=== PATIENT | female | born 1980 | race African-American/Black ===

== ENCOUNTER 2020-11-23 20:13 | Emergency (ER) | payer OTHER, MEDICAID, SELFPAY ==
--- NOTE | ~2020-11-23 | CT_ITS ---
EXAMINATION: CT ABDOMEN AND PELVIS WITH CONTRAST CLINICAL INFORMATION: Flank pain COMPARISON: None TECHNIQUE: Multidetector volumetric images were obtained from the superior aspect of the liver through the pubic symphysis following administration 85 mL of Omnipaque 350 intravenous contrast. Sagittal and coronal reformatted images were obtained on the technologist's workstation. Oral contrast: No This CT examination was performed using dose optimization techniques as appropriate, variously including the following: *Automated exposure control *Adjustment of mA and/or kV according to patient size (this includes techniques or standardized protocols for targeted exams where dose is matched to indication/reason for exam; i.e. extremities or head) *Use of iterative reconstruction technique DLP: 743 mGy-cm FINDINGS: LUNG BASES: The visualized lung bases are unremarkable. LIVER, GALLBLADDER, AND BILIARY TREE: The liver is normal in size, shape, and attenuation. No focal hepatic lesion or biliary ductal dilatation is present. The gallbladder is unremarkable with no evidence of radiopaque gallstones, gallbladder wall thickening, or obvious pericholecystic inflammatory changes. PANCREAS: Unremarkable. SPLEEN: Unremarkable. ADRENAL GLANDS: Unremarkable. KIDNEYS AND URETERS: There is suggestion of a subtle striated nephrographic appearance of the right kidney. No hydronephrosis, hydroureter, or obstructing calculi seen. No perinephric stranding. BLADDER: Unremarkable. GASTROINTESTINAL TRACT: Small hiatal hernia is noted. The small and large bowel are unremarkable. The appendix is unremarkable. No free fluid or free air is seen. ABDOMINAL WALL: No significant hernia is appreciated. LYMPH NODES: Normal. VASCULAR: Unremarkable. PELVIC VISCERA: IUD is present in the uterus. Prominent appearance of the bilateral ovaries, also noted on prior pelvic ultrasound 05/10/2019; per review of prior notes, patient reports history of polycystic ovarian syndrome. OSSEOUS STRUCTURES: There is degenerative disc disease at L5-S1. CT/CT abdomen pelvis w con IMPRESSION: Suggestion of subtle started nephrographic appearance of the right kidney; correlation with urinalysis is recommended to assess for pyelonephritis. No hydronephrosis or obstructing calculus.
[2020-11-23 20:19] VITALS: BP 141/90; PULSE 108; RESP 18; TEMP 37.1; O2SAT 97; BMI 36.6
--- NOTE | 2020-11-23 22:06 | ED_ITS ---
HPI - General Adult General Chief complaint: General Medical Stated complaint: Flank pain Time Seen by Provider: 11/23/20 22:02 Source: patient Mode of arrival: ambulatory History of Present Illness HPI narrative: This is a 40-year-old female with history of hypertension, diabetes, asthma presents with onset lower back discomfort that started this morning and thus she states that it is worse with deep inspiration without associated fevers, chills, nausea, vomiting, diarrhea, urinary pain/burning/frequency and states that the pain has now progressed to wrapping around into the anterior abdomen. She denies any traumatic injury to her back and states that although she does have back problems this does not feel like before and states that she now is experiencing discomfort when she exhales as well but denies any change in pain character when having a bowel movement this morning. Related Data Previous Rx's Medication Instructions Recorded cyclobenzaprine 10 mg PO BEDTIME PRN #3 tab 11/24/20 ketorolac 10 mg PO Q6H PRN 5 Days #20 tab 11/24/20 Allergies Allergy/AdvReac Type Severity Reaction Status Date / Time lisinopril [LISINOPRIL] Allergy Severe SHORTNESS Unverified 05/29/20 19:37 OF BREATH Review of Systems Review of Systems: Pertinent positives and negatives as stated in HPI 10 point review of systems is otherwise negative. PMFSH Past Medical History Source: nursing notes reviewed Medical History Asthma Diabetes High cholesterol Hypertension Mood disorder Social History Social History Alcohol intake: current Alcohol intake frequency: a few times a week Smoking Status: Never smoker Use of substances other than those prescribed or required for medical reasons: No Advance Directives: No Advance Directives Information Provided: No Physical Exam Vital Signs: Vital Signs: Last Vital Signs Temp 98.7 F 11/23/20 22:31 Pulse 101 H 11/23/20 22:31 Resp 18 11/23/20 22:31 BP 132/80 11/23/20 22:31 Pulse Ox 97 11/23/20 22:31 Body Mass Index 36.6 VITAL SIGNS: Reviewed. GENERAL: Well developed, well nourished, in no acute distress. HEAD: Normocephalic/atraumatic OROPHARYNX: no oral lesions noted, posterior pharynx clear NECK: Supple, no adenopathy LUNGS: Normal breath sounds. No adventitious sounds or accessory muscle use. SpO2<97> CARDIOVASCULAR: Regular rate and rhythm without noted murmurs ABDOMEN: Obese, Soft, tenderness across mid to left upper quadrant abdomen without rebound, non-distended with bowel sounds, no CVA tenderness BACK: No midline vertebral tenderness, but paraspinal tenderness on palpation SKIN: Inspection of the skin reveals no rashes, straight leg test negative NEUROLOGIC: Alert and oriented x 4. Course Course Course Narrative: This is a 40-year-old female with history and clinical presentation acute on chronic back pain, UTI, renal colic, pyelonephritis, diverticulitis, pancreatitis. Review of all investigations negative for acute findings other than noted hematuria that on CT scan does not appear to correlate with hydronephrosis nor evidence of a stone. On re-evaluation patient has had minimal improvement in her symptoms, and CT read as evaluation for possible pyelonephritis however patient has had no associated symptoms and history as well as labs are inconsistent with a pyelonephritis diagnosis. All results and findings were discussed with the patient at bedside and she was strongly encouraged to follow- up with her primary care provider in the morning for further evaluation. Will empirically address as acute on chronic back pain with muscle spasm. Medical Decision Making Lab Data Result diagrams: 11/23/20 22:43 11/23/20 22:43 Labs: Lab Results 11/23/20 11/23/20 11/23/20 Range/Units 22:43 22:43 22:43 WBC 8.7 (4.8-10.8) X10*3/uL RBC 4.24 (4.20-5.50) X10*6/uL Hgb 11.3 L (12.0-16.0) g/dl Hct 35.7 L (37-47) % MCV 84.2 (80-98) fL MCH 26.7 L (27.0-33.0) pg MCHC 31.7 (31.0-35.0) g/dl RDW 14.5 (11.0-16.0) % Plt Count 282 (160-400) X10*3/uL MPV 10.0 (9.4-12.3) fL Immature Gran % (Auto) 0.2 (0.0-0.4) % Neut % (Auto) 59.6 (45-73) % Lymph % (Auto) 27.1 (20-40) % [place] % (Auto) 10.8 (2-11) % Eos % (Auto) 2.1 (0-4) % Baso % (Auto) 0.2 (0-2) % Lymph # (Auto) 2.4 (1.2-4.9) X10*3/uL [place] # (Auto) 0.9 (0.1-1.2) X10*3/uL Eos # (Auto) 0.2 (0.0-0.4) X10*3/uL Baso # (Auto) 0.0 (0.0-0.2) X10*3/uL Abs Immat Gran (auto) 0.02 (0.00-0.03) X10*3/uL Absolute Neuts (auto) 5.2 (2.0-8.3) X10*3/uL Absolute Nucleated RBC 0.000 (0.0-0.012) X10*3/uL Nucleated RBC % (auto) 0.0 (0.0-0.2) /100WBC Sodium 137 (135-145) mmol/L Potassium 3.6 (3.3-5.1) mmol/L Chloride 97 (96-108) mmol/L Carbon Dioxide 30 H (22-29) mmol/L Anion Gap 14 (12-20) BUN 16 (9-16) mg/dL Creatinine 1.16 (0.5-1.4) mg/dL Estim Creat Clear Calc 68.2 Estimated GFR 52 Random Glucose 266 H (60-115) mg/dL Calcium 8.8 (8.4-10.2) mg/dL Total Bilirubin 0.5 (0.0-1.0) mg/dL AST 28 (5-31) U/L ALT 29 (0-31) U/L Alkaline Phosphatase 137 H (39-117) U/L Total Protein 7.2 (6.5-8.0) g/dL Albumin 3.8 (3.5-5.0) g/dL Urine Color YELLOW Urine Appearance CLEAR Urine pH 6.0 (5.0-8.0) Ur Specific [place] 1.020 (1.005-1.025) Urine Protein NEG (NEG-TRACE) MG/DL Urine Glucose (UA) 250 H (NEG) MG/DL Urine Ketones NEG (NEG) MG/DL Urine Blood 3+ H (NEG) Urine Nitrite NEG (NEG) Ur Leukocyte Esterase NEG (NEG) Urine RBC 5-9 H (0) /HPF Urine WBC 0 (0-4) /HPF Ur Squamous Epith Cells TRACE /LPF Urine Bacteria NONE /LPF Urine Test (NEGATIVE) 11/23/20 Range/Units 22:43 WBC (4.8-10.8) X10*3/uL RBC (4.20-5.50) X10*6/uL Hgb (12.0-16.0) g/dl Hct (37-47) % MCV (80-98) fL MCH (27.0-33.0) pg MCHC (31.0-35.0) g/dl RDW (11.0-16.0) % Plt Count (160-400) X10*3/uL MPV (9.4-12.3) fL Immature Gran % (Auto) (0.0-0.4) % Neut % (Auto) (45-73) % Lymph % (Auto) (20-40) % [place] % (Auto) (2-11) % Eos % (Auto) (0-4) % Baso % (Auto) (0-2) % Lymph # (Auto) (1.2-4.9) X10*3/uL [place] # (Auto) (0.1-1.2) X10*3/uL Eos # (Auto) (0.0-0.4) X10*3/uL Baso # (Auto) (0.0-0.2) X10*3/uL Abs Immat Gran (auto) (0.00-0.03) X10*3/uL Absolute Neuts (auto) (2.0-8.3) X10*3/uL Absolute Nucleated RBC (0.0-0.012) X10*3/uL Nucleated RBC % (auto) (0.0-0.2) /100WBC Sodium (135-145) mmol/L Potassium (3.3-5.1) mmol/L Chloride (96-108) mmol/L Carbon Dioxide (22-29) mmol/L Anion Gap (12-20) BUN (9-16) mg/dL Creatinine (0.5-1.4) mg/dL Estim Creat Clear Calc Estimated GFR Random Glucose (60-115) mg/dL Calcium (8.4-10.2) mg/dL Total Bilirubin (0.0-1.0) mg/dL AST (5-31) U/L ALT (0-31) U/L Alkaline Phosphatase (39-117) U/L Total Protein (6.5-8.0) g/dL Albumin (3.5-5.0) g/dL Urine Color Urine Appearance Urine pH (5.0-8.0) Ur Specific [place] (1.005-1.025) Urine Protein (NEG-TRACE) MG/DL Urine Glucose (UA) (NEG) MG/DL Urine Ketones (NEG) MG/DL Urine Blood (NEG) Urine Nitrite (NEG) Ur Leukocyte Esterase (NEG) Urine RBC (0) /HPF Urine WBC (0-4) /HPF Ur Squamous Epith Cells /LPF Urine Bacteria /LPF Urine Test NEGATIVE (NEGATIVE) Discharge Plan Discharge Clinical Impression: Back pain Qualifiers: Back pain location: low back pain Chronicity: acute Back pain laterality: bilateral Sciatica presence: without sciatica Qualified Code(s): M54.5 - Low back pain Patient Disposition: Home, Self-Care Instructions: Back Pain (ED), Lower Back Exercises (ED), Muscle Spasm (ED) Additional Instructions: 1. Tylenol 1000 mg, orally, every 6 hours as needed for pain control. Do not exceed 4000 mg within 24 hours. 2. Lidocaine patch, these are available in her B [facility] is/[facility] and should be apply to area of maximal tenderness as directed on the outside packaging. 3. Please follow-up with your primary care provider by calling the office 1st thing in the morning. Do not hesitate to return emergency room for any acute worsening of your symptoms. Prescriptions: New ketorolac 10 mg tablet 10 mg PO Q6H PRN (Reason: pain) 5 Days Qty: 20 RF: 0 cyclobenzaprine 10 mg tablet 10 mg PO BEDTIME PRN (Reason: muscle spasm) Qty: 3 RF: 0 Referrals: Alona Hamilton MD [Primary Care Provider] - 2 days (Re-evaluation after presentation for lower back pain and negative workup other than findings of hematuria and unusual right kidney nephrogram.)
[2020-11-23 22:31] VITALS: BP 132/80; PULSE 101; RESP 18; TEMP 37.1; O2SAT 97
[2020-11-23 22:57] LABS: MANUAL DIFF FLAG NO
[2020-11-23 23:01] LABS: Basophils Percent Auto 0.2 % (0-2); Eosinophils Absolute Auto 0.2 X10*3/uL (0.0-0.4); Eosinophils Percent Auto 2.1 % (0-4); Hematocrit 35.7 % (37-47); Hemoglobin 11.3 g/dl (12.0-16.0); Imm Gran Abs Auto 0.02 X10*3/uL (0.00-0.03); Imm Gran Pct Auto 0.2 % (0.0-0.4); Lymphocytes Absolute Auto 2.4 X10*3/uL (1.2-4.9); Lymphocytes Percent Auto 27.1 % (20-40); Mean Corpuscular HGB Conc 31.7 g/dl (31.0-35.0); Mean Corpuscular Hemoglobin 26.7 pg (27.0-33.0); Mean Corpuscular Volume 84.2 fL (80-98); Monocytes Absolute Auto 0.9 X10*3/uL (0.1-1.2); Monocytes Percent Auto 10.8 % (2-11); Neutrophils Absolute Auto 5.2 X10*3/uL (2.0-8.3); Neutrophils Percent Auto 59.6 % (45-73); Platelet Count 282 X10*3/uL (160-400); Red Blood Count 4.24 X10*6/uL (4.20-5.50); Red Cell Distribution Width 14.5 % (11.0-16.0); White Blood Count 8.7 X10*3/uL (4.8-10.8)
[2020-11-23 23:03] LABS: Glucose Urine UA 250 MG/DL (NEG); Leukocyte Esterase Urine NEG (NEG); Nitrite Urine NEG (NEG); Urine Blood 3+ (NEG); Urine Ketones NEG (NEG); Urine Protein NEG (NEG-TRACE)
[2020-11-23 23:05] LABS: Color Urine YELLOW
[2020-11-23] MEDS: Ketorolac Tromethamine 15 MG/ML VIAL IVPUSH (23:05)
[2020-11-23] MEDS: Lidocaine 4 % Patch ADH..PATCH 1 PATCH TRANSDERMA (23:05)
[2020-11-23 23:06] LABS: Appearance Urine CLEAR; UPreg QC Valid YES; Urine Pregnancy NEGATIVE (NEGATIVE)
[2020-11-23] MEDS: Acetaminophen 325 MG TABLET 975 MG PO (23:06)
[2020-11-23 23:12] LABS: Squamous Epithelial Cell Urine TRACE /LPF; WBC Urine 0 /HPF (0-4)
[2020-11-23 23:29] LABS: Alanine Aminotransferase 29 U/L (0-31); Albumin Level 3.8 g/dL (3.5-5.0); Alkaline Phosphatase 137 U/L (39-117); Anion Gap 14 (12-20); Aspartate Amino Transferase 28 U/L (5-31); Bilirubin Total 0.5 mg/dL (0.0-1.0); Blood Urea Nitrogen 16 mg/dL (9-16); Calcium 8.8 mg/dL (8.4-10.2); Carbon Dioxide 30 mmol/L (22-29); Chloride 97 mmol/L (96-108); Creatinine Clr Calc Pharmacy 68.2; Estimated Glomerular Filt Rate 52; Glucose Random 266 mg/dL (60-115); Potassium 3.6 mmol/L (3.3-5.1); Sodium 137 mmol/L (135-145); Total Protein 7.2 g/dL (6.5-8.0)
[2020-11-24] MEDS: 0.9 % Sodium Chloride 1,000 ML 999 ML IV (00:15)
== END 2020-11-24 02:06 | disposition home or self-care (01) ==
PROVIDERS: Emergency Provider Student in an Organized Health Care Education/Training Program; PCP Family Medicine
DX: M54.5 Low back pain (principal); M62.830 Muscle spasm of back; I10 Essential (primary) hypertension; E11.9 Type 2 diabetes mellitus without complications; J45.909 Unspecified asthma, uncomplicated
CPT/HCPCS: 36415; 74177; 80053; 81001; 81003; 81025; 85025; 96361; 96374; 99284; J1885; Q9967

== ENCOUNTER 2021-06-10 15:35 | Outpatient (REF) | payer OTHER, MEDICAID, SELFPAY ==
--- NOTE | ~2021-06-10 | MM_ITS ---
EXAMINATION: MM SCREENING DIGITAL BREAST TOMOSYNTHESIS, BILATERAL CLINICAL INFORMATION: Screening. Asymptomatic. The lifetime risk of breast cancer based on the Tyrer-Cuzick Model is 19.7%. COMPARISON: Mammography: 05/03/2019 (baseline) TECHNIQUE: Digital breast tomosynthesis is performed in both the craniocaudal and mediolateral oblique views along with computer-aided detection (CAD). Synthesized 2D images are generated from the tomosynthesis. FINDINGS: There are scattered areas of fibroglandular density (ACR BI-RADS breast composition Category b). There are no significant masses, abnormal calcifications, or other abnormalities. The axilla and skin contours are unremarkable. No significant changes from baseline exam. MM/MM tomosynthesis screening BI IMPRESSION: No mammographic evidence of malignancy. ASSESSMENT: BI-RADS 1: Negative RECOMMENDATION: Routine annual mammography screening. This patient's information was entered into a reminder system with a target due date for their next mammogram.
== END 2021-06-10 15:36 | disposition home or self-care (01) ==
LOC: HO.MAMMO 15:35
PROVIDERS: Visit Provider Family Medicine
DX: Z12.31 Encounter for screening mammogram for malignant neoplasm of breast (principal)
CPT/HCPCS: 77063; 77067

== ENCOUNTER 2021-12-01 14:50 | Outpatient (REF) | payer OTHER, SELFPAY ==
--- NOTE | ~2021-12-01 | XR_ITS ---
EXAMINATION: RIGHT SHOULDER AND CERVICAL SPINE CLINICAL INFORMATION: Cervical pain and right shoulder pain. COMPARISON: None TECHNIQUE: 6 views cervical spine 4 views right shoulder FINDINGS: CERVICAL SPINE: There is mild straightening of cervical lordosis. The vertebral heights and alignment is normal. The disc heights are normal. There is minimal ventral spondylosis C5-C6 disc level. The neural foramina are widely patent on oblique views. No visible acute fracture, dislocation or subluxation seen. RIGHT SHOULDER: There is mild loss of glenohumeral joint and AC joint space with lateral right acetabular and greater tuberosity enthesophyte spur. No visible acute fracture, dislocation or lytic process seen. XR/XR shoulder RT min 2V IMPRESSION: Mild degenerative changes right lateral joint with enthesophytes along the lateral acromion and greater tuberosity. Mild straightening of cervical lordosis with minimal ventral spondylosis C5-C6 disc level.
--- NOTE | ~2021-12-01 | XR_ITS ---
EXAMINATION: RIGHT SHOULDER AND CERVICAL SPINE CLINICAL INFORMATION: Cervical pain and right shoulder pain. COMPARISON: None TECHNIQUE: 6 views cervical spine 4 views right shoulder FINDINGS: CERVICAL SPINE: There is mild straightening of cervical lordosis. The vertebral heights and alignment is normal. The disc heights are normal. There is minimal ventral spondylosis C5-C6 disc level. The neural foramina are widely patent on oblique views. No visible acute fracture, dislocation or subluxation seen. RIGHT SHOULDER: There is mild loss of glenohumeral joint and AC joint space with lateral right acetabular and greater tuberosity enthesophyte spur. No visible acute fracture, dislocation or lytic process seen. XR/XR cervical spine 4V IMPRESSION: Mild degenerative changes right lateral joint with enthesophytes along the lateral acromion and greater tuberosity. Mild straightening of cervical lordosis with minimal ventral spondylosis C5-C6 disc level.
[2021-12-01 15:43] LABS: Hematocrit 38.5 % (37.0-47.0); Hemoglobin 12.2 g/dl (12.0-16.0); Mean Corpuscular HGB Conc 31.7 g/dl (31.0-35.0); Mean Corpuscular Hemoglobin 27.9 pg (27.0-33.0); Mean Corpuscular Volume 87.9 fL (80.0-98.0); Mean Platelet Volume 10.2 fL (9.4-12.3); Platelet Count 305 X10*3/uL (160-400); Red Blood Count 4.38 X10*6/uL (4.20-5.50); Red Cell Distribution Width 12.6 % (11.0-16.0)
[2021-12-01 16:03] LABS: Estimated Average Glucose 200 mg/dL; Hemoglobin A1c % 8.6 %
[2021-12-01 16:13] LABS: Alanine Aminotransferase 15 U/L (0-31); Albumin Level 4.3 g/dL (3.5-5.0); Alkaline Phosphatase 102 U/L (39-117); Anion Gap 15 (12-20); Aspartate Amino Transferase 14 U/L (5-31); Bilirubin Total 0.5 mg/dL (0.0-1.0); Blood Urea Nitrogen 12 mg/dL (9-16); Calcium 9.7 mg/dL (8.4-10.2); Carbon Dioxide 30 mmol/L (22-29); Chloride 99 mmol/L (96-108); Cholesterol 139 mg/dL; Estimated Glomerular Filt Rate > 60; Glucose Random 94 mg/dL (60-115); HDL Cholesterol 40 mg/dL; LDL Cholesterol Calculated 82 mg/dl; Potassium 3.7 mmol/L (3.3-5.1); Rheumatoid Factor < 15.0 IU/mL (<15.0); Sodium 140 mmol/L (135-145); Total Protein 7.7 g/dL (6.5-8.0); Triglycerides 88 mg/dL
[2021-12-01 16:21] LABS: Creatinine Urine 176.38 mg/dL; Microalbum/Creatinine Ratio Ur 83.3 ug/mg cr
[2021-12-01 16:22] LABS: Erythrocyte Sedimentation Rate 49 MM/HR (0-20)
[2021-12-01 16:33] LABS: TSH reflex Free T4 1.01 uIU/mL (0.32-4.0)
[2021-12-02 07:46] LABS: HIV AB/AG Nonreactive (Nonreactive); HIV Num 1 0.06 S/CO (0.00-0.99)
[2021-12-02 08:17] LABS: ~HepC Num1 0.15 S/CO (0.00-0.79); ~Hepatitis C Antibody Nonreactive (Nonreactive)
[2021-12-03 14:16] LABS: Vitamin D 25-OH Total 22.8 ng/mL (>30)
[2021-12-03 15:30] LABS: Anti Nuclear Antibody Screen NEGATIVE (NEGATIVE)
== END 2021-12-01 14:51 | disposition home or self-care (01) ==
LOC: HO.LAB 14:50
PROVIDERS: PCP Family Medicine; Visit Provider Family Medicine
DX: M25.511 Pain in right shoulder (principal); M54.2 Cervicalgia; M54.50 Low back pain, unspecified; E11.65 Type 2 diabetes mellitus with hyperglycemia; I10 Essential (primary) hypertension; Z11.3 Encounter for screening for infections with a predominantly sexual mode of transmission
CPT/HCPCS: 36415; 72050; 73030; 80053; 80061; 82043; 82306; 83036; 84443; 85027; 85652; 86038; 86039; 86431; 86803; 87389

== ENCOUNTER 2021-12-08 15:00 | Outpatient (RCR) | payer OTHER, SELFPAY | END 2022-04-08 16:35 | disposition home or self-care (01) | LOC: HO.PTCHIC 15:00 | PROVIDERS: PCP Family Medicine; Visit Provider Family Medicine | DX: M25.511 Pain in right shoulder (principal) | CPT/HCPCS: 97014; 97110; 97140; 97161 ==

== ENCOUNTER 2022-09-16 13:46 | Outpatient (REF) | payer OTHER, SELFPAY ==
--- NOTE | ~2022-09-16 | XR_ITS ---
EXAMINATION: XR CHEST CLINICAL INFORMATION: Persistent cough COMPARISON: Chest x-ray on 12/17/2019 TECHNIQUE: 2 views of the chest were obtained. FINDINGS: No significant abnormality is noted involving the heart, lungs, mediastinum, bony thorax or soft tissues. XR/XR chest 2V IMPRESSION: Unremarkable examination.
== END 2022-09-16 13:47 | disposition home or self-care (01) ==
LOC: HO.XRAY 13:46
PROVIDERS: PCP Family Medicine; Visit Provider Family Medicine
DX: U07.1 COVID-19 (principal); J45.21 Mild intermittent asthma with (acute) exacerbation
CPT/HCPCS: 71046

== ENCOUNTER 2022-12-10 16:58 | Outpatient (REF) | payer OTHER, SELFPAY ==
--- NOTE | ~2022-12-10 | XR_ITS ---
EXAMINATION: XR ELBOW, RIGHT CLINICAL INFORMATION: Atraumatic right elbow pain. COMPARISON: None available. TECHNIQUE: AP, lateral, and oblique views of the right elbow. FINDINGS: There is no evidence of acute fracture or dislocation of the right elbow. No right elbow effusion is noted. No significant soft tissue swelling is seen. No definite evidence of calcific epicondylitis noted. Joint spaces maintained. XR/XR elbow RT min 3V IMPRESSION: No significant right elbow abnormality identified.
== END 2022-12-10 16:59 | disposition home or self-care (01) ==
LOC: HO.XRAY 16:58
PROVIDERS: PCP Family Medicine; Visit Provider Emergency Medicine
DX: M25.521 Pain in right elbow (principal)
CPT/HCPCS: 73080

== ENCOUNTER 2023-01-03 14:46 | Inpatient (IN) | payer SELFPAY ==
--- NOTE | ~2023-01-03 | US_ITS ---
EXAMINATION: US VENOUS ULTRASOUND WITH DOPPLER LOWER EXTREMITY, BILATERAL CLINICAL INFORMATION: Bilateral lower extremity pain. COMPARISON: None available. TECHNIQUE: Ultrasound of the deep veins is performed from the hip to the calf with compression sonography and color and pulse Doppler assessment. Spectral analysis with color-flow imaging is performed. FINDINGS: RIGHT: There is normal venous compression and respiratory variation and augmented flow. The visualized common femoral vein, superficial femoral vein, profunda femoral vein, popliteal vein, and the trifurcation region shows no evidence of deep venous thrombosis. There is no significant popliteal fossa cyst. LEFT: There is normal venous compression and respiratory variation and augmented flow. The visualized common femoral vein, superficial femoral vein, profunda femoral vein, popliteal vein, and the trifurcation region shows no evidence of deep venous thrombosis. There is no significant popliteal fossa cyst. If the patient's symptoms persist, followup ultrasound in 5 days 7 days might be of value to exclude proximal propagation from a non-visualized calf vein. US/US venous duplex LE BI IMPRESSION: No DVT demonstrated in the bilateral lower extremities.
[2023-01-03 15:36] VITALS: BP 172/110; PULSE 118; RESP 20; TEMP 36.6; O2SAT 98; BMI 35.1
--- NOTE | 2023-01-03 15:37 | ED.PSYCH ---
HPI - Psych General Stated Complaint: crisis si Time Seen by Provider: 01/03/23 15:37 Source: patient Mode of arrival: ambulatory Limitations: no limitations History of Present Illness HPI Narrative: 42 yo female with history of DM, HTN, asthma who presents to the ER for evaluation of suicidal ideation. complaint: suicidal ideation and feels depressed Related Data Previous Rx's Medication Instructions Recorded cyclobenzaprine 10 mg tablet 10 mg PO BEDTIME PRN muscle spasm 11/24/20 #3 tabs ketorolac 10 mg tablet 10 mg PO Q6H PRN pain 5 days #20 11/24/20 tabs Allergies Allergy/AdvReac Type Severity Reaction Status Date / Time lisinopril [LISINOPRIL] Allergy Severe SHORTNESS Unverified 05/29/20 19:37 OF BREATH PMFSH Past Medical History Medical History Asthma Diabetes High cholesterol Hypertension Mood disorder Social History Social History Alcohol intake: current Alcohol intake frequency: a few times a week Discharge Plan Discharge Prescriptions: No Action ketorolac 10 mg tablet 10 mg PO Q6H PRN (Reason: pain) 5 Days Qty: 20 0RF Rx Instructions: Patient received IV Toradol in the emergency room. cyclobenzaprine 10 mg tablet 10 mg PO BEDTIME PRN (Reason: muscle spasm) Qty: 3 0RF
--- NOTE | 2023-01-03 15:49 | ECG_ITS ---
Test Reason : CHEST PAIN Blood Pressure : / mmHG Vent. Rate : 110 BPM Atrial Rate : 110 BPM P-R Int : 168 ms QRS Dur : 068 ms QT Int : 344 ms P-R-T Axes : 044 -26 038 degrees QTc Int : 465 ms Sinus tachycardia Otherwise normal ECG When compared with ECG of 28-OCT-2018 01:25, No significant changes seen Referred By: Yun Livingston Electronically Signed By:Winston Roberts
[2023-01-03 16:01] LABS: MANUAL DIFF FLAG NO
[2023-01-03 16:06] LABS: Basophils Percent Auto 0.5 % (0-2); Eosinophils Absolute Auto 0.1 X10*3/uL (0.0-0.4); Eosinophils Percent Auto 1.7 % (0-4); Hematocrit 40.1 % (37.0-47.0); Hemoglobin 13.2 g/dl (12.0-16.0); Imm Gran Abs Auto 0.01 X10*3/uL (0.00-0.03); Imm Gran Pct Auto 0.2 % (0.0-0.4); Lymphocytes Absolute Auto 2.8 X10*3/uL (1.2-4.9); Lymphocytes Percent Auto 46.9 % (20-40); Mean Corpuscular HGB Conc 32.9 g/dl (31.0-35.0); Mean Corpuscular Hemoglobin 28.6 pg (27.0-33.0); Mean Platelet Volume 10.2 fL (9.4-12.3); Monocytes Absolute Auto 0.5 X10*3/uL (0.1-1.2); Monocytes Percent Auto 7.6 % (2-11); Neutrophils Absolute Auto 2.6 x10*3/uL (2.0-8.3); Neutrophils Percent Auto 43.1 % (45-73); Platelet Count 323 X10*3/uL (160-400); Red Blood Count 4.61 X10*6/uL (4.20-5.50); Red Cell Distribution Width 12.8 % (11.0-16.0)
--- NOTE | 2023-01-03 16:19 | ED_ITS ---
HPI - Psych General Chief Complaint: Psychiatric Symptoms <HOLLEY Bonilla - Last Filed: 01/03/23 20:48> Stated Complaint: crisis si <HOLLEY Bonilla - Last Filed: 01/03/23 20:48> Time Seen by Provider: 01/03/23 15:37 <HOLLEY Bonilla - Last Filed: 01/03/23 20:48> Source: patient <HOLLEY Bonilla - Last Filed: 01/03/23 20:48> Mode of arrival: ambulatory <HOLLEY Bonilla Last Filed: 01/03/23 20:48> Limitations: no limitations <HOLLEY Bonilla Last Filed: 01/03/23 20:48> History of Present Illness HPI Narrative: 42 year old F with PMH of asthma, HTN, hyperlipidemia, mood disorder and type 2 diabetes presents to the ED with anxiety and suicidal ideation for a few days, worsening due to increasing life stressors. Denies visual, auditory and auditory hallucinations. Denies any drug, alcohol or tobacco use. Patient does report suicidal ideation without a particular plan, however, denies homicidal ideation. Patient does additionally endorse generalized tremor with panic attacks and palpitations when she becomes anxious. Denies any other medical complaints at this time. <HOLLEY Bonilla Last Filed: 01/03/23 20:48> Related Data Home Medications: Home Medications Medication Instructions Recorded Confirmed amlodipine 10 mg tablet 10 mg PO DAILY 01/03/23 01/03/23 escitalopram oxalate 20 mg tablet 20 mg PO DAILY 01/03/23 01/03/23 hydrochlorothiazide 25 mg tablet 25 mg PO DAILY 01/03/23 01/03/23 lamotrigine 150 mg tablet 150 mg PO BID 01/03/23 01/03/23 metformin 500 mg tablet 1,000 mg PO BID 01/03/23 01/03/23 omeprazole 20 mg capsule,delayed 20 mg PO DAILY 01/03/23 01/03/23 release quetiapine 100 mg tablet 100 mg PO BEDTIME 01/03/23 01/03/23 rosuvastatin 20 mg tablet 20 mg PO BEDTIME 01/03/23 01/03/23 valsartan 160 mg tablet 160 mg PO DAILY 01/03/23 01/03/23 <HOLLEY Bonilla - Last Filed: 01/03/23 20:48> Allergies/Adverse Reactions: Allergies Allergy/AdvReac Type Severity Reaction Status Date / Time lisinopril [LISINOPRIL] Allergy Severe SHORTNESS Unverified 05/29/20 19:37 OF BREATH <HOLLEY Bonilla - Last Filed: 01/03/23 20:48> Review of Systems Review of Systems: Constitutional : No Fever, No Chills ENT/Mouth : No Ear Pain, No Nasal Congestion, No sore throat Eyes: No Eye Pain, No Swelling, No Redness Cardiovascular : No Chest Pain, No SOB Respiratory : No Cough, No Sputum, No Dyspnea Gastrointestinal : No Nausea, No Vomiting, No Diarrhea, No Hematochezia, No Melena Genitourinary : No Dysuria, No Urinary Frequency, No Hematuria Musculoskeletal : No Myalgias Skin : No Skin Lesions, No rash Neuro : No Weakness, No Numbness, No Paresthesias, No Dizziness, No Headache Psych : positive Anxiety, positive Depression, positive SI, no HI All other systems reviewed and are negative <HOLLEY Bonilla - Last Filed: 01/03/23 20:48> Yes all other systems are reviewed and are negative <HOLLEY Bonilla Last Filed: 01/03/23 20:48> [facility] Past Medical History Attestation statement: The following information was validated with the patient. <HOLLEY Bonilla - Last Filed: 01/03/23 20:48> Source: old records reviewed and nursing notes reviewed <HOLLEY Bonilla - Last Filed: 01/03/23 20:48> Medical History: Medical History Asthma Diabetes High cholesterol Hypertension Mood disorder <HOLLEY Bonilla Last Filed: 01/03/23 20:48> Social History Social History: Social History Alcohol intake: current Alcohol intake frequency: a few times a week Advance Directives: No Advance Directives Information Provided: No Healthcare Proxy: No Guardian: No <HOLLEY Bonilla - Last Filed: 01/03/23 20:48> Physical Exam Vital Signs: Vital Signs: Last Vital Signs Temp 98.3 F 01/04/23 06:33 Pulse 98 01/04/23 06:33 Resp 18 01/04/23 06:33 BP 150/94 H 01/04/23 06:33 Pulse Ox 98 01/04/23 06:33 O2 Del Method Room Air 01/04/23 06:33 BMI result Body Mass Index 35.1 Hypertension and tachycardia, likely secondary to anxiety <HOLLEY Bonilla - Last Filed: 01/03/23 20:48> Vital Signs: Last Vital Signs Temp 98.3 F 01/04/23 06:33 Pulse 98 01/04/23 06:33 Resp 18 01/04/23 06:33 BP 150/94 H 01/04/23 06:33 Pulse Ox 98 01/04/23 06:33 O2 Del Method Room Air 01/04/23 06:33 BMI result Body Mass Index 35.1 <Deepali Rubio MD - Last Filed: 01/04/23 07:13> Appearance: Alert.? Oriented X3.? No acute distress.? Head: Normocephalic, atraumatic, no step-offs or deformities CVS: Rapid regular rhythm, rate around 110, likely sinus tachycardia Pulses normal.? Respiratory: No respiratory distress.? Breath sounds normal.? Abdomen: Soft and nontender.? Skin: Skin warm and dry.? Normal skin color.? Normal skin turgor.? Extremities: No lower extremity edema.? No calf ttp. 5/5 strength to bilateral upper and lower extremities Neuro: Oriented X 3.? No motor deficit.? No sensory deficit. CN 2-12 intact <HOLLEY Bonilla - Last Filed: 01/03/23 20:48> Course Reevaluation(s) Reevaluation #1: CBC within normal limits. Chemistry with no acute findings requiring inte rvention. Troponin pending, EKG nonischemic unlikely ACS. Ethanol negative. COVID negative. Urine toxicology and UA pending. This time patient to be placed into observation to allow more time to be evaluated by the behavioral health team. At time observation was started patient common cooperative no acute distress will continue to monitor. <HOLLEY Bonilla - Last Filed: 01/03/23 20:48> Time: 16:56 <HOLLEY Bonilla - Last Filed: 01/03/23 20:48> Reevaluation #2: Patient's blood pressure improved <HOLLEY Bonilla - Last Filed: 01/03/23 20:48> Reevaluation #3: Continue physician observation, is a patient who presents with complaints of suicidal ideation, she has been evaluated by the care team and is currently Section 12 inpatient bed search, no acute events overnight, no meds to sign off on this morning. <Deepali Rubio MD - Last Filed: 01/04/23 07:13> Time: 07:07 <Deepali Rubio MD - Last Filed: 01/04/23 07:13> Medications Administered Generic Name Dose Route Start Last Admin Trade Name Freq PRN Reason Stop Dose Admin Atorvastatin Calcium 80 mg 01/03/23 21:00 01/03/23 21:04 Atorvastatin Calcium 80 Mg Tablet PO 80 mg BEDTIME JIM Administration Lamotrigine 150 mg 01/03/23 21:00 01/03/23 21:04 Lamotrigine 25 Mg Tablet PO 150 mg BID JIM Administration Metformin HCl 1,000 mg 01/03/23 21:00 01/03/23 21:04 Metformin Hcl 1,000 Mg Tablet PO 1,000 mg BID JIM Administration Quetiapine Fumarate 100 mg 01/03/23 21:00 01/03/23 21:04 Quetiapine Fumarate 100 Mg Tablet PO 100 mg BEDTIME JIM Administration Discontinued Medications Generic Name Dose Route Start Last Admin Trade Name Freq PRN Reason Stop Dose Admin Amlodipine Besylate 10 mg 01/03/23 18:58 01/03/23 19:22 Amlodipine Besylate 10 Mg Tablet PO 01/03/23 18:59 10 mg ONCE ONE Administration Protocol Diphenhydramine HCl 50 mg 01/03/23 16:18 01/03/23 16:35 Diphenhydramine Hcl 25 Mg Capsule PO 01/03/23 16:19 50 mg ONCE ONE Administration Lorazepam 2 mg 01/03/23 16:18 01/03/23 16:35 Lorazepam 1 Mg Tablet PO 01/03/23 16:19 2 mg ONCE ONE Administration <HOLLEY Bonilla - Last Filed: 01/03/23 20:48> Medications Administered Generic Name Dose Route Start Last Admin Trade Name Freq PRN Reason Stop Dose Admin Atorvastatin Calcium 80 mg 01/03/23 21:00 01/03/23 21:04 Atorvastatin Calcium 80 Mg Tablet PO 80 mg BEDTIME JIM Administration Lamotrigine 150 mg 01/03/23 21:00 01/03/23 21:04 Lamotrigine 25 Mg Tablet PO 150 mg BID JIM Administration Metformin HCl 1,000 mg 01/03/23 21:00 01/03/23 21:04 Metformin Hcl 1,000 Mg Tablet PO 1,000 mg BID JIM Administration Quetiapine Fumarate 100 mg 01/03/23 21:00 01/03/23 21:04 Quetiapine Fumarate 100 Mg Tablet PO 100 mg BEDTIME JIM Administration Discontinued Medications Generic Name Dose Route Start Last Admin Trade Name Freq PRN Reason Stop Dose Admin Amlodipine Besylate 10 mg 01/03/23 18:58 01/03/23 19:22 Amlodipine Besylate 10 Mg Tablet PO 01/03/23 18:59 10 mg ONCE ONE Administration Protocol Diphenhydramine HCl 50 mg 01/03/23 16:18 01/03/23 16:35 Diphenhydramine Hcl 25 Mg Capsule PO 01/03/23 16:19 50 mg ONCE ONE Administration Lorazepam 2 mg 01/03/23 16:18 01/03/23 16:35 Lorazepam 1 Mg Tablet PO 01/03/23 16:19 2 mg ONCE ONE Administration <Deepali Rubio MD - Last Filed: 01/04/23 07:13> Medical Decision Making Medical Decision Making [facility] Narrative: 1620 42 year old F presents with anxiety, panic and suicidal ideation without plan. Also reporting intermittent tremors and tachycardia with panic attacks. PE- w/ rapid regular rhythm likle sinus tach Tachycardia and hypertension likely secondary to acute panic/anxiety attack. No chest pain or shortness of breath unlikely that this is PE/ACS. Will obtain EKG to rule out dysrhythmia however. This is most likely acute panic/anxiety versus mood disorder versus depression and anxiety. Unlikely schizophrenia or bipolar disorder. Plan medical clearance evaluation by behavioral health team <HOLLEY Bonilla - Last Filed: 01/03/23 20:48> Differential Diagnosis Differential Diagnoses: The differential diagnosis associated with the presentation includes <HOLLEY Bonilla - Last Filed: 01/03/23 20:48> Tachycardia and hypertension likely secondary to acute panic/anxiety attack. No chest pain or shortness of breath unlikely that this is PE/ACS. Will obtain EKG to rule out dysrhythmia however. This is most likely acute panic/anxiety versus mood disorder versus depression and anxiety. Unlikely schizophrenia or bipolar disorder. <HOLLEY Bonilla - Last Filed: 01/03/23 20:48> Admission/Observation Consideration of admission/observation: Escalation of care including admission/observation considered <HOLLEY Bonilla - Last Filed: 01/03/23 20:48> bijalley <HOLLEY Bonilla - Last Filed: 01/03/23 20:48> Consult Healthcare Provider Management of the patient was discussed with: Behavioral Health Provider <HOLLEY Bonilla - Last Filed: 01/03/23 20:48> Lab Data MDM Lab Attestation statement: I reviewed the patient's lab results. <HOLLEY Bonilla - Last Filed: 01/03/23 20:48> Result Diagrams: 01/03/23 15:54 01/03/23 15:54 <HOLLEY Bonilla - Last Filed: 01/03/23 20:48> Labs: Lab Results 01/03/23 01/03/23 01/03/23 Range/Units 15:54 15:54 15:54 WBC 6.0 (4.8-10.8) X10*3/uL RBC 4.61 (4.20-5.50) X10*6/uL Hgb 13.2 (12.0-16.0) g/dl Hct 40.1 (37.0-47.0) % MCV 87.0 (80.0-98.0) fL MCH 28.6 (27.0-33.0) pg MCHC 32.9 (31.0-35.0) g/dl RDW 12.8 (11.0-16.0) % Plt Count 323 (160-400) X10*3/uL MPV 10.2 (9.4-12.3) fL Immature Gran % (Auto) 0.2 (0.0-0.4) % Neut % (Auto) 43.1 L (45-73) % Lymph % (Auto) 46.9 H (20-40) % [place] % (Auto) 7.6 (2-11) % Eos % (Auto) 1.7 (0-4) % Baso % (Auto) 0.5 (0-2) % Lymph # (Auto) 2.8 (1.2-4.9) X10*3/uL [place] # (Auto) 0.5 (0.1-1.2) X10*3/uL Eos # (Auto) 0.1 (0.0-0.4) X10*3/uL Baso # (Auto) 0.0 (0.0-0.2) X10*3/uL Abs Immat Gran (auto) 0.01 (0.00-0.03) X10*3/uL Absolute Neuts (auto) 2.6 (2.0-8.3) x10*3/uL Absolute Nucleated RBC 0.000 (0.0-0.012) X10*3/uL Nucleated RBC % (auto) 0.0 (0.0-0.2) /100WBC Sodium 142 (135-145) mmol/L Potassium 3.5 (3.3-5.1) mmol/L Chloride 106 (96-108) mmol/L Carbon Dioxide 27 (22-29) mmol/L Anion Gap 13 (12-20) BUN 14 (9-16) mg/dL Creatinine 1.05 (0.5-1.4) mg/dL Estim Creat Clear Calc 72.2 Estimated GFR 58 Random Glucose 178 H (60-115) mg/dL Calcium 8.9 D (8.4-10.2) mg/dL Magnesium 1.8 (1.6-2.6) mg/dL Total Bilirubin 0.9 (0.0-1.0) mg/dL Direct Bilirubin 0.2 (0.0-0.5) mg/dL AST 31 (5-31) U/L ALT 35 H (0-31) U/L Alkaline Phosphatase 98 (39-117) U/L Troponin I High Sens (<3.5-17.0) ng/L Total Protein 7.0 (6.5-8.0) g/dL Albumin 3.9 (3.5-5.0) g/dL Urine Color Urine Appearance Urine pH (5.0-9.0) Ur Specific [place] (1.005-1.025) Urine Protein (Neg-Trace) mg/dL Urine Glucose (UA) (Negative) mg/dL Urine Ketones (Negative) mg/dL Urine Blood (Negative) Urine Nitrite (Negative) Ur Leukocyte Esterase (Negative) Urine RBC (0-2) /HPF Urine WBC (0-5) /HPF Ur Squamous Epith Cells (0-2) /HPF Urine Bacteria (None Seen) Hyaline Casts (0-2) /LPF Salicylates < 5.0 L (15-30) mg/dL Urine Opiates Screen (Not Detect) Urine Fentanyl Screen (Not Detect) Acetaminophen < 17 (<30) mcg/mL Ur Barbiturates Screen (Not Detect) Ur Phencyclidine Scrn (Not Detect) Ur Amphetamines Screen (Not Detect) U Benzodiazepines Scrn (Not Detect) Urine Cocaine Screen (Not Detect) U Marijuana (THC) Screen (Not Detect) Ethyl Alcohol < 10 mg/dL COVID-19 (ALLAN) Negative (Negative) COVID-19 Clin Com See Note 01/03/23 01/03/23 01/03/23 Range/Units 16:49 19:38 19:38 WBC (4.8-10.8) X10*3/uL RBC (4.20-5.50) X10*6/uL Hgb (12.0-16.0) g/dl Hct (37.0-47.0) % MCV (80.0-98.0) fL MCH (27.0-33.0) pg MCHC (31.0-35.0) g/dl RDW (11.0-16.0) % Plt Count (160-400) X10*3/uL MPV (9.4-12.3) fL Immature Gran % (Auto) (0.0-0.4) % Neut % (Auto) (45-73) % Lymph % (Auto) (20-40) % [place] % (Auto) (2-11) % Eos % (Auto) (0-4) % Baso % (Auto) (0-2) % Lymph # (Auto) (1.2-4.9) X10*3/uL [place] # (Auto) (0.1-1.2) X10*3/uL Eos # (Auto) (0.0-0.4) X10*3/uL Baso # (Auto) (0.0-0.2) X10*3/uL Abs Immat Gran (auto) (0.00-0.03) X10*3/uL Absolute Neuts (auto) (2.0-8.3) x10*3/uL Absolute Nucleated RBC (0.0-0.012) X10*3/uL Nucleated RBC % (auto) (0.0-0.2) /100WBC Sodium (135-145) mmol/L Potassium (3.3-5.1) mmol/L Chloride (96-108) mmol/L Carbon Dioxide (22-29) mmol/L Anion Gap (12-20) BUN (9-16) mg/dL Creatinine (0.5-1.4) mg/dL Estim Creat Clear Calc Estimated GFR Random Glucose (60-115) mg/dL Calcium (8.4-10.2) mg/dL Magnesium (1.6-2.6) mg/dL Total Bilirubin (0.0-1.0) mg/dL Direct Bilirubin (0.0-0.5) mg/dL AST (5-31) U/L ALT (0-31) U/L Alkaline Phosphatase (39-117) U/L Troponin I High Sens < 2.7 (<3.5-17.0) ng/L Total Protein (6.5-8.0) g/dL Albumin (3.5-5.0) g/dL Urine Color Dark Yellow Urine Appearance Clear Urine pH 6.0 (5.0-9.0) Ur Specific [place] >= 1.030 H (1.005-1.025) Urine Protein 100 (2+) H (Neg-Trace) mg/dL Urine Glucose (UA) 250 H (Negative) mg/dL Urine Ketones Trace (Negative) mg/dL Urine Blood Large (3+) H (Negative) Urine Nitrite Negative (Negative) Ur Leukocyte Esterase Negative (Negative) Urine RBC 11-20 H (0-2) /HPF Urine WBC 0-5 (0-5) /HPF Ur Squamous Epith Cells 6-10 (0-2) /HPF Urine Bacteria Trace (None Seen) Hyaline Casts 3-5 (0-2) /LPF Salicylates (15-30) mg/dL Urine Opiates Screen Not Detected (Not Detect) Urine Fentanyl Screen Not Detected (Not Detect) Acetaminophen (<30) mcg/mL Ur Barbiturates Screen Not Detected (Not Detect) Ur Phencyclidine Scrn Not Detected (Not Detect) Ur Amphetamines Screen Not Detected (Not Detect) U Benzodiazepines Scrn Not Detected (Not Detect) Urine Cocaine Screen Not Detected (Not Detect) U Marijuana (THC) Screen POSITIVE H (Not Detect) Ethyl Alcohol mg/dL COVID-19 (ALLAN) (Negative) COVID-19 Clin Com <HOLLEY Bonilla - Last Filed: 01/03/23 20:48> Lab Results 01/03/23 01/03/23 01/03/23 Range/Units 15:54 15:54 15:54 WBC 6.0 (4.8-10.8) X10*3/uL RBC 4.61 (4.20-5.50) X10*6/uL Hgb 13.2 (12.0-16.0) g/dl Hct 40.1 (37.0-47.0) % MCV 87.0 (80.0-98.0) fL MCH 28.6 (27.0-33.0) pg MCHC 32.9 (31.0-35.0) g/dl RDW 12.8 (11.0-16.0) % Plt Count 323 (160-400) X10*3/uL MPV 10.2 (9.4-12.3) fL Immature Gran % (Auto) 0.2 (0.0-0.4) % Neut % (Auto) 43.1 L (45-73) % Lymph % (Auto) 46.9 H (20-40) % [place] % (Auto) 7.6 (2-11) % Eos % (Auto) 1.7 (0-4) % Baso % (Auto) 0.5 (0-2) % Lymph # (Auto) 2.8 (1.2-4.9) X10*3/uL [place] # (Auto) 0.5 (0.1-1.2) X10*3/uL Eos # (Auto) 0.1 (0.0-0.4) X10*3/uL Baso # (Auto) 0.0 (0.0-0.2) X10*3/uL Abs Immat Gran (auto) 0.01 (0.00-0.03) X10*3/uL Absolute Neuts (auto) 2.6 (2.0-8.3) x10*3/uL Absolute Nucleated RBC 0.000 (0.0-0.012) X10*3/uL Nucleated RBC % (auto) 0.0 (0.0-0.2) /100WBC Sodium 142 (135-145) mmol/L Potassium 3.5 (3.3-5.1) mmol/L Chloride 106 (96-108) mmol/L Carbon Dioxide 27 (22-29) mmol/L Anion Gap 13 (12-20) BUN 14 (9-16) mg/dL Creatinine 1.05 (0.5-1.4) mg/dL Estim Creat Clear Calc 72.2 Estimated GFR 58 Random Glucose 178 H (60-115) mg/dL Calcium 8.9 D (8.4-10.2) mg/dL Magnesium 1.8 (1.6-2.6) mg/dL Total Bilirubin 0.9 (0.0-1.0) mg/dL Direct Bilirubin 0.2 (0.0-0.5) mg/dL AST 31 (5-31) U/L ALT 35 H (0-31) U/L Alkaline Phosphatase 98 (39-117) U/L Troponin I High Sens (<3.5-17.0) ng/L Total Protein 7.0 (6.5-8.0) g/dL Albumin 3.9 (3.5-5.0) g/dL Urine Color Urine Appearance Urine pH (5.0-9.0) Ur Specific [place] (1.005-1.025) Urine Protein (Neg-Trace) mg/dL Urine Glucose (UA) (Negative) mg/dL Urine Ketones (Negative) mg/dL Urine Blood (Negative) Urine Nitrite (Negative) Ur Leukocyte Esterase (Negative) Urine RBC (0-2) /HPF Urine WBC (0-5) /HPF Ur Squamous Epith Cells (0-2) /HPF Urine Bacteria (None Seen) Hyaline Casts (0-2) /LPF Salicylates < 5.0 L (15-30) mg/dL Urine Opiates Screen (Not Detect) Urine Fentanyl Screen (Not Detect) Acetaminophen < 17 (<30) mcg/mL Ur Barbiturates Screen (Not Detect) Ur Phencyclidine Scrn (Not Detect) Ur Amphetamines Screen (Not Detect) U Benzodiazepines Scrn (Not Detect) Urine Cocaine Screen (Not Detect) U Marijuana (THC) Screen (Not Detect) Ethyl Alcohol < 10 mg/dL COVID-19 (ALLAN) Negative (Negative) COVID-19 Clin Com See Note 01/03/23 01/03/23 01/03/23 Range/Units 16:49 19:38 19:38 WBC (4.8-10.8) X10*3/uL RBC (4.20-5.50) X10*6/uL Hgb (12.0-16.0) g/dl Hct (37.0-47.0) % MCV (80.0-98.0) fL MCH (27.0-33.0) pg MCHC (31.0-35.0) g/dl RDW (11.0-16.0) % Plt Count (160-400) X10*3/uL MPV (9.4-12.3) fL Immature Gran % (Auto) (0.0-0.4) % Neut % (Auto) (45-73) % Lymph % (Auto) (20-40) % [place] % (Auto) (2-11) % Eos % (Auto) (0-4) % Baso % (Auto) (0-2) % Lymph # (Auto) (1.2-4.9) X10*3/uL [place] # (Auto) (0.1-1.2) X10*3/uL Eos # (Auto) (0.0-0.4) X10*3/uL Baso # (Auto) (0.0-0.2) X10*3/uL Abs Immat Gran (auto) (0.00-0.03) X10*3/uL Absolute Neuts (auto) (2.0-8.3) x10*3/uL Absolute Nucleated RBC (0.0-0.012) X10*3/uL Nucleated RBC % (auto) (0.0-0.2) /100WBC Sodium (135-145) mmol/L Potassium (3.3-5.1) mmol/L Chloride (96-108) mmol/L Carbon Dioxide (22-29) mmol/L Anion Gap (12-20) BUN (9-16) mg/dL Creatinine (0.5-1.4) mg/dL Estim Creat Clear Calc Estimated GFR Random Glucose (60-115) mg/dL Calcium (8.4-10.2) mg/dL Magnesium (1.6-2.6) mg/dL Total Bilirubin (0.0-1.0) mg/dL Direct Bilirubin (0.0-0.5) mg/dL AST (5-31) U/L ALT (0-31) U/L Alkaline Phosphatase (39-117) U/L Troponin I High Sens < 2.7 (<3.5-17.0) ng/L Total Protein (6.5-8.0) g/dL Albumin (3.5-5.0) g/dL Urine Color Dark Yellow Urine Appearance Clear Urine pH 6.0 (5.0-9.0) Ur Specific [place] >= 1.030 H (1.005-1.025) Urine Protein 100 (2+) H (Neg-Trace) mg/dL Urine Glucose (UA) 250 H (Negative) mg/dL Urine Ketones Trace (Negative) mg/dL Urine Blood Large (3+) H (Negative) Urine Nitrite Negative (Negative) Ur Leukocyte Esterase Negative (Negative) Urine RBC 11-20 H (0-2) /HPF Urine WBC 0-5 (0-5) /HPF Ur Squamous Epith Cells 6-10 (0-2) /HPF Urine Bacteria Trace (None Seen) Hyaline Casts 3-5 (0-2) /LPF Salicylates (15-30) mg/dL Urine Opiates Screen Not Detected (Not Detect) Urine Fentanyl Screen Not Detected (Not Detect) Acetaminophen (<30) mcg/mL Ur Barbiturates Screen Not Detected (Not Detect) Ur Phencyclidine Scrn Not Detected (Not Detect) Ur Amphetamines Screen Not Detected (Not Detect) U Benzodiazepines Scrn Not Detected (Not Detect) Urine Cocaine Screen Not Detected (Not Detect) U Marijuana (THC) Screen POSITIVE H (Not Detect) Ethyl Alcohol mg/dL COVID-19 (ALLAN) (Negative) COVID-19 Clin Com <Deepali Rubio MD - Last Filed: 01/04/23 07:13> Independent Interpretation I performed an independent interpretation of an: EKG (Ventricular rate of 110, LA normal, QRS normal, QT/QTC normal. EKG with sinus tachycardia with fusion complexes no ST elevations or inversions concerning for ischemia) <HOLLEY Bonilla - Last Filed: 01/03/23 20:48> Radiology Impression Discussion of test interpretation with radiology: I have reviewed the radiologist's reading. <HOLLEY Bonilla - Last Filed: 01/03/23 20:48> External Record Review External record reviewed: Inpatient record, Office record, Outpatient record, Prior outpatient labs, Prior outpatient radiology, Primary care record and Outside ED record <HOLLEY Bonilla - Last Filed: 01/03/23 20:48> Core Measures AMI core measures followed: Yes <HOLLEY Bonilla - Last Filed: 01/03/23 20:48> Measure exclusions: not indicated <OHLLEY Bonilla - Last Filed: 01/03/23 20:48> Critical Care Time Critical Care Time Critical Care Time: No <HOLLEY Bonilla - Last Filed: 01/03/23 20:48> Discharge Plan Discharge Clinical Impression: Depression, Acute anxiety, Suicidal ideation <HOLLEY Bonilla - Last Filed: 01/03/23 20:48> Patient Disposition: Still a Patient <HOLLEY Bonilla - Last Filed: 01/03/23 20:48> Prescriptions: No Action lamotrigine 150 mg tablet 150 mg PO BID metformin 500 mg tablet 1,000 mg PO BID quetiapine 100 mg tablet 100 mg PO BEDTIME amlodipine 10 mg tablet 10 mg PO DAILY omeprazole 20 mg capsule,delayed release(DR/EC) 20 mg PO DAILY hydrochlorothiazide 25 mg tablet 25 mg PO DAILY valsartan 160 mg tablet 160 mg PO DAILY escitalopram oxalate 20 mg tablet 20 mg PO DAILY rosuvastatin 20 mg tablet 20 mg PO BEDTIME <HOLLEY Bonilla - Last Filed: 01/03/23 20:48> Interventions: [place]-Suicide Risk Severity Scale Last Done: 01/04/23 06:11 <HOLLEY Bonilla - Last Filed: 01/03/23 20:48>
[2023-01-03 16:23] LABS: COVID-19 Test Negative (Negative); IDNOW Serial# 08D9AD1C
[2023-01-03 16:26] LABS: Alanine Aminotransferase 35 U/L (0-31); Albumin Level 3.9 g/dL (3.5-5.0); Alkaline Phosphatase 98 U/L (39-117); Anion Gap 13 (12-20); Aspartate Amino Transferase 31 U/L (5-31); Bilirubin Direct 0.2 mg/dL (0.0-0.5); Bilirubin Total 0.9 mg/dL (0.0-1.0); Blood Urea Nitrogen 14 mg/dL (9-16); Calcium 8.9 mg/dL (8.4-10.2); Carbon Dioxide 27 mmol/L (22-29); Chloride 106 mmol/L (96-108); Creatinine Clr Calc Pharmacy 72.2; Estimated Glomerular Filt Rate 58; Ethanol < 10 mg/dL; Glucose Random 178 mg/dL (60-115); Magnesium 1.8 mg/dL (1.6-2.6); Potassium 3.5 mmol/L (3.3-5.1); Sodium 142 mmol/L (135-145)
[2023-01-03] MEDS: LORazepam 1 MG TABLET 2 MG PO (16:35)
[2023-01-03] MEDS: diphenhydrAMINE HCL 25 MG CAPSULE 50 MG PO (16:35)
[2023-01-03 17:19] LABS: Troponin-I High Sensitivity < 2.7 ng/L (<3.5-17.0)
[2023-01-03 17:41] VITALS: RESP 16
[2023-01-03 17:41] LABS: Acetaminophen LAB < 17 mcg/mL (<30); Salicylate < 5.0 mg/dL (15-30)
[2023-01-03 18:20] VITALS: BP 158/107; PULSE 92; O2SAT 99
[2023-01-03] MEDS: amLODIPine Besylate 10 MG TABLET PO (19:22)
[2023-01-03 19:49] LABS: Appearance Urine Clear; Color Urine Dark Yellow; Glucose Urine UA 250 mg/dL (Negative); Leukocyte Esterase Urine Negative (Negative); Nitrite Urine Negative (Negative); Specific Gravity - Urine >= 1.030 (1.005-1.025); UMIC TRIGGER UACC YES; Urine Blood Large (3+) (Negative); Urine Ketones Trace mg/dL (Negative); Urine Protein 100 (2+) mg/dL (Neg-Trace)
[2023-01-03 19:54] LABS: Bacteria Urine Trace (None Seen); WBC Urine 0-5 /HPF (0-5)
[2023-01-03 20:01] LABS: Amphetamine Screen Urine Not Detected (Not Detect); Barbiturates, Urine Not Detected (Not Detect); Benzodiazepines Screen Urine Not Detected (Not Detect); Cannabinoid Screen Urine POSITIVE (Not Detect); Cocaine Screen Urine Not Detected (Not Detect); Fentanyl, urine Not Detected (Not Detect); Opiate Screen Urine Not Detected (Not Detect); Phencyclidine Screen Urine Not Detected (Not Detect)
[2023-01-03 20:27] VITALS: BP 156/95; PULSE 99; RESP 17; TEMP 36.3; O2SAT 98
[2023-01-03] MEDS: Atorvastatin Calcium 80 MG TABLET PO (21:04)
[2023-01-03] MEDS: metFORMIN HCl 1,000 MG TABLET 1000 MG PO (21:04)
[2023-01-03] MEDS: lamoTRIgine 25 MG TABLET 150 MG PO (21:04)
[2023-01-03] MEDS: QUEtiapine Fumarate 100 MG TABLET PO (21:04)
--- NOTE | 2023-01-03 23:21 | PC.NURSE ---
Patient slept through the night, no distress observed/reported, engaged well care team, disposition is section 12 inpatient bed search, medication compliant, VSS, behavior non concerning, will continue to monitor.
[2023-01-04 06:33] VITALS: BP 150/94; PULSE 98; RESP 18; TEMP 36.8; O2SAT 98
--- NOTE | 2023-01-04 07:02 | PC.NURSE ---
patient appears to remain asleep at present respirations are even and unlabored patient appears in no distress
[2023-01-04 09:03] VITALS: BP 128/86; PULSE 64; RESP 18; TEMP 36.6; O2SAT 98
[2023-01-04] MEDS: Omeprazole 20 MG CAPSULE.DR PO (09:30)
[2023-01-04] MEDS: amLODIPine Besylate 10 MG TABLET PO (09:30)
[2023-01-04] MEDS: Valsartan 160 MG TABLET PO (09:30)
[2023-01-04] MEDS: lamoTRIgine 25 MG TABLET 150 MG PO ×2 (09:30→20:22)
[2023-01-04] MEDS: metFORMIN HCl 1,000 MG TABLET 1000 MG PO ×2 (09:30→20:22)
[2023-01-04] MEDS: hydroCHLOROthiazide 25 MG TABLET PO (09:30)
[2023-01-04] MEDS: Escitalopram Oxalate 20 MG TABLET PO (09:30)
--- NOTE | 2023-01-04 09:54 | PC.NURSE ---
upon entering room to medicate client client expressed displeasure that accucheck wasnt done. t/w expressed i had no knoiwledge client was on insulin and it probably wasnt ordered. i asked what medicines client was on and client mentions insulin not in our formulary. client seemed surprised at this and t/w stated clients insulin may need to be brought in.
[2023-01-04 09:57] LABS: Glucose, Whole Blood 195 mg/dL (60-115)
[2023-01-04] MEDS: hydrOXYzine HCL 25 MG TABLET PO (17:52)
[2023-01-04 18:03] VITALS: BP 182/108; PULSE 124; RESP 18; TEMP 36.6; O2SAT 99
[2023-01-04 18:53] VITALS: BP 145/95; PULSE 123; TEMP 36.6
[2023-01-04] MEDS: LORazepam 1 MG TABLET 2 MG PO (19:21)
--- NOTE | 2023-01-04 19:27 | PC.ADMIT ---
Pt is a 42 year old female presenting with SI with no plans but has means. Pt is COVID neg. UTOX positive for marijuana. Pt has a hx of asthma, diabetes, high cholesterol and hypertension. Pt experiencing increased anxiety before going to work; sweats, fast heart rate and vomiting that has been getting worse every day. Pt has previous Suicide attempts, most recently was one month ago pt gave herself 10X the amount of insulin she should have been taking. Pt is tearful during admission assessment, but calm, shaky due to anxiety being 10/10, depression rated as a 8/10. Pt states she is looking for a med prescriber for her psych meds because her current therapist only refills her medication for the dose her previous doctor had prescribed, they don't adjust the dosages. 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 Pt has a good support system; mother and fiance. Pt reports not having much of an appetite and not eating enough. Pt reports feeling safe on the unit. Pt denies SI/HI/AH/VH at this time. Doctor notified on admission, orders are placed. Follow treatment plan and monitor for safety.
[2023-01-04] MEDS: QUEtiapine Fumarate 100 MG TABLET PO (20:22)
[2023-01-04] MEDS: traZODone HCL 50 MG TABLET PO (20:22)
[2023-01-04] MEDS: Atorvastatin Calcium 80 MG TABLET PO (20:22)
[2023-01-05 06:00] VITALS: BP 136/85; PULSE 109; RESP 18
[2023-01-05] MEDS: Valsartan 160 MG TABLET PO (08:08)
[2023-01-05] MEDS: metFORMIN HCl 1,000 MG TABLET 1000 MG PO ×2 (08:08→20:03)
[2023-01-05] MEDS: Omeprazole 20 MG CAPSULE.DR PO (08:08)
[2023-01-05] MEDS: Escitalopram Oxalate 20 MG TABLET PO (08:08)
[2023-01-05] MEDS: hydroCHLOROthiazide 25 MG TABLET PO (08:08)
[2023-01-05] MEDS: lamoTRIgine 25 MG TABLET 150 MG PO ×2 (08:08→20:03)
[2023-01-05] MEDS: amLODIPine Besylate 10 MG TABLET PO (08:09)
[2023-01-05 09:13] LABS: Cholesterol 156 mg/dL; HDL Cholesterol 37 mg/dL; LDL Cholesterol Calculated 99 mg/dl; Triglycerides 102 mg/dL
[2023-01-05 09:18] LABS: Estimated Average Glucose 269 mg/dL
[2023-01-05 09:42] LABS: Folate 15.4 ng/mL (> or = 4.0); Free T4 (Free Thyroxine) 1.02 ng/dL (0.71-1.85); Thyroid Stimulating Hormone 1.07 uIU/mL (0.32-4.0); Vitamin B12 1970 pg/mL (200-900)
[2023-01-05] MEDS: hydrOXYzine HCL 25 MG TABLET PO (13:42)
--- NOTE | 2023-01-05 15:56 | HO.PSYADMNOT ---
HPI Date of Service: 01/05/23 Chief Complaint: SI/Depression Sources of Information: patient interviewed, chart reviewed and crisis/core team assessment reviewed Additional Sources of Information: Per Pt Request 1. [employer] with [facility] request [phone]. They will fax [facility] paperwork. 2. [facility] [place]. Spoke with pt's [place], Dr. Vazquez who will contact her professors, will have her absent for finals next week and will send incomplete forms for pt to fill out if needed. [phone]. HPI Subjective Notes: Ferraro Warning and Conditional Voluntary Healthcare Proxy: No Guardianship: No Medical Problems Affecting Mental Status: No Narrative: 42 yo female, reports extreme anxiety and SI due to overwhelming psychosocial stressors which are all occurring simultaneously Identifies needing to move her home by 02/10/23 as a major stress. Apartment is listed in ex-partner's name. Both decided to separate, the foster child they were caring for was placed in another home under DCF, however, pt is still allowed contact but does not see her which is a loss. 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 Reports they have no savings. 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 She is completing the last two weeks of semester and is overwhelmed by the work that needs to be done. She has a presentation of lesson plan due 01/05 and needs more time to prepare. Identifies work as a major stress. Describes having a new [employer] teaching job, no guidance or support from administration, and feels they point the finger when something goes wrong. She has a student with severe behavioral issues and feels scapegoated by his family who have now hired an advocate for him. Pt feeling threatened by this student and has had to involve her union. Also some of the students who speak Kyrgyz have made complaints about her methods of teaching which she has not had an opportunity to address. As a result, she reports feeling overwhelmed, and that life is just not worth living like this,it is easier to . Reports since return from December vacation, twitching, shaking, vomiting, chest pain, increase in heart rate prior to going to work and feeling sx of panic. Reports right arm/leg dull numbing pain along with right elbow. Past Psychiatric History: IP: [facility], [place] ~1992- polypharm OD OP: [facility] Hagan-psychotherapy PCP does medications Trials: Wellbutrin-worked for many years SA: Several suicide attempts by history PHP/IOP: 2019 [facility]. Medical Evaluation Reviewed: Yes [facility] Medical History Asthma Diabetes High cholesterol Hypertension Mood disorder Narrative: Reports right leg, arm dull pain along with right elbow Migraine history in childhood. Social History: Born in [place], [place]. Raised by mom and maternal relatives, all living on the same [address]. Reports a non traumatic upbringing Six half sibs (father's side)- Most are in [place]. 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 Substance History: THC vaping for anxiety mgt Alcohol on occasion Trauma History: Denies Diagnostics Vital Signs (24Hr): Vital Signs - 24 hr 01/04/23 18:03 01/04/23 18:53 01/05/23 06:00 Temperature 97.9 F 98 F Pulse Rate 124 H 123 H 109 H Respiratory Rate 18 18 Blood Pressure 182/108 H 145/95 H 136/85 Pulse Oximetry 99 Oxygen Delivery Method Room Air BMI result Body Mass Index 35.1 Labs 01/03/23 15:54 01/03/23 15:54 Labs: Laboratory Results - last 48 hr 01/03/23 01/03/23 01/03/23 15:54 15:54 15:54 WBC 6.0 RBC 4.61 Hgb 13.2 Hct 40.1 MCV 87.0 MCH 28.6 MCHC 32.9 RDW 12.8 Plt Count 323 MPV 10.2 Immature Gran % (Auto) 0.2 Neut % (Auto) 43.1 L Lymph % (Auto) 46.9 H Roane % (Auto) 7.6 Eos % (Auto) 1.7 Baso % (Auto) 0.5 Lymph # (Auto) 2.8 Roane # (Auto) 0.5 Eos # (Auto) 0.1 Baso # (Auto) 0.0 Abs Immat Gran (auto) 0.01 Absolute Neuts (auto) 2.6 Absolute Nucleated RBC 0.000 Nucleated RBC % (auto) 0.0 Sodium 142 Potassium 3.5 Chloride 106 Carbon Dioxide 27 Anion Gap 13 BUN 14 Creatinine 1.05 Estim Creat Clear Calc 72.2 Estimated GFR 58 POC Glucose Random Glucose 178 H Estimat Average Glucose Hemoglobin A1c % Calcium 8.9 D Magnesium 1.8 Total Bilirubin 0.9 Direct Bilirubin 0.2 AST 31 ALT 35 H Alkaline Phosphatase 98 Troponin I High Sens Total Protein 7.0 Albumin 3.9 Triglycerides Cholesterol LDL Cholesterol, Calc HDL Cholesterol Vitamin B12 Folate TSH Free T4 Urine Color Urine Appearance Urine pH Ur Specific [place] Urine Protein Urine Glucose (UA) Urine Ketones Urine Blood Urine Nitrite Ur Leukocyte Esterase Urine RBC Urine WBC Ur Squamous Epith Cells Urine Bacteria Hyaline Casts Salicylates < 5.0 L Urine Opiates Screen Urine Fentanyl Screen Acetaminophen < 17 Ur Barbiturates Screen Ur Phencyclidine Scrn Ur Amphetamines Screen U Benzodiazepines Scrn Urine Cocaine Screen U Marijuana (THC) Screen Ethyl Alcohol < 10 COVID-19 (ALLAN) Negative COVID-19 Clin Com See Note 01/03/23 01/03/23 01/03/23 16:49 19:38 19:38 WBC RBC Hgb Hct MCV MCH MCHC RDW Plt Count MPV Immature Gran % (Auto) Neut % (Auto) Lymph % (Auto) Roane % (Auto) Eos % (Auto) Baso % (Auto) Lymph # (Auto) Roane # (Auto) Eos # (Auto) Baso # (Auto) Abs Immat Gran (auto) Absolute Neuts (auto) Absolute Nucleated RBC Nucleated RBC % (auto) Sodium Potassium Chloride Carbon Dioxide Anion Gap BUN Creatinine Estim Creat Clear Calc Estimated GFR POC Glucose Random Glucose Estimat Average Glucose Hemoglobin A1c % Calcium Magnesium Total Bilirubin Direct Bilirubin AST ALT Alkaline Phosphatase Troponin I High Sens < 2.7 Total Protein Albumin Triglycerides Cholesterol LDL Cholesterol, Calc HDL Cholesterol Vitamin B12 Folate TSH Free T4 Urine Color Dark Yellow Urine Appearance Clear Urine pH 6.0 Ur Specific [place] >= 1.030 H Urine Protein 100 (2+) H Urine Glucose (UA) 250 H Urine Ketones Trace Urine Blood Large (3+) H Urine Nitrite Negative Ur Leukocyte Esterase Negative Urine RBC 11-20 H Urine WBC 0-5 Ur Squamous Epith Cells 6-10 Urine Bacteria Trace Hyaline Casts 3-5 Salicylates Urine Opiates Screen Not Detected Urine Fentanyl Screen Not Detected Acetaminophen Ur Barbiturates Screen Not Detected Ur Phencyclidine Scrn Not Detected Ur Amphetamines Screen Not Detected U Benzodiazepines Scrn Not Detected Urine Cocaine Screen Not Detected U Marijuana (THC) Screen POSITIVE H Ethyl Alcohol COVID-19 (ALLAN) COVID-19 [employer] Com 01/04/23 01/05/23 01/05/23 09:51 08:15 08:15 WBC RBC Hgb Hct MCV MCH MCHC RDW Plt Count MPV Immature Gran % (Auto) Neut % (Auto) Lymph % (Auto) Roane % (Auto) Eos % (Auto) Baso % (Auto) Lymph # (Auto) Roane # (Auto) Eos # (Auto) Baso # (Auto) Abs Immat Gran (auto) Absolute Neuts (auto) Absolute Nucleated RBC Nucleated RBC % (auto) Sodium Potassium Chloride Carbon Dioxide Anion Gap BUN Creatinine Estim Creat Clear Calc Estimated GFR POC Glucose 195 H Random Glucose Estimat Average Glucose 269 Hemoglobin A1c % 11.0 Calcium Magnesium Total Bilirubin Direct Bilirubin AST ALT Alkaline Phosphatase Troponin I High Sens Total Protein Albumin Triglycerides 102 Cholesterol 156 LDL Cholesterol, Calc 99 HDL Cholesterol 37 Vitamin B12 1970 H Folate 15.4 TSH 1.07 Free T4 1.02 Urine Color Urine Appearance Urine pH Ur Specific [place] Urine Protein Urine Glucose (UA) Urine Ketones Urine Blood Urine Nitrite Ur Leukocyte Esterase Urine RBC Urine WBC Ur Squamous Epith Cells Urine Bacteria Hyaline Casts Salicylates Urine Opiates Screen Urine Fentanyl Screen Acetaminophen Ur Barbiturates Screen Ur Phencyclidine Scrn Ur Amphetamines Screen U Benzodiazepines Scrn Urine Cocaine Screen U Marijuana (THC) Screen Ethyl Alcohol COVID-19 (ALLAN) COVID-19 Clin Com Meds/Allergies Meds Home Medications Medication Instructions Recorded Confirmed Type amlodipine 10 mg tablet 10 mg PO DAILY 01/03/23 01/03/23 History escitalopram oxalate 20 mg tablet 20 mg PO DAILY 01/03/23 01/03/23 History hydrochlorothiazide 25 mg tablet 25 mg PO DAILY 01/03/23 01/03/23 History lamotrigine 150 mg tablet 150 mg PO BID 01/03/23 01/03/23 History metformin 500 mg tablet 1,000 mg PO BID 01/03/23 01/03/23 History omeprazole 20 mg capsule,delayed 20 mg PO DAILY 01/03/23 01/03/23 History release quetiapine 100 mg tablet 100 mg PO BEDTIME 01/03/23 01/03/23 History rosuvastatin 20 mg tablet 20 mg PO BEDTIME 01/03/23 01/03/23 History valsartan 160 mg tablet 160 mg PO DAILY 01/03/23 01/03/23 History Allergies Allergies Allergy/AdvReac Type Severity Reaction Status Date / Time lisinopril [LISINOPRIL] Allergy Severe SHORTNESS Unverified 05/29/20 19:37 OF BREATH Mental Status Exam Mental Status Exam Patient Appearance: Appropriate Patient Orientation: Person, Place, Time and Situation Level of Consciousness: Alert Patient Behavior: Appropriate, Talkative, Cooperative and Good Eye Contact Mood Description: Depressed, Labile and Angry Affect Description: Labile Patient Cognition Impaired: No Ability to Follow Directions: Good Speech Pattern: Spontaneous Speech Memory Description: Intact Hallucinations: None Delusions: Not Present Perceptual Disturbances: Depersonalization and Derealization Thought Process: Rumination Thought Content: positive for Circumstantial, positive for Perseveration and positive for Suicidal Ideation Depressive Symptoms: Thoughts of /Suicide Judgement: Fair Assessment & Plan Assessment & Plan (1) Depression: Status: Acute Code(s): F32.A - Depression, unspecified (2) Acute anxiety: Status: Acute Code(s): F41.9 - Anxiety disorder, unspecified (3) Suicidal ideation: Status: Acute Code(s): R45.851 - Suicidal ideations Plan 42 yo female with a history of mood disorder sx since ~2003 with symptom increase with simultaneous stressors of work, needing to move, 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 Plan: Collateral contact, stressor work and intervention. Continue current regime and assess Contact with employer and tooth inspector today to begin to assist pt in addressing sx which pt reports has offered some relief. Patient educated on: medication risk/benefits and therapeutic strategies Informed Consent: understands Reason for continued inpatient stay Substantial Risk for: harm to self, inability to function and rapid decompensation Statement Statement: I have reviewed the history and physical and performed a pertinent examination on my patient. No changes have occurred unless specified. If the History and Physical was not performed prior to admission, the Hospitalist's service will be consulted for completing the admission physical. Time Spent With Patient Time: Total time managing care of this patient today ____ minutes.
[2023-01-05 17:59] VITALS: BP 136/96; PULSE 113; RESP 16; TEMP 36.3; O2SAT 99
[2023-01-05 18:16] LABS: Glucose, Whole Blood 189 mg/dL (60-115)
[2023-01-05] MEDS: QUEtiapine Fumarate 100 MG TABLET PO (20:03)
[2023-01-05] MEDS: Atorvastatin Calcium 80 MG TABLET PO (20:03)
[2023-01-05 20:17] LABS: Glucose, Whole Blood 231 mg/dL (60-115)
[2023-01-05] MEDS: Insulin Lispro 100 UNIT/ML 3 ML VIAL SUBCUT (20:20)
[2023-01-06 08:53] LABS: Glucose, Whole Blood 207 mg/dL (60-115)
[2023-01-06] MEDS: lamoTRIgine 25 MG TABLET 150 MG PO ×2 (09:47→21:00)
[2023-01-06] MEDS: metFORMIN HCl 1,000 MG TABLET 1000 MG PO ×2 (09:48→21:00)
[2023-01-06] MEDS: hydroCHLOROthiazide 25 MG TABLET PO (09:48)
[2023-01-06] MEDS: Escitalopram Oxalate 20 MG TABLET PO (09:48)
[2023-01-06] MEDS: amLODIPine Besylate 10 MG TABLET PO (09:48)
[2023-01-06] MEDS: Omeprazole 20 MG CAPSULE.DR PO (09:48)
[2023-01-06 09:52] VITALS: BP 130/89; PULSE 129; RESP 18; TEMP 36; O2SAT 97
[2023-01-06] MEDS: Valsartan 160 MG TABLET PO (10:01)
[2023-01-06] MEDS: Insulin Lispro 100 UNIT/ML 3 ML VIAL SUBCUT ×3 (10:02→20:59)
[2023-01-06] MEDS: hydrOXYzine HCL 25 MG TABLET PO (11:26)
[2023-01-06 12:25] LABS: Glucose, Whole Blood 225 mg/dL (60-115)
[2023-01-06 16:00] LABS: Glucose, Whole Blood 159 mg/dL (60-115)
[2023-01-06 18:00] VITALS: BP 148/89; PULSE 85; RESP 16; TEMP 36.4; O2SAT 96
--- NOTE | 2023-01-06 18:02 | HO.PSYCHPN ---
Subjective Subjective Date of Service: 01/06/23 Reason For Visit: SI/Depression Subjective Notes: Conditional Voluntary Healthcare Proxy: No Guardianship: No Medical Problems Affecting Mental Status: No Interim History: Continues to feel overwhelmed with SI. Depression 8/Anxiety 10. FMLA paperwork completed and submitted. Pt planning to do PHP upon discharge. Med review. Klonopin 0.5 mg bid re-started (takes at home) and Propranolol trial 5 mg bid initiated for anxiety mgt (hx HTN). Pt discussed work stress today. Several issues of concern- pt reports she is timed by employer when using the restroom. Discussed not understanding why she is treated this way-she hypothesizes, being female, openly thayer, black-expressing much shame and anxiety and describes her perception of how this has effected her mental health and well being. Medication Compliance: Yes Side effects from medications: No Attending Groups: Yes Review of Systems Acute medical concerns: No Medical Review of Systems: unchanged Mental Status Exam Mental Status Exam Patient Appearance: Appropriate Patient Orientation: Person, Place, Time and Situation Level of Consciousness: Alert Patient Behavior: Appropriate, Talkative, Cooperative and Good Eye Contact Mood Description: Depressed, Labile and Angry Affect Description: Labile Patient Cognition Impaired: No Ability to Follow Directions: Good Speech Pattern: Spontaneous Speech Memory Description: Intact Hallucinations: None Delusions: Not Present Perceptual Disturbances: Depersonalization and Derealization Thought Process: Rumination Thought Content: positive for Circumstantial, positive for Perseveration and positive for Suicidal Ideation Depressive Symptoms: Thoughts of /Suicide Judgement: Fair Diagnostics Vital Signs (24Hr): Vital Signs - 24 hr 01/06/23 09:52 Temperature 96.8 F Pulse Rate 129 H Respiratory Rate 18 Blood Pressure 130/89 Pulse Oximetry 97 Oxygen Delivery Method Room Air BMI result Body Mass Index 35.1 Labs 01/03/23 15:54 01/03/23 15:54 Labs: Laboratory Results - last 48 hr 01/05/23 01/05/23 01/05/23 08:15 08:15 18:08 POC Glucose 189 H Estimat Average Glucose 269 Hemoglobin A1c % 11.0 Triglycerides 102 Cholesterol 156 LDL Cholesterol, Calc 99 HDL Cholesterol 37 Vitamin B12 1970 H Folate 15.4 TSH 1.07 Free T4 1.02 01/05/23 01/06/23 01/06/23 20:11 08:43 12:20 POC Glucose 231 H 207 H 225 H Estimat Average Glucose Hemoglobin A1c % Triglycerides Cholesterol LDL Cholesterol, Calc HDL Cholesterol Vitamin B12 Folate TSH Free T4 01/06/23 15:55 POC Glucose 159 H Estimat Average Glucose Hemoglobin A1c % Triglycerides Cholesterol LDL Cholesterol, Calc HDL Cholesterol Vitamin B12 Folate TSH Free T4 Medications Medications Current Medications Acetaminophen (Acetaminophen 325 Mg Tablet) 650 mg PO Q6H PRN PRN Reason: Headache/Pain Mild Scale (1-3) Al Hydroxide/Mg Hydroxide (Magnesium Hydrox/Alum Hydrox 30 Ml Oral.Susp) 30 ml PO Q6H PRN PRN Reason: Heartburn/Nausea Amlodipine Besylate (Amlodipine Besylate 10 Mg Tablet) 10 mg PO DAILY [facility]; Protocol Last Admin: 01/06/23 09:48 Dose: 10 mg Atorvastatin Calcium (Atorvastatin Calcium 80 Mg Tablet) 80 mg PO BEDTIME [facility] Last Admin: 01/05/23 20:03 Dose: 80 mg Clonazepam (Clonazepam 0.5 Mg Tablet) 0.5 mg PO BID PRN PRN Reason: anxiety Escitalopram Oxalate (Escitalopram Oxalate 20 Mg Tablet) 20 mg PO DAILY [facility] Last Admin: 01/06/23 09:48 Dose: 20 mg Hydrochlorothiazide (Hydrochlorothiazide 25 Mg Tablet) 25 mg PO DAILY [facility]; Protocol Last Admin: 01/06/23 09:48 Dose: 25 mg Hydroxyzine HCl (Hydroxyzine Hcl 25 Mg Tablet) 25 mg PO Q6H PRN PRN Reason: Anxiety Last Admin: 01/06/23 11:26 Dose: 25 mg Insulin Human Lispro (Insulin Lispro 100 Unit/Ml 3 Ml Vial) 0 unit SUBCUT QIDACHS [facility]; Protocol Last Admin: 01/06/23 12:44 Dose: 4 unit Lamotrigine (Lamotrigine 25 Mg Tablet) 150 mg PO BID [facility] Last Admin: 01/06/23 09:47 Dose: 150 mg Magnesium Hydroxide (Milk Of Magnesia 30 Ml Oral.Susp) 30 ml PO DAILY PRN PRN Reason: Constipation Metformin HCl (Metformin Hcl 1,000 Mg Tablet) 1,000 mg PO BID [facility] Last Admin: 01/06/23 09:48 Dose: 1,000 mg Omeprazole (Omeprazole 20 Mg Capsule.Dr) 20 mg PO DAILY [facility] Last Admin: 01/06/23 09:48 Dose: 20 mg Propranolol HCl (Propranolol Hcl 10 Mg Tablet) 5 mg PO BID [facility]; Protocol Quetiapine Fumarate (Quetiapine Fumarate 100 Mg Tablet) 100 mg PO 1999 [facility] Trazodone HCl (Trazodone Hcl 50 Mg Tablet) 50 mg PO BEDTIME MRX1 PRN PRN Reason: Insomnia Last Admin: 01/04/23 20:22 Dose: 50 mg Valsartan (Valsartan 160 Mg Tablet) 160 mg PO DAILY [facility]; Protocol Last Admin: 01/06/23 10:01 Dose: 160 mg Allergies Allergies Allergy/AdvReac Type Severity Reaction Status Date / Time lisinopril [LISINOPRIL] Allergy Severe SHORTNESS Unverified 05/29/20 19:37 OF BREATH Assessment & Plan Assessment & Plan (1) Depression: Status: Acute Code(s): F32.A - Depression, unspecified (2) Acute anxiety: Status: Acute Code(s): F41.9 - Anxiety disorder, unspecified (3) Suicidal ideation: Status: Acute Code(s): R45.851 - Suicidal ideations Plan 42 yo female with a history of mood disorder sx since ~2003 with symptom increase with simultaneous stressors of work, needing to move, 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 Plan: Collateral contact, stressor work and intervention. Continue current regime and assess Contact with employer and photograph enlarger today to begin to assist pt in addressing sx which pt reports has offered some relief. 01/06/23- Propranolol 5 mg bid Re-start Klonopin 0.5 mg bid-pt takes at home Patient educated on: medication risk/benefits Informed Consent: understands Reason for continued inpatient stay Substantial Risk for: harm to self and rapid decompensation Time Spent With Patient Time: Total time managing care of this patient today ____ minutes.
[2023-01-06] MEDS: Atorvastatin Calcium 80 MG TABLET PO (21:00)
[2023-01-06] MEDS: Propranolol HCL 10 MG TABLET 5 MG PO (21:00)
[2023-01-06] MEDS: QUEtiapine Fumarate 100 MG TABLET PO (21:00)
[2023-01-06 21:48] LABS: Glucose, Whole Blood 298 mg/dL (60-115)
[2023-01-07 08:51] LABS: Glucose, Whole Blood 223 mg/dL (60-115)
[2023-01-07 09:05] VITALS: BP 133/85; PULSE 108; RESP 14; TEMP 37.3; O2SAT 99
[2023-01-07] MEDS: hydroCHLOROthiazide 25 MG TABLET PO (09:05)
[2023-01-07] MEDS: Valsartan 160 MG TABLET PO (09:05)
[2023-01-07] MEDS: Omeprazole 20 MG CAPSULE.DR PO (09:05)
[2023-01-07] MEDS: lamoTRIgine 25 MG TABLET 150 MG PO ×2 (09:05→20:16)
[2023-01-07] MEDS: Propranolol HCL 10 MG TABLET 5 MG PO ×2 (09:05→20:16)
[2023-01-07] MEDS: metFORMIN HCl 1,000 MG TABLET 1000 MG PO ×2 (09:05→20:16)
[2023-01-07] MEDS: amLODIPine Besylate 10 MG TABLET PO (09:05)
[2023-01-07] MEDS: Insulin Lispro 100 UNIT/ML 3 ML VIAL SUBCUT ×2 (09:06→21:08)
[2023-01-07] MEDS: clonazePAM 0.5 MG TABLET PO ×2 (09:14→21:08)
[2023-01-07] MEDS: Escitalopram Oxalate 20 MG TABLET PO (09:20)
[2023-01-07 12:36] LABS: Glucose, Whole Blood 194 mg/dL (60-115)
--- NOTE | 2023-01-07 15:14 | HO.PSYCHPN ---
Subjective Subjective Date of Service: 01/07/23 Reason For Visit: SI/Depression Subjective Notes: Conditional Voluntary Healthcare Proxy: No Guardianship: No Medical Problems Affecting Mental Status: No Interim History: Today, pt is integrating into the milieu, attending groups, participating. Reports sleep is improving with some daytime sedation. Trial of propranolol continues Medication Compliance: Yes Side effects from medications: No Attending Groups: Yes Review of Systems Acute medical concerns: No Medical Review of Systems: unchanged Mental Status Exam Mental Status Exam Patient Appearance: Appropriate Patient Orientation: Person, Place, Time and Situation Level of Consciousness: Alert Patient Behavior: Appropriate, Talkative, Cooperative and Good Eye Contact Mood Description: Depressed and Labile Affect Description: Labile Patient Cognition Impaired: No Ability to Follow Directions: Good Speech Pattern: Spontaneous Speech Memory Description: Intact Hallucinations: None Delusions: Not Present Perceptual Disturbances: Depersonalization and Derealization Thought Process: Rumination Thought Content: positive for Circumstantial, positive for Perseveration and positive for Suicidal Ideation Depressive Symptoms: Thoughts of /Suicide Judgement: Fair Diagnostics Vital Signs (24Hr): Vital Signs - 24 hr 01/06/23 18:00 01/07/23 09:05 Temperature 97.6 F 99.2 F Pulse Rate 85 108 H Respiratory Rate 16 14 Blood Pressure 148/89 H 133/85 Pulse Oximetry 96 99 Oxygen Delivery Method Room Air Room Air BMI result Body Mass Index 35.1 Labs 01/03/23 15:54 01/03/23 15:54 Labs: Laboratory Results - last 48 hr 01/05/23 01/05/23 01/06/23 18:08 20:11 08:43 POC Glucose 189 H 231 H 207 H 01/06/23 01/06/23 01/06/23 12:20 15:55 20:48 POC Glucose 225 H 159 H 298 H 01/07/23 01/07/23 08:46 12:32 POC Glucose 223 H 194 H Imaging Radiology Impressions: ITS Impressions Venous Duplex 01/06/23 20:32 IMPRESSION: No DVT demonstrated in the bilateral lower extremities. Medications Medications Current Medications Acetaminophen (Acetaminophen 325 Mg Tablet) 650 mg PO Q6H PRN PRN Reason: Headache/Pain Mild Scale (1-3) Al Hydroxide/Mg Hydroxide (Magnesium Hydrox/Alum Hydrox 30 Ml Oral.Susp) 30 ml PO Q6H PRN PRN Reason: Heartburn/Nausea Amlodipine Besylate (Amlodipine Besylate 10 Mg Tablet) 10 mg PO DAILY [facility]; Protocol Last Admin: 01/07/23 09:05 Dose: 10 mg Atorvastatin Calcium (Atorvastatin Calcium 80 Mg Tablet) 80 mg PO BEDTIME [facility] Last Admin: 01/06/23 21:00 Dose: 80 mg Clonazepam (Clonazepam 0.5 Mg Tablet) 0.5 mg PO BID PRN PRN Reason: anxiety Last Admin: 01/07/23 09:14 Dose: 0.5 mg Escitalopram Oxalate (Escitalopram Oxalate 20 Mg Tablet) 20 mg PO DAILY [facility] Last Admin: 01/07/23 09:20 Dose: 20 mg Hydrochlorothiazide (Hydrochlorothiazide 25 Mg Tablet) 25 mg PO DAILY [facility]; Protocol Last Admin: 01/07/23 09:05 Dose: 25 mg Hydroxyzine HCl (Hydroxyzine Hcl 25 Mg Tablet) 25 mg PO Q6H PRN PRN Reason: Anxiety Last Admin: 01/06/23 11:26 Dose: 25 mg Insulin Human Lispro (Insulin Lispro 100 Unit/Ml 3 Ml Vial) 0 unit SUBCUT QIDACHS [facility]; Protocol Last Admin: 01/07/23 12:42 Dose: Not Given Lamotrigine (Lamotrigine 25 Mg Tablet) 150 mg PO BID [facility] Last Admin: 01/07/23 09:05 Dose: 150 mg Magnesium Hydroxide (Milk Of Magnesia 30 Ml Oral.Susp) 30 ml PO DAILY PRN PRN Reason: Constipation Metformin HCl (Metformin Hcl 1,000 Mg Tablet) 1,000 mg PO BID [facility] Last Admin: 01/07/23 09:05 Dose: 1,000 mg Omeprazole (Omeprazole 20 Mg Capsule.Dr) 20 mg PO DAILY [facility] Last Admin: 01/07/23 09:05 Dose: 20 mg Propranolol HCl (Propranolol Hcl 10 Mg Tablet) 5 mg PO BID [facility]; Protocol Last Admin: 01/07/23 09:05 Dose: 5 mg Quetiapine Fumarate (Quetiapine Fumarate 100 Mg Tablet) 100 mg PO 1999 [facility] Last Admin: 01/06/23 21:00 Dose: 100 mg Trazodone HCl (Trazodone Hcl 50 Mg Tablet) 50 mg PO BEDTIME MRX1 PRN PRN Reason: Insomnia Last Admin: 01/04/23 20:22 Dose: 50 mg Valsartan (Valsartan 160 Mg Tablet) 160 mg PO DAILY [facility]; Protocol Last Admin: 01/07/23 09:05 Dose: 160 mg Allergies Allergies Allergy/AdvReac Type Severity Reaction Status Date / Time lisinopril [LISINOPRIL] Allergy Severe SHORTNESS Unverified 05/29/20 19:37 OF BREATH Assessment & Plan Assessment & Plan (1) Depression: Status: Acute Code(s): F32.A - Depression, unspecified (2) Acute anxiety: Status: Acute Code(s): F41.9 - Anxiety disorder, unspecified (3) Suicidal ideation: Status: Acute Code(s): R45.851 - Suicidal ideations Plan 42 yo female with a history of mood disorder sx since ~2003 with symptom increase with simultaneous stressors of work, needing to move, 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 Plan: Collateral contact, stressor work and intervention. Continue current regime and assess Contact with employer and senior graduate advisor today to begin to assist pt in addressing sx which pt reports has offered some relief. 01/06/23- Propranolol 5 mg bid Re-start Klonopin 0.5 mg bid-pt takes at home 01/07/23 Continue current regime and plan Informed Consent: understands Reason for continued inpatient stay Substantial Risk for: harm to self and rapid decompensation Time Spent With Patient Time: Total time managing care of this patient today ____ minutes.
[2023-01-07 16:40] LABS: Glucose, Whole Blood 213 mg/dL (60-115)
[2023-01-07] MEDS: QUEtiapine Fumarate 100 MG TABLET PO (20:16)
[2023-01-07] MEDS: Atorvastatin Calcium 80 MG TABLET PO (20:16)
[2023-01-07 22:01] LABS: Glucose, Whole Blood 220 mg/dL (60-115)
[2023-01-08 07:54] LABS: Glucose, Whole Blood 236 mg/dL (60-115)
[2023-01-08] MEDS: Insulin Lispro 100 UNIT/ML 3 ML VIAL SUBCUT ×3 (08:14→17:30)
[2023-01-08] MEDS: Propranolol HCL 10 MG TABLET 5 MG PO ×2 (08:16→20:17)
[2023-01-08] MEDS: Valsartan 160 MG TABLET PO (08:17)
[2023-01-08] MEDS: amLODIPine Besylate 10 MG TABLET PO (08:17)
[2023-01-08] MEDS: hydroCHLOROthiazide 25 MG TABLET PO (08:18)
[2023-01-08] MEDS: Omeprazole 20 MG CAPSULE.DR PO (08:18)
[2023-01-08] MEDS: Escitalopram Oxalate 20 MG TABLET PO (08:18)
[2023-01-08] MEDS: lamoTRIgine 25 MG TABLET 150 MG PO ×2 (08:19→20:17)
[2023-01-08] MEDS: metFORMIN HCl 1,000 MG TABLET 1000 MG PO ×2 (08:19→20:17)
[2023-01-08] MEDS: clonazePAM 0.5 MG TABLET PO ×2 (08:33→20:23)
[2023-01-08 08:53] VITALS: BP 141/94; PULSE 110; RESP 18; TEMP 36.2; O2SAT 97
[2023-01-08 12:13] LABS: Glucose, Whole Blood 255 mg/dL (60-115)
[2023-01-08 16:34] LABS: Glucose, Whole Blood 264 mg/dL (60-115)
[2023-01-08 19:53] VITALS: BP 142/93; PULSE 115; TEMP 36.6; O2SAT 98
[2023-01-08 20:18] LABS: Glucose, Whole Blood 215 mg/dL (60-115)
[2023-01-08] MEDS: QUEtiapine Fumarate 100 MG TABLET PO (20:18)
[2023-01-08] MEDS: Atorvastatin Calcium 80 MG TABLET PO (20:18)
[2023-01-08] MEDS: hydrOXYzine HCL 25 MG TABLET PO (21:05)
--- NOTE | 2023-01-08 21:30 | HO.PSYCHPN ---
Subjective Subjective Date of Service: 01/08/23 Reason For Visit: SI/Depression Interim History: Patient seen and discussed. Reports she is feeling improved compared to start of hospitalization. Says the medication has helped with her anxiety as well as being away from the environment that was causing me all the stress. Says SI not completely gone but not as bad.. they are never completely gone. Integrating into the milieu, attending groups, participating. Reports sleep is improving. Review of Systems Review of Systems Constitutional : No Fever, No Chills ENT/Mouth : No Ear Pain, No Nasal Congestion, No sore throat Eyes: No Eye Pain, No Swelling, No Redness Cardiovascular : No Chest Pain, No SOB Respiratory : No Cough, No Sputum, No Dyspnea Gastrointestinal : No Nausea, No Vomiting, No Diarrhea, No Hematochezia, No Melena Genitourinary : No Dysuria, No Urinary Frequency, No Hematuria Musculoskeletal : No Myalgias Skin : No Skin Lesions, No rash Neuro : No Weakness, No Numbness, No Paresthesias, No Dizziness, No Headache Psych : positive Anxiety, positive Depression, positive SI, no HI All other systems reviewed and are negative Yes all other systems are reviewed and are negative Constitutional: Reports difficulty sleeping, Reports fatigue, Reports malaise and Reports poor appetite Eyes: Reports no additional eye complaints Reports system reviewed and no additional complaints, except as documented Cardiovascular: Reports chest pain, Reports claudication and Reports radiating jaw, neck or arm pain Respiratory: Reports no additional respiratory complaints Gastrointestinal: Reports no additional gastrointestinal complaints Musculoskeletal: Reports no additional musculoskeletal complaints Skin/Breast: Reports system reviewed and no additional complaints, except as docu Reports system reviewed and no additional complaints, except as documented and Reports behavioral changes Psychiatric: Reports abnormal sleep pattern, Reports anxiety, Reports behavioral changes, Reports change in appetite, Reports depression, Reports difficulty concentrating, Reports hopelessness, Reports irritability, Reports anhedonia, Reports mood swings, Reports panic attacks and Reports suicidal ideation Endocrine: Reports fatigue Hematologic/Lymphatic: Reports no additional hematologic/lymphatic complaints Allergic/Immunologic: Reports no additional allergic/immunologic complaints Mental Status Exam Mental Status Exam Patient Appearance: Appropriate Patient Orientation: Person, Place, Time and Situation Level of Consciousness: Alert Patient Behavior: Appropriate, Talkative, Cooperative and Good Eye Contact Mood Description: Depressed and Labile Affect Description: Labile Patient Cognition Impaired: No Ability to Follow Directions: Good Speech Pattern: Spontaneous Speech Memory Description: Intact Diagnostics Vital Signs (24Hr): Vital Signs - 24 hr 01/08/23 08:53 01/08/23 19:53 Temperature 97.2 F 97.9 F Pulse Rate 110 H 115 H Respiratory Rate 18 Blood Pressure 141/94 H 142/93 H Pulse Oximetry 97 98 Oxygen Delivery Method Room Air Room Air BMI result Body Mass Index 35.1 Labs 01/03/23 15:54 01/03/23 15:54 Labs: Laboratory Results - last 48 hr 01/06/23 01/07/23 01/07/23 20:48 08:46 12:32 POC Glucose 298 H 223 H 194 H 01/07/23 01/07/23 01/08/23 16:36 20:12 07:50 POC Glucose 213 H 220 H 236 H 01/08/23 01/08/23 01/08/23 12:10 16:30 20:13 POC Glucose 255 H 264 H 215 H Imaging Radiology Impressions: ITS Impressions Venous Duplex 01/06/23 20:32 IMPRESSION: No DVT demonstrated in the bilateral lower extremities. Medications Medications Current Medications Acetaminophen (Acetaminophen 325 Mg Tablet) 650 mg PO Q6H PRN PRN Reason: Headache/Pain Mild Scale (1-3) Al Hydroxide/Mg Hydroxide (Magnesium Hydrox/Alum Hydrox 30 Ml Oral.Susp) 30 ml PO Q6H PRN PRN Reason: Heartburn/Nausea Amlodipine Besylate (Amlodipine Besylate 10 Mg Tablet) 10 mg PO DAILY [facility]; Protocol Last Admin: 01/08/23 08:17 Dose: 10 mg Atorvastatin Calcium (Atorvastatin Calcium 80 Mg Tablet) 80 mg PO BEDTIME [facility] Last Admin: 01/08/23 20:18 Dose: 80 mg Clonazepam (Clonazepam 0.5 Mg Tablet) 0.5 mg PO BID PRN PRN Reason: anxiety Last Admin: 01/08/23 20:23 Dose: 0.5 mg Escitalopram Oxalate (Escitalopram Oxalate 20 Mg Tablet) 20 mg PO DAILY [facility] Last Admin: 01/08/23 08:18 Dose: 20 mg Hydrochlorothiazide (Hydrochlorothiazide 25 Mg Tablet) 25 mg PO DAILY [facility]; Protocol Last Admin: 01/08/23 08:18 Dose: 25 mg Hydroxyzine HCl (Hydroxyzine Hcl 25 Mg Tablet) 25 mg PO Q6H PRN PRN Reason: Anxiety Last Admin: 01/08/23 21:05 Dose: 25 mg Insulin Human Lispro (Insulin Lispro 100 Unit/Ml 3 Ml Vial) 0 unit SUBCUT QIDACHS [facility]; Protocol Last Admin: 01/08/23 20:26 Dose: Not Given Lamotrigine (Lamotrigine 25 Mg Tablet) 150 mg PO BID [facility] Last Admin: 01/08/23 20:17 Dose: 150 mg Magnesium Hydroxide (Milk Of Magnesia 30 Ml Oral.Susp) 30 ml PO DAILY PRN PRN Reason: Constipation Metformin HCl (Metformin Hcl 1,000 Mg Tablet) 1,000 mg PO BID [facility] Last Admin: 01/08/23 20:17 Dose: 1,000 mg Omeprazole (Omeprazole 20 Mg Capsule.Dr) 20 mg PO DAILY [facility] Last Admin: 01/08/23 08:18 Dose: 20 mg Propranolol HCl (Propranolol Hcl 10 Mg Tablet) 5 mg PO BID [facility]; Protocol Last Admin: 01/08/23 20:17 Dose: 5 mg Quetiapine Fumarate (Quetiapine Fumarate 100 Mg Tablet) 100 mg PO 1999 [facility] Last Admin: 01/08/23 20:18 Dose: 100 mg Trazodone HCl (Trazodone Hcl 50 Mg Tablet) 50 mg PO BEDTIME MRX1 PRN PRN Reason: Insomnia Last Admin: 01/04/23 20:22 Dose: 50 mg Valsartan (Valsartan 160 Mg Tablet) 160 mg PO DAILY [facility]; Protocol Last Admin: 01/08/23 08:17 Dose: 160 mg Allergies Allergies Allergy/AdvReac Type Severity Reaction Status Date / Time lisinopril [LISINOPRIL] Allergy Severe SHORTNESS Unverified 05/29/20 19:37 OF BREATH Assessment & Plan Assessment & Plan (1) Depression: Status: Acute Code(s): F32.A - Depression, unspecified (2) Acute anxiety: Status: Acute Code(s): F41.9 - Anxiety disorder, unspecified (3) Suicidal ideation: Status: Acute Code(s): R45.851 - Suicidal ideations Plan 42 yo female with a history of mood disorder sx since ~2003 with symptom increase with simultaneous stressors of work, needing to move, 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 Plan: Collateral contact, stressor work and intervention. 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 01/06/23- Propranolol 5 mg bid Re-start Klonopin 0.5 mg bid-pt takes at home 01/07/23 Continue current regime and plan 01/08: Continue tx plan. Reason for continued inpatient stay Substantial Risk for: harm to self and rapid decompensation Time Spent With Patient Time: Total time managing care of this patient today ____ minutes.
[2023-01-09] MEDS: traZODone HCL 50 MG TABLET PO (00:54)
[2023-01-09 07:59] LABS: Glucose, Whole Blood 267 mg/dL (60-115)
[2023-01-09 08:08] VITALS: BP 135/73; PULSE 104; RESP 18; TEMP 36.2; O2SAT 96
[2023-01-09] MEDS: lamoTRIgine 25 MG TABLET 150 MG PO ×2 (08:47→20:02)
[2023-01-09] MEDS: clonazePAM 0.5 MG TABLET PO ×2 (08:48→20:04)
[2023-01-09] MEDS: Propranolol HCL 10 MG TABLET 5 MG PO ×2 (08:48→20:02)
[2023-01-09] MEDS: hydroCHLOROthiazide 25 MG TABLET PO (08:49)
[2023-01-09] MEDS: amLODIPine Besylate 10 MG TABLET PO (08:50)
[2023-01-09] MEDS: Escitalopram Oxalate 20 MG TABLET PO (08:50)
[2023-01-09] MEDS: Omeprazole 20 MG CAPSULE.DR PO (08:50)
[2023-01-09] MEDS: metFORMIN HCl 1,000 MG TABLET 1000 MG PO ×2 (08:50→20:04)
[2023-01-09] MEDS: Valsartan 160 MG TABLET PO (08:50)
[2023-01-09] MEDS: Insulin Lispro 100 UNIT/ML 3 ML VIAL SUBCUT ×3 (08:51→17:49)
--- NOTE | 2023-01-09 09:24 | P.PNPSI_ITS ---
Subjective Subjective Date of Service: 01/09/23 Reason For Visit: SI/Depression Interim History: Patient seen and discussed. Reports she is feeling improved compared to start of hospitalization.Was sad because her uncle passed. Otherwise reports she is doing well. Denies SI today. Integrating into the milieu, attending groups, participating. Reports sleep is good. Review of Systems Review of Systems Constitutional : No Fever, No Chills ENT/Mouth : No Ear Pain, No Nasal Congestion, No sore throat Eyes: No Eye Pain, No Swelling, No Redness Cardiovascular : No Chest Pain, No SOB Respiratory : No Cough, No Sputum, No Dyspnea Gastrointestinal : No Nausea, No Vomiting, No Diarrhea, No Hematochezia, No Melena Genitourinary : No Dysuria, No Urinary Frequency, No Hematuria Musculoskeletal : No Myalgias Skin : No Skin Lesions, No rash Neuro : No Weakness, No Numbness, No Paresthesias, No Dizziness, No Headache Psych : positive Anxiety, positive Depression, positive SI, no HI All other systems reviewed and are negative Yes all other systems are reviewed and are negative Constitutional: Reports difficulty sleeping, Reports fatigue, Reports malaise and Reports poor appetite Eyes: Reports no additional eye complaints Reports system reviewed and no additional complaints, except as documented Cardiovascular: Reports chest pain, Reports claudication and Reports radiating jaw, neck or arm pain Respiratory: Reports no additional respiratory complaints Gastrointestinal: Reports no additional gastrointestinal complaints Musculoskeletal: Reports no additional musculoskeletal complaints Skin/Breast: Reports system reviewed and no additional complaints, except as docu Reports system reviewed and no additional complaints, except as documented and Reports behavioral changes Psychiatric: Reports abnormal sleep pattern, Reports anxiety, Reports behavioral changes, Reports change in appetite, Reports depression, Reports difficulty concentrating, Reports hopelessness, Reports irritability, Reports anhedonia, Reports mood swings, Reports panic attacks and Reports suicidal ideation Endocrine: Reports fatigue Hematologic/Lymphatic: Reports no additional hematologic/lymphatic complaints Allergic/Immunologic: Reports no additional allergic/immunologic complaints Mental Status Exam Mental Status Exam Patient Appearance: Appropriate Patient Orientation: Person, Place, Time and Situation Level of Consciousness: Alert Patient Behavior: Appropriate, Talkative, Cooperative and Good Eye Contact Mood Description: Depressed and Labile Affect Description: Labile Patient Cognition Impaired: No Ability to Follow Directions: Good Speech Pattern: Spontaneous Speech Memory Description: Intact Diagnostics Vital Signs (24Hr): Vital Signs - 24 hr 01/08/23 19:53 01/09/23 08:08 Temperature 97.9 F 97.2 F Pulse Rate 115 H 104 H Respiratory Rate 18 Blood Pressure 142/93 H 135/73 Pulse Oximetry 98 96 Oxygen Delivery Method Room Air Room Air BMI result Body Mass Index 35.1 Labs 01/03/23 15:54 01/03/23 15:54 Labs: Laboratory Results - last 48 hr 01/07/23 01/07/23 01/07/23 12:32 16:36 20:12 POC Glucose 194 H 213 H 220 H 01/08/23 01/08/23 01/08/23 07:50 12:10 16:30 POC Glucose 236 H 255 H 264 H 01/08/23 01/09/23 20:13 07:53 POC Glucose 215 H 267 H Imaging Radiology Impressions: ITS Impressions Venous Duplex 01/06/23 20:32 IMPRESSION: No DVT demonstrated in the bilateral lower extremities. Medications Medications Current Medications Acetaminophen (Acetaminophen 325 Mg Tablet) 650 mg PO Q6H PRN PRN Reason: Headache/Pain Mild Scale (1-3) Al Hydroxide/Mg Hydroxide (Magnesium Hydrox/Alum Hydrox 30 Ml Oral.Susp) 30 ml PO Q6H PRN PRN Reason: Heartburn/Nausea Amlodipine Besylate (Amlodipine Besylate 10 Mg Tablet) 10 mg PO DAILY [facility]; Protocol Last Admin: 01/09/23 08:50 Dose: 10 mg Atorvastatin Calcium (Atorvastatin Calcium 80 Mg Tablet) 80 mg PO BEDTIME [facility] Last Admin: 01/08/23 20:18 Dose: 80 mg Clonazepam (Clonazepam 0.5 Mg Tablet) 0.5 mg PO BID PRN PRN Reason: anxiety Last Admin: 01/09/23 08:48 Dose: 0.5 mg Escitalopram Oxalate (Escitalopram Oxalate 20 Mg Tablet) 20 mg PO DAILY [facility] Last Admin: 01/09/23 08:50 Dose: 20 mg Hydrochlorothiazide (Hydrochlorothiazide 25 Mg Tablet) 25 mg PO DAILY [facility]; Protocol Last Admin: 01/09/23 08:49 Dose: 25 mg Hydroxyzine HCl (Hydroxyzine Hcl 25 Mg Tablet) 25 mg PO Q6H PRN PRN Reason: Anxiety Last Admin: 01/08/23 21:05 Dose: 25 mg Insulin Human Lispro (Insulin Lispro 100 Unit/Ml 3 Ml Vial) 0 unit SUBCUT QIDACHS [facility]; Protocol Last Admin: 01/09/23 08:51 Dose: 6 unit Lamotrigine (Lamotrigine 25 Mg Tablet) 150 mg PO BID [facility] Last Admin: 01/09/23 08:47 Dose: 150 mg Magnesium Hydroxide (Milk Of Magnesia 30 Ml Oral.Susp) 30 ml PO DAILY PRN PRN Reason: Constipation Metformin HCl (Metformin Hcl 1,000 Mg Tablet) 1,000 mg PO BID [facility] Last Admin: 01/09/23 08:50 Dose: 1,000 mg Omeprazole (Omeprazole 20 Mg Capsule.Dr) 20 mg PO DAILY [facility] Last Admin: 01/09/23 08:50 Dose: 20 mg Propranolol HCl (Propranolol Hcl 10 Mg Tablet) 5 mg PO BID [facility]; Protocol Last Admin: 01/09/23 08:48 Dose: 5 mg Quetiapine Fumarate (Quetiapine Fumarate 100 Mg Tablet) 100 mg PO 2000 [facility] Last Admin: 01/08/23 20:18 Dose: 100 mg Trazodone HCl (Trazodone Hcl 50 Mg Tablet) 50 mg PO BEDTIME MRX1 PRN PRN Reason: Insomnia Last Admin: 01/09/23 00:54 Dose: 50 mg Valsartan (Valsartan 160 Mg Tablet) 160 mg PO DAILY [facility]; Protocol Last Admin: 01/09/23 08:50 Dose: 160 mg Allergies Allergies Allergy/AdvReac Type Severity Reaction Status Date / Time lisinopril [LISINOPRIL] Allergy Severe SHORTNESS Unverified 05/29/20 19:37 OF BREATH Assessment & Plan Assessment & Plan (1) Depression: Status: Acute Code(s): F32.A - Depression, unspecified (2) Acute anxiety: Status: Acute Code(s): F41.9 - Anxiety disorder, unspecified (3) Suicidal ideation: Status: Acute Code(s): R45.851 - Suicidal ideations Plan 42 yo female with a history of mood disorder sx since ~2003 with symptom increase with simultaneous stressors of work, needing to move, 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 Plan: Collateral contact, stressor work and intervention. 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 01/06/23- Propranolol 5 mg bid Re-start Klonopin 0.5 mg bid-pt takes at home 01/07/23 Continue current regime and plan 01/08: Continue tx plan. 01/09: Continue tx plan. Reason for continued inpatient stay Substantial Risk for: harm to self and rapid decompensation Time Spent With Patient Time: Total time managing care of this patient today ____ minutes.
[2023-01-09 12:46] LABS: Glucose, Whole Blood 215 mg/dL (60-115)
[2023-01-09 16:43] LABS: Glucose, Whole Blood 258 mg/dL (60-115)
[2023-01-09 19:59] LABS: Glucose, Whole Blood 190 mg/dL (60-115)
[2023-01-09 20:01] VITALS: BP 123/72; PULSE 101; TEMP 36.6; O2SAT 95
[2023-01-09] MEDS: Atorvastatin Calcium 80 MG TABLET PO (20:04)
[2023-01-09] MEDS: QUEtiapine Fumarate 100 MG TABLET PO (20:04)
[2023-01-10 08:18] LABS: Glucose, Whole Blood 263 mg/dL (60-115)
[2023-01-10 08:30] VITALS: BP 144/97; PULSE 104; RESP 14; TEMP 36.6; O2SAT 99
[2023-01-10] MEDS: Omeprazole 20 MG CAPSULE.DR PO (08:40)
[2023-01-10] MEDS: lamoTRIgine 25 MG TABLET 150 MG PO ×2 (08:40→19:22)
[2023-01-10] MEDS: Escitalopram Oxalate 20 MG TABLET PO (08:41)
[2023-01-10] MEDS: amLODIPine Besylate 10 MG TABLET PO (08:41)
[2023-01-10] MEDS: metFORMIN HCl 1,000 MG TABLET 1000 MG PO ×2 (08:41→19:22)
[2023-01-10] MEDS: Propranolol HCL 10 MG TABLET 5 MG PO ×2 (08:41→19:22)
[2023-01-10] MEDS: Valsartan 160 MG TABLET PO (08:41)
[2023-01-10] MEDS: hydroCHLOROthiazide 25 MG TABLET PO (08:41)
[2023-01-10] MEDS: Insulin Lispro 100 UNIT/ML 3 ML VIAL SUBCUT ×3 (08:42→17:30)
[2023-01-10 10:05] LABS: Creatinine Clr Calc Pharmacy 68.3; Estimated Glomerular Filt Rate 54
[2023-01-10 12:31] LABS: Glucose, Whole Blood 242 mg/dL (60-115)
[2023-01-10] MEDS: Magnesium Hydrox/Alum Hydrox 30 ML ORAL.SUSP PO (12:49)
--- NOTE | 2023-01-10 17:04 | HO.PSYCHPN ---
Subjective Subjective Date of Service: 01/10/23 Reason For Visit: SI/Depression Subjective Notes: Conditional Voluntary Healthcare Proxy: No Guardianship: No Medical Problems Affecting Mental Status: No Interim History: Pt reports the sudden passing of her uncle, age 56, in [place] over the weekend of cardiac failure. She reports this to be a shock to the family as he was in reasonable health. Reviewed progress thus far. Pt is participating in the milieu, tolerating med changes, and finding them of use. She discussed discharge, would like to go home, begin packing as she has 30 days to move, then attend PHP possibly to begin next week. Ovi bruce has been in contact-emails shared with pt about taking incompletes or rescheduling due dates for assignments for her courses. Denies SI and reports overall feeling some improvement. Medication Compliance: Yes Side effects from medications: No Attending Groups: Yes Review of Systems Acute medical concerns: No Medical Review of Systems: unchanged Mental Status Exam Mental Status Exam Patient Appearance: Appropriate Patient Orientation: Person, Place, Time and Situation Level of Consciousness: Alert Patient Behavior: Appropriate, Talkative, Cooperative and Good Eye Contact Mood Description: Depressed and Sad Affect Description: Flat Patient Cognition Impaired: No Ability to Follow Directions: Good Speech Pattern: Spontaneous Speech Memory Description: Intact Hallucinations: None Delusions: Not Present Thought Process: Rumination Thought Content: positive for Perseveration and positive for Suicidal Ideation (denies) Depressive Symptoms: Increased Anxiety Judgement: Good Diagnostics Vital Signs (24Hr): Vital Signs - 24 hr 01/09/23 20:01 01/10/23 08:30 Temperature 97.9 F 97.8 F Pulse Rate 101 H 104 H Respiratory Rate 14 Blood Pressure 123/72 144/97 H Pulse Oximetry 95 99 Oxygen Delivery Method Room Air Room Air BMI result Body Mass Index 35.1 Labs 01/03/23 15:54 01/10/23 08:17 Labs: Laboratory Results - last 48 hr 01/08/23 01/09/23 01/09/23 20:13 07:53 12:43 Creatinine Estim Creat Clear Calc Estimated GFR POC Glucose 215 H 267 H 215 H 01/09/23 01/09/23 01/10/23 16:38 19:56 08:10 Creatinine Estim Creat Clear Calc Estimated GFR POC Glucose 258 H 190 H 263 H 01/10/23 01/10/23 08:17 12:23 Creatinine 1.11 Estim Creat Clear Calc 68.3 Estimated GFR 54 POC Glucose 242 H Imaging Radiology Impressions: ITS Impressions Venous Duplex 01/06/23 20:32 IMPRESSION: No DVT demonstrated in the bilateral lower extremities. Medications Medications Current Medications Acetaminophen (Acetaminophen 325 Mg Tablet) 650 mg PO Q6H PRN PRN Reason: Headache/Pain Mild Scale (1-3) Al Hydroxide/Mg Hydroxide (Magnesium Hydrox/Alum Hydrox 30 Ml Oral.Susp) 30 ml PO Q6H PRN PRN Reason: Heartburn/Nausea Last Admin: 01/10/23 12:49 Dose: 30 ml Amlodipine Besylate (Amlodipine Besylate 10 Mg Tablet) 10 mg PO DAILY [facility]; Protocol Last Admin: 01/10/23 08:41 Dose: 10 mg Atorvastatin Calcium (Atorvastatin Calcium 80 Mg Tablet) 80 mg PO BEDTIME [facility] Last Admin: 01/09/23 20:04 Dose: 80 mg Clonazepam (Clonazepam 0.5 Mg Tablet) 0.5 mg PO BID PRN PRN Reason: anxiety Last Admin: 01/09/23 20:04 Dose: 0.5 mg Escitalopram Oxalate (Escitalopram Oxalate 20 Mg Tablet) 20 mg PO DAILY [facility] Last Admin: 01/10/23 08:41 Dose: 20 mg Hydrochlorothiazide (Hydrochlorothiazide 25 Mg Tablet) 25 mg PO DAILY [facility]; Protocol Last Admin: 01/10/23 08:41 Dose: 25 mg Hydroxyzine HCl (Hydroxyzine Hcl 25 Mg Tablet) 25 mg PO Q6H PRN PRN Reason: Anxiety Last Admin: 01/08/23 21:05 Dose: 25 mg Insulin Human Lispro (Insulin Lispro 100 Unit/Ml 3 Ml Vial) 0 unit SUBCUT QIDACHS [facility]; Protocol Last Admin: 01/10/23 12:45 Dose: 6 unit Lamotrigine (Lamotrigine 25 Mg Tablet) 150 mg PO BID [facility] Last Admin: 01/10/23 08:40 Dose: 150 mg Magnesium Hydroxide (Milk Of Magnesia 30 Ml Oral.Susp) 30 ml PO DAILY PRN PRN Reason: Constipation Metformin HCl (Metformin Hcl 1,000 Mg Tablet) 1,000 mg PO BID [facility] Last Admin: 01/10/23 08:41 Dose: 1,000 mg Omeprazole (Omeprazole 20 Mg Capsule.Dr) 20 mg PO DAILY [facility] Last Admin: 01/10/23 08:40 Dose: 20 mg Propranolol HCl (Propranolol Hcl 10 Mg Tablet) 5 mg PO BID [facility]; Protocol Last Admin: 01/10/23 08:41 Dose: 5 mg Quetiapine Fumarate (Quetiapine Fumarate 100 Mg Tablet) 100 mg PO 1999 [facility] Last Admin: 01/09/23 20:04 Dose: 100 mg Trazodone HCl (Trazodone Hcl 100 Mg Tablet) 100 mg PO BEDTIME PRN PRN Reason: insomnia Valsartan (Valsartan 160 Mg Tablet) 160 mg PO DAILY [facility]; Protocol Last Admin: 01/10/23 08:41 Dose: 160 mg Allergies Allergies Allergy/AdvReac Type Severity Reaction Status Date / Time lisinopril [LISINOPRIL] Allergy Severe SHORTNESS Unverified 05/29/20 19:37 OF BREATH Assessment & Plan Assessment & Plan (1) Depression: Status: Acute Code(s): F32.A - Depression, unspecified (2) Acute anxiety: Status: Acute Code(s): F41.9 - Anxiety disorder, unspecified (3) Suicidal ideation: Status: Acute Code(s): R45.851 - Suicidal ideations Plan 42 yo female with a history of mood disorder sx since ~2003 with symptom increase with simultaneous stressors of work, needing to move, 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 Plan: Collateral contact, stressor work and intervention. Continue current regime and assess Contact with employer and greenhouse technician today to begin to assist pt in addressing sx which pt reports has offered some relief. 01/06/23- Propranolol 5 mg bid Re-start Klonopin 0.5 mg bid-pt takes at home 01/07/23 Continue current regime and plan 01/08: Continue tx plan. 01/09: Continue tx plan. 01/10/23: Discharge planning-01/[address] [facility] Patient educated on: medication risk/benefits and therapeutic strategies Informed Consent: understands Reason for continued inpatient stay Substantial Risk for: rapid decompensation Time Spent With Patient Time: Total time managing care of this patient today ____ minutes.
[2023-01-10 17:38] LABS: Glucose, Whole Blood 290 mg/dL (60-115)
[2023-01-10] MEDS: clonazePAM 0.5 MG TABLET PO (17:55)
[2023-01-10 18:00] VITALS: BP 148/79; PULSE 110; RESP 16; O2SAT 97
[2023-01-10] MEDS: hydrOXYzine HCL 25 MG TABLET PO (19:22)
[2023-01-10] MEDS: traZODone HCL 100 MG TABLET PO (19:22)
[2023-01-10] MEDS: Atorvastatin Calcium 80 MG TABLET PO (19:22)
[2023-01-10] MEDS: QUEtiapine Fumarate 100 MG TABLET PO (19:22)
[2023-01-11 06:00] VITALS: BP 122/70; PULSE 93; RESP 16
[2023-01-11 08:05] LABS: Glucose, Whole Blood 327 mg/dL (60-115)
[2023-01-11] MEDS: Propranolol HCL 10 MG TABLET 5 MG PO ×2 (08:35→20:29)
[2023-01-11] MEDS: Insulin Lispro 100 UNIT/ML 3 ML VIAL SUBCUT ×3 (08:35→17:38)
[2023-01-11] MEDS: Omeprazole 20 MG CAPSULE.DR PO (08:36)
[2023-01-11] MEDS: amLODIPine Besylate 10 MG TABLET PO (08:36)
[2023-01-11] MEDS: Escitalopram Oxalate 20 MG TABLET PO (08:36)
[2023-01-11] MEDS: Valsartan 160 MG TABLET PO (08:36)
[2023-01-11] MEDS: hydroCHLOROthiazide 25 MG TABLET PO (08:36)
[2023-01-11] MEDS: lamoTRIgine 25 MG TABLET 150 MG PO ×2 (08:36→20:24)
[2023-01-11] MEDS: metFORMIN HCl 1,000 MG TABLET 1000 MG PO ×2 (08:36→20:28)
[2023-01-11 12:25] LABS: Glucose, Whole Blood 331 mg/dL (60-115)
[2023-01-11] MEDS: clonazePAM 0.5 MG TABLET PO ×2 (14:31→20:40)
--- NOTE | 2023-01-11 16:35 | HO.PSYCHPN ---
Subjective Subjective Date of Service: 01/11/23 Reason For Visit: SI/Depression Subjective Notes: Conditional Voluntary Healthcare Proxy: No Guardianship: No Medical Problems Affecting Mental Status: No Interim History: Planning discharge tomorrow. Reports that she and her partner have decided to end their relationship. Describes partner as having low self-esteem. Describes an incident yesterday where pt learned from her mom that ex-partner has their daughter back. Pt was unaware as ex had not contacted her. Current partner accused pt of infidelity and told her she was done with pt. Pt reports sadness over this loss, however, believes that this consistent pattern in their relationship places her in a situation that is not workable. Pt asked partner to care for herself and get treatment for current issues and low self esteem. Denies SI plan or intent. Looking toward her treatment goals and beginning PHP. Medication Compliance: Yes Side effects from medications: No Attending Groups: Yes Review of Systems Acute medical concerns: No Medical Review of Systems: unchanged Mental Status Exam Mental Status Exam Patient Appearance: Appropriate Patient Orientation: Person, Place, Time and Situation Level of Consciousness: Alert Patient Behavior: Appropriate, Talkative, Cooperative and Good Eye Contact Mood Description: Depressed and Sad Affect Description: Flat Patient Cognition Impaired: No Ability to Follow Directions: Good Speech Pattern: Spontaneous Speech Memory Description: Intact Hallucinations: None Delusions: Not Present Thought Process: Rumination Thought Content: positive for Perseveration and positive for Suicidal Ideation (denies) Depressive Symptoms: Increased Anxiety Judgement: Good Diagnostics Vital Signs (24Hr): Vital Signs - 24 hr 01/10/23 18:00 01/11/23 06:00 Pulse Rate 110 H 93 Respiratory Rate 16 16 Blood Pressure 148/79 H 122/70 Pulse Oximetry 97 Oxygen Delivery Method Room Air BMI result Body Mass Index 35.1 Labs 01/03/23 15:54 01/10/23 08:17 Labs: Laboratory Results - last 48 hr 01/09/23 01/09/23 01/10/23 16:38 19:56 08:10 Creatinine Estim Creat Clear Calc Estimated GFR POC Glucose 258 H 190 H 263 H 01/10/23 01/10/23 01/10/23 08:17 12:23 17:35 Creatinine 1.11 Estim Creat Clear Calc 68.3 Estimated GFR 54 POC Glucose 242 H 290 H 01/11/23 01/11/23 08:01 12:22 Creatinine Estim Creat Clear Calc Estimated GFR POC Glucose 327 H 331 H Imaging Radiology Impressions: ITS Impressions Venous Duplex 01/06/23 20:32 IMPRESSION: No DVT demonstrated in the bilateral lower extremities. Medications Medications Current Medications Acetaminophen (Acetaminophen 325 Mg Tablet) 650 mg PO Q6H PRN PRN Reason: Headache/Pain Mild Scale (1-3) Al Hydroxide/Mg Hydroxide (Magnesium Hydrox/Alum Hydrox 30 Ml Oral.Susp) 30 ml PO Q6H PRN PRN Reason: Heartburn/Nausea Last Admin: 01/10/23 12:49 Dose: 30 ml Amlodipine Besylate (Amlodipine Besylate 10 Mg Tablet) 10 mg PO DAILY [facility]; Protocol Last Admin: 01/11/23 08:36 Dose: 10 mg Atorvastatin Calcium (Atorvastatin Calcium 80 Mg Tablet) 80 mg PO BEDTIME [facility] Last Admin: 01/10/23 19:22 Dose: 80 mg Clonazepam (Clonazepam 0.5 Mg Tablet) 0.5 mg PO BID PRN PRN Reason: anxiety Last Admin: 01/11/23 14:31 Dose: 0.5 mg Escitalopram Oxalate (Escitalopram Oxalate 20 Mg Tablet) 20 mg PO DAILY [facility] Last Admin: 01/11/23 08:36 Dose: 20 mg Hydrochlorothiazide (Hydrochlorothiazide 25 Mg Tablet) 25 mg PO DAILY [facility]; Protocol Last Admin: 01/11/23 08:36 Dose: 25 mg Hydroxyzine HCl (Hydroxyzine Hcl 25 Mg Tablet) 25 mg PO Q6H PRN PRN Reason: Anxiety Last Admin: 01/10/23 19:22 Dose: 25 mg Insulin Human Lispro (Insulin Lispro 100 Unit/Ml 3 Ml Vial) 0 unit SUBCUT QIDACHS [facility]; Protocol Last Admin: 01/11/23 12:25 Dose: 8 unit Lamotrigine (Lamotrigine 25 Mg Tablet) 150 mg PO BID [facility] Last Admin: 01/11/23 08:36 Dose: 150 mg Magnesium Hydroxide (Milk Of Magnesia 30 Ml Oral.Susp) 30 ml PO DAILY PRN PRN Reason: Constipation Metformin HCl (Metformin Hcl 1,000 Mg Tablet) 1,000 mg PO BID [facility] Last Admin: 01/11/23 08:36 Dose: 1,000 mg Omeprazole (Omeprazole 20 Mg Capsule.Dr) 20 mg PO DAILY [facility] Last Admin: 01/11/23 08:36 Dose: 20 mg Propranolol HCl (Propranolol Hcl 10 Mg Tablet) 5 mg PO BID [facility]; Protocol Last Admin: 01/11/23 08:35 Dose: 5 mg Quetiapine Fumarate (Quetiapine Fumarate 100 Mg Tablet) 100 mg PO 1999 [facility] Last Admin: 01/10/23 19:22 Dose: 100 mg Trazodone HCl (Trazodone Hcl 100 Mg Tablet) 100 mg PO BEDTIME PRN PRN Reason: insomnia Last Admin: 01/10/23 19:22 Dose: 100 mg Valsartan (Valsartan 160 Mg Tablet) 160 mg PO DAILY [facility]; Protocol Last Admin: 01/11/23 08:36 Dose: 160 mg Allergies Allergies Allergy/AdvReac Type Severity Reaction Status Date / Time lisinopril [LISINOPRIL] Allergy Severe SHORTNESS Verified 01/10/23 18:39 OF BREATH Assessment & Plan Assessment & Plan (1) Depression: Status: Acute Code(s): F32.A - Depression, unspecified (2) Acute anxiety: Status: Acute Code(s): F41.9 - Anxiety disorder, unspecified (3) Suicidal ideation: Status: Acute Code(s): R45.851 - Suicidal ideations Plan 42 yo female with a history of mood disorder sx since ~2003 with symptom increase with simultaneous stressors of work, needing to move, 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 Plan: Collateral contact, stressor work and intervention. Continue current regime and assess Contact with employer and campus dean today to begin to assist pt in addressing sx which pt reports has offered some relief. 01/06/23- Propranolol 5 mg bid Re-start Klonopin 0.5 mg bid-pt takes at home 01/07/23 Continue current regime and plan 01/08: Continue tx plan. 01/09: Continue tx plan. 01/10/23: Discharge planning-01/12 Transition to [facility] 01/11/23: Continue current regime and plan. Patient educated on: medication risk/benefits, therapeutic strategies and other Informed Consent: understands Reason for continued inpatient stay Substantial Risk for: rapid decompensation Time Spent With Patient Time: Total time managing care of this patient today ____ minutes.
[2023-01-11 16:56] LABS: Glucose, Whole Blood 183 mg/dL (60-115)
[2023-01-11 17:12] VITALS: BP 146/92; PULSE 102; TEMP 35.7; O2SAT 97
--- NOTE | 2023-01-11 20:20 | PC.NURSE ---
pt refused 2100 POC
[2023-01-11 20:22] VITALS: BP 126/82; PULSE 102
[2023-01-11] MEDS: Atorvastatin Calcium 80 MG TABLET PO (20:27)
[2023-01-11] MEDS: hydrOXYzine HCL 25 MG TABLET PO (20:29)
[2023-01-11] MEDS: QUEtiapine Fumarate 100 MG TABLET PO (20:29)
[2023-01-11] MEDS: traZODone HCL 100 MG TABLET PO (20:39)
[2023-01-12 08:15] VITALS: BP 121/79; PULSE 100; RESP 18; TEMP 36.7; O2SAT 98
[2023-01-12] MEDS: hydroCHLOROthiazide 25 MG TABLET PO (08:15)
[2023-01-12] MEDS: Propranolol HCL 10 MG TABLET 5 MG PO (08:15)
[2023-01-12] MEDS: Valsartan 160 MG TABLET PO (08:15)
[2023-01-12] MEDS: metFORMIN HCl 1,000 MG TABLET 1000 MG PO (08:15)
[2023-01-12] MEDS: lamoTRIgine 25 MG TABLET 150 MG PO (08:16)
[2023-01-12] MEDS: Escitalopram Oxalate 20 MG TABLET PO (08:16)
[2023-01-12] MEDS: amLODIPine Besylate 10 MG TABLET PO (08:16)
[2023-01-12] MEDS: Omeprazole 20 MG CAPSULE.DR PO (08:16)
--- NOTE | 2023-01-12 15:30 | PM.PSYDC ---
DS: Providers Provider Date of Service: 01/12/23 Date of admission: 01/04/23 17:27 Date of discharge: 01/12/23 Primary care physician: Alona Hamilton MD Admitting clinician: Louann Gustafson Attending physician on admission: Petros Campos Attending physician on discharge: Petros Campos Discharging clinician: Louann Gustafson DS: Diagnosis Discharge Diagnosis (1) Depression: Status: Acute (2) Acute anxiety: Status: Acute (3) Suicidal ideation: Status: Resolved DS: Medications Discharge Medications Home Medications: Home Medications Medication Instructions Recorded Confirmed amlodipine 10 mg tablet 10 mg PO DAILY 01/03/23 01/03/23 hydrochlorothiazide 25 mg tablet 25 mg PO DAILY 01/03/23 01/03/23 metformin 500 mg tablet 1,000 mg PO BID 01/03/23 01/03/23 omeprazole 20 mg capsule,delayed 20 mg PO DAILY 01/03/23 01/03/23 release rosuvastatin 20 mg tablet 20 mg PO BEDTIME 01/03/23 01/03/23 valsartan 160 mg tablet 160 mg PO DAILY 01/03/23 01/03/23 insulin glargine U-300 conc 300 68 unit subcut DAILY 01/06/23 unit/mL (3 mL) subcutaneous pen (Toujeo Max U-300 SoloStar) Previous Rx's Medication Instructions Recorded clonazepam 0.5 mg tablet 0.5 mg PO BID PRN anxiety #30 tabs 01/11/23 escitalopram oxalate 20 mg tablet 20 mg PO DAILY #30 tabs 01/11/23 lamotrigine 150 mg tablet 150 mg PO BID #60 tabs 01/11/23 propranolol 10 mg tablet 5 mg PO BID #60 tabs 01/11/23 quetiapine 100 mg tablet 100 mg PO BEDTIME #30 tabs 01/11/23 Mental Status Exam Mental Status Exam Patient Appearance: Appropriate Patient Orientation: Person, Place, Time and Situation Level of Consciousness: Alert Patient Behavior: Appropriate, Talkative, Cooperative and Good Eye Contact Mood Description: Depressed and Sad Affect Description: Flat Patient Cognition Impaired: No Ability to Follow Directions: Good Speech Pattern: Spontaneous Speech Memory Description: Intact Hallucinations: None Delusions: Not Present Thought Process: Rumination Thought Content: positive for Perseveration and positive for Suicidal Ideation (denies) Depressive Symptoms: Increased Anxiety Judgement: Good Data Data Completed and Pending Completed studies during hospitalization [Text1]: 01/05/23 01/05/23 01/06/23 18:08 20:11 08:43 Creatinine Estim Creat Clear Calc Estimated GFR POC Glucose 189 H 231 H 207 H 01/06/23 01/06/23 01/06/23 12:20 15:55 20:48 Creatinine Estim Creat Clear Calc Estimated GFR POC Glucose 225 H 159 H 298 H 01/07/23 01/07/23 01/07/23 08:46 12:32 16:36 Creatinine Estim Creat Clear Calc Estimated GFR POC Glucose 223 H 194 H 213 H 01/07/23 01/08/23 01/08/23 20:12 07:50 12:10 Creatinine Estim Creat Clear Calc Estimated GFR POC Glucose 220 H 236 H 255 H 01/08/23 01/08/23 01/09/23 16:30 20:13 07:53 Creatinine Estim Creat Clear Calc Estimated GFR POC Glucose 264 H 215 H 267 H 01/09/23 01/09/23 01/09/23 12:43 16:38 19:56 Creatinine Estim Creat Clear Calc Estimated GFR POC Glucose 215 H 258 H 190 H 01/10/23 01/10/23 01/10/23 08:10 08:17 12:23 Creatinine 1.11 Estim Creat Clear Calc 68.3 Estimated GFR 54 POC Glucose 263 H 242 H 01/10/23 01/11/23 01/11/23 17:35 08:01 12:22 Creatinine Estim Creat Clear Calc Estimated GFR POC Glucose 290 H 327 H 331 H 01/11/23 16:48 Creatinine Estim Creat Clear Calc Estimated GFR POC Glucose 183 H Imaging Diagnostic Imaging Impressions Venous Duplex 01/06/23 20:32 IMPRESSION: No DVT demonstrated in the bilateral lower extremities. DS: Summary Hospital Course Hospital Course: Admission to adult psychiatry for exacerbation of PTSD, Depression, Anxiety in the context of personal, family, and work stressors. Medication regime was maintained as it had been effective by history. Pt worked in the milieu on grief/loss issues-former partner who has custody of their foster child that was regained during admission, issues with new partner, eviction from her apartment, conflicts in her work environment due to her race and identity. These stressors precipitated SI. Milieu interventions were useful in stabilizing symptoms and resolving suicidality. Treatment planning to continue group therapy in partial hospital program and continue out patient plan of care were established and Chasidy was transitioned to partial hospital program upon her discharge. Time spent discussing smoking cessation with patient: more than 10 minutes Status at Discharge Functional status at discharge: independent ambulation Overall status at discharge: patient is progressing back to baseline Time Spent with Patient Time attestation: Total time managing care of this patient today ____ minutes. Time spent: Greater than 30 minutes Discharge Plan Discharge Anticipated Discharge Date/Time: 01/12/23 12:27 Patient Disposition: Home, Self-Care Discharge Diagnosis: PTSD Recurrent Major Depression Referrals: [facility] Therapy [Other] - 01/14/23 10:45 am (In office) [facility] Medication Management [Other] - 02/08/23 2:30 pm (Telehealth with Deepali Cardenas) [facility] [place] Partial Hospitalization Program Intake [Other] - 01/27/23 11:00 am (This is in-person. Park in parking lot C and follow signs for [facility] - it is along the walkway between the [facility] and the [facility], in the [facility]. ) Alona Hamilton MD [Primary Care Provider] - (MD office will call you to schedule.) Discharge Medications: Continued metformin 500 mg tablet 1,000 mg PO BID amlodipine 10 mg tablet 10 mg PO DAILY omeprazole 20 mg capsule,delayed release(DR/EC) 20 mg PO DAILY hydrochlorothiazide 25 mg tablet 25 mg PO DAILY valsartan 160 mg tablet 160 mg PO DAILY rosuvastatin 20 mg tablet 20 mg PO BEDTIME Toujeo Max U-300 SoloStar 300 unit/mL (3 mL) insulin pen 68 unit subcut DAILY lamotrigine 150 mg tablet 150 mg PO BID Qty: 60 0RF quetiapine 100 mg tablet 100 mg PO BEDTIME Qty: 30 0RF escitalopram oxalate 20 mg tablet 20 mg PO DAILY Qty: 30 0RF No Action metoprolol succinate 50 mg tablet extended release 24 hr 50 mg PO QAM insulin lispro [Humalog KwikPen Insulin] 100 unit/mL insulin pen 10 unit subcut TID Trulicity 0.75 mg/0.5 mL pen injector 0.75 mg subcut QWEEK clonazepam 0.5 mg tablet 0.5 mg PO TID Qty: 42 0RF quetiapine 25 mg tablet 25 mg PO DAILY PRN (Reason: anxiety) Qty: 14 0RF Discharge Orders: Discharge Order (Routine); Ordered 01/12/23 Ordered By: Louann Gustafson Diet: Diabetic diet Activity on Discharge: As tolerated Stand Alone Forms: Patient Portal Discharge page, Community Support Care Plan Goals: Mood and Behavioral Stabilization Health Concerns: Mood and Behavioral Stabilization Plan of Treatment: Attend follow up provider appointments Take medications as directed Assessment: Pt interviewed prior to discharge and found to be fully oriented and without SI/HI. Pt has insight and demonstrates good judgment in terms of wanting to pursue treatment. Pt is not in imminent risk of harm to self or others and has a safety plan that includes presenting to the closest ER or calling 911 if feeling unsafe. Pt has been observed closely by nursing and unit staff throughout admission. Pt has not engaged in any behaviors that suggest dangerousness to self or others and has demonstrated appropriate behaviors and impulse control. Discharge Date/Time: 01/12/23 10:06
== END 2023-01-12 10:06 | disposition home or self-care (01) | DRG 751 ==
LOC: HO.ED 20:49 → HO.PM5 01-04 17:38
PROVIDERS: Physician Assistant; Admitting Provider Psychiatry & Neurology Psychiatry; Emergency Provider Student in an Organized Health Care Education/Training Program; PCP Family Medicine; Visit Provider Clinical Nurse Specialist Psychiatric/Mental Health, Adult
DX: F33.9 Major depressive disorder, recurrent, unspecified (principal); R45.851 Suicidal ideations; E11.9 Type 2 diabetes mellitus without complications; F41.9 Anxiety disorder, unspecified; E78.00 Pure hypercholesterolemia, unspecified; J45.909 Unspecified asthma, uncomplicated; Z20.822 Contact with and (suspected) exposure to COVID-19; Z88.8 Allergy status to other drugs, medicaments and biological substances; Z79.4 Long term (current) use of insulin; Z79.84 Long term (current) use of oral hypoglycemic drugs; Z79.899 Other long term (current) drug therapy
CPT/HCPCS: 36415; 80048; 80061; 80076; 80143; 80179; 80307; 81001; 82077; 82565; 82607; 82746; 82947; 83036; 83735; 84439; 84443; 84484; 85025; 87635; 93005; 93970; 99285; S9485

== ENCOUNTER 2023-02-21 08:45 | Outpatient (RCR) | payer SELFPAY ==
[2023-01-28 11:30] VITALS: BP 148/86; PULSE 80; TEMP 36.2
[2023-01-28 11:33] VITALS: BMI 35.7
--- NOTE | 2023-01-28 12:18 | PC.ADMIT ---
Patient is a 43 year old female who was referred to [facility] by [facility] inpatient behavioral health unit where patient was admitted d/t increased depression with passive SI, increased anxiety with panic attacks in relation to increased stresses at work, college classes, and finding a new place to live. Patient talking a CLARE of absence from work to work on her mental health. Patient is alert and oriented x4. Calm and cooperative. Presented with depressed mood and anxious affect. Denied SI or thoughts to harm herself. Patient given a copy of her safety plan and I reviewed the plan with her. Medications reconciled with patient and discharge paperwork from . Patient reports she did not take her insulin this morning as she forgot to take it out of the refrigerator. Stated she will take it when she gets home. She also stated she did not take Seroquel last night as she feels it makes her drowsy in the morning. She stated she was told by her doctor to take it earlier so she would't be drowsy in the morning. Patient also stated she did not get a prescription for Propranolol. I called the pharmacy and they stated she is on Metoprolol which was filled. Notifying Edu Norman APRN for janettificaton. [ End ]
--- NOTE | 2023-01-28 14:36 | PC.NURSE ---
Patient reportedly told Nevin yesterday that she would have to leave early today.
--- NOTE | 2023-01-28 14:51 | PC.NURSE ---
Spoke to Edu Norman APRN who stated to d/c Propranolol as patient is on Metoprolol according to the pharmacy. Pharmacy stated they did not fill the Propranolol as a result.
--- NOTE | 2023-01-31 12:39 | HO.PS.ADMBH ---
[facility] Date of Service: 01/31/23 Chief Complaint: MDD Sources of Information: patient interviewed, chart reviewed and crisis/core team assessment reviewed HPI Medical Problems Affecting Mental Status: No Narrative: Chart reviewed prior to meeting with patient. Please refer to clinician's integrated assessment, an inpatient notes for further information. Patient is a 43-year-old female, referred to [facility] as a step-down from inpatient level of care in this hospital. She had been hospitalized January 05 through 01/12/2023 due to increased symptoms of depression, anxiety, panic attacks, with SI. She reports that prior to being admitted she had been experiencing increased work stressors, as well as her graduate school program. She also is looking for an apartment, as she has been asked to move out of her living arrangements. She reports that due to these multiple stressors, she had become overwhelmed. She currently is on leave from work and school, which she reports is actually adding to her financial stressors. Her fiance is currently working as an RN, which she states is helpful, but that she needs to be able to return to work soon. She is engaged with outpatient providers. She has had recent medication changes while inpatient. Past Psychiatric History: IP: [facility], 01/2023. [facility], [place] ~1992- polypharm OD OP: [facility] Emerita Hagan-psychotherapy, and Dr. Deepali Cardenas Trials: Wellbutrin-worked for many years SA: Several suicide attempts by history PHP/IOP: 2019 [facility]. Medical Evaluation Reviewed: Yes [facility] Medical History Asthma Diabetes High cholesterol Hypertension Mood disorder Family History: Mother: Depression Cousin: Depression Paternal aunt: Intellectual disability. Social History: Born in [place], [place]. Raised by mom and maternal relatives, all living on the same [address]. Reports a non traumatic upbringing Six half sibs (father's side)- Most are in [place]. 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 Substance History: Cannabis, vaping daily, amount and THC concentration varies. Trauma History: Denies Diagnostics Vital Signs (24Hr): BMI result Body Mass Index 35.7 Meds/Allergies Meds Home Medications Medication Instructions Recorded Confirmed Type amlodipine 10 mg tablet 10 mg PO DAILY 01/03/23 01/28/23 History hydrochlorothiazide 25 mg tablet 25 mg PO DAILY 01/03/23 01/28/23 History metformin 500 mg tablet 1,000 mg PO BID 01/03/23 01/28/23 History omeprazole 20 mg capsule,delayed 20 mg PO DAILY 01/03/23 01/28/23 History release rosuvastatin 20 mg tablet 20 mg PO BEDTIME 01/03/23 01/28/23 History valsartan 160 mg tablet 160 mg PO DAILY 01/03/23 01/28/23 History insulin glargine U-300 conc 300 68 unit subcut DAILY 01/06/23 History unit/mL (3 mL) subcutaneous pen (Toujeo Max U-300 SoloStar) metoprolol succinate 50 mg 50 mg PO QAM 01/28/23 01/28/23 History tablet,extended release 24 hr Allergies Allergies Allergy/AdvReac Type Severity Reaction Status Date / Time lisinopril [LISINOPRIL] Allergy Severe SHORTNESS Verified 01/10/23 18:39 OF BREATH Mental Status Exam Mental Status Exam Narrative: Well-developed, overweight female, in NAD. Ambulation and gait normal. Posture normal. No perceptual disturbances. Denies SI/HI/AVH today. Has had passive SI intermittent. Appropriately groomed and dressed for weather/occasion. Appears stated age. No tics or tremors, no abnormal movements. Patient Appearance: Appropriate Patient Orientation: Person, Place, Time and Situation Level of Consciousness: Appropriate Patient Behavior: Appropriate, Cooperative and Good Eye Contact Mood Description: Depressed (Reports improved since inpatient, however still present.) and Anxious Affect Description: Depressed and Anxious Patient Cognition Impaired: No Ability to Follow Directions: Excellent Speech Pattern: Clear Memory Description: Intact Hallucinations: None Delusions: Not Present Thought Process: Intact Thought Content: positive for Intact Depressive Symptoms: Increased Anxiety, Sleeping More Than Usual, Loss of Int. in Activity, Hopelessness, Increased Fatigue, Thoughts of /Suicide (Intermittent passive, no intent or plan), Low Self Esteem and Loss of Energy Judgement: Fair Assessment & Plan Assessment & Plan (1) Depression: Status: Acute Code(s): F32.A - Depression, unspecified Assessment and Plan: Patient is a 43-year-old female, referred to [facility] after discharge from inpatient level of care at [facility]. Hospitalized for depression, anxiety, increased SI, panic attacks. Reports since hospitalization her depression has improved, although is still present. Denies SI at this time, but does acknowledge she had hospitalization 19 years ago after a suicide attempt. She reports that she feels safe at this time. She feels currently her concern is ongoing anxiety. Has multiple stressors including career, graduate school, financial, looking for a new apartment. We reviewed her current cannabis use. She is unaware currently of water THC concentration is. Discussed levels of THC, amount, consistently using during day, how this can also affect anxiety. She stated that she understood, it would be more mindful of her cannabis use. We reviewed her current medications. She does have Klonopin ordered b.i.d. p.r.n.. She states she has only been taking the 1 dose at night. Discussed utilizing the daytime dose 1st, while participating in this program, before considering adding a new medication. She was in agreement with this plan. (2) Generalized anxiety disorder: Status: Acute Code(s): F41.1 - Generalized anxiety disorder Plan 1. Continue with current [facility] plan of care. 2. Continue with current medication regimen as prescribed by outpatient provider. 3. Follow-up as per protocol. Patient educated on: diagnosis, medication risk/benefits, substance abuse and therapeutic strategies Informed Consent: understands Reason for continued partial hosp. stay Substantial Risk for: harm to self, inability to function and rapid decompensation Certification I certify that partial hospital treatment is medically necessary due to the symptoms and problems resulting from the patient's mental illness and the failure to treat the patient at the partial hospital level of care would likely result in the patient requiring inpatient psychiatric care which could not be prevented at a less intensive level of care. Time Spent With Patient Time: Total time managing care of this patient today __60__ minutes.
--- NOTE | 2023-02-03 15:14 | HO.PHP ---
The clients case was reviewed and opened in treatment team
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
--- NOTE | 2023-02-10 10:46 | HO.PHPPROGNO ---
Subjective Subjective Date of Service: 02/10/23 Reason For Visit: MDD Interim History: Increased anxiety, depression Lost job, tearful, upset. Asking for additional medications regarding anxiety. Continues with passive SI, increased, states ?the thoughts are getting louder ?. Reports that she is safe at this time. Medication Compliance: Yes Side effects from medications: No Attending Groups: Yes Review of Systems Acute medical concerns: No Medical Review of Systems: unchanged Review of Systems Review of Systems Yes all other systems are reviewed and are negative Constitutional: Reports no additional constitutional complaints Mental Status Exam Mental Status Exam Narrative: NAD Patient Appearance: Appropriate Patient Orientation: Person, Place, Time and Situation Level of Consciousness: Appropriate Patient Behavior: Appropriate, Cooperative and Good Eye Contact Mood Description: Depressed and Anxious (Increased) Affect Description: Depressed and Anxious (tearful) Patient Cognition Impaired: No Ability to Follow Directions: Excellent Speech Pattern: Clear Memory Description: Intact Hallucinations: None Delusions: Not Present Thought Process: Intact Thought Content: positive for Intact and positive for Suicidal Ideation (passive, no intent/plan, but states the thoughts are getting louder ) Depressive Symptoms: Increased Anxiety, Loss of Int. in Activity, Increased Fatigue, Thoughts of /Suicide (Increased passive, no intent or plan) and Loss of Energy Judgement: Fair Diagnostics Vital Signs (24Hr): BMI result Body Mass Index 35.7 Assessment & Plan Assessment & Plan (1) Acute anxiety: Status: Acute Code(s): F41.9 - Anxiety disorder, unspecified Assessment and Plan: Patient presents as extremely anxious, depressed this morning. Was told yesterday that she was terminated from employment due to multiple absences. Tearful, reports increased anxiety, depression, continues with passive SI, states that it is more intense today, although she feels safe. She spoke with her outpatient psychiatrist yesterday, psychiatrist told her they will not order meds while she is in this program. She is requesting increase in anxiety meds. Discussed adding 3rd dose of Klonopin 0.5 mg, as well as adding a p.r.n. quetiapine 25 mg once daily. She was in agreement with this. Discussed risks, benefits. (2) Depression: Status: Acute Code(s): F32.A - Depression, unspecified (3) Generalized anxiety disorder: Status: Acute Code(s): F41.1 - Generalized anxiety disorder Plan 1. Continue with current [facility] plan of care. 2. Increase clonazepam to 0.5 mg t.i.d. p.r.n. for anxiety. Patient instructed to take the morning and p.m. dose daily, an utilize the mid day dose as needed for anxiety. Instructed to try the Seroquel 1st, and if ineffective to utilize the Klonopin. 3. Quetiapine 25 mg daily p.r.n. for anxiety symptoms. 4. Follow-up as per protocol. Patient educated on: diagnosis, medication risk/benefits and therapeutic strategies Reason for contiued partial hosp. stay Substantial Risk for: harm to self, inability to function and rapid decompensation Certification I certify that partial hospital treatment is medically necessary due to the symptoms and problems resulting from the patient's mental illness and the failure to treat the patient at the partial hospital level of care would likely result in the patient requiring inpatient psychiatric care which could not be prevented at a less intensive level of care. Total time managing care of this patient today __25__ minutes. Discharge Plan Discharge Attending provider: Bernabe Rodgers Medications: New clonazepam 0.5 mg tablet 0.5 mg PO TID Qty: 42 0RF quetiapine 25 mg tablet 25 mg PO DAILY PRN (Reason: anxiety) Qty: 14 0RF Discontinued clonazepam 0.5 mg Tablet 0.5 mg PO BID PRN (Reason: anxiety) Qty: 30 1RF No Action metformin 500 mg tablet 1,000 mg PO BID amlodipine 10 mg tablet 10 mg PO DAILY omeprazole 20 mg capsule,delayed release(DR/EC) 20 mg PO DAILY hydrochlorothiazide 25 mg tablet 25 mg PO DAILY valsartan 160 mg tablet 160 mg PO DAILY rosuvastatin 20 mg tablet 20 mg PO BEDTIME Toujeo Max U-300 SoloStar 300 unit/mL (3 mL) insulin pen 68 unit subcut DAILY lamotrigine 150 mg tablet 150 mg PO BID Qty: 60 0RF quetiapine 100 mg tablet 100 mg PO BEDTIME Qty: 30 0RF escitalopram oxalate 20 mg tablet 20 mg PO DAILY Qty: 30 0RF metoprolol succinate 50 mg tablet extended release 24 hr 50 mg PO QAM insulin lispro [Humalog KwikPen Insulin] 100 unit/mL insulin pen 10 unit subcut TID Trulicity 0.75 mg/0.5 mL pen injector 0.75 mg subcut QWEEK
--- NOTE | 2023-02-10 16:01 | HO.PHP ---
Chasidy met with PHP staff due to becoming emotional during the second group. Chasidy had mentioned on Tuesday, she had found out she had lost her job. Chasidy was feeling overwhelmed with financial responsibilities now that she is unemployed. Chasidy also expressed that she found out she is failing two of her classes and won't be able to continue on working towards her degree due to her past employer paying for 80%. Chasidy disclosed her fiances cancer may be back as well. PHP staff empathized with her, in which Chasidy noted that is what everyone is saying is it sounds tough. PHP staff informed Chasidy that she is unable to provide her with an answer but can help create a plan to support her or explore resources. Chasiyd struggled to develop a plan. Chasidy had mentioned that her fiance encouraged her not to worry about the finances and she will work overtime. Chasidy voiced that she is having a challenging time with this due to her wifes health and noted that she was always the back bone. Chasidy disclosed that she needs to get fast money and has ways of doing so but it could end her up in care home. Chasidy did not further express how she could get this money. PHP staff encouraged Chasidy to steer away from that thought and focus on what her goal is and dream job. PHP staff stated she won't be able to acheive her goals if she follows through with the negative plan. Chasidy was receptive. PHP staff encouraged her to look on indeed. Chasidy was receptive. Chasidy talked about how yesterday she had slept all day and only woke up to take her night medication and then went back to sleep. Chasidy recognized this is not a healthy coping skill because she is unable to get done what she would like. PHP staff was receptive. PHP staff assessed for SI, plan and intent. Chasidy had disclosed that the SI is loud and she has no plan and intent at this time. PHP staff was receptive and encouraged her to reach out if she would like any resources around coping skills, finances, etc. Chasidy was receptive and was able to return to group.
--- NOTE | 2023-02-11 09:29 | HO.PHP ---
I left a message for Chasidy to call re inquire about absence.
--- NOTE | 2023-02-11 13:17 | HO.PHP ---
I spoke with the clients therapist , Emerita Carr DAVID, to discuss clients progress and discharge date of 02/18
--- NOTE | 2023-02-15 12:24 | HO.PHPPROGNO ---
Subjective Subjective Date of Service: 02/15/23 Reason For Visit: MDD Medical Problems Affecting Mental Status: No Interim History: ?I am here ?. Continues with some anxiety, depression. No SI, feels safe. Increased Klonopin helpful somewhat with anxiety. Has not taken the p.r.n. quetiapine. Medication Compliance: Yes Side effects from medications: No Attending Groups: Yes Review of Systems Acute medical concerns: No Medical Review of Systems: unchanged Review of Systems Review of Systems Yes all other systems are reviewed and are negative Constitutional: Reports no additional constitutional complaints Mental Status Exam Mental Status Exam Narrative: NAD Patient Appearance: Appropriate Patient Orientation: Person, Place, Time and Situation Level of Consciousness: Appropriate Patient Behavior: Appropriate, Cooperative and Good Eye Contact Mood Description: Depressed and Anxious Affect Description: Depressed (improving) and Anxious (slightly improved) Patient Cognition Impaired: No Ability to Follow Directions: Excellent Speech Pattern: Clear Memory Description: Intact Hallucinations: None Delusions: Not Present Thought Process: Intact Thought Content: positive for Intact Depressive Symptoms: Loss of Int. in Activity, Increased Fatigue and Loss of Energy Judgement: Fair Diagnostics Vital Signs (24Hr): BMI result Body Mass Index 35.7 Assessment & Plan Assessment & Plan (1) Generalized anxiety disorder: Status: Acute Code(s): F41.1 - Generalized anxiety disorder Assessment and Plan: Continues with anxious, depressed mood an affect, although beginning to improve. In process of packing up and moving, this is causing increased stress. Participating in groups, finding program helpful. Has been utilizing the increased clonazepam with good effect. Has not used p.r.n. quetiapine, understands that she has it if needed. No SI, no safety concerns. Satisfied with current medication regimen. (2) Depression: Status: Acute Code(s): F32.A - Depression, unspecified Plan 1. Continue with current [facility] plan of care. 2. Continue with current medication regimen. 3. Follow-up as per protocol. Patient educated on: diagnosis, medication risk/benefits and therapeutic strategies Informed Consent: understands Reason for contiued partial hosp. stay Substantial Risk for: harm to self, inability to function and rapid decompensation Certification I certify that partial hospital treatment is medically necessary due to the symptoms and problems resulting from the patient's mental illness and the failure to treat the patient at the partial hospital level of care would likely result in the patient requiring inpatient psychiatric care which could not be prevented at a less intensive level of care. Total time managing care of this patient today __20__ minutes. Discharge Plan Discharge Attending provider: Bernabe Rodgers Medications: New clonazepam 0.5 mg tablet 0.5 mg PO TID Qty: 42 0RF quetiapine 25 mg tablet 25 mg PO DAILY PRN (Reason: anxiety) Qty: 14 0RF Discontinued clonazepam 0.5 mg Tablet 0.5 mg PO BID PRN (Reason: anxiety) Qty: 30 1RF No Action metformin 500 mg tablet 1,000 mg PO BID amlodipine 10 mg tablet 10 mg PO DAILY omeprazole 20 mg capsule,delayed release(DR/EC) 20 mg PO DAILY hydrochlorothiazide 25 mg tablet 25 mg PO DAILY valsartan 160 mg tablet 160 mg PO DAILY rosuvastatin 20 mg tablet 20 mg PO BEDTIME Toujeo Max U-300 SoloStar 300 unit/mL (3 mL) insulin pen 68 unit subcut DAILY lamotrigine 150 mg tablet 150 mg PO BID Qty: 60 0RF quetiapine 100 mg tablet 100 mg PO BEDTIME Qty: 30 0RF escitalopram oxalate 20 mg tablet 20 mg PO DAILY Qty: 30 0RF metoprolol succinate 50 mg tablet extended release 24 hr 50 mg PO QAM insulin lispro [Humalog KwikPen Insulin] 100 unit/mL insulin pen 10 unit subcut TID Trulicity 0.75 mg/0.5 mL pen injector 0.75 mg subcut QWEEK
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
--- NOTE | 2023-02-21 14:59 | HO.PHP ---
During the first group the client appeared and reported feeling very depressed and overwhelmed. She stated that she was experiencing suicidal ideation . When asked if she had a plan she stated many and with intermittent intent. I met with her individually and she again stated the same. I asked her is she would call crisis if needed and she stated no. We discussed her multiple stressors including having difficulty motivating herself to pack, financial stressors and serve level of conflict and stress in her relationship. She does not have any support in this area except her mother who is elderly and in ill health. I then asked Sophie Reis RN to join us to help assess and make a plan. Chasidy could not contract for safety and continued to present as severely depressed and overwhelmed. She agreed to be assessed by crisis . Cleo Torres NP signed a section 12 and Karolina Lee [facility] walked her to the ED.
== END 2023-02-21 23:59 | disposition home or self-care (01) ==
LOC: HO.PHPA 08:45
PROVIDERS: Visit Provider Psychiatry & Neurology Psychiatry
DX: F32.A Depression, unspecified (principal); F41.1 Generalized anxiety disorder; Z79.899 Other long term (current) drug therapy
CPT/HCPCS: 90791; 90853

== ENCOUNTER 2023-02-21 14:40 | Inpatient (IN) | payer OTHER, MEDICAID, SELFPAY ==
--- NOTE | 2023-02-21 14:45 | ED_ITS ---
HPI - Psych General Chief Complaint: Psychiatric Symptoms Stated Complaint: Crisis/Sec 12 Time Seen by Provider: 02/21/23 15:10 Source: patient Mode of arrival: EMS Limitations: no limitations History of Present Illness HPI Narrative: It comes to emergency room via ambulance on a Section 12 from partial hospitalization program. Patient states that it was a rough weekend, did not mention any specifics, states that she has been considering suicide. Nurse practitioner saw her at the partial hospitalization program, patient said that she is not sure if she will be safe tonight, patient was started on a Section 12 and sent to the ED. patient has no other complaints. Related Data Home Medications Medication Instructions Recorded Confirmed amlodipine 10 mg tablet 10 mg PO DAILY 01/03/23 02/21/23 hydrochlorothiazide 25 mg tablet 25 mg PO DAILY 01/03/23 02/21/23 metformin 500 mg tablet 1,000 mg PO BID 01/03/23 02/21/23 omeprazole 20 mg capsule,delayed 20 mg PO DAILY@0601/03/23 02/21/23 release rosuvastatin 20 mg tablet 20 mg PO DAILY 01/03/23 02/21/23 valsartan 160 mg tablet 160 mg PO DAILY 01/03/23 02/21/23 insulin glargine U-300 conc 300 68 unit subcut DAILY 01/06/23 02/21/23 unit/mL (3 mL) subcutaneous pen (Toujeo Max U-300 SoloStar) metoprolol succinate 50 mg 50 mg PO DAILY 01/28/23 02/21/23 tablet,extended release 24 hr dulaglutide 0.75 mg/0.5 mL 0.75 mg subcut FR@89902/03/23 02/21/23 subcutaneous pen injector (Trulicity) insulin lispro 100 unit/mL 15 unit subcut TIDAC 02/03/23 02/21/23 subcutaneous pen (Humalog KwikPen (U-100) Insulin) cetirizine 10 mg tablet 10 mg PO DAILY 02/21/23 02/21/23 clonazepam 0.5 mg tablet 0.5 mg PO BID anxiety 02/21/23 02/21/23 clonazepam 0.5 mg tablet 0.5 mg PO DAILY@1200 PRN Anxiety 02/21/23 02/21/23 ferrous sulfate 325 mg (65 mg 325 mg PO MOWEFR@0900 02/21/23 02/21/23 iron) tablet (FeroSul) lamotrigine 150 mg tablet 300 mg PO DAILY 02/21/23 02/21/23 Previous Rx's Medication Instructions Recorded escitalopram oxalate 20 mg tablet 20 mg PO DAILY #30 tabs 01/11/23 quetiapine 100 mg tablet 100 mg PO BEDTIME #30 tabs 01/11/23 quetiapine 25 mg tablet 25 mg PO DAILY PRN anxiety #14 tabs 02/10/23 Allergies Allergy/AdvReac Type Severity Reaction Status Date / Time lisinopril [LISINOPRIL] Allergy Severe SHORTNESS Verified 02/21/23 17:37 OF BREATH Review of Systems Review of Systems: Constitutional : No Weight loss, No Fever, No Chills, No Night Sweats, No Fatigue, No Malaise ENT/Mouth : No Hearing loss, No Ear Pain, No Nasal Congestion, No Sinus Pain, No Hoarseness, No sore throat, No Rhinorrhea, No Swallowing Difficulty Eyes: No Eye Pain, No Swelling, No Redness, No Foreign Body, No Discharge, No Vision Changes Cardiovascular : No Chest Pain, No SOB, No Dyspnea on Exertion, No Orthopnea, No Edema, No Palpitations Respiratory : No Cough, No Sputum, No Wheezing, No Smoke Exposure, No Dyspnea Gastrointestinal : No Nausea, No Vomiting, No Diarrhea, No Constipation, No abdominal Pain, No Hematochezia, No Melena Genitourinary : no irregular bleeding, No Dysuria, No Urinary Frequency, No Hematuria, No Urinary Incontinence, No Urgency, No Flank Pain, No Urinary Flow Changes, No Hesitancy Musculoskeletal : No joint pain, No Myalgias, No Joint Swelling Skin : No Skin Lesions, No rash Neuro : No Weakness, No Numbness, No Paresthesias, No Loss of Consciousness, No Dizziness, No Headache Psych : Bring of anxiety, depression, suicidal ideation, no homicidal ideation Heme/Lymph: No Bruising, No Bleeding,No Lymphadenopathy Endocrine : No Polyuria, No Polydipsia, No Temperature Intolerance PMFSH Past Medical History Medical History Asthma Diabetes High cholesterol Hypertension Mood disorder Social History Social History Household Members: Significant Other Household Members Other:: stalin Garcia Housing: Apartment Alcohol intake: current Alcohol intake frequency: a few times a week Patient Tobacco Use Status: Never used Tobacco e-Cigarette/Vaping Use: Never Used Substance Use Type: Marijuana Advance Directives: No Advance Directives Information Provided: No service: No Sexual orientation: Lesbian/Hernandez/Homosexual Physical Exam Vital Signs: Vital Signs: Last Vital Signs Temp 97.8 F 02/22/23 06:11 Pulse 88 02/22/23 06:11 Resp 18 02/22/23 06:11 BP 141/95 H 02/22/23 06:11 Pulse Ox 97 02/22/23 06:11 O2 Del Method Room Air 02/22/23 06:11 BMI result Body Mass Index 35.1 Const: Other: Appearance: Alert. Oriented X3. No acute distress. Eyes: Pupils equal, round and reactive to light. ENT: Pharynx normal. Neck: Normal inspection. Neck supple. No lymph nodes noted. No crepitus CVS: Normal heart rate and rhythm. Pulses normal. Normal S1 and S2 Respiratory: No respiratory distress. Breath sounds normal. No Wheezing. No rales Abdomen: Soft and nontender. No rigidity. No distention. Skin: Skin warm and dry. Normal skin color. Normal skin turgor. Extremities: No lower extremity edema. No Lacerations. No Rash Neuro: Oriented X 3. No motor deficit. No sensory deficit. Moving all extremities. No slurred speech. CN 2 through 12 grossly intact Psych: calm, cooperative, normal affect Course Course Course Narrative: RME: 43yo F w/PMHx anxiety, depression presenting to the ED on [id number] from partial for +SI w/ plan x few days. Denies attempt recently. Does report hx misusing insulin in prior self harm attempt. Admits to recent med changes w/her Seroquil and Klonopin. Admits to ETOH use weekly, denies hx withdrawal & THC use Labs, CARE consult ordered Full HPI, ROS and PE to be performed by primary ED provider. -patient is on a Section 12 -physician observation started at 15:20 Reevaluation(s) Reevaluation #1: physician observation: Patient here for suicidal ideation, to be reevaluated this morning, uneventful night. Physician observation continued to see if patient improves or she will need to be admitted. Time: 07:10 Medications Administered Generic Name Dose Route Start Last Admin Trade Name Marylou PRN Reason Stop Dose Admin Clonazepam 0.5 mg 02/21/23 21:00 02/21/23 20:43 Clonazepam 0.5 Mg Tablet PO 0.5 mg BID JIM Administration Metformin HCl 1,000 mg 02/21/23 21:00 02/21/23 20:43 Metformin Hcl 1,000 Mg Tablet PO 1,000 mg BID JIM Administration Omeprazole 20 mg 02/22/23 06:30 02/22/23 06:26 Omeprazole 20 Mg Capsule. PO 20 mg DAILY@629 JIM Administration Quetiapine Fumarate 100 mg 02/21/23 21:00 02/21/23 20:43 Quetiapine Fumarate 100 Mg Tablet PO 100 mg BEDTIME JIM Administration Medical Decision Making Lab Data 02/21/23 15:38 02/21/23 15:38 Labs: Lab Results 02/21/23 02/21/23 02/21/23 Range/Units 15:38 15:38 16:52 WBC 6.4 (4.8-10.8) X10*3/uL RBC 4.59 (4.20-5.50) X10*6/uL Hgb 13.3 (12.0-16.0) g/dl Hct 40.0 (37.0-47.0) % MCV 87.1 (80.0-98.0) fL MCH 29.0 (27.0-33.0) pg MCHC 33.3 (31.0-35.0) g/dl RDW 12.7 (11.0-16.0) % Plt Count 281 (160-400) X10*3/uL MPV 9.9 (9.4-12.3) fL Immature Gran % (Auto) 0.3 (0.0-0.4) % Neut % (Auto) 49.7 (45-73) % Lymph % (Auto) 42.3 H (20-40) % [facility] % (Auto) 6.0 (2-11) % Eos % (Auto) 1.4 (0-4) % Baso % (Auto) 0.3 (0-2) % Lymph # (Auto) 2.7 (1.2-4.9) X10*3/uL [facility] # (Auto) 0.4 (0.1-1.2) X10*3/uL Eos # (Auto) 0.1 (0.0-0.4) X10*3/uL Baso # (Auto) 0.0 (0.0-0.2) X10*3/uL Abs Immat Gran (auto) 0.02 (0.00-0.03) X10*3/uL Absolute Neuts (auto) 3.2 (2.0-8.3) x10*3/uL Absolute Nucleated RBC 0.000 (0.0-0.012) X10*3/uL Nucleated RBC % (auto) 0.0 (0.0-0.2) /100WBC Sodium 137 (135-145) mmol/L Potassium 4.1 (3.3-5.1) mmol/L Chloride 101 (96-108) mmol/L Carbon Dioxide 27 (22-29) mmol/L Anion Gap 13 (12-20) BUN 15 (9-16) mg/dL Creatinine 1.11 (0.5-1.4) mg/dL Estim Creat Clear Calc 67.6 Estimated GFR 54 Random Glucose 315 H (60-115) mg/dL Calcium 8.7 (8.4-10.2) mg/dL Total Bilirubin 0.5 (0.0-1.0) mg/dL AST 27 (5-31) U/L ALT 44 H (0-31) U/L Alkaline Phosphatase 183 H (39-117) U/L Total Protein 7.4 (6.5-8.0) g/dL Albumin 4.1 (3.5-5.0) g/dL Urine Color Urine Appearance Urine pH (5.0-9.0) Ur Specific [place] (1.005-1.025) Urine Protein (Neg-Trace) mg/dL Urine Glucose (UA) (Negative) mg/dL Urine Ketones (Negative) mg/dL Urine Blood (Negative) Urine Nitrite (Negative) Ur Leukocyte Esterase (Negative) Urine RBC (0-2) /HPF Urine WBC (0-5) /HPF Ur Squamous Epith Cells (0-2) /HPF Urine Bacteria (None Seen) Hyaline Casts (0-2) /LPF Urine Test (NEGATIVE) Urine Opiates Screen (Not Detect) Urine Fentanyl Screen (Not Detect) Ur Barbiturates Screen (Not Detect) Ur Phencyclidine Scrn (Not Detect) Ur Amphetamines Screen (Not Detect) U Benzodiazepines Scrn (Not Detect) Urine Cocaine Screen (Not Detect) U Marijuana (THC) Screen (Not Detect) Ethyl Alcohol < 10 mg/dL COVID-19 (ALLAN) Negative (Negative) COVID-19 Clin Com See Note 02/21/23 02/21/23 02/21/23 Range/Units 19:36 19:36 19:36 WBC (4.8-10.8) X10*3/uL RBC (4.20-5.50) X10*6/uL Hgb (12.0-16.0) g/dl Hct (37.0-47.0) % MCV (80.0-98.0) fL MCH (27.0-33.0) pg MCHC (31.0-35.0) g/dl RDW (11.0-16.0) % Plt Count (160-400) X10*3/uL MPV (9.4-12.3) fL Immature Gran % (Auto) (0.0-0.4) % Neut % (Auto) (45-73) % Lymph % (Auto) (20-40) % [facility] % (Auto) (2-11) % Eos % (Auto) (0-4) % Baso % (Auto) (0-2) % Lymph # (Auto) (1.2-4.9) X10*3/uL [facility] # (Auto) (0.1-1.2) X10*3/uL Eos # (Auto) (0.0-0.4) X10*3/uL Baso # (Auto) (0.0-0.2) X10*3/uL Abs Immat Gran (auto) (0.00-0.03) X10*3/uL Absolute Neuts (auto) (2.0-8.3) x10*3/uL Absolute Nucleated RBC (0.0-0.012) X10*3/uL Nucleated RBC % (auto) (0.0-0.2) /100WBC Sodium (135-145) mmol/L Potassium (3.3-5.1) mmol/L Chloride (96-108) mmol/L Carbon Dioxide (22-29) mmol/L Anion Gap (12-20) BUN (9-16) mg/dL Creatinine (0.5-1.4) mg/dL Estim Creat Clear Calc Estimated GFR Random Glucose (60-115) mg/dL Calcium (8.4-10.2) mg/dL Total Bilirubin (0.0-1.0) mg/dL AST (5-31) U/L ALT (0-31) U/L Alkaline Phosphatase (39-117) U/L Total Protein (6.5-8.0) g/dL Albumin (3.5-5.0) g/dL Urine Color Yellow Urine Appearance Clear Urine pH 6.5 (5.0-9.0) Ur Specific [place] 1.025 (1.005-1.025) Urine Protein Negative (Neg-Trace) mg/dL Urine Glucose (UA) >=1000 H (Negative) mg/dL Urine Ketones Negative (Negative) mg/dL Urine Blood Trace H (Negative) Urine Nitrite Negative (Negative) Ur Leukocyte Esterase Negative (Negative) Urine RBC 0-2 (0-2) /HPF Urine WBC 0-5 (0-5) /HPF Ur Squamous Epith Cells 0-2 (0-2) /HPF Urine Bacteria None Seen (None Seen) Hyaline Casts 0-2 (0-2) /LPF Urine Test NEGATIVE (NEGATIVE) Urine Opiates Screen Not Detected (Not Detect) Urine Fentanyl Screen Not Detected (Not Detect) Ur Barbiturates Screen Not Detected (Not Detect) Ur Phencyclidine Scrn Not Detected (Not Detect) Ur Amphetamines Screen Not Detected (Not Detect) U Benzodiazepines Scrn Not Detected (Not Detect) Urine Cocaine Screen Not Detected (Not Detect) U Marijuana (THC) Screen POSITIVE H (Not Detect) Ethyl Alcohol mg/dL COVID-19 (ALLAN) (Negative) COVID-19 Clin Com Discharge Plan Discharge Clinical Impression: Suicidal ideation Patient Disposition: Still a Patient Prescriptions: No Action metformin 500 mg tablet 1,000 mg PO BID amlodipine 10 mg tablet 10 mg PO DAILY omeprazole 20 mg capsule,delayed release(DR/EC) 20 mg PO DAILY@0630 hydrochlorothiazide 25 mg tablet 25 mg PO DAILY valsartan 160 mg tablet 160 mg PO DAILY rosuvastatin 20 mg tablet 20 mg PO DAILY Toujeo Max U-300 SoloStar 300 unit/mL (3 mL) insulin pen 68 unit subcut DAILY quetiapine 100 mg tablet 100 mg PO BEDTIME Qty: 30 0RF escitalopram oxalate 20 mg tablet 20 mg PO DAILY Qty: 30 0RF metoprolol succinate 50 mg tablet extended release 24 hr 50 mg PO DAILY insulin lispro [Humalog KwikPen Insulin] 100 unit/mL insulin pen 15 unit subcut TIDAC Trulicity 0.75 mg/0.5 mL pen injector 0.75 mg subcut FR@0900 quetiapine 25 mg tablet 25 mg PO DAILY PRN (Reason: anxiety) Qty: 14 0RF cetirizine 10 mg Tablet 10 mg PO DAILY ferrous sulfate [FeroSul] 325 mg (65 mg iron) tablet 325 mg PO MOWEFR@0900 clonazepam 0.5 mg tablet 0.5 mg PO DAILY@1200 PRN (Reason: Anxiety) lamotrigine 150 mg tablet 300 mg PO DAILY clonazepam 0.5 mg tablet 0.5 mg PO BID Interventions: Barren-Suicide Risk Severity Scale Last Done: 02/22/23 03:22
[2023-02-21 14:47] VITALS: BP 148/102; PULSE 97; RESP 19; TEMP 36.6; O2SAT 98; BMI 35.1
[2023-02-21 15:41] LABS: MANUAL DIFF FLAG NO
[2023-02-21 15:43] LABS: Basophils Percent Auto 0.3 % (0-2); Eosinophils Absolute Auto 0.1 X10*3/uL (0.0-0.4); Eosinophils Percent Auto 1.4 % (0-4); Hemoglobin 13.3 g/dl (12.0-16.0); Imm Gran Abs Auto 0.02 X10*3/uL (0.00-0.03); Imm Gran Pct Auto 0.3 % (0.0-0.4); Lymphocytes Absolute Auto 2.7 X10*3/uL (1.2-4.9); Lymphocytes Percent Auto 42.3 % (20-40); Mean Corpuscular HGB Conc 33.3 g/dl (31.0-35.0); Mean Corpuscular Volume 87.1 fL (80.0-98.0); Mean Platelet Volume 9.9 fL (9.4-12.3); Monocytes Absolute Auto 0.4 X10*3/uL (0.1-1.2); Neutrophils Absolute Auto 3.2 x10*3/uL (2.0-8.3); Neutrophils Percent Auto 49.7 % (45-73); Platelet Count 281 X10*3/uL (160-400); Red Blood Count 4.59 X10*6/uL (4.20-5.50); Red Cell Distribution Width 12.7 % (11.0-16.0); White Blood Count 6.4 X10*3/uL (4.8-10.8)
[2023-02-21 16:00] LABS: Alanine Aminotransferase 44 U/L (0-31); Albumin Level 4.1 g/dL (3.5-5.0); Alkaline Phosphatase 183 U/L (39-117); Anion Gap 13 (12-20); Aspartate Amino Transferase 27 U/L (5-31); Bilirubin Total 0.5 mg/dL (0.0-1.0); Blood Urea Nitrogen 15 mg/dL (9-16); Calcium 8.7 mg/dL (8.4-10.2); Carbon Dioxide 27 mmol/L (22-29); Chloride 101 mmol/L (96-108); Creatinine Clr Calc Pharmacy 67.6; Estimated Glomerular Filt Rate 54; Ethanol < 10 mg/dL; Glucose Random 315 mg/dL (60-115); Potassium 4.1 mmol/L (3.3-5.1); Sodium 137 mmol/L (135-145); Total Protein 7.4 g/dL (6.5-8.0)
[2023-02-21 17:45] LABS: COVID-19 Test Negative (Negative); IDNOW Serial# 08D9AD1C
[2023-02-21 19:45] LABS: Appearance Urine Clear; Color Urine Yellow; Glucose Urine UA >=1000 mg/dL (Negative); Leukocyte Esterase Urine Negative (Negative); Nitrite Urine Negative (Negative); PH 6.5 (5.0-9.0); Specific Gravity - Urine 1.025 (1.005-1.025); UMIC TRIGGER UA YES; Urine Blood Trace (Negative); Urine Ketones Negative (Negative); Urine Protein Negative (Neg-Trace)
[2023-02-21 19:46] LABS: UPreg QC Valid YES; Urine Pregnancy NEGATIVE (NEGATIVE)
[2023-02-21 19:47] LABS: Bacteria Urine None Seen (None Seen); Hyaline Casts Urine 0-2 /LPF (0-2); RBC Urine 0-2 /HPF (0-2); Squamous Epithelial Cell Urine 0-2 /HPF (0-2); WBC Urine 0-5 /HPF (0-5)
--- NOTE | 2023-02-21 19:47 | PHA.MEDREC ---
Pharmacy Consult ? Medication Reconciliation Pharmacy has completed the medication reconciliation.
[2023-02-21 19:59] LABS: Amphetamine Screen Urine Not Detected (Not Detect); Barbiturates, Urine Not Detected (Not Detect); Benzodiazepines Screen Urine Not Detected (Not Detect); Cannabinoid Screen Urine POSITIVE (Not Detect); Cocaine Screen Urine Not Detected (Not Detect); Fentanyl, urine Not Detected (Not Detect); Opiate Screen Urine Not Detected (Not Detect); Phencyclidine Screen Urine Not Detected (Not Detect)
[2023-02-21 20:40] VITALS: BP 144/90; PULSE 96; RESP 18; TEMP 36.6; O2SAT 97
[2023-02-21] MEDS: metFORMIN HCl 1,000 MG TABLET 1000 MG PO (20:43)
[2023-02-21] MEDS: clonazePAM 0.5 MG TABLET PO (20:43)
[2023-02-21] MEDS: QUEtiapine Fumarate 100 MG TABLET PO (20:43)
--- NOTE | 2023-02-22 05:42 | MHC.EDTECH ---
t/w attempted to obtain POC at 2030 where pt stated that she did not want a finger stick and refused. Efe Espinoza MHT attempted to obtain POC at 0540 where pt stated again she did not want her finger pricked. RN MADE AWARE.
--- NOTE | 2023-02-22 05:52 | PC.NURSE ---
Patient slept through the night, no distress observed/reported, behavior non concerning, care consult ordered/pending evaluation, med rec completed/approved/Medication compliant. Patient is diabetic random blood sugar was 315 @ 1538, patient refused POC @ 2030 and 0545 and told us either to have her BS checked through CGM process or through blood draws, provider notified/okayed to have checked BS through CGM in the morning, VSS, labs completed/resulted, will continue to monitor.
[2023-02-22 06:11] VITALS: BP 141/95; PULSE 88; RESP 18; TEMP 36.6; O2SAT 97
[2023-02-22] MEDS: Omeprazole 20 MG CAPSULE.DR PO (06:26)
--- NOTE | 2023-02-22 07:40 | PC.NURSE ---
report taken from lauren correa pt here for si ideation r/t increased stressors already in partial hospitalization program. pt has been in behavioral control throughout visit per previous shift rn. sleeping at this time rr even/unlabored. pt has implantable glucometer device linked to personal phone, will only allow glucose checks through those means, provider aware and agreeable. wctm for dc needs.
[2023-02-22 08:54] VITALS: BP 136/85; PULSE 82; RESP 16; TEMP 36.4; O2SAT 97
[2023-02-22] MEDS: Loratadine 10 MG TABLET PO (09:05)
[2023-02-22] MEDS: Metoprolol Succinate ER 50 MG TAB.ER.24H PO (09:05)
[2023-02-22] MEDS: Escitalopram Oxalate 20 MG TABLET PO (09:05)
[2023-02-22] MEDS: Insulin Glargine,Hum.rec.anlog 100 UNIT/ML 10 ML VIAL 54 UNIT SUBCUT (09:05)
[2023-02-22] MEDS: clonazePAM 0.5 MG TABLET PO ×2 (09:05→20:23)
[2023-02-22] MEDS: metFORMIN HCl 1,000 MG TABLET 1000 MG PO ×2 (09:05→20:22)
[2023-02-22] MEDS: lamoTRIgine 100 MG TABLET 300 MG PO (09:05)
[2023-02-22] MEDS: hydroCHLOROthiazide 25 MG TABLET PO (09:06)
[2023-02-22] MEDS: amLODIPine Besylate 10 MG TABLET PO (09:06)
[2023-02-22] MEDS: Atorvastatin Calcium 80 MG TABLET PO (09:06)
--- NOTE | 2023-02-22 15:57 | PC.NURSE ---
report given to krish correa on m5, sts anticipated pickup time at 1800.
[2023-02-22 16:53] VITALS: BP 140/87; PULSE 97; RESP 16; TEMP 36.3; O2SAT 97; BMI 34.9
--- NOTE | 2023-02-22 18:31 | PC.ADMIT ---
Pt is a 43 year old -Prydeinig admitted on CV for increased depression and SI/ multiple plans, intent and being unable to contract for safety. Pt is known to this unit from prior visits. Pt is alert and oriented X4, VSS, Covid negative and tox screen positive for THC. Pt appears stated age, mood is bright, Speech is regular with normal rate, rhythm and klaudia. Pt reports multiple recent life stresses including, loosing her job and breaking up with her fiancee. Pt denies HI/AH/VH at this time. However, she endorses SI with no plan or intent. Pt states that she is here to get help to bring her anxiety under control. Pt denies smoking cigarette, endorses smoking marijuana daily. She reports drinking occasionally at least twice a week. Pt has medical history including asthma, diabetes and HTN. Pt is calm and cooperative, able to maker needs known. She has an implant blood glucose monitoring device in her arms. Pt would like to use her personal blood glucose monitoring instead of the hospital one. Admission orders obtained from Dr. Prince.
--- NOTE | 2023-02-22 19:26 | PC.NURSE ---
Pt refused to do her night time POC. Pt states she would like to use her implantable blood glucose device instead. director call Provider Dr. Campos notified.
[2023-02-22] MEDS: Insulin Lispro 100 UNIT/ML 3 ML VIAL 15 UNIT SUBCUT (20:22)
[2023-02-22] MEDS: QUEtiapine Fumarate 100 MG TABLET PO (20:23)
[2023-02-23] MEDS: Omeprazole 20 MG CAPSULE.DR PO (06:20)
[2023-02-23 08:50] VITALS: BP 146/91; PULSE 92; RESP 16; TEMP 36.2; O2SAT 97
[2023-02-23] MEDS: clonazePAM 0.5 MG TABLET PO ×3 (08:56→20:33)
[2023-02-23] MEDS: Ferrous Sulfate 324 MG TABLET.DR PO (08:56)
[2023-02-23] MEDS: Metoprolol Succinate ER 50 MG TAB.ER.24H PO (08:57)
[2023-02-23] MEDS: amLODIPine Besylate 10 MG TABLET PO (08:57)
[2023-02-23] MEDS: Escitalopram Oxalate 20 MG TABLET PO (08:57)
[2023-02-23] MEDS: metFORMIN HCl 1,000 MG TABLET 1000 MG PO ×2 (08:57→20:32)
[2023-02-23] MEDS: lamoTRIgine 100 MG TABLET 300 MG PO (08:57)
[2023-02-23] MEDS: hydroCHLOROthiazide 25 MG TABLET PO (08:57)
[2023-02-23] MEDS: Valsartan 160 MG TABLET PO (08:57)
[2023-02-23] MEDS: Atorvastatin Calcium 80 MG TABLET PO (08:57)
[2023-02-23] MEDS: Loratadine 10 MG TABLET PO (08:57)
[2023-02-23] MEDS: Insulin Glargine,Hum.rec.anlog 100 UNIT/ML 10 ML VIAL 54 UNIT SUBCUT (09:27)
[2023-02-23 09:28] LABS: Estimated Average Glucose 237 mg/dL; Hemoglobin A1c % 9.9 %
[2023-02-23 10:21] LABS: Alanine Aminotransferase 27 U/L (0-31); Albumin Level 3.7 g/dL (3.5-5.0); Alkaline Phosphatase 97 U/L (39-117); Anion Gap 11 (12-20); Aspartate Amino Transferase 17 U/L (5-31); Bilirubin Total 0.6 mg/dL (0.0-1.0); Blood Urea Nitrogen 15 mg/dL (9-16); Calcium 9.3 mg/dL (8.4-10.2); Carbon Dioxide 32 mmol/L (22-29); Chloride 100 mmol/L (96-108); Cholesterol 126 mg/dL; Creatinine Clr Calc Pharmacy 83.1; Estimated Glomerular Filt Rate > 60; Glucose Fasting 84 mg/dL (60-99); HDL Cholesterol 38 mg/dL; LDL Cholesterol Calculated 70 mg/dl; Sodium 140 mmol/L (135-145); Triglycerides 91 mg/dL
--- NOTE | 2023-02-23 12:14 | ECG_ITS ---
Test Reason : med clearance Blood Pressure : / mmHG Vent. Rate : 100 BPM Atrial Rate : 100 BPM P-R Int : 184 ms QRS Dur : 082 ms QT Int : 364 ms P-R-T Axes : 047 008 036 degrees QTc Int : 469 ms Normal sinus rhythm Normal ECG When compared with ECG of 22-FEB-2023 10:58, No significant change was found Referred By: Luiza Reis Electronically Signed By:WALDEMAR GIBSON MD
--- NOTE | 2023-02-23 14:55 | P.HPPS_ITS ---
HPI Date of Service: 02/23/23 Chief Complaint: Suicidal Sources of Information: patient interviewed, chart reviewed and crisis/core team assessment reviewed HPI Subjective Notes: Ferraro Warning and Conditional Voluntary Healthcare Proxy: No Guardianship: No Medical Problems Affecting Mental Status: No Narrative: 43 yo female, history of depression, anxiety, PTSD, presents upon referral from [facility] program for SI with active plan to cut herself and/or overdose. Pt known from a previous admission to [facility] with transition to [facility] after discharge. Met with pt who reports she ended her relationship on 02/12/23 after an argument. Pt left the home, was gone for 6 hours, returned home, drove her mother home and slept in the car in the garage. She spent the remainder of the weekend alone, felt overwhelmed, and decided she needed to go to her permanent home ([facility]). She experienced flashes of cutting herself, overtaking medications and talked with PHP team and could not contract for her safety. Pt also reports losing her jobs. She cannot continue with her education as one of her jobs was the primary payor for her education. She has not checked into disability or scholarship services. She reports her previous partner has been in contact and has a job lead for her with [employer] which she is interested in. She reports the move she was to make by 02/10/23 has not occurred yet, however, she has found an apartment and is working on gathering her belongings, currently without motivation, energy or drive to complete any of these tasks. Past Psychiatric History: IP: [facility], 01/2023. [facility], [place] ~1992- polypharm OD OP: [facility] Emerita Hagan-psychotherapy, and Dr. Deepali Cardenas Trials: Wellbutrin-worked for many years SA: Several suicide attempts by history PHP/IOP: 2019 [facility]. 2022 [facility] Medical Evaluation Reviewed: Yes [facility] Medical History Asthma Diabetes High cholesterol Hypertension Mood disorder Family History: Mother: Depression Cousin: Depression Paternal aunt: Intellectual disability. Social History: Born in [place], [place]. Raised by mom and maternal relatives, all living on the same [address]. Reports a non traumatic upbringing Six half sibs (father's side)- Most are in [place]. 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 Recently lost both of these jobs. Denies legal issues. Recent ending of a relationship. Substance History: Cannabis Trauma History: Denies Diagnostics Vital Signs (24Hr): Vital Signs - 24 hr 02/22/23 16:53 02/23/23 08:50 Temperature 97.3 F 97.2 F Pulse Rate 97 92 Respiratory Rate 16 16 Blood Pressure 140/87 H 146/91 H Pulse Oximetry 97 97 Oxygen Delivery Method Room Air Room Air BMI result Body Mass Index 34.9 Labs 02/21/23 15:38 02/23/23 08:37 Labs: Laboratory Results - last 48 hr 02/21/23 02/21/23 02/21/23 15:38 15:38 16:52 WBC 6.4 RBC 4.59 Hgb 13.3 Hct 40.0 MCV 87.1 MCH 29.0 MCHC 33.3 RDW 12.7 Plt Count 281 MPV 9.9 Immature Gran % (Auto) 0.3 Neut % (Auto) 49.7 Lymph % (Auto) 42.3 H [place] % (Auto) 6.0 Eos % (Auto) 1.4 Baso % (Auto) 0.3 Lymph # (Auto) 2.7 [place] # (Auto) 0.4 Eos # (Auto) 0.1 Baso # (Auto) 0.0 Abs Immat Gran (auto) 0.02 Absolute Neuts (auto) 3.2 Absolute Nucleated RBC 0.000 Nucleated RBC % (auto) 0.0 Sodium 137 Potassium 4.1 Chloride 101 Carbon Dioxide 27 Anion Gap 13 BUN 15 Creatinine 1.11 Estim Creat Clear Calc 67.6 Estimated GFR 54 Random Glucose 315 H Fasting Glucose Estimat Average Glucose Hemoglobin A1c % Calcium 8.7 Total Bilirubin 0.5 AST 27 ALT 44 H Alkaline Phosphatase 183 H Total Protein 7.4 Albumin 4.1 Triglycerides Cholesterol LDL Cholesterol, Calc HDL Cholesterol Urine Color Urine Appearance Urine pH Ur Specific [place] Urine Protein Urine Glucose (UA) Urine Ketones Urine Blood Urine Nitrite Ur Leukocyte Esterase Urine RBC Urine WBC Ur Squamous Epith Cells Urine Bacteria Hyaline Casts Urine Test Urine Opiates Screen Urine Fentanyl Screen Ur Barbiturates Screen Ur Phencyclidine Scrn Ur Amphetamines Screen U Benzodiazepines Scrn Urine Cocaine Screen U Marijuana (THC) Screen Ethyl Alcohol < 10 COVID-19 (ALLAN) Negative COVID-19 Clin Com See Note 02/21/23 02/21/23 02/21/23 19:36 19:36 19:36 WBC RBC Hgb Hct MCV MCH MCHC RDW Plt Count MPV Immature Gran % (Auto) Neut % (Auto) Lymph % (Auto) [place] % (Auto) Eos % (Auto) Baso % (Auto) Lymph # (Auto) [place] # (Auto) Eos # (Auto) Baso # (Auto) Abs Immat Gran (auto) Absolute Neuts (auto) Absolute Nucleated RBC Nucleated RBC % (auto) Sodium Potassium Chloride Carbon Dioxide Anion Gap BUN Creatinine Estim Creat Clear Calc Estimated GFR Random Glucose Fasting Glucose Estimat Average Glucose Hemoglobin A1c % Calcium Total Bilirubin AST ALT Alkaline Phosphatase Total Protein Albumin Triglycerides Cholesterol LDL Cholesterol, Calc HDL Cholesterol Urine Color Yellow Urine Appearance Clear Urine pH 6.5 Ur Specific [place] 1.025 Urine Protein Negative Urine Glucose (UA) >=1000 H Urine Ketones Negative Urine Blood Trace H Urine Nitrite Negative Ur Leukocyte Esterase Negative Urine RBC 0-2 Urine WBC 0-5 Ur Squamous Epith Cells 0-2 Urine Bacteria None Seen Hyaline Casts 0-2 Urine Test NEGATIVE Urine Opiates Screen Not Detected Urine Fentanyl Screen Not Detected Ur Barbiturates Screen Not Detected Ur Phencyclidine Scrn Not Detected Ur Amphetamines Screen Not Detected U Benzodiazepines Scrn Not Detected Urine Cocaine Screen Not Detected U Marijuana (THC) Screen POSITIVE H Ethyl Alcohol COVID-19 (ALLAN) COVID-19 Clin Com 02/23/23 02/23/23 08:37 08:37 WBC RBC Hgb Hct MCV MCH MCHC RDW Plt Count MPV Immature Gran % (Auto) Neut % (Auto) Lymph % (Auto) [place] % (Auto) Eos % (Auto) Baso % (Auto) Lymph # (Auto) [place] # (Auto) Eos # (Auto) Baso # (Auto) Abs Immat Gran (auto) Absolute Neuts (auto) Absolute Nucleated RBC Nucleated RBC % (auto) Sodium 140 Potassium 3.0 L D Chloride 100 Carbon Dioxide 32 H Anion Gap 11 L BUN 15 Creatinine 0.90 Estim Creat Clear Calc 83.1 Estimated GFR > 60 Random Glucose Fasting Glucose 84 Estimat Average Glucose 237 Hemoglobin A1c % 9.9 Calcium 9.3 D Total Bilirubin 0.6 AST 17 ALT 27 Alkaline Phosphatase 97 Total Protein 7.0 Albumin 3.7 Triglycerides 91 Cholesterol 126 LDL Cholesterol, Calc 70 HDL Cholesterol 38 Urine Color Urine Appearance Urine pH Ur Specific [place] Urine Protein Urine Glucose (UA) Urine Ketones Urine Blood Urine Nitrite Ur Leukocyte Esterase Urine RBC Urine WBC Ur Squamous Epith Cells Urine Bacteria Hyaline Casts Urine Test Urine Opiates Screen Urine Fentanyl Screen Ur Barbiturates Screen Ur Phencyclidine Scrn Ur Amphetamines Screen U Benzodiazepines Scrn Urine Cocaine Screen U Marijuana (THC) Screen Ethyl Alcohol COVID-19 (ALLAN) COVID-19 Clin Com Meds/Allergies Meds Home Medications Medication Instructions Recorded Confirmed Type amlodipine 10 mg tablet 10 mg PO DAILY 01/03/23 02/21/23 History hydrochlorothiazide 25 mg tablet 25 mg PO DAILY 01/03/23 02/21/23 History metformin 500 mg tablet 1,000 mg PO BID 01/03/23 02/21/23 History omeprazole 20 mg capsule,delayed 20 mg PO DAILY@0630 01/03/23 02/21/23 History release rosuvastatin 20 mg tablet 20 mg PO DAILY 01/03/23 02/21/23 History valsartan 160 mg tablet 160 mg PO DAILY 01/03/23 02/21/23 History insulin glargine U-300 conc 300 68 unit subcut DAILY 01/06/23 02/21/23 History unit/mL (3 mL) subcutaneous pen (Toujeo Max U-300 SoloStar) metoprolol succinate 50 mg 50 mg PO DAILY 01/28/23 02/21/23 History tablet,extended release 24 hr dulaglutide 0.75 mg/0.5 mL 0.75 mg subcut FR@0900 02/03/23 02/21/23 History subcutaneous pen injector (Trulicity) insulin lispro 100 unit/mL 15 unit subcut TIDAC 02/03/23 02/21/23 History subcutaneous pen (Humalog KwikPen (U-100) Insulin) cetirizine 10 mg tablet 10 mg PO DAILY 02/21/23 02/21/23 History clonazepam 0.5 mg tablet 0.5 mg PO BID anxiety 02/21/23 02/21/23 History clonazepam 0.5 mg tablet 0.5 mg PO DAILY@1200 PRN Anxiety 02/21/23 02/21/23 History ferrous sulfate 325 mg (65 mg 325 mg PO MOWEFR@0900 02/21/23 02/21/23 History iron) tablet (FeroSul) lamotrigine 150 mg tablet 300 mg PO DAILY 02/21/23 02/21/23 History Allergies Allergies Allergy/AdvReac Type Severity Reaction Status Date / Time lisinopril [LISINOPRIL] Allergy Severe SHORTNESS Verified 02/21/23 17:37 OF BREATH Mental Status Exam Mental Status Exam Patient Appearance: Appropriate Patient Orientation: Person, Place, Time and Situation Level of Consciousness: Alert Patient Behavior: Talkative, Cooperative, Anxious, Distractible and Good Eye Contact Mood Description: Depressed and Anxious Affect Description: Flat Patient Cognition Impaired: No Ability to Follow Directions: Good Speech Pattern: Spontaneous Speech Memory Description: Intact Hallucinations: None Delusions: Not Present Perceptual Disturbances: Depersonalization and Derealization Thought Process: Rumination Thought Content: positive for Circumstantial and positive for Suicidal Ideation Depressive Symptoms: Increased Anxiety, Difficulty Sleeping, Changes in Appetite, Hopelessness, Isolating-Friends/Family, Unhappiness, Thoughts of [place] th/Suicide and Low Self Esteem Judgement: Fair Assessment & Plan Assessment & Plan (1) Depression: Status: Acute Code(s): F32.A - Depression, unspecified (2) Generalized anxiety disorder: Status: Acute Code(s): F41.1 - Generalized anxiety disorder (3) Suicidal ideation: Status: Acute Code(s): R45.851 - Suicidal ideations Plan 43 yo female, admission from [facility] for depression, anxiety, SI in context of loss of two jobs, relationship, attempting to relocate to a new apartment. Feeling an increase in depressive sx, SI with plans to overdose or use a knife to cut herself. Plan: Reviewed med regime with [facility] Pharm[facility] and changes made. Full group milieu Family meeting with mother Continue to review medications for changes Repeat BMP 02/24. Patient educated on: therapeutic strategies Informed Consent: understands Reason for continued inpatient stay Substantial Risk for: harm to self, inability to function and rapid decom pensation Statement Statement: I have reviewed the history and physical and performed a pertinent examination on my patient. No changes have occurred unless specified. If the History and Physical was not performed prior to admission, the Hospitalist's service will be consulted for completing the admission physical. Time Spent With Patient Time: Total time managing care of this patient today ____ minutes.
[2023-02-23] MEDS: QUEtiapine Fumarate 25 MG TABLET PO (16:14)
[2023-02-23 20:30] VITALS: BP 140/87; PULSE 98; TEMP 36.4; O2SAT 95
[2023-02-23] MEDS: QUEtiapine Fumarate 100 MG TABLET PO (20:31)
[2023-02-23] MEDS: Propranolol HCL 10 MG TABLET 5 MG PO (20:32)
--- NOTE | 2023-02-23 23:15 | PC.NURSE ---
Patient refused POC at 1630 and HS. She said her monitor sends information to her doctor and that's all she cares about.
[2023-02-24 06:00] VITALS: BP 126/86; PULSE 96; RESP 16; TEMP 36.1; O2SAT 97
[2023-02-24] MEDS: Omeprazole 20 MG CAPSULE.DR PO (06:01)
[2023-02-24 07:00] VITALS: BMI 35.0
[2023-02-24] MEDS: Valsartan 160 MG TABLET PO (08:59)
[2023-02-24] MEDS: Atorvastatin Calcium 80 MG TABLET PO (08:59)
[2023-02-24] MEDS: clonazePAM 0.5 MG TABLET PO ×3 (08:59→21:10)
[2023-02-24] MEDS: amLODIPine Besylate 10 MG TABLET PO (08:59)
[2023-02-24] MEDS: Metoprolol Succinate ER 50 MG TAB.ER.24H PO (08:59)
[2023-02-24] MEDS: hydroCHLOROthiazide 25 MG TABLET PO (08:59)
[2023-02-24] MEDS: lamoTRIgine 100 MG TABLET 300 MG PO (08:59)
[2023-02-24] MEDS: Loratadine 10 MG TABLET PO (09:00)
[2023-02-24] MEDS: Escitalopram Oxalate 20 MG TABLET PO (09:00)
[2023-02-24] MEDS: Insulin Glargine,Hum.rec.anlog 100 UNIT/ML 10 ML VIAL 54 UNIT SUBCUT (09:00)
[2023-02-24 09:24] LABS: Anion Gap 15 (12-20); Blood Urea Nitrogen 15 mg/dL (9-16); Calcium 9.3 mg/dL (8.4-10.2); Carbon Dioxide 29 mmol/L (22-29); Chloride 99 mmol/L (96-108); Creatinine Clr Calc Pharmacy 75.6; Estimated Glomerular Filt Rate > 60; Glucose Random 82 mg/dL (60-115); Potassium 3.2 mmol/L (3.3-5.1); Sodium 140 mmol/L (135-145)
[2023-02-24 09:24] LABS: Glucose, Whole Blood 131 mg/dL (60-115)
[2023-02-24 12:28] LABS: Glucose, Whole Blood 167 mg/dL (60-115)
[2023-02-24 12:29] VITALS: BP 160/100; PULSE 90; RESP 16
[2023-02-24] MEDS: metFORMIN HCl 1,000 MG TABLET 1000 MG PO ×2 (13:23→21:10)
[2023-02-24] MEDS: Potassium Chloride ER 10 MEQ TABLET.ER PO (13:23)
[2023-02-24] MEDS: QUEtiapine Fumarate 25 MG TABLET PO (14:20)
--- NOTE | 2023-02-24 16:59 | P.PNPSI_ITS ---
Subjective Subjective Date of Service: 02/24/23 Reason For Visit: Suicidal Subjective Notes: Conditional Voluntary Healthcare Proxy: No Guardianship: No Medical Problems Affecting Mental Status: No Interim History: Review of hypokalemia with pt (02/21 4.1; 02/23 3.0; 02/24 3.2). Pt willing to ac cept one dose of 10 meq with re-eval 02/28. No experienced sx of hypokalemia currently. Discussed return to school, [facility] and moving forward. Pt appears to be starting to have forward thought process, however, remains feeling stuck with several psychosocial stressors. Medication Compliance: Yes Side effects from medications: No Attending Groups: No (discussed returning to milieu groups) Review of Systems Acute medical concerns: No Medical Review of Systems: unchanged Mental Status Exam Mental Status Exam Patient Appearance: Appropriate Patient Orientation: Person, Place, Time and Situation Level of Consciousness: Alert Patient Behavior: Talkative, Cooperative, Anxious, Distractible and Good Eye Contact Mood Description: Depressed and Anxious Affect Description: Flat Patient Cognition Impaired: No Ability to Follow Directions: Good Speech Pattern: Spontaneous Speech Memory Description: Intact Hallucinations: None Delusions: Not Present Perceptual Disturbances: Depersonalization and Derealization Thought Process: Rumination Thought Content: positive for Circumstantial and positive for Suicidal Ideation Depressive Symptoms: Increased Anxiety, Difficulty Sleeping, Changes in Appetite, Hopelessness, Isolating-Friends/Family, Unhappiness, Thoughts of /Suicide and Low Self Esteem Judgement: Fair Diagnostics Vital Signs (24Hr): Vital Signs - 24 hr 02/23/23 20:30 02/24/23 06:00 Temperature 97.5 F 96.9 F Pulse Rate 98 96 Respiratory Rate 16 Blood Pressure 140/87 H 126/86 Pulse Oximetry 95 97 Oxygen Delivery Method Room Air Room Air BMI result Body Mass Index 35.0 Labs 02/21/23 15:38 02/24/23 08:38 Labs: Laboratory Results - last 48 hr 02/23/23 02/23/23 02/24/23 08:37 08:37 08:38 Sodium 140 140 Potassium 3.0 L D 3.2 L Chloride 100 99 Carbon Dioxide 32 H 29 Anion Gap 11 L 15 BUN 15 15 Creatinine 0.90 0.99 Estim Creat Clear Calc 83.1 75.6 Estimated GFR > 60 > 60 POC Glucose Random Glucose 82 Fasting Glucose 84 Estimat Average Glucose 237 Hemoglobin A1c % 9.9 Calcium 9.3 D 9.3 Total Bilirubin 0.6 AST 17 ALT 27 Alkaline Phosphatase 97 Total Protein 7.0 Albumin 3.7 Triglycerides 91 Cholesterol 126 LDL Cholesterol, Calc 70 HDL Cholesterol 38 02/24/23 02/24/23 09:18 12:22 Sodium Potassium Chloride Carbon Dioxide Anion Gap BUN Creatinine Estim Creat Clear Calc Estimated GFR POC Glucose 131 H 167 H Random Glucose Fasting Glucose Estimat Average Glucose Hemoglobin A1c % Calcium Total Bilirubin AST ALT Alkaline Phosphatase Total Protein Albumin Triglycerides Cholesterol LDL Cholesterol, Calc HDL Cholesterol Medications Medications Current Medications Acetaminophen (Acetaminophen 325 Mg Tablet) 650 mg PO Q6H PRN PRN Reason: Headache/Pain Mild Scale (1-3) Al Hydroxide/Mg Hydroxide (Magnesium Hydrox/Alum Hydrox 30 Ml Oral.Susp) 30 ml PO Q6H PRN PRN Reason: Heartburn/Nausea Amlodipine Besylate (Amlodipine Besylate 10 Mg Tablet) 10 mg PO DAILY [facility]; Protocol Last Admin: 02/24/23 08:59 Dose: 10 mg Ascorbic Acid (Ascorbic Acid 250 Mg Tablet) 250 mg PO MoWeFr@0900 [facility] Atorvastatin Calcium (Atorvastatin Calcium 80 Mg Tablet) 80 mg PO DAILY [facility] Last Admin: 02/24/23 08:59 Dose: 80 mg Clonazepam (Clonazepam 0.5 Mg Tablet) 0.5 mg PO TID [facility] Last Admin: 02/24/23 14:20 Dose: 0.5 mg Escitalopram Oxalate (Escitalopram Oxalate 20 Mg Tablet) 20 mg PO DAILY [facility] Last Admin: 02/24/23 09:00 Dose: 20 mg Ferrous Sulfate (Ferrous Sulfate 324 Mg Tablet.) 324 mg PO MOWEFR@0900 [facility] Last Admin: 02/23/23 08:56 Dose: 324 mg Hydrochlorothiazide (Hydrochlorothiazide 25 Mg Tablet) 25 mg PO DAILY [facility]; P rotocol Last Admin: 02/24/23 08:59 Dose: 25 mg Hydroxyzine HCl (Hydroxyzine Hcl 25 Mg Tablet) 25 mg PO Q6H PRN PRN Reason: Anxiety Insulin Glargine (Insulin Glargine,Hum.Rec.Anlog 100 Unit/Ml 10 Ml Vial) 54 unit SUBCUT DAILY [facility] Last Admin: 02/24/23 09:00 Dose: 54 unit Insulin Human Lispro (Insulin Lispro 100 Unit/Ml 3 Ml Vial) 10 unit SUBCUT TIDAC [facility] Last Admin: 02/24/23 13:30 Dose: Not Given Lamotrigine (Lamotrigine 100 Mg Tablet) 300 mg PO DAILY [facility] Last Admin: 02/24/23 08:59 Dose: 300 mg Lidocaine (Lidocaine 4 % Patch Adh..Patch) 1 patch TRANSDERMA DAILY [facility]; Protocol Last Admin: 02/24/23 09:01 Dose: Not Given Loratadine (Loratadine 10 Mg Tablet) 10 mg PO DAILY [facility] Last Admin: 02/24/23 09:00 Dose: 10 mg Magnesium Hydroxide (Milk Of Magnesia 30 Ml Oral.Susp) 30 ml PO DAILY PRN PRN Reason: Constipation Metformin HCl (Metformin Hcl 1,000 Mg Tablet) 1,000 mg PO BID@1200,2000 [facility] Last Admin: 02/24/23 13:23 Dose: 1,000 mg Metoprolol Succinate (Metoprolol Succinate Er 50 Mg Tab.Er.24h) 50 mg PO DAILY [facility]; Protocol Last Admin: 02/24/23 08:59 Dose: 50 mg Nicotine Polacrilex (Nicotine Polacrilex 2 Mg Gum) 4 mg BUCCAL Q2H PRN PRN Reason: Nicotine Cravings Non-Formulary Medication (Dulaglutide [Trulicity]) 0.75 mg SUBCUT FR@0900 [facility] Non-Formulary Medication (Mometasone Furoate) 50 mcg INHALE DAILY [facility] Olanzapine (Olanzapine 5 Mg Tablet) 5 mg PO TID PRN PRN Reason: agitation Omeprazole (Omeprazole 20 Mg Capsule.Dr) 20 mg PO DAILY@0630 [facility] Last Admin: 02/24/23 06:01 Dose: 20 mg Quetiapine Fumarate (Quetiapine Fumarate 25 Mg Tablet) 25 mg PO DAILY PRN PRN Reason: anxiety Last Admin: 02/24/23 14:20 Dose: 25 mg Quetiapine Fumarate (Quetiapine Fumarate 100 Mg Tablet) 100 mg PO BEDTIME [facility] Last Admin: 02/23/23 20:31 Dose: 100 mg Trazodone HCl (Trazodone Hcl 50 Mg Tablet) 50 mg PO BEDTIME MRX1 PRN PRN Reason: Insomnia Valsartan (Valsartan 160 Mg Tablet) 160 mg PO DAILY [facility]; Protocol Last Admin: 02/24/23 08:59 Dose: 160 mg Allergies Allergies Allergy/AdvReac Type Severity Reaction Status Date / Time lisinopril [LISINOPRIL] Allergy Severe SHORTNESS Verified 02/21/23 17:37 OF BREATH Assessment & Plan Assessment & Plan (1) Depression: Status: Acute Code(s): F32.A - Depression, unspecified (2) Generalized anxiety disorder: Status: Acute Code(s): F41.1 - Generalized anxiety disorder (3) Suicidal ideation: Status: Acute Code(s): R45.851 - Suicidal ideations Plan 43 yo female, admission from [facility] for depression, anxiety, SI in context of loss of two jobs, relationship, attempting to relocate to a new apartment. Feeling an increase in depressive sx, SI with plans to overdose or use a knife to cut herself. Plan: Reviewed med regime with [facility] Pharmacy and changes made. Full group milieu Family meeting with mother Continue to review medications for changes Repeat BMP 02/24. 02/24/23 Continue current regime Potassium 10 meq x 1 dose with repeat labs on 02/28. Pt in agreement. Patient educated on: medication risk/benefits and medical condition Informed Consent: understands and further education needed Reason for continued inpatient stay Substantial Risk for: harm to self and rapid decompensation Time Spent With Patient Time: Total time managing care of this patient today ____ minutes.
[2023-02-24 18:00] VITALS: BP 132/86; PULSE 97; RESP 16; TEMP 36.1; O2SAT 97
[2023-02-24] MEDS: QUEtiapine Fumarate 100 MG TABLET PO (21:10)
[2023-02-25 08:55] VITALS: BP 143/91; PULSE 95; RESP 16; TEMP 36.2
[2023-02-25] MEDS: lamoTRIgine 100 MG TABLET 300 MG PO (08:58)
[2023-02-25] MEDS: Omeprazole 20 MG CAPSULE.DR PO (08:59)
[2023-02-25] MEDS: Loratadine 10 MG TABLET PO (08:59)
[2023-02-25] MEDS: Valsartan 160 MG TABLET PO (08:59)
[2023-02-25] MEDS: hydroCHLOROthiazide 25 MG TABLET PO (08:59)
[2023-02-25] MEDS: clonazePAM 0.5 MG TABLET PO ×3 (08:59→20:29)
[2023-02-25] MEDS: Metoprolol Succinate ER 50 MG TAB.ER.24H PO (08:59)
[2023-02-25] MEDS: amLODIPine Besylate 10 MG TABLET PO (08:59)
[2023-02-25] MEDS: Escitalopram Oxalate 20 MG TABLET PO (08:59)
[2023-02-25] MEDS: Ferrous Sulfate 324 MG TABLET.DR PO (08:59)
[2023-02-25] MEDS: Atorvastatin Calcium 80 MG TABLET PO (08:59)
[2023-02-25] MEDS: Insulin Glargine,Hum.rec.anlog 100 UNIT/ML 10 ML VIAL 54 UNIT SUBCUT (09:02)
[2023-02-25] MEDS: Ascorbic Acid 250 MG TABLET PO (09:18)
[2023-02-25 09:29] LABS: Glucose, Whole Blood 156 mg/dL (60-115)
[2023-02-25 11:51] LABS: Glucose, Whole Blood 95 mg/dL (60-115)
--- NOTE | 2023-02-25 11:54 | PC.NURSE ---
Blood sugar 95 at 1130, insulin held per nursing judgment.
[2023-02-25] MEDS: metFORMIN HCl 1,000 MG TABLET 1000 MG PO ×2 (12:07→20:29)
--- NOTE | 2023-02-25 16:22 | PM.PSYCN ---
History of Present Illness Chief Complaint: Suicidal HPI Past Psychiatric History: IP: [facility], 01/2023. [facility], [place] ~1993- polypharm OD OP: [facility] Emerita Hagan-psychotherapy, and Dr. Deepali Cardenas Trials: Wellbutrin-worked for many years SA: Several suicide attempts by history PHP/IOP: 2019 [facility]. 2022 [facility] Medical History Asthma Diabetes High cholesterol Hypertension Mood disorder Family History: Mother: Depression Cousin: Depression Paternal aunt: Intellectual disability. Social History: Born in [place], [place]. Raised by mom and maternal relatives, all living on the same [address]. Reports a non traumatic upbringing Six half sibs (father's side)- Most are in [place]. 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 Recently lost both of these jobs. Denies legal issues. Recent ending of a relationship. Trauma History: Denies Diagnostics Vital Signs (24Hr): Vital Signs - 24 hr 02/24/23 18:00 02/25/23 08:55 Temperature 96.9 F 97.1 F Pulse Rate 97 95 Respiratory Rate 16 16 Blood Pressure 132/86 143/91 H Pulse Oximetry 97 Oxygen Delivery Method Room Air BMI result Body Mass Index 35.0 Labs 02/21/23 15:38 02/24/23 08:38 Labs: Laboratory Results - last 48 hr 02/24/23 02/24/23 02/24/23 08:38 09:18 12:22 Sodium 140 Potassium 3.2 L Chloride 99 Carbon Dioxide 29 Anion Gap 15 BUN 15 Creatinine 0.99 Estim Creat Clear Calc 75.6 Estimated GFR > 60 POC Glucose 131 H 167 H Random Glucose 82 Calcium 9.3 02/25/23 02/25/23 08:57 11:47 Sodium Potassium Chloride Carbon Dioxide Anion Gap BUN Creatinine Estim Creat Clear Calc Estimated GFR POC Glucose 156 H 95 Random Glucose Calcium Medications Medications Current Medications Acetaminophen (Acetaminophen 325 Mg Tablet) 650 mg PO Q6H PRN PRN Reason: Headache/Pain Mild Scale (1-3) Al Hydroxide/Mg Hydroxide (Magnesium Hydrox/Alum Hydrox 30 Ml Oral.Susp) 30 ml PO Q6H PRN PRN Reason: Heartburn/Nausea Amlodipine Besylate (Amlodipine Besylate 10 Mg Tablet) 10 mg PO DAILY [facility]; Protocol Last Admin: 02/25/23 08:59 Dose: 10 mg Ascorbic Acid (Ascorbic Acid 250 Mg Tablet) 250 mg PO MoWeFr@0900 [facility] Last Admin: 02/25/23 09:18 Dose: 250 mg Atorvastatin Calcium (Atorvastatin Calcium 80 Mg Tablet) 80 mg PO DAILY [facility] Last Admin: 02/25/23 08:59 Dose: 80 mg Clonazepam (Clonazepam 0.5 Mg Tablet) 0.5 mg PO BID [facility] Clonazepam (Clonazepam 0.5 Mg Tablet) 0.5 mg PO DAILY PRN PRN Reason: Anxiety Last Admin: 02/25/23 14:50 Dose: 0.5 mg Escitalopram Oxalate (Escitalopram Oxalate 20 Mg Tablet) 20 mg PO DAILY [facility] Last Admin: 02/25/23 08:59 Dose: 20 mg Ferrous Sulfate (Ferrous Sulfate 324 Mg Tablet.Dr) 324 mg PO MOWEFR@0900 [facility] Last Admin: 02/25/23 08:59 Dose: 324 mg Hydrochlorothiazide (Hydrochlorothiazide 25 Mg Tablet) 25 mg PO DAILY [facility]; Protocol Last Admin: 02/25/23 08:59 Dose: 25 mg Hydroxyzine HCl (Hydroxyzine Hcl 25 Mg Tablet) 25 mg PO Q6H PRN PRN Reason: Anxiety Insulin Glargine (Insulin Glargine,Hum.Rec.Anlog 100 Unit/Ml 10 Ml Vial) 54 unit SUBCUT DAILY [facility] Last Admin: 02/25/23 09:02 Dose: 54 unit Insulin Human Lispro (Insulin Lispro 100 Unit/Ml 3 Ml Vial) 10 unit SUBCUT TIDAC [facility] Last Admin: 02/25/23 16:01 Dose: Not Given Lamotrigine (Lamotrigine 100 Mg Tablet) 300 mg PO DAILY [facility] Last Admin: 02/25/23 08:58 Dose: 300 mg Lidocaine (Lidocaine 4 % Patch Adh..Patch) 1 patch TRANSDERMA DAILY [facility]; Protocol Last Admin: 02/25/23 10:19 Dose: Not Given Loratadine (Loratadine 10 Mg Tablet) 10 mg PO DAILY [facility] Last Admin: 02/25/23 08:59 Dose: 10 mg Magnesium Hydroxide (Milk Of Magnesia 30 Ml Oral.Susp) 30 ml PO DAILY PRN PRN Reason: Constipation Metformin HCl (Metformin Hcl 1,000 Mg Tablet) 1,000 mg PO BID@1200,2000 [facility] Last Admin: 02/25/23 12:07 Dose: 1,000 mg Metoprolol Succinate (Metoprolol Succinate Er 50 Mg Tab.Er.24h) 50 mg PO DAILY [facility]; Protocol Last Admin: 02/25/23 08:59 Dose: 50 mg Nicotine Polacrilex (Nicotine Polacrilex 2 Mg Gum) 4 mg BUCCAL Q2H PRN PRN Reason: Nicotine Cravings Non-Formulary Medication (Dulaglutide [Trulicity]) 0.75 mg SUBCUT FR@0900 [facility] Non-Formulary Medication (Mometasone Furoate) 50 mcg INHALE DAILY [facility] Olanzapine (Olanzapine 5 Mg Tablet) 5 mg PO TID PRN PRN Reason: agitation Olanzapine (Olanzapine 5 Mg Tablet) 5 mg PO BEDTIME [facility] Omeprazole (Omeprazole 20 Mg Capsule.Dr) 20 mg PO DAILY@0630 [facility] Last Admin: 02/25/23 08:59 Dose: 20 mg Quetiapine Fumarate (Quetiapine Fumarate 25 Mg Tablet) 25 mg PO DAILY PRN PRN Reason: anxiety Last Admin: 02/24/23 14:20 Dose: 25 mg Quetiapine Fumarate (Quetiapine Fumarate 100 Mg Tablet) 100 mg PO BEDTIME [facility] Last Admin: 02/24/23 21:10 Dose: 100 mg Trazodone HCl (Trazodone Hcl 50 Mg Tablet) 50 mg PO BEDTIME MRX1 PRN PRN Reason: Insomnia Valsartan (Valsartan 160 Mg Tablet) 160 mg PO DAILY [facility]; Protocol Last Admin: 02/25/23 08:59 Dose: 160 mg Allergies Allergies Allergy/AdvReac Type Severity Reaction Status Date / Time lisinopril [LISINOPRIL] Allergy Severe SHORTNESS Verified 02/21/23 17:37 OF BREATH Assessment & Plan Total time managing care of this patient today ____ minutes.
--- NOTE | 2023-02-25 17:53 | P.PNPSI_ITS ---
Subjective Subjective Date of Service: 02/25/23 Reason For Visit: Suicidal Subjective Notes: Conditional Voluntary Healthcare Proxy: No Guardianship: No Medical Problems Affecting Mental Status: No Interim History: Med review. Discussed augment of Lexapro. Will trial Olanzapine. Hx of Latuda without efficacy. Discussed Vraylar. Will maintain Seroquel at this time to assess Olanzapine efficacy. Family meeting with mother 02/28/23 11am. Pt spoke with mother today via phone during our meeting. Medication Compliance: Yes Side effects from medications: No Attending Groups: No Review of Systems Acute medical concerns: No Medical Review of Systems: unchanged Mental Status Exam Mental Status Exam Patient Appearance: Appropriate Patient Orientation: Person, Place, Time and Situation Level of Consciousness: Alert Patient Behavior: Talkative, Cooperative, Anxious, Distractible and Good Eye Contact Mood Description: Depressed and Anxious Affect Description: Flat Patient Cognition Impaired: No Ability to Follow Directions: Good Speech Pattern: Spontaneous Speech Memory Description: Intact Hallucinations: None Delusions: Not Present Perceptual Disturbances: Depersonalization and Derealization Thought Process: Rumination Thought Content: positive for Circumstantial and positive for Suicidal Ideation Depressive Symptoms: Increased Anxiety, Difficulty Sleeping, Changes in Appetite, Hopelessness, Isolating-Friends/Family, Unhappiness, Thoughts of /Suicide and Low Self Esteem Judgement: Fair Diagnostics Vital Signs (24Hr): Vital Signs - 24 hr 02/24/23 18:00 02/25/23 08:55 Temperature 96.9 F 97.1 F Pulse Rate 97 95 Respiratory Rate 16 16 Blood Pressure 132/86 143/91 H Pulse Oximetry 97 Oxygen Delivery Method Room Air BMI result Body Mass Index 35.0 Labs 02/21/23 15:38 02/24/23 08:38 Labs: Laboratory Results - last 48 hr 02/24/23 02/24/23 02/24/23 08:38 09:18 12:22 Sodium 140 Potassium 3.2 L Chloride 99 Carbon Dioxide 29 Anion Gap 15 BUN 15 Creatinine 0.99 Estim Creat Clear Calc 75.6 Estimated GFR > 60 POC Glucose 131 H 167 H Random Glucose 82 Calcium 9.3 02/25/23 02/25/23 08:57 11:47 Sodium Potassium Chloride Carbon Dioxide Anion Gap BUN Creatinine Estim Creat Clear Calc Estimated GFR POC Glucose 156 H 95 Random Glucose Calcium Medications Medications Current Medications Acetaminophen (Acetaminophen 325 Mg Tablet) 650 mg PO Q6H PRN PRN Reason: Headache/Pain Mild Scale (1-3) Al Hydroxide/Mg Hydroxide (Magnesium Hydrox/Alum Hydrox 30 Ml Oral.Susp) 30 ml PO Q6H PRN PRN Reason: Heartburn/Nausea Amlodipine Besylate (Amlodipine Besylate 10 Mg Tablet) 10 mg PO DAILY [facility]; Protocol Last Admin: 02/25/23 08:59 Dose: 10 mg Ascorbic Acid (Ascorbic Acid 250 Mg Tablet) 250 mg PO MoWeFr@0900 [facility] Last Admin: 02/25/23 09:18 Dose: 250 mg Atorvastatin Calcium (Atorvastatin Calcium 80 Mg Tablet) 80 mg PO DAILY [facility] Last Admin: 02/25/23 08:59 Dose: 80 mg Clonazepam (Clonazepam 0.5 Mg Tablet) 0.5 mg PO BID [facility] Clonazepam (Clonazepam 0.5 Mg Tablet) 0.5 mg PO DAILY PRN PRN Reason: Anxiety Last Admin: 02/25/23 14:50 Dose: 0.5 mg Escitalopram Oxalate (Escitalopram Oxalate 20 Mg Tablet) 20 mg PO DAILY [facility] Last Admin: 02/25/23 08:59 Dose: 20 mg Ferrous Sulfate (Ferrous Sulfate 324 Mg Tablet.Dr) 324 mg PO MOWEFR@0900 [facility] Last Admin: 02/25/23 08:59 Dose: 324 mg Hydrochlorothiazide (Hydrochlorothiazide 25 Mg Tablet) 25 mg PO DAILY [facility]; Protocol Last Admin: 02/25/23 08:59 Dose: 25 mg Hydroxyzine HCl (Hydroxyzine Hcl 25 Mg Tablet) 25 mg PO Q6H PRN PRN Reason: Anxiety Insulin Glargine (Insulin Glargine,Hum.Rec.Anlog 100 Unit/Ml 10 Ml Vial) 54 unit SUBCUT DAILY [facility] Last Admin: 02/25/23 09:02 Dose: 54 unit Insulin Human Lispro (Insulin Lispro 100 Unit/Ml 3 Ml Vial) 10 unit SUBCUT TIDAC [facility] Last Admin: 02/25/23 16:01 Dose: Not Given Lamotrigine (Lamotrigine 100 Mg Tablet) 300 mg PO DAILY [facility] Last Admin: 02/25/23 08:58 Dose: 300 mg Lidocaine (Lidocaine 4 % Patch Adh..Patch) 1 patch TRANSDERMA DAILY [facility]; Protocol Last Admin: 02/25/23 10:19 Dose: Not Given Loratadine (Loratadine 10 Mg Tablet) 10 mg PO DAILY [facility] Last Admin: 02/25/23 08:59 Dose: 10 mg Magnesium Hydroxide (Milk Of Magnesia 30 Ml Oral.Susp) 30 ml PO DAILY PRN PRN Reason: Constipation Metformin HCl (Metformin Hcl 1,000 Mg Tablet) 1,000 mg PO BID@1200,2000 [facility] Last Admin: 02/25/23 12:07 Dose: 1,000 mg Metoprolol Succinate (Metoprolol Succinate Er 50 Mg Tab.Er.24h) 50 mg PO DAILY [facility]; Protocol Last Admin: 02/25/23 08:59 Dose: 50 mg Nicotine Polacrilex (Nicotine Polacrilex 2 Mg Gum) 4 mg BUCCAL Q2H PRN PRN Reason: Nicotine Cravings Non-Formulary Medication (Dulaglutide [Trulicity]) 0.75 mg SUBCUT FR@0900 [facility] Non-Formulary Medication (Mometasone Furoate) 50 mcg INHALE DAILY [facility] Olanzapine (Olanzapine 5 Mg Tablet) 5 mg PO TID PRN PRN Reason: agitation Olanzapine (Olanzapine 5 Mg Tablet) 5 mg PO BEDTIME [facility] Omeprazole (Omeprazole 20 Mg Capsule.Dr) 20 mg PO DAILY@0630 [facility] Last Admin: 02/25/23 08:59 Dose: 20 mg Quetiapine Fumarate (Quetiapine Fumarate 25 Mg Tablet) 25 mg PO DAILY PRN PRN Reason: anxiety Last Admin: 02/24/23 14:20 Dose: 25 mg Quetiapine Fumarate (Quetiapine Fumarate 100 Mg Tablet) 100 mg PO BEDTIME [facility] Last Admin: 02/24/23 21:10 Dose: 100 mg Trazodone HCl (Trazodone Hcl 50 Mg Tablet) 50 mg PO BEDTIME MRX1 PRN PRN Reason: Insomnia Valsartan (Valsartan 160 Mg Tablet) 160 mg PO DAILY [facility]; Protocol Last Admin: 02/25/23 08:59 Dose: 160 mg Allergies Allergies Allergy/AdvReac Type Severity Reaction Status Date / Time lisinopril [LISINOPRIL] Allergy Severe SHORTNESS Verified 02/21/23 17:37 OF BREATH Assessment & Plan Assessment & Plan (1) Depression: Status: Acute Code(s): F32.A - Depression, unspecified (2) Generalized anxiety disorder: Status: Acute Code(s): F41.1 - Generalized anxiety disorder (3) Suicidal ideation: Status: Acute Code(s): R45.852 - Suicidal ideations Plan 43 yo female, admission from [facility] for depression, anxiety, SI in context of loss of two jobs, relationship, attempting to relocate to a new apartment. Feeling an increase in depressive sx, SI with plans to overdose or use a knife to cut herself. Plan: Reviewed med regime with [facility] Pharmacy and changes made. Full group milieu Family meeting with mother Continue to review medications for changes Repeat BMP 02/24. 02/24/23 Continue current regime Potassium 10 meq x 1 dose with repeat labs on 02/28. Pt in agreement. 02/25/23 Olanzapine 5 mg HS BMP 02/28 Patient educated on: medication risk/benefits Informed Consent: understands Reason for continued inpatient stay Substantial Risk for: harm to self, inability to function and rapid decompensation Time Spent With Patient Time: Total time managing care of this patient today ____ minutes.
[2023-02-25 18:00] VITALS: BP 128/68; PULSE 78; RESP 16; TEMP 36.1; O2SAT 98
[2023-02-25] MEDS: OLANZapine 5 MG TABLET PO (20:29)
[2023-02-25] MEDS: QUEtiapine Fumarate 100 MG TABLET PO (20:29)
[2023-02-26] MEDS: Omeprazole 20 MG CAPSULE.DR PO (06:35)
[2023-02-26 08:27] LABS: Glucose, Whole Blood 139 mg/dL (60-115)
[2023-02-26 08:35] VITALS: BP 136/92; PULSE 89; RESP 16; TEMP 36.1; O2SAT 97
[2023-02-26] MEDS: Loratadine 10 MG TABLET PO (08:35)
[2023-02-26] MEDS: hydroCHLOROthiazide 25 MG TABLET PO (08:35)
[2023-02-26] MEDS: Valsartan 160 MG TABLET PO (08:35)
[2023-02-26] MEDS: clonazePAM 0.5 MG TABLET PO ×2 (08:35→20:09)
[2023-02-26] MEDS: amLODIPine Besylate 10 MG TABLET PO (08:36)
[2023-02-26] MEDS: Insulin Glargine,Hum.rec.anlog 100 UNIT/ML 10 ML VIAL 54 UNIT SUBCUT (08:36)
[2023-02-26] MEDS: Atorvastatin Calcium 80 MG TABLET PO (08:36)
[2023-02-26] MEDS: Metoprolol Succinate ER 50 MG TAB.ER.24H PO (08:36)
[2023-02-26] MEDS: Escitalopram Oxalate 20 MG TABLET PO (08:36)
[2023-02-26] MEDS: lamoTRIgine 100 MG TABLET 300 MG PO (08:36)
--- NOTE | 2023-02-26 09:45 | HO.PSYCHPN ---
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 There is no evidence of perceptual disturbance. Patients insight and judgment impaired Diagnostics Vital Signs (24Hr): Vital Signs - 24 hr 02/25/23 18:00 02/26/23 08:35 Temperature 96.9 F 96.9 F Pulse Rate 78 89 Respiratory Rate 16 16 Blood Pressure 128/68 136/92 H Pulse Oximetry 98 97 Oxygen Delivery Method Room Air Room Air BMI result Body Mass Index 35.0 Labs 02/21/23 15:38 02/24/23 08:38 Labs: Laboratory Results - last 48 hr 02/24/23 02/25/23 02/25/23 12:22 08:57 11:47 POC Glucose 167 H 156 H 95 02/26/23 08:21 POC Glucose 139 H Medications Medications Current Medications Acetaminophen (Acetaminophen 325 Mg Tablet) 650 mg PO Q6H PRN PRN Reason: Headache/Pain Mild Scale (1-3) Al Hydroxide/Mg Hydroxide (Magnesium Hydrox/Alum Hydrox 30 Ml Oral.Susp) 30 ml PO Q6H PRN PRN Reason: Heartburn/Nausea Amlodipine Besylate (Amlodipine Besylate 10 Mg Tablet) 10 mg PO DAILY [facility]; Protocol Last Admin: 02/26/23 08:36 Dose: 10 mg Ascorbic Acid (Ascorbic Acid 250 Mg Tablet) 250 mg PO MoWeFr@0900 [facility] Last Admin: 02/25/23 09:18 Dose: 250 mg Atorvastatin Calcium (Atorvastatin Calcium 80 Mg Tablet) 80 mg PO DAILY [facility] Last Admin: 02/26/23 08:36 Dose: 80 mg Clonazepam (Clonazepam 0.5 Mg Tablet) 0.5 mg PO BID [facility] Last Admin: 02/26/23 08:35 Dose: 0.5 mg Clonazepam (Clonazepam 0.5 Mg Tablet) 0.5 mg PO DAILY PRN PRN Reason: Anxiety Last Admin: 02/25/23 14:50 Dose: 0.5 mg Escitalopram Oxalate (Escitalopram Oxalate 20 Mg Tablet) 20 mg PO DAILY [facility] Last Admin: 02/26/23 08:36 Dose: 20 mg Ferrous Sulfate (Ferrous Sulfate 324 Mg Tablet.Dr) 324 mg PO MOWEFR@0900 [facility] Last Admin: 02/25/23 08:59 Dose: 324 mg Hydrochlorothiazide (Hydrochlorothiazide 25 Mg Tablet) 25 mg PO DAILY [facility]; Protocol Last Admin: 02/26/23 08:35 Dose: 25 mg Hydroxyzine HCl (Hydroxyzine Hcl 25 Mg Tablet) 25 mg PO Q6H PRN PRN Reason: Anxiety Insulin Glargine (Insulin Glargine,Hum.Rec.Anlog 100 Unit/Ml 10 Ml Vial) 54 unit SUBCUT DAILY [facility] Last Admin: 02/26/23 08:36 Dose: 54 unit Insulin Human Lispro (Insulin Lispro 100 Unit/Ml 3 Ml Vial) 10 unit SUBCUT TIDAC [facility] Last Admin: 02/26/23 08:24 Dose: Not Given Lamotrigine (Lamotrigine 100 Mg Tablet) 300 mg PO DAILY [facility] Last Admin: 02/26/23 08:36 Dose: 300 mg Lidocaine (Lidocaine 4 % Patch Adh..Patch) 1 patch TRANSDERMA DAILY [facility]; Protocol Last Admin: 02/26/23 08:42 Dose: Not Given Loratadine (Loratadine 10 Mg Tablet) 10 mg PO DAILY [facility] Last Admin: 02/26/23 08:35 Dose: 10 mg Magnesium Hydroxide (Milk Of Magnesia 30 Ml Oral.Susp) 30 ml PO DAILY PRN PRN Reason: Constipation Metformin HCl (Metformin Hcl 1,000 Mg Tablet) 1,000 mg PO BID@1200,2000 [facility] Last Admin: 02/25/23 20:29 Dose: 1,000 mg Metoprolol Succinate (Metoprolol Succinate Er 50 Mg Tab.Er.24h) 50 mg PO DAILY [facility]; Protocol Last Admin: 02/26/23 08:36 Dose: 50 mg Nicotine Polacrilex (Nicotine Polacrilex 2 Mg Gum) 4 mg BUCCAL Q2H PRN PRN Reason: Nicotine Cravings Non-Formulary Medication (Dulaglutide [Trulicity]) 0.75 mg SUBCUT FR@0900 [facility] Non-Formulary Medication (Mometasone Furoate) 50 mcg INHALE DAILY [facility] Olanzapine (Olanzapine 5 Mg Tablet) 5 mg PO TID PRN PRN Reason: agitation Olanzapine (Olanzapine 5 Mg Tablet) 5 mg PO BEDTIME [facility] Last Admin: 02/25/23 20:29 Dose: 5 mg Omeprazole (Omeprazole 20 Mg Capsule.Dr) 20 mg PO DAILY@0630 [facility] Last Admin: 02/26/23 06:35 Dose: 20 mg Quetiapine Fumarate (Quetiapine Fumarate 25 Mg Tablet) 25 mg PO DAILY PRN PRN Reason: anxiety Last Admin: 02/24/23 14:20 Dose: 25 mg Quetiapine Fumarate (Quetiapine Fumarate 100 Mg Tablet) 100 mg PO BEDTIME [facility] Last Admin: 02/25/23 20:29 Dose: 100 mg Trazodone HCl (Trazodone Hcl 50 Mg Tablet) 50 mg PO BEDTIME MRX1 PRN PRN Reason: Insomnia Valsartan (Valsartan 160 Mg Tablet) 160 mg PO DAILY [facility]; Protocol Last Admin: 02/26/23 08:35 Dose: 160 mg Allergies Allergies Allergy/AdvReac Type Severity Reaction Status Date / Time lisinopril [LISINOPRIL] Allergy Severe SHORTNESS Verified 02/21/23 17:37 OF BREATH Assessment & Plan Assessment & Plan (1) Depression: Status: Acute Code(s): F32.A - Depression, unspecified (2) Generalized anxiety disorder: Status: Acute Code(s): F41.1 - Generalized anxiety disorder (3) Suicidal ideation: Status: Acute Code(s): R45.851 - Suicidal ideations Plan 43 yo female, admission from [facility] for depression, anxiety, SI in context of loss of two jobs, relationship, attempting to relocate to a new apartment. Feeling an increase in depressive sx, SI with plans to overdose or use a knife to cut herself. Plan: Reviewed med regime with [facility] Pharmacy and changes made. Full group milieu Family meeting with mother Continue to review medications for changes Repeat BMP 02/24. 02/24/23 Continue current regime Potassium 10 meq x 1 dose with repeat labs on 02/28. Pt in agreement. 02/25/23 Olanzapine 5 mg HS BMP 02/28 02/26 continue tx plan Reason for continued inpatient stay Substantial Risk for: med/psych decompensation Time Spent With Patient Time: Total time managing care of this patient today ____ minutes.
[2023-02-26] MEDS: metFORMIN HCl 1,000 MG TABLET 1000 MG PO ×2 (12:25→20:09)
[2023-02-26 17:11] VITALS: BP 132/80; PULSE 96; TEMP 36.4; O2SAT 96
[2023-02-26] MEDS: QUEtiapine Fumarate 100 MG TABLET PO (20:09)
[2023-02-26] MEDS: OLANZapine 5 MG TABLET PO (20:09)
[2023-02-26] MEDS: traZODone HCL 50 MG TABLET PO (20:11)
[2023-02-27] MEDS: Omeprazole 20 MG CAPSULE.DR PO (06:09)
[2023-02-27] MEDS: Insulin Glargine,Hum.rec.anlog 100 UNIT/ML 10 ML VIAL 54 UNIT SUBCUT (08:48)
[2023-02-27] MEDS: Escitalopram Oxalate 20 MG TABLET PO (08:49)
[2023-02-27] MEDS: lamoTRIgine 100 MG TABLET 300 MG PO (08:49)
[2023-02-27] MEDS: Metoprolol Succinate ER 50 MG TAB.ER.24H PO (08:49)
[2023-02-27] MEDS: amLODIPine Besylate 10 MG TABLET PO (08:49)
[2023-02-27] MEDS: Valsartan 160 MG TABLET PO (08:49)
[2023-02-27] MEDS: clonazePAM 0.5 MG TABLET PO ×3 (08:49→20:32)
[2023-02-27] MEDS: Loratadine 10 MG TABLET PO (08:49)
[2023-02-27] MEDS: Atorvastatin Calcium 80 MG TABLET PO (08:49)
[2023-02-27] MEDS: hydroCHLOROthiazide 25 MG TABLET PO (08:50)
[2023-02-27 09:25] VITALS: BP 126/76; PULSE 89; RESP 18; TEMP 36.6; O2SAT 95
--- NOTE | 2023-02-27 12:05 | P.PNPSI_ITS ---
Subjective Subjective Date of Service: 02/27/23 Reason For Visit: Suicidal Interim History: Met with patient; discussed with team Patient reports that she is feeling better. When she came in her depression was a 10/10; now it is a 4/10. She can tell because she is more social in the [facility] and SI is significantly reduced, heading back to a chronic whispers she can typically ignore. Patient also says she has been getting out of bed for the past 2 days in going to groups which she sees as improvement. Feels that medication adjustments are helping Mental Status Exam Mental Status Exam Narrative: Pt is alert and oriented; behavior is cooperative, calm, friendly; patient is not in distress; dressed in casual attire with unkempt hair but adequate hygiene; mood is described as little better and affect congruent; eye contact appropriate; Speech is normal rate, volume and prosody and not pressured; no psychomotor agitation/retardation present; thought process is organized and goal directed; Thought content is on tx; otherwise pertinent to relevant topics and without any delusional content, paranoid ideations or grandiosity; intermittent SI which is passive and chronic/no HI. There is no evidence of perceptual disturbance. Patients insight and judgment impaired but much improved and headed towards baseline Diagnostics Vital Signs (24Hr): Vital Signs - 24 hr 02/26/23 17:11 02/27/23 09:25 Temperature 97.6 F 97.8 F Pulse Rate 96 89 Respiratory Rate 18 Blood Pressure 132/80 126/76 Pulse Oximetry 96 95 Oxygen Delivery Method Room Air Room Air BMI result Body Mass Index 35.0 Labs 02/21/23 15:38 02/24/23 08:38 Labs: Laboratory Results - last 48 hr 02/26/23 08:21 POC Glucose 139 H Medications Medications Current Medications Acetaminophen (Acetaminophen 325 Mg Tablet) 650 mg PO Q6H PRN PRN Reason: Headache/Pain Mild Scale (1-3) Al Hydroxide/Mg Hydroxide (Magnesium Hydrox/Alum Hydrox 30 Ml Oral.Susp) 30 ml PO Q6H PRN PRN Reason: Heartburn/Nausea Amlodipine Besylate (Amlodipine Besylate 10 Mg Tablet) 10 mg PO DAILY [facility]; Protocol Last Admin: 02/27/23 08:49 Dose: 10 mg Ascorbic Acid (Ascorbic Acid 250 Mg Tablet) 250 mg PO MoWeFr@0900 [facility] Last Admin: 02/25/23 09:18 Dose: 250 mg Atorvastatin Calcium (Atorvastatin Calcium 80 Mg Tablet) 80 mg PO DAILY [facility] Last Admin: 02/27/23 08:49 Dose: 80 mg Clonazepam (Clonazepam 0.5 Mg Tablet) 0.5 mg PO BID [facility] Last Admin: 02/27/23 08:49 Dose: 0.5 mg Clonazepam (Clonazepam 0.5 Mg Tablet) 0.5 mg PO DAILY PRN PRN Reason: Anxiety Last Admin: 02/25/23 14:50 Dose: 0.5 mg Escitalopram Oxalate (Escitalopram Oxalate 20 Mg Tablet) 20 mg PO DAILY [facility] Last Admin: 02/27/23 08:49 Dose: 20 mg Ferrous Sulfate (Ferrous Sulfate 324 Mg Tablet.Dr) 324 mg PO MOWEFR@0900 [facility] Last Admin: 02/25/23 08:59 Dose: 324 mg Hydrochlorothiazide (Hydrochlorothiazide 25 Mg Tablet) 25 mg PO DAILY [facility]; Protocol Last Admin: 02/27/23 08:50 Dose: 25 mg Hydroxyzine HCl (Hydroxyzine Hcl 25 Mg Tablet) 25 mg PO Q6H PRN PRN Reason: Anxiety Insulin Glargine (Insulin Glargine,Hum.Rec.Anlog 100 Unit/Ml 10 Ml Vial) 54 unit SUBCUT DAILY [facility] Last Admin: 02/27/23 08:48 Dose: 54 unit Insulin Human Lispro (Insulin Lispro 100 Unit/Ml 3 Ml Vial) 10 unit SUBCUT TIDAC PRN PRN Reason: give for BS 300+ Lamotrigine (Lamotrigine 100 Mg Tablet) 300 mg PO DAILY [facility] Last Admin: 02/27/23 08:49 Dose: 300 mg Lidocaine (Lidocaine 4 % Patch Adh..Patch) 1 patch TRANSDERMA DAILY [facility]; Protocol Last Admin: 02/27/23 08:51 Dose: Not Given Loratadine (Loratadine 10 Mg Tablet) 10 mg PO DAILY [facility] Last Admin: 02/27/23 08:49 Dose: 10 mg Magnesium Hydroxide (Milk Of Magnesia 30 Ml Oral.Susp) 30 ml PO DAILY PRN PRN Reason: Constipation Metformin HCl (Metformin Hcl 1,000 Mg Tablet) 1,000 mg PO BID@1200,2000 [facility] Last Admin: 02/26/23 20:09 Dose: 1,000 mg Metoprolol Succinate (Metoprolol Succinate Er 50 Mg Tab.Er.24h) 50 mg PO DAILY [facility]; Protocol Last Admin: 02/27/23 08:49 Dose: 50 mg Nicotine Polacrilex (Nicotine Polacrilex 2 Mg Gum) 4 mg BUCCAL Q2H PRN PRN Reason: Nicotine Cravings Non-Formulary Medication (Dulaglutide [Trulicity]) 0.75 mg SUBCUT FR@0900 [facility] Olanzapine (Olanzapine 5 Mg Tablet) 5 mg PO TID PRN PRN Reason: agitation Olanzapine (Olanzapine 5 Mg Tablet) 5 mg PO BEDTIME [facility] Last Admin: 02/26/23 20:09 Dose: 5 mg Omeprazole (Omeprazole 20 Mg Capsule.Dr) 20 mg PO DAILY@0630 [facility] Last Admin: 02/27/23 06:09 Dose: 20 mg Quetiapine Fumarate (Quetiapine Fumarate 25 Mg Tablet) 25 mg PO DAILY PRN PRN Reason: anxiety Last Admin: 02/24/23 14:20 Dose: 25 mg Quetiapine Fumarate (Quetiapine Fumarate 100 Mg Tablet) 100 mg PO BEDTIME [facility] Last Admin: 02/26/23 20:09 Dose: 100 mg Trazodone HCl (Trazodone Hcl 50 Mg Tablet) 50 mg PO BEDTIME MRX1 PRN PRN Reason: Insomnia Last Admin: 02/26/23 20:11 Dose: 50 mg Valsartan (Valsartan 160 Mg Tablet) 160 mg PO DAILY [facility]; Protocol Last Admin: 02/27/23 08:49 Dose: 160 mg Allergies Allergies Allergy/AdvReac Type Severity Reaction Status Date / Time lisinopril [LISINOPRIL] Allergy Severe SHORTNESS Verified 02/21/23 17:37 OF BREATH Assessment & Plan Assessment & Plan (1) Depression: Status: Acute Code(s): F32.A - Depression, unspecified (2) Generalized anxiety disorder: Status: Acute Code(s): F41.1 - Generalized anxiety disorder (3) Suicidal ideation: Status: Acute Code(s): R45.851 - Suicidal ideations Plan 43 yo female, admission from [facility] for depression, anxiety, SI in context of loss of two jobs, relationship, attempting to relocate to a new apartment. Feeling an increase in depressive sx, SI with plans to overdose or use a knife to cut h erself. Plan: Reviewed med regime with [facility] and changes made. Full group milieu Family meeting with mother Continue to review medications for changes Repeat [facility] 02/24. 02/24/23 Continue current regime Potassium 10 meq x 1 dose with repeat labs on 02/28. Pt in agreement. 02/25/23 Olanzapine 5 mg HS BMP 02/28 02/26 continue tx plan 02/27 continue current treatment plan. Patient feeling better, depression abating and SI significantly reduced, getting back to its regular low level Patient educated on: diagnosis and medication risk/benefits Informed Consent: understands Reason for continued inpatient stay Substantial Risk for: rapid decompensation and med/psych decompensation Time Spent With Patient Time: Total time managing care of this patient today ____ minutes.
[2023-02-27] MEDS: metFORMIN HCl 1,000 MG TABLET 1000 MG PO ×2 (13:04→20:32)
[2023-02-27 18:52] VITALS: PULSE 101; RESP 20; TEMP 36.7; O2SAT 97
[2023-02-27] MEDS: QUEtiapine Fumarate 25 MG TABLET PO (18:55)
[2023-02-27] MEDS: OLANZapine 5 MG TABLET PO (20:32)
[2023-02-27] MEDS: QUEtiapine Fumarate 100 MG TABLET PO (20:32)
[2023-02-28] MEDS: Omeprazole 20 MG CAPSULE.DR PO (06:01)
[2023-02-28 09:48] LABS: Anion Gap 14 (12-20); Blood Urea Nitrogen 20 mg/dL (9-16); Calcium 9.2 mg/dL (8.4-10.2); Carbon Dioxide 30 mmol/L (22-29); Chloride 100 mmol/L (96-108); Estimated Glomerular Filt Rate 58; Glucose Random 135 mg/dL (60-115); Sodium 141 mmol/L (135-145)
[2023-02-28 09:52] VITALS: BP 132/79; PULSE 86; RESP 16; TEMP 36.6; O2SAT 96
[2023-02-28] MEDS: Escitalopram Oxalate 20 MG TABLET PO (10:05)
[2023-02-28] MEDS: Metoprolol Succinate ER 50 MG TAB.ER.24H PO (10:05)
[2023-02-28] MEDS: lamoTRIgine 100 MG TABLET 300 MG PO (10:05)
[2023-02-28] MEDS: Ferrous Sulfate 324 MG TABLET.DR PO (10:05)
[2023-02-28] MEDS: clonazePAM 0.5 MG TABLET PO ×3 (10:06→20:36)
[2023-02-28] MEDS: Loratadine 10 MG TABLET PO (10:06)
[2023-02-28] MEDS: Valsartan 160 MG TABLET PO (10:06)
[2023-02-28] MEDS: Ascorbic Acid 250 MG TABLET PO (10:06)
[2023-02-28] MEDS: amLODIPine Besylate 10 MG TABLET PO (10:06)
[2023-02-28] MEDS: Atorvastatin Calcium 80 MG TABLET PO (10:06)
[2023-02-28] MEDS: hydroCHLOROthiazide 25 MG TABLET PO (10:06)
[2023-02-28] MEDS: metFORMIN HCl 1,000 MG TABLET 1000 MG PO ×2 (11:55→20:36)
[2023-02-28] MEDS: Insulin Glargine,Hum.rec.anlog 100 UNIT/ML 10 ML VIAL 54 UNIT SUBCUT (11:56)
--- NOTE | 2023-02-28 16:05 | HO.PSYCHPN ---
Subjective Subjective Date of Service: 02/28/23 Reason For Visit: Suicidal Subjective Notes: Conditional Voluntary Healthcare Proxy: No Guardianship: No Medical Problems Affecting Mental Status: No Interim History: Family meeting with pt, mother, Mónica SAAB. Pt shared with mother that she and partner have ended their relationship and will live as room-mates. Mother encouraged pt to look forward, leave the past, focus on the future. She acknowledged how difficult change is for pt. Both discussed pt's deadline to move is 03/07. Pt has a history of difficulty with moves as when she was a child, the family needed to move and her belongings were disposed of in error during the move. Pt/mother reviewed stressors and the multiple levels of change currently going on for pt in terms of work, school, housing, personal life. Discussed relationship issues/conflicts/problems which led to recent break up. Pt discussed needing an extension for a class she needs to completed by the first week in March. She will call the [employer] to discuss and be in contact with financial aide office to discuss tuition payments moving forward. Mother is a strong support and positive stable influence for pt during this time. Medication Compliance: Yes Side effects from medications: No Attending Groups: Intermittent Review of Systems Acute medical concerns: No Medical Review of Systems: unchanged Mental Status Exam Mental Status Exam Patient Appearance: Appropriate Patient Orientation: Person, Place, Time and Situation Level of Consciousness: Alert Patient Behavior: Talkative and Good Eye Contact Mood Description: Depressed Affect Description: Flat Patient Cognition Impaired: No Ability to Follow Directions: Good Speech Pattern: Spontaneous Speech Memory Description: Intact Hallucinations: None Delusions: Not Present Perceptual Disturbances: Depersonalization and Derealization Thought Process: Rumination Thought Content: positive for Perseveration Depressive Symptoms: Increased Anxiety, Diff. Making Decisions, Sleeping More Than Usual, Hopelessness, Unhappiness, Increased Fatigue, Thoughts of /Suicide, Low Self Esteem and Difficulty Concentrating Judgement: Good Diagnostics Vital Signs (24Hr): Vital Signs - 24 hr 02/27/23 18:52 02/28/23 09:52 Temperature 98.0 F 97.8 F Pulse Rate 101 H 86 Respiratory Rate 20 16 Blood Pressure 132/79 Pulse Oximetry 97 96 Oxygen Delivery Method Room Air Room Air BMI result Body Mass Index 35.0 Labs 02/21/23 15:38 02/28/23 08:49 Labs: Laboratory Results - last 48 hr 02/28/23 08:49 Sodium 141 Potassium 3.0 L Chloride 100 Carbon Dioxide 30 H Anion Gap 14 BUN 20 H Creatinine 1.04 Estim Creat Clear Calc 72.0 Estimated GFR 58 Random Glucose 135 H Calcium 9.2 Medications Medications Current Medications Acetaminophen (Acetaminophen 325 Mg Tablet) 650 mg PO Q6H PRN PRN Reason: Headache/Pain Mild Scale (1-3) Al Hydroxide/Mg Hydroxide (Magnesium Hydrox/Alum Hydrox 30 Ml Oral.Susp) 30 ml PO Q6H PRN PRN Reason: Heartburn/Nausea Amlodipine Besylate (Amlodipine Besylate 10 Mg Tablet) 10 mg PO DAILY [facility]; Protocol Last Admin: 02/28/23 10:06 Dose: 10 mg Ascorbic Acid (Ascorbic Acid 250 Mg Tablet) 250 mg PO MoWeFr@0900 [facility] Last Admin: 02/28/23 10:06 Dose: 250 mg Atorvastatin Calcium (Atorvastatin Calcium 80 Mg Tablet) 80 mg PO DAILY [facility] Last Admin: 02/28/23 10:06 Dose: 80 mg Clonazepam (Clonazepam 0.5 Mg Tablet) 0.5 mg PO BID [facility] Last Admin: 02/28/23 10:06 Dose: 0.5 mg Clonazepam (Clonazepam 0.5 Mg Tablet) 0.5 mg PO DAILY PRN PRN Reason: Anxiety Last Admin: 02/28/23 12:19 Dose: 0.5 mg Escitalopram Oxalate (Escitalopram Oxalate 20 Mg Tablet) 20 mg PO DAILY [facility] Last Admin: 02/28/23 10:05 Dose: 20 mg Ferrous Sulfate (Ferrous Sulfate 324 Mg Tablet.) 324 mg PO MOWEFR@0900 [facility] Last Admin: 02/28/23 10:05 Dose: 324 mg Hydrochlorothiazide (Hydrochlorothiazide 25 Mg Tablet) 25 mg PO DAILY [facility]; Protocol Last Admin: 02/28/23 10:06 Dose: 25 mg Hydroxyzine HCl (Hydroxyzine Hcl 25 Mg Tablet) 25 mg PO Q6H PRN PRN Reason: Anxiety Insulin Glargine (Insulin Glargine,Hum.Rec.Anlog 100 Unit/Ml 10 Ml Vial) 54 unit SUBCUT DAILY [facility] Last Admin: 02/28/23 11:56 Dose: 54 unit Insulin Human Lispro (Insulin Lispro 100 Unit/Ml 3 Ml Vial) 10 unit SUBCUT TIDAC PRN PRN Reason: give for BS 300+ Lamotrigine (Lamotrigine 100 Mg Tablet) 300 mg PO DAILY [facility] Last Admin: 02/28/23 10:05 Dose: 300 mg Lidocaine (Lidocaine 4 % Patch Adh..Patch) 1 patch TRANSDERMA DAILY [facility]; Protocol Last Admin: 02/28/23 10:06 Dose: Not Given Loratadine (Loratadine 10 Mg Tablet) 10 mg PO DAILY [facility] Last Admin: 02/28/23 10:06 Dose: 10 mg Magnesium Hydroxide (Milk Of Magnesia 30 Ml Oral.Susp) 30 ml PO DAILY PRN PRN Reason: Constipation Metformin HCl (Metformin Hcl 1,000 Mg Tablet) 1,000 mg PO BID@1200,2000 [facility] Last Admin: 02/28/23 11:55 Dose: 1,000 mg Metoprolol Succinate (Metoprolol Succinate Er 50 Mg Tab.Er.24h) 50 mg PO DAILY [facility]; Protocol Last Admin: 02/28/23 10:05 Dose: 50 mg Nicotine Polacrilex (Nicotine Polacrilex 2 Mg Gum) 4 mg BUCCAL Q2H PRN PRN Reason: Nicotine Cravings Non-Formulary Medication (Dulaglutide [Trulicity]) 0.75 mg SUBCUT FR@0900 [facility] Olanzapine (Olanzapine 5 Mg Tablet) 5 mg PO TID PRN PRN Reason: agitation Olanzapine (Olanzapine 5 Mg Tablet) 5 mg PO BEDTIME [facility] Last Admin: 02/27/23 20:32 Dose: 5 mg Omeprazole (Omeprazole 20 Mg Capsule.Dr) 20 mg PO DAILY@0630 [facility] Last Admin: 02/28/23 06:01 Dose: 20 mg Quetiapine Fumarate (Quetiapine Fumarate 25 Mg Tablet) 25 mg PO DAILY PRN PRN Reason: anxiety Last Admin: 02/27/23 18:55 Dose: 25 mg Quetiapine Fumarate (Quetiapine Fumarate 100 Mg Tablet) 100 mg PO BEDTIME [facility] Last Admin: 02/27/23 20:32 Dose: 100 mg Trazodone HCl (Trazodone Hcl 50 Mg Tablet) 50 mg PO BEDTIME MRX1 PRN PRN Reason: Insomnia Last Admin: 02/26/23 20:11 Dose: 50 mg Valsartan (Valsartan 160 Mg Tablet) 160 mg PO DAILY [facility]; Protocol Last Admin: 02/28/23 10:06 Dose: 160 mg Allergies Allergies Allergy/AdvReac Type Severity Reaction Status Date / Time lisinopril [LISINOPRIL] Allergy Severe SHORTNESS Verified 02/21/23 17:37 OF BREATH Assessment & Plan Assessment & Plan (1) Depression: Status: Acute Code(s): F32.A - Depression, unspecified (2) Generalized anxiety disorder: Status: Acute Code(s): F41.1 - Generalized anxiety disorder (3) Suicidal ideation: Status: Acute Code(s): R45.851 - Suicidal ideations Plan 43 yo female, admission from [facility] for depression, anxiety, SI in context of loss of two jobs, relationship, attempting to relocate to a new apartment. Feeling an increase in depressive sx, SI with plans to overdose or use a knife to cut herself. Plan: Reviewed med regime with [facility] and changes made. Full group milieu Family meeting with mother Continue to review medications for changes Repeat BMP 02/24. 02/24/23 Continue current regime Potassium 10 meq x 1 dose with repeat labs on 02/28. Pt in agreement. 02/25/23 Olanzapine 5 mg HS BMP 02/28 02/26 continue tx plan 02/27 continue current treatment plan. Patient feeling better, depression abating and SI significantly reduced, getting back to its regular low level 02/28/23- Continue current regime and plan. Pt beginning to engage in activities to return to her life. Tolerating Olanzapine and finding it useful. Continue current dosing. Patient educated on: medication risk/benefits and therapeutic strategies Guardian/Caregiver educated on: therapeutic strategies Informed Consent: understands Reason for continued inpatient stay Substantial Risk for: harm to self, inability to function and rapid decompensation Time Spent With Patient Time: Total time managing care of this patient today ____ minutes.
[2023-02-28 20:35] VITALS: BP 143/92; PULSE 90; TEMP 36.6; O2SAT 96
[2023-02-28] MEDS: traZODone HCL 50 MG TABLET PO (20:36)
[2023-02-28] MEDS: QUEtiapine Fumarate 100 MG TABLET PO (20:36)
[2023-02-28] MEDS: OLANZapine 5 MG TABLET PO (20:36)
[2023-03-01] MEDS: Omeprazole 20 MG CAPSULE.DR PO (05:38)
--- NOTE | 2023-03-01 09:14 | P.PNPSI_ITS ---
Subjective Subjective Date of Service: 03/01/23 Reason For Visit: Suicidal Subjective Notes: Conditional Voluntary Healthcare Proxy: No Guardianship: No Medical Problems Affecting Mental Status: No Interim History: Pt reports ongoing improvement. Finding Olanzapine helpful. Will increase to 7.5 mg HS today. Hospitalist consult much appreciated. Pt to have KCl 40 meq with BMP with repeat BMP 03/02 to assess for ongoing replacement. Discussed discharge. Pt needs to complete her move on 03/07. Discussed discharge for 03/03 which she agrees with. She is interested in a return to [facility] upon discharge. Believes the reason for her feeling improved is due to increased connection with her family during her admission. Asks for time with her phone to make contact with her [employer] to begin discussion of financial aide application process. Discussion of the multiple levels of change she is currently experiencing and the stress this can cause with resulting effects. Medication Compliance: Yes Side effects from medications: No Attending Groups: Intermittent Review of Systems Acute medical concerns: No Medical Review of Systems: unchanged Mental Status Exam Mental Status Exam Patient Appearance: Appropriate Patient Orientation: Person, Place, Time and Situation Level of Consciousness: Alert Patient Behavior: Talkative and Good Eye Contact Mood Description: Calm Affect Description: Calm Patient Cognition Impaired: No Ability to Follow Directions: Good Speech Pattern: Spontaneous Speech Memory Description: Intact Hallucinations: None Delusions: Not Present Perceptual Disturbances: Depersonalization and Derealization Thought Process: Intact Thought Content: positive for Intact Depressive Symptoms: Increased Anxiety, Diff. Making Decisions, Sleeping More Than Usual, Thoughts of /Suicide (denies) and Low Self Esteem Judgement: Good Diagnostics Vital Signs (24Hr): Vital Signs - 24 hr 02/28/23 09:52 02/28/23 20:35 Temperature 97.8 F 97.8 F Pulse Rate 86 90 Respiratory Rate 16 Blood Pressure 132/79 143/92 H Pulse Oximetry 96 96 Oxygen Delivery Method Room Air Room Air BMI result Body Mass Index 35.0 Labs 02/21/23 15:38 02/28/23 08:49 Labs: Laboratory Results - last 48 hr 02/28/23 08:49 Sodium 141 Potassium 3.0 L Chloride 100 Carbon Dioxide 30 H Anion Gap 14 BUN 20 H Creatinine 1.04 Estim Creat Clear Calc 72.0 Estimated GFR 58 Random Glucose 135 H Calcium 9.2 Medications Medications Current Medications Acetaminophen (Acetaminophen 325 Mg Tablet) 650 mg PO Q6H PRN PRN Reason: Headache/Pain Mild Scale (1-3) Al Hydroxide/Mg Hydroxide (Magnesium Hydrox/Alum Hydrox 30 Ml Oral.Susp) 30 ml PO Q6H PRN PRN Reason: Heartburn/Nausea Amlodipine Besylate (Amlodipine Besylate 10 Mg Tablet) 10 mg PO DAILY [facility]; Protocol Last Admin: 02/28/23 10:06 Dose: 10 mg Ascorbic Acid (Ascorbic Acid 250 Mg Tablet) 250 mg PO MoWeFr@0900 [facility] Last Admin: 02/28/23 10:06 Dose: 250 mg Atorvastatin Calcium (Atorvastatin Calcium 80 Mg Tablet) 80 mg PO DAILY [facility] Last Admin: 02/28/23 10:06 Dose: 80 mg Clonazepam (Clonazepam 0.5 Mg Tablet) 0.5 mg PO BID [facility] Last Admin: 02/28/23 20:36 Dose: 0.5 mg Clonazepam (Clonazepam 0.5 Mg Tablet) 0.5 mg PO DAILY PRN PRN Reason: Anxiety Last Admin: 02/28/23 12:19 Dose: 0.5 mg Escitalopram Oxalate (Escitalopram Oxalate 20 Mg Tablet) 20 mg PO DAILY [facility] Last Admin: 02/28/23 10:05 Dose: 20 mg Ferrous Sulfate (Ferrous Sulfate 324 Mg Tablet.Dr) 324 mg PO MOWEFR@0900 [facility] Last Admin: 02/28/23 10:05 Dose: 324 mg Hydrochlorothiazide (Hydrochlorothiazide 25 Mg Tablet) 25 mg PO DAILY [facility]; Protocol Last Admin: 02/28/23 10:06 Dose: 25 mg Hydroxyzine HCl (Hydroxyzine Hcl 25 Mg Tablet) 25 mg PO Q6H PRN PRN Reason: Anxiety Insulin Glargine (Insulin Glargine,Hum.Rec.Anlog 100 Unit/Ml 10 Ml Vial) 54 unit SUBCUT DAILY [facility] Last Admin: 02/28/23 11:56 Dose: 54 unit Insulin Human Lispro (Insulin Lispro 100 Unit/Ml 3 Ml Vial) 10 unit SUBCUT TIDAC PRN PRN Reason: give for BS 300+ Lamotrigine (Lamotrigine 100 Mg Tablet) 300 mg PO DAILY [facility] Last Admin: 02/28/23 10:05 Dose: 300 mg Lidocaine (Lidocaine 4 % Patch Adh..Patch) 1 patch TRANSDERMA DAILY [facility]; Protocol Last Admin: 02/28/23 10:06 Dose: Not Given Loratadine (Loratadine 10 Mg Tablet) 10 mg PO DAILY [facility] Last Admin: 02/28/23 10:06 Dose: 10 mg Magnesium Hydroxide (Milk Of Magnesia 30 Ml Oral.Susp) 30 ml PO DAILY PRN PRN Reason: Constipation Metformin HCl (Metformin Hcl 1,000 Mg Tablet) 1,000 mg PO BID@1200,2000 [facility] Last Admin: 02/28/23 20:36 Dose: 1,000 mg Metoprolol Succinate (Metoprolol Succinate Er 50 Mg Tab.Er.24h) 50 mg PO DAILY [facility]; Protocol Last Admin: 02/28/23 10:05 Dose: 50 mg Nicotine Polacrilex (Nicotine Polacrilex 2 Mg Gum) 4 mg BUCCAL Q2H PRN PRN Reason: Nicotine Cravings Non-Formulary Medication (Dulaglutide [Trulicity]) 0.75 mg SUBCUT FR@0900 [facility] Olanzapine (Olanzapine 5 Mg Tablet) 5 mg PO TID PRN PRN Reason: agitation Olanzapine (Olanzapine 5 Mg Tablet) 5 mg PO BEDTIME [facility] Last Admin: 02/28/23 20:36 Dose: 5 mg Omeprazole (Omeprazole 20 Mg Capsule.Dr) 20 mg PO DAILY@0630 [facility] Last Admin: 03/01/23 05:38 Dose: 20 mg Quetiapine Fumarate (Quetiapine Fumarate 25 Mg Tablet) 25 mg PO DAILY PRN PRN Reason: anxiety Last Admin: 02/27/23 18:55 Dose: 25 mg Quetiapine Fumarate (Quetiapine Fumarate 100 Mg Tablet) 100 mg PO BEDTIME [facility] Last Admin: 02/28/23 20:36 Dose: 100 mg Trazodone HCl (Trazodone Hcl 50 Mg Tablet) 50 mg PO BEDTIME MRX1 PRN PRN Reason: Insomnia Last Admin: 02/28/23 20:36 Dose: 50 mg Valsartan (Valsartan 160 Mg Tablet) 160 mg PO DAILY [facility]; Protocol Last Admin: 02/28/23 10:06 Dose: 160 mg Allergies Allergies Allergy/AdvReac Type Severity Reaction Status Date / Time lisinopril [LISINOPRIL] Allergy Severe SHORTNESS Verified 02/21/23 17:37 OF BREATH Assessment & Plan Assessment & Plan (1) Depression: Status: Acute Code(s): F32.A - Depression, unspecified (2) Generalized anxiety disorder: Status: Acute Code(s): F41.1 - Generalized anxiety disorder (3) Suicidal ideation: Status: Acute Code(s): R45.851 - Suicidal ideations Plan 43 yo female, admission from [facility] for depression, anxiety, SI in context of loss of two jobs, relationship, attempting to relocate to a new apartment. Feeling an increase in depressive sx, SI with plans to overdose or use a knife to cut her self. Plan: Reviewed med regime with [facility] and changes made. Full group milieu Family meeting with mother Continue to review medications for changes Repeat BMP 02/24. 02/24/23 Continue current regime Potassium 10 meq x 1 dose with repeat labs on 02/28. Pt in agreement. 02/25/23 Olanzapine 5 mg HS BMP 02/28 02/26 continue tx plan 02/27 continue current treatment plan. Patient feeling better, depression abating and SI significantly reduced, getting back to its regular low level 02/28/23- Continue current regime and plan. Pt beginning to engage in activities to return to her life. Tolerating Olanzapine and finding it useful. Continue current dosing. 03/01/23: Increase Olanzapine to 7.5 mg HS. Continue to monitor potassium. Patient educated on: medication risk/benefits and therapeutic strategies Informed Consent: understands Reason for continued inpatient stay Substantial Risk for: harm to self and rapid decompensation Time Spent With Patient Time: Total time managing care of this patient today ____ minutes.
[2023-03-01 09:25] VITALS: BP 169/101; PULSE 101; RESP 16; TEMP 36.6; O2SAT 98
[2023-03-01] MEDS: Escitalopram Oxalate 20 MG TABLET PO (09:26)
[2023-03-01] MEDS: clonazePAM 0.5 MG TABLET PO ×2 (09:26→21:12)
[2023-03-01] MEDS: Metoprolol Succinate ER 50 MG TAB.ER.24H PO (09:26)
[2023-03-01] MEDS: Loratadine 10 MG TABLET PO (09:26)
[2023-03-01] MEDS: hydroCHLOROthiazide 25 MG TABLET PO (09:26)
[2023-03-01] MEDS: Valsartan 160 MG TABLET PO (09:26)
[2023-03-01] MEDS: lamoTRIgine 100 MG TABLET 300 MG PO (09:26)
[2023-03-01] MEDS: Atorvastatin Calcium 80 MG TABLET PO (09:26)
[2023-03-01] MEDS: amLODIPine Besylate 10 MG TABLET PO (09:26)
[2023-03-01] MEDS: Insulin Glargine,Hum.rec.anlog 100 UNIT/ML 10 ML VIAL 54 UNIT SUBCUT (09:29)
--- NOTE | 2023-03-01 09:58 | PC.NURSE ---
PT report POC [id number] from ruth edwards held.
[2023-03-01] MEDS: metFORMIN HCl 1,000 MG TABLET 1000 MG PO ×2 (12:24→21:12)
--- NOTE | 2023-03-01 15:19 | PM.EVENT ---
Event Note Date of Service: 03/01/23 Event Note: Mild hypokalemia 2/2 hctz use most likely. Replete with 40meq KCl PO x 1 now and get BMP now. Will repeat BMP am and make recommendations about daily repletion. Continue valsartan, amlodipine, metoprolol as prescribed for management of htn which is controlled overall with several outliers. Time Spent With Patient Time: Total time managing care of this patient today ____ minutes.
[2023-03-01 18:08] LABS: Anion Gap 20 (12-20); Blood Urea Nitrogen 14 mg/dL (9-16); Carbon Dioxide 29 mmol/L (22-29); Chloride 95 mmol/L (96-108); Creatinine Clr Calc Pharmacy 74.9; Estimated Glomerular Filt Rate > 60; Glucose Random 99 mg/dL (60-115); Sodium 141 mmol/L (135-145)
[2023-03-01] MEDS: traZODone HCL 50 MG TABLET PO (21:12)
[2023-03-01] MEDS: QUEtiapine Fumarate 100 MG TABLET PO (21:12)
[2023-03-01] MEDS: OLANZapine 7.5 MG TABLET PO (21:49)
[2023-03-01 21:55] VITALS: BP 105/62; PULSE 70; TEMP 36.2; O2SAT 97
[2023-03-02] MEDS: Omeprazole 20 MG CAPSULE.DR PO (06:16)
[2023-03-02 09:33] LABS: Anion Gap 16 (12-20); Blood Urea Nitrogen 16 mg/dL (9-16); Calcium 9.4 mg/dL (8.4-10.2); Carbon Dioxide 29 mmol/L (22-29); Chloride 99 mmol/L (96-108); Creatinine Clr Calc Pharmacy 75.7; Estimated Glomerular Filt Rate > 60; Glucose Random 146 mg/dL (60-115); Potassium 3.2 mmol/L (3.3-5.1); Sodium 141 mmol/L (135-145)
[2023-03-02] MEDS: Lidocaine 4 % Patch ADH..PATCH 1 PATCH TRANSDERMA (10:00)
[2023-03-02] MEDS: Insulin Glargine,Hum.rec.anlog 100 UNIT/ML 10 ML VIAL 54 UNIT SUBCUT (10:01)
[2023-03-02] MEDS: lamoTRIgine 100 MG TABLET 300 MG PO (10:02)
[2023-03-02] MEDS: Atorvastatin Calcium 80 MG TABLET PO (10:03)
[2023-03-02] MEDS: clonazePAM 0.5 MG TABLET PO ×2 (10:03→19:50)
[2023-03-02] MEDS: amLODIPine Besylate 10 MG TABLET PO (10:03)
[2023-03-02] MEDS: Valsartan 160 MG TABLET PO (10:03)
[2023-03-02] MEDS: hydroCHLOROthiazide 25 MG TABLET PO (10:04)
[2023-03-02] MEDS: Loratadine 10 MG TABLET PO (10:04)
[2023-03-02] MEDS: Escitalopram Oxalate 20 MG TABLET PO (10:04)
[2023-03-02] MEDS: Ascorbic Acid 250 MG TABLET PO (10:04)
[2023-03-02] MEDS: Metoprolol Succinate ER 50 MG TAB.ER.24H PO (10:04)
[2023-03-02] MEDS: Ferrous Sulfate 324 MG TABLET.DR PO (10:04)
[2023-03-02 10:09] VITALS: BP 123/78; PULSE 101; RESP 20; O2SAT 97
--- NOTE | 2023-03-02 10:20 | HO.PSYCHPN ---
Subjective Subjective Date of Service: 03/02/23 Reason For Visit: Suicidal Subjective Notes: Conditional Voluntary Healthcare Proxy: No Guardianship: No Medical Problems Affecting Mental Status: No Interim History: Pt preparing for discharge. She would like to return to partial hospital program. She discussed feeling hopeful as a former partner has contacted her about a job opportunity with which she has significant interest in. 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 She feels prepared to return home as she is in process of a move and continues to plan to have her ex-partner as a room-mate, stating she believes this will be an improved relationship for both of them. She denies SI, HI reports medications are without SE and are helpful. Medication Compliance: Yes Side effects from medications: No Attending Groups: Intermittent Review of Systems Acute medical concerns: No Medical Review of Systems: unchanged Mental Status Exam Mental Status Exam Patient Appearance: Appropriate Patient Orientation: Person, Place, Time and Situation Level of Consciousness: Alert Patient Behavior: Talkative and Good Eye Contact Mood Description: Calm Affect Description: Calm Patient Cognition Impaired: No Ability to Follow Directions: Good Speech Pattern: Spontaneous Speech Memory Description: Intact Hallucinations: None Delusions: Not Present Perceptual Disturbances: Depersonalization and Derealization Thought Process: Intact Thought Content: positive for Intact Depressive Symptoms: Increased Anxiety, Diff. Making Decisions, Sleeping More Than Usual, Thoughts of /Suicide (denies) and Low Self Esteem Judgement: Good Diagnostics Vital Signs (24Hr): Vital Signs - 24 hr 03/01/23 21:55 03/02/23 10:09 Temperature 97.1 F Pulse Rate 70 101 H Respiratory Rate 20 Blood Pressure 105/62 123/78 Pulse Oximetry 97 97 Oxygen Delivery Method Room Air Room Air BMI result Body Mass Index 35.0 Labs 02/21/23 15:38 03/02/23 08:13 Labs: Laboratory Results - last 48 hr 03/01/23 03/02/23 17:09 08:13 Sodium 141 141 Potassium 3.0 L 3.2 L Chloride 95 L 99 Carbon Dioxide 29 29 Anion Gap 20 16 BUN 14 16 Creatinine 1.00 0.99 Estim Creat Clear Calc 74.9 75.7 Estimated GFR > 60 > 60 Random Glucose 99 146 H Calcium 10.0 D 9.4 Medications Medications Current Medications Acetaminophen (Acetaminophen 325 Mg Tablet) 650 mg PO Q6H PRN PRN Reason: Headache/Pain Mild Scale (1-3) Al Hydroxide/Mg Hydroxide (Magnesium Hydrox/Alum Hydrox 30 Ml Oral.Susp) 30 ml PO Q6H PRN PRN Reason: Heartburn/Nausea Amlodipine Besylate (Amlodipine Besylate 10 Mg Tablet) 10 mg PO DAILY [facility]; Protocol Last Admin: 03/02/23 10:03 Dose: 10 mg Ascorbic Acid (Ascorbic Acid 250 Mg Tablet) 250 mg PO MoWeFr@0900 [facility] Last Admin: 03/02/23 10:04 Dose: 250 mg Atorvastatin Calcium (Atorvastatin Calcium 80 Mg Tablet) 80 mg PO DAILY [facility] Last Admin: 03/02/23 10:03 Dose: 80 mg Clonazepam (Clonazepam 0.5 Mg Tablet) 0.5 mg PO BID [facility] Last Admin: 03/02/23 10:03 Dose: 0.5 mg Clonazepam (Clonazepam 0.5 Mg Tablet) 0.5 mg PO DAILY PRN PRN Reason: Anxiety Last Admin: 02/28/23 12:19 Dose: 0.5 mg Escitalopram Oxalate (Escitalopram Oxalate 20 Mg Tablet) 20 mg PO DAILY [facility] Last Admin: 03/02/23 10:04 Dose: 20 mg Ferrous Sulfate (Ferrous Sulfate 324 Mg Tablet.Dr) 324 mg PO MOWEFR@0900 [facility] Last Admin: 03/02/23 10:04 Dose: 324 mg Hydrochlorothiazide (Hydrochlorothiazide 25 Mg Tablet) 25 mg PO DAILY [facility]; Protocol Last Admin: 03/02/23 10:04 Dose: 25 mg Hydroxyzine HCl (Hydroxyzine Hcl 25 Mg Tablet) 25 mg PO Q6H PRN PRN Reason: Anxiety Insulin Glargine (Insulin Glargine,Hum.Rec.Anlog 100 Unit/Ml 10 Ml Vial) 54 unit SUBCUT DAILY [facility] Last Admin: 03/02/23 10:01 Dose: 54 unit Insulin Human Lispro (Insulin Lispro 100 Unit/Ml 3 Ml Vial) 10 unit SUBCUT TIDAC PRN PRN Reason: give for BS 300+ Lamotrigine (Lamotrigine 100 Mg Tablet) 300 mg PO DAILY [facility] Last Admin: 03/02/23 10:02 Dose: 300 mg Lidocaine (Lidocaine 4 % Patch Adh..Patch) 1 patch TRANSDERMA DAILY [facility]; Protocol Last Admin: 03/02/23 10:00 Dose: 1 patch Loratadine (Loratadine 10 Mg Tablet) 10 mg PO DAILY [facility] Last Admin: 03/02/23 10:04 Dose: 10 mg Magnesium Hydroxide (Milk Of Magnesia 30 Ml Oral.Susp) 30 ml PO DAILY PRN PRN Reason: Constipation Metformin HCl (Metformin Hcl 1,000 Mg Tablet) 1,000 mg PO BID@1200,2000 [facility] Last Admin: 03/01/23 21:12 Dose: 1,000 mg Metoprolol Succinate (Metoprolol Succinate Er 50 Mg Tab.Er.24h) 50 mg PO DAILY [facility]; Protocol Last Admin: 03/02/23 10:04 Dose: 50 mg Nicotine Polacrilex (Nicotine Polacrilex 2 Mg Gum) 4 mg BUCCAL Q2H PRN PRN Reason: Nicotine Cravings Non-Formulary Medication (Dulaglutide [Trulicity]) 0.75 mg SUBCUT FR@0900 [facility] Olanzapine (Olanzapine 5 Mg Tablet) 5 mg PO TID PRN PRN Reason: agitation Olanzapine (Olanzapine 7.5 Mg Tablet) 7.5 mg PO BEDTIME [facility] Last Admin: 03/01/23 21:49 Dose: 7.5 mg Omeprazole (Omeprazole 20 Mg Capsule.Dr) 20 mg PO DAILY@0630 [facility] Last Admin: 03/02/23 06:16 Dose: 20 mg Quetiapine Fumarate (Quetiapine Fumarate 25 Mg Tablet) 25 mg PO DAILY PRN PRN Reason: anxiety Last Admin: 02/27/23 18:55 Dose: 25 mg Quetiapine Fumarate (Quetiapine Fumarate 100 Mg Tablet) 100 mg PO BEDTIME [facility] Last Admin: 03/01/23 21:12 Dose: 100 mg Trazodone HCl (Trazodone Hcl 50 Mg Tablet) 50 mg PO BEDTIME MRX1 PRN PRN Reason: Insomnia Last Admin: 03/01/23 21:12 Dose: 50 mg Valsartan (Valsartan 160 Mg Tablet) 160 mg PO DAILY [facility]; Protocol Last Admin: 03/02/23 10:03 Dose: 160 mg Allergies Allergies Allergy/AdvReac Type Severity Reaction Status Date / Time lisinopril [LISINOPRIL] Allergy Severe SHORTNESS Verified 02/21/23 17:37 OF BREATH Assessment & Plan Assessment & Plan (1) Depression: Status: Acute Code(s): F32.A - Depression, unspecified (2) Generalized anxiety disorder: Status: Acute Code(s): F41.1 - Generalized anxiety disorder (3) Suicidal ideation: Status: Resolved Code(s): R45.851 - Suicidal ideations Plan 43 yo female, admission from [facility] for depression, anxiety, SI in context of loss of two jobs, relationship, attempting to relocate to a new apartment. Feeling an increase in depressive sx, SI with plans to overdose or use a knife to cut herself. Plan: Reviewed med regime with [facility] and changes made. Full group milieu Family meeting with mother Continue to review medications for changes Repeat BMP 02/24. 02/24/23 Continue current regime Potassium 10 meq x 1 dose with repeat labs on 02/28. Pt in agreement. 02/25/23 Olanzapine 5 mg HS BMP 02/28 02/26 continue tx plan 02/27 continue current treatment plan. Patient feeling better, depression abating and SI significantly reduced, getting back to its regular low level 02/28/23- Continue current regime and plan. Pt beginning to engage in activities to return to her life. Tolerating Olanzapine and finding it useful. Continue current dosing. 03/01/23: Increase Olanzapine to 7.5 mg HS. Continue to monitor potassium. 03/02/23: Discharge 03/03/23. Patient educated on: medication risk/benefits and medical condition Informed Consent: understands Reason for continued inpatient stay Substantial Risk for: stable for discharge Time Spent With Patient Time: Total time managing care of this patient today ____ minutes.
--- NOTE | 2023-03-02 11:34 | PM.EVENT ---
Documented by User: HOLLEY Calix 03/02/23 11:37 Event Note Date of Service: 03/02/23 Event Note: Pt's potassium increased slightly to 3.2. will give potassium chloride back at 40 mEq daily for now. Will recheck potassium in 3 days and adjust accordingly. Time Spent With Patient Time: Total time managing care of this patient today ____ minutes. Documented by User: Jeramy Deshpande DO 03/02/23 18:07 Event Note Date of Service: 03/02/23
[2023-03-02] MEDS: Potassium Chloride Packet 20 MEQ PACKET 40 MEQ PO (13:57)
[2023-03-02] MEDS: metFORMIN HCl 1,000 MG TABLET 1000 MG PO ×2 (13:57→19:49)
[2023-03-02 18:31] VITALS: BP 130/75; PULSE 94; TEMP 36.3
[2023-03-02 19:15] VITALS: BP 124/80; PULSE 94; TEMP 36.8
[2023-03-02] MEDS: OLANZapine 7.5 MG TABLET PO (19:48)
[2023-03-02] MEDS: QUEtiapine Fumarate 100 MG TABLET PO (19:49)
[2023-03-02] MEDS: traZODone HCL 50 MG TABLET PO (19:51)
[2023-03-03] MEDS: Omeprazole 20 MG CAPSULE.DR PO (06:20)
[2023-03-03 08:00] VITALS: BP 145/89; PULSE 113; RESP 18; TEMP 36.1; O2SAT 96
[2023-03-03] MEDS: Metoprolol Succinate ER 50 MG TAB.ER.24H PO (08:09)
[2023-03-03] MEDS: hydroCHLOROthiazide 25 MG TABLET PO (08:09)
[2023-03-03] MEDS: clonazePAM 0.5 MG TABLET PO (08:10)
[2023-03-03] MEDS: Atorvastatin Calcium 80 MG TABLET PO (08:10)
[2023-03-03] MEDS: Valsartan 160 MG TABLET PO (08:10)
[2023-03-03] MEDS: amLODIPine Besylate 10 MG TABLET PO (08:10)
[2023-03-03] MEDS: lamoTRIgine 100 MG TABLET 300 MG PO (08:10)
[2023-03-03] MEDS: Escitalopram Oxalate 20 MG TABLET PO (08:10)
[2023-03-03] MEDS: Loratadine 10 MG TABLET PO (08:10)
[2023-03-03] MEDS: Insulin Glargine,Hum.rec.anlog 100 UNIT/ML 10 ML VIAL 54 UNIT SUBCUT (08:10)
[2023-03-03] MEDS: Lidocaine 4 % Patch ADH..PATCH 1 PATCH TRANSDERMA (08:43)
--- NOTE | 2023-03-03 12:01 | PM.PSYDC ---
DS: Providers Provider Date of Service: 03/03/23 Date of admission: 02/22/23 16:15 Date of discharge: 03/03/23 Primary care physician: Alona Hamilton MD Admitting clinician: Louann Gustafson Attending physician on admission: Petros Campos Consults: 02/28/23 16:47 Consult to Hospitalist Routine Comment: Consulting Provider: Hospitalist Reason For Exam: hypokalemia-?need to regularly supplement/monitor Attending physician on discharge: Petros Campos Discharging clinician: Louann Gustafson DS: Diagnosis Discharge Diagnosis (1) Depression: Status: Acute (2) Generalized anxiety disorder: Status: Acute (3) Suicidal ideation: Status: Resolved DS: Medications Discharge Medications Home Medications: Home Medications Medication Instructions Recorded Confirmed insulin glargine U-300 conc 300 68 unit subcut DAILY 01/06/23 02/21/23 unit/mL (3 mL) subcutaneous pen (Toujeo Max U-300 SoloStar) dulaglutide 0.75 mg/0.5 mL 0.75 mg subcut FR@0900 02/03/23 02/21/23 subcutaneous pen injector (Trulicity) insulin lispro 100 unit/mL 15 unit subcut TIDAC 02/03/23 02/21/23 subcutaneous pen (Humalog KwikPen (U-100) Insulin) Previous Rx's Medication Instructions Recorded amlodipine 10 mg tablet 10 mg PO DAILY #30 tabs 03/02/23 ascorbic acid (vitamin C) 250 mg 250 mg PO MoWeFr@0900 #30 tabs 03/02/23 tablet cetirizine 10 mg tablet 10 mg PO DAILY #30 tabs 03/02/23 clonazepam 0.5 mg tablet 0.5 mg PO BID anxiety #14 tabs 03/02/23 escitalopram oxalate 20 mg tablet 20 mg PO DAILY #30 tabs 03/02/23 ferrous sulfate 325 mg (65 mg 325 mg PO MOWEFR@0900 #30 tabs 03/02/23 iron) tablet (FeroSul) hydrochlorothiazide 25 mg tablet 25 mg PO DAILY #30 tabs 03/02/23 lamotrigine 150 mg tablet 300 mg PO DAILY #60 tabs 03/02/23 lidocaine 4 % topical patch 1 patch transdermal DAILY #30 ea 03/02/23 (Lidocaine Pain Relief) metformin 500 mg tablet 1,000 mg PO BID #120 tabs 03/02/23 metoprolol succinate 50 mg 50 mg PO DAILY #30 tabs 03/02/23 tablet,extended release 24 hr olanzapine 7.5 mg tablet 7.5 mg PO BEDTIME #30 tabs 03/02/23 omeprazole 20 mg capsule,delayed 20 mg PO DAILY@0630 #30 caps 03/02/23 release potassium chloride 20 mEq oral 40 meq PO DAILY #3 ea 03/02/23 packet quetiapine 100 mg tablet 100 mg PO BEDTIME #30 tabs 03/02/23 quetiapine 25 mg tablet 25 mg PO DAILY PRN anxiety #30 tabs 03/02/23 rosuvastatin 20 mg tablet 20 mg PO DAILY #30 tabs 03/02/23 trazodone 50 mg tablet 50 mg PO BEDTIME MRX1 PRN Insomnia 03/02/23 #60 tabs valsartan 160 mg tablet 160 mg PO DAILY #30 tabs 03/02/23 Mental Status Exam Mental Status Exam Patient Appearance: Appropriate Patient Orientation: Person, Place, Time and Situation Level of Consciousness: Alert Patient Behavior: Talkative and Good Eye Contact Mood Description: Calm Affect Description: Calm Patient Cognition Impaired: No Ability to Follow Directions: Good Speech Pattern: Spontaneous Speech Memory Description: Intact Hallucinations: None Delusions: Not Present Perceptual Disturbances: Depersonalization and Derealization Thought Process: Intact Thought Content: positive for Intact Depressive Symptoms: Increased Anxiety, Diff. Making Decisions, Sleeping More Than Usual, Thoughts of /Suicide (denies) and Low Self Esteem Judgement: Good Data Data Completed and Pending Completed studies during hospitalization [Text1]: 02/24/23 02/25/23 02/25/23 12:22 08:57 11:47 Sodium Potassium Chloride Carbon Dioxide Anion Gap BUN Creatinine Estim Creat Clear Calc Estimated GFR POC Glucose 167 H 156 H 95 Random Glucose Calcium 02/26/23 02/28/23 03/01/23 08:21 08:49 17:09 Sodium 141 141 Potassium 3.0 L 3.0 L Chloride 100 95 L Carbon Dioxide 30 H 29 Anion Gap 14 20 BUN 20 H 14 Creatinine 1.04 1.00 Estim Creat Clear Calc 72.0 74.9 Estimated GFR 58 > 60 POC Glucose 139 H Random Glucose 135 H 99 Calcium 9.2 10.0 D 03/02/23 08:13 Sodium 141 Potassium 3.2 L Chloride 99 Carbon Dioxide 29 Anion Gap 16 BUN 16 Creatinine 0.99 Estim Creat Clear Calc 75.7 Estimated GFR > 60 POC Glucose Random Glucose 146 H Calcium 9.4 DS: Summary Hospital Course Hospital Course: Admission to adult psychiatry to exacerbation of symptoms of PTSD, Depression, Anxiety, SI. Recent discharge on 01/12 to [facility] program where she became suicidal. Issues of grief/loss, break up with a partner, pending eviction, loss of job all contributing to pt reports of feeling overwhelmed and that the combination and timing of these stressors were too much to handle. Medications were reviewed, pt was encouraged to utilize the milieu for recovery and was able to work through the crisis. Pt would like to return to [facility]. Family is helping her to complete the move. She may have a new work opportunity upcoming, and she and former partner have decided to live as room-mates as they have ended their relationship. Time spent discussing smoking cessation with patient: 3 to 10 minutes Status at Discharge Functional status at discharge: independent ambulation Overall status at discharge: patient is progressing back to baseline Time Spent with Patient Time attestation: Total time managing care of this patient today ____ minutes. Time spent: Greater than 30 minutes Discharge Plan Discharge Anticipated Discharge Date/Time: 03/03/23 12:29 Patient Disposition: Home, Self-Care Discharge Diagnosis: Recurrent Major Depression Generalized Anxiety Disorder Referrals: [facility] Intake: Karolina ([facility]) [Other] - 03/17/23 8:00 am (Please attend your intake appointment on 03/17 and expect to begin attending the program Tuesday-Tuesday on 03/18) Therapist: Emerita Madrigal ([facility]) [Other] - 03/10/23 4:00 pm (Appointment is in person at the office ) Convex Grinder Operator: Satya Pelaez ([facility]) [Other] - 03/07/23 12:00 pm (Appointment is in person at the office on [facility]) Psych Prescriber: Kelly Blevins ([facility]) [Other] - 04/04/23 12:00 pm (Telehealth- Kelly will call your phone at the appointment time) Psych Prescriber: Kelly Blevins ([facility]) [Other] - 05/05/23 11:00 am (Telehealth ) Alona Hamilton MD [Primary Care Provider] - 03/16/23 9:00 am (in office) Discharge Medications: New trazodone 50 mg Tablet 50 mg PO BEDTIME MRX1 PRN (Reason: Insomnia) Qty: 60 0RF olanzapine 7.5 mg Tablet 7.5 mg PO BEDTIME Qty: 30 0RF potassium chloride 20 mEq Packet 40 meq PO DAILY Qty: 3 0RF lidocaine [Lidocaine Pain Relief] 4 % Adhesive Patch,Medicated 1 patch transdermal DAILY Qty: 30 0RF Protocol: Apply to: Apply to: affected area ascorbic acid (vitamin C) 250 mg Tablet 250 mg PO MoWeFr@0900 Qty: 30 0RF Continued Toujeo Max U-300 SoloStar 300 unit/mL (3 mL) insulin pen 68 unit subcut DAILY insulin lispro [Humalog KwikPen Insulin] 100 unit/mL insulin pen 15 unit subcut TIDAC Trulicity 0.75 mg/0.5 mL pen injector 0.75 mg subcut FR@0900 quetiapine 25 mg tablet 25 mg PO DAILY PRN (Reason: anxiety) Qty: 30 0RF metformin 500 mg tablet 1,000 mg PO BID Qty: 120 0RF cetirizine 10 mg Tablet 10 mg PO DAILY Qty: 30 0RF metoprolol succinate 50 mg tablet extended release 24 hr 50 mg PO DAILY Qty: 30 0RF quetiapine 100 mg tablet 100 mg PO BEDTIME Qty: 30 0RF amlodipine 10 mg tablet 10 mg PO DAILY Qty: 30 0RF ferrous sulfate [FeroSul] 325 mg (65 mg iron) tablet 325 mg PO MOWEFR@0900 Qty: 30 0RF omeprazole 20 mg capsule,delayed release(DR/EC) 20 mg PO DAILY@0630 Qty: 30 0RF hydrochlorothiazide 25 mg tablet 25 mg PO DAILY Qty: 30 0RF valsartan 160 mg tablet 160 mg PO DAILY Qty: 30 0RF escitalopram oxalate 20 mg tablet 20 mg PO DAILY Qty: 30 0RF rosuvastatin 20 mg tablet 20 mg PO DAILY Qty: 30 0RF Changed lamotrigine 150 mg tablet 300 mg PO DAILY Qty: 60 0RF clonazepam 0.5 mg tablet 0.5 mg PO BID Qty: 14 4RF Discontinued clonazepam 0.5 mg tablet 0.5 mg PO DAILY@1200 PRN (Reason: Anxiety) No Action acetaminophen [Tylenol Extra Strength] 500 mg tablet 500 mg PO Q6H PRN (Reason: fever or pain) Qty: 14 0RF lidocaine [Lidoderm] 5 % adhesive patch,medicated 1 patch topical DAILY MDD remove after 12 hours PRN (Reason: pain) Qty: 30 0RF Rx Instructions: leave on most painful area for up to 12 hrs naproxen 500 mg tablet 500 mg PO BID PRN (Reason: pain) 10 Days Qty: 20 0RF cyclobenzaprine 5 mg tablet 5 mg PO Q8H PRN (Reason: pain (scale score 7-10)) 5 Days Qty: 14 0RF Discharge Orders: Discharge Order (Routine); Ordered 03/02/23 Ordered By: Louann Gustafson Diet: Diabetic diet Activity on Discharge: As tolerated Stand Alone Forms: Patient Portal Discharge page, Community Support Care Plan Goals: Mood and Behavioral Stabilization Health Concerns: Mood and Behavioral Stabilization Plan of Treatment: Attend follow up appointments Take medications as directed Assessment: Pt interviewed prior to discharge and found to be fully oriented and without any SI or HI. Pt has insight and demonstrates good judgment in terms of wanting to pursue treatment. Pt is not in imminent risk of harm to self or others and has a safety plan that includes presenting to the closest ER or calling 911 if feeling unsafe. Pt has been observed closely by nursing and unit staff throughout admission Pt has not engaged in any behaviors that suggest dangerousness to self or others and has demonstrated appropriate behaviors and impulse control. Discharge Date/Time: 03/03/23 11:15
== END 2023-03-03 11:15 | disposition home or self-care (01) | DRG 754 ==
LOC: HO.ED 02-22 11:11 → HO.PM5 02-22 16:24
PROVIDERS: Physician Assistant; Admitting Provider Psychiatry & Neurology Psychiatry; Emergency Provider Emergency Medicine; PCP Family Medicine; Visit Provider Clinical Nurse Specialist Psychiatric/Mental Health, Adult
DX: F32.A Depression, unspecified (principal); R45.851 Suicidal ideations; E78.00 Pure hypercholesterolemia, unspecified; J45.909 Unspecified asthma, uncomplicated; E87.6 Hypokalemia; T50.2X5A Adverse effect of carbonic-anhydrase inhibitors, benzothiadiazides and other diuretics, initial encounter; I10 Essential (primary) hypertension; F41.1 Generalized anxiety disorder; Z20.822 Contact with and (suspected) exposure to COVID-19; Z79.4 Long term (current) use of insulin; Z79.84 Long term (current) use of oral hypoglycemic drugs; Z79.899 Other long term (current) drug therapy
CPT/HCPCS: 36415; 80048; 80053; 80061; 80307; 81001; 81025; 82947; 83036; 85025; 87635; 93005; 99285; S9485

== ENCOUNTER → 2023-02-22 16:15 | Outpatient (BNV) | payer OTHER, SELFPAY | PROVIDERS: Admitting Provider Psychiatry & Neurology Psychiatry; Emergency Provider Emergency Medicine; PCP Family Medicine; Visit Provider Clinical Nurse Specialist Psychiatric/Mental Health, Adult | DX: F33.2 Major depressive disorder, recurrent severe without psychotic features (principal); F41.1 Generalized anxiety disorder; R45.851 Suicidal ideations | CPT/HCPCS: 99231; 99232; 99233 ==

== ENCOUNTER → 2023-03-22 09:45 | Outpatient (BNV) | payer OTHER, SELFPAY | PROVIDERS: Visit Provider Psychiatry & Neurology Psychiatry | DX: F41.1 Generalized anxiety disorder (principal); F33.2 Major depressive disorder, recurrent severe without psychotic features; E11.9 Type 2 diabetes mellitus without complications; Z79.4 Long term (current) use of insulin | CPT/HCPCS: 90837; 99233 ==

== ENCOUNTER 2023-03-25 14:24 | Outpatient (REF) | payer OTHER, SELFPAY ==
[2023-03-25 16:28] LABS: Alanine Aminotransferase 41 U/L (0-31); Albumin Level 3.9 g/dL (3.5-5.0); Alkaline Phosphatase 187 U/L (39-117); Anion Gap 15 (12-20); Aspartate Amino Transferase 27 U/L (5-31); Bilirubin Total 0.4 mg/dL (0.0-1.0); Blood Urea Nitrogen 12 mg/dL (9-16); Calcium 9.2 mg/dL (8.4-10.2); Carbon Dioxide 30 mmol/L (22-29); Chloride 96 mmol/L (96-108); Estimated Glomerular Filt Rate 57; Glucose Random 320 mg/dL (60-115); Potassium 3.7 mmol/L (3.3-5.1); Sodium 137 mmol/L (135-145); Total Protein 7.6 g/dL (6.5-8.0)
[2023-03-25 16:30] LABS: Estimated Average Glucose 243 mg/dL; Hemoglobin A1c % 10.1 %
== END 2023-03-25 14:25 | disposition home or self-care (01) ==
LOC: HO.LAB 14:24
PROVIDERS: Visit Provider Psychiatry & Neurology Psychiatry
DX: E11.9 Type 2 diabetes mellitus without complications (principal)
CPT/HCPCS: 36415; 80053; 83036

== ENCOUNTER → 2023-03-30 10:00 | Outpatient (BNV) | payer OTHER, SELFPAY | PROVIDERS: Visit Provider Psychiatry & Neurology Psychiatry | DX: F33.2 Major depressive disorder, recurrent severe without psychotic features (principal) | CPT/HCPCS: 90832; 99212 ==

== ENCOUNTER 2023-04-06 09:30 | Outpatient (RCR) | payer OTHER, SELFPAY ==
[2023-03-18 10:27] VITALS: BP 142/88; PULSE 100; TEMP 36.6
[2023-03-18 10:37] VITALS: BMI 79.8
--- NOTE | 2023-03-18 11:22 | PC.ADMIT ---
Patient is a 43 year old female who was re-referred back to [facility] after Chasidy was hospitalized for the second time d/t increased depression with SI and reports of multiple plans with intent to kill herself secondary to multiple stressors. Patient was hospitalized at [facility] inpatient behavioral health unit on 01/04-01/12/23 and most recent 02/22-03/03/23. Patient presents with depressed mood and anxious affect. Reports hospitalization was helpful. Reports she finally moved into a new apartment and is feeling some relief as a result however reports continued stress. Regarding SI currently patient stated, Small voice whisper that is always there that never goes away . Stated the voice gets louder when not doing well. Denied plan or intent. Patient is calm, cooperative, and engaging. She is here to process life stresses and how to cope with them in a healthy way. Medications reconciled with patient and patient's discharge paperwork. She reports medications are taken as prescribed with the exception of Seroquel 100 mg at HS as she stated she will not take at HS if she needs to be alert the next morning.
--- NOTE | 2023-03-22 09:51 | HO.PS.ADMBH ---
HPI Date of Service: 03/22/23 Chief Complaint: MDD Sources of Information: patient interviewed and chart reviewed HPI Narrative: Patient is referred to the partial hospital status post 2 recent psychiatric hospitalizations on M 5. Patient does have a history of suicide attempts for. 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 Patient lives with her fiance a Rich nurse she is overwhelmed with financial issues the patient's PHQ 9 is 19 she does continue to endorse thoughts that she would be better off but denies current intent patient has been on Lamictal for many years for mood instability she had felt increasingly under the demands of life financial stress history of worsening anxiety and panic she does feel that Seroquel and olanzapine have been helpful the patient has been on medical leave from work she has been going to the [employer] [facility] [employer] Past Psychiatric History: IP: [facility], 01/2023. [facility], [place] ~1992- polypharm OD OP: [facility] Hagan-psychotherapy, and Dr. Deepali Cardenas Trials: Wellbutrin-worked for many years SA: Several suicide attempts by history PHP/IOP: 2020 [facility]. [facility] Medical History (Updated 03/22/23 @ 22:45 by Petros Campos MD) Asthma Diabetes High cholesterol Hypertension Major depressive disorder, recurrent severe without psychotic features Mood disorder Family History: Mother: Depression Cousin: Depression Paternal aunt: Intellectual disability. Social History: Born in [place], [place]. Raised by mom and maternal relatives, all living on the same [address]. Reports a non traumatic upbringing Six half sibs (father's side)- Most are in [place]. 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 Trauma History: Denies Diagnostics Vital Signs (24Hr): BMI result Body Mass Index 79.8 Meds/Allergies Meds Home Medications Medication Instructions Recorded Confirmed Type insulin glargine U-300 conc 300 68 unit subcut DAILY 01/06/23 03/18/23 History unit/mL (3 mL) subcutaneous pen (Toujeo Max U-300 SoloStar) dulaglutide 0.75 mg/0.5 mL 0.75 mg subcut FR@0900 02/03/23 03/18/23 History subcutaneous pen injector (Trulicity) insulin lispro 100 unit/mL 15 unit subcut TIDAC 02/03/23 03/18/23 History subcutaneous pen (Humalog KwikPen (U-100) Insulin) Allergies Allergies Allergy/AdvReac Type Severity Reaction Status Date / Time lisinopril [LISINOPRIL] Allergy Severe SHORTNESS Verified 02/21/23 17:37 OF BREATH Mental Status Exam Mental Status Exam Patient Appearance: Well Grooomed Patient Orientation: Person, Place, Time and Situation Level of Consciousness: Awake and Appropriate Mood Description: Depressed and Blunted Affect Description: Appropriate and Constricted Patient Cognition Impaired: No Ability to Follow Directions: Good Speech Pattern: Clear Memory Description: Intact Hallucinations: None Delusions: Not Present Thought Process: Intact and Goal Oriented Thought Content: positive for Goal Oriented, positive for Preoccupation, negative for Suicidal Ideation or negative for Homicidal Ideation Depressive Symptoms: Increased Anxiety, Increased Irritability, Hopelessness, Increased Fatigue, Loss of Energy and Difficulty Concentrating Judgement: Good Assessment & Plan Assessment & Plan (1) Generalized anxiety disorder: Status: Acute Code(s): F41.1 - Generalized anxiety disorder (2) Major depressive disorder, recurrent severe without psychotic features: Status: Acute Code(s): F33.2 - Major depressive disorder, recurrent severe without psychotic features (3) Insulin dependent type 2 diabetes mellitus: Status: Acute Code(s): E11.9 - Type 2 diabetes mellitus without complications; 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 stay Substantial Risk for: harm to self and rapid decompensation Certification I certify that partial hospital treatment is medically necessary due to the symptoms and problems resulting from the patient's mental illness and the failure to treat the patient at the partial hospital level of care would likely result in the patient requiring inpatient psychiatric care which could not be prevented at a less intensive level of care. Time Spent With Patient Time: Total time managing care of this patient today _60___ minutes.
--- NOTE | 2023-03-25 08:49 | HO.PHP ---
The clients case was reviewed and opened in treatment team
--- NOTE | 2023-03-29 15:30 | PC.NURSE ---
Reviewed patient's lab results with Dr Campos including CO2 30, Random Glucose 320, ALT 41, Alk Phos 187, Hgb A1C 10.1. Patient is insulin dependent diabetic. Will fax a copy of patient's results to her PCP. No new orders.
--- NOTE | 2023-04-01 09:31 | P.PNPSP_ITS ---
Subjective Subjective Date of Service: 04/01/23 Reason For Visit: MDD Healthcare Proxy: No Guardianship: No Medical Problems Affecting Mental Status: No Interim History: This is a he follow-up visit with Ms. Bashir during her partial hospital engagemen She has been here about a week and states that she is benefitting from the program. She talked about the circumstances and reasons that led to her coming here after her recent hospitalization on M5. Current [place] she is on Lexapro 20 mg daily and Lamictal 300 mg daily. She is followed at [facility]. Laboratory studies of 03/25 were reviewed and are within range except for her hemoglobin A1c which is 10.2 but going in the right direction from 12. She does have outpatient providers. She denies any side effects. No changes were made today the labs were reviewed with her Medication Compliance: Yes Side effects from medications: No Attending Groups: Yes Review of Systems Review of Systems Yes all other systems are reviewed and are negative Mental Status Exam Mental Status Exam Patient Appearance: Well Grooomed Patient Orientation: Person, Place, Time and Situation Level of Consciousness: Awake and Appropriate Mood Description: Depressed and Blunted Affect Description: Appropriate and Constricted Patient Cognition Impaired: No Ability to Follow Directions: Good Speech Pattern: Clear Memory Description: Intact Hallucinations: None Delusions: Not Present Thought Process: Intact and Goal Oriented Thought Content: positive for Goal Oriented, positive for Preoccupation, negative for Suicidal Ideation or negative for Homicidal Ideation Depressive Symptoms: Increased Anxiety, Increased Irritability, Hopelessness, Increased Fatigue, Loss of Energy and Difficulty Concentrating Judgement: Good Diagnostics Vital Signs (24Hr): BMI result Body Mass Index 79.8 Assessment & Plan Assessment & Plan (1) Major depressive disorder, recurrent severe without psychotic features: Status: Acute Code(s): F33.2 - Major depressive disorder, recurrent severe without psychotic features Plan Continue current regimen. Continue partial hospital program Patient educated on: diagnosis and medication risk/benefits Certification I certify that partial hospital treatment is medically necessary due to the symptoms and problems resulting from the patient's mental illness and the failure to treat the patient at the partial hospital level of care would likely result in the patient requiring inpatient psychiatric care which could not be prevented at a less intensive level of care. Total time managing care of this patient today ____ minutes. Discharge Plan Discharge Attending provider: Bernabe Rodgers Medications: No Action Toujeo Max U-300 SoloStar 300 unit/mL (3 mL) insulin pen 68 unit subcut DAILY insulin lispro [Humalog KwikPen Insulin] 100 unit/mL insulin pen 15 unit subcut TIDAC Trulicity 0.75 mg/0.5 mL pen injector 0.75 mg subcut FR@0900 trazodone 50 mg Tablet 50 mg PO BEDTIME MRX1 PRN (Reason: Insomnia) Qty: 60 0RF olanzapine 7.5 mg Tablet 7.5 mg PO BEDTIME Qty: 30 0RF potassium chloride 20 mEq Packet 40 meq PO DAILY Qty: 3 0RF lidocaine [Lidocaine Pain Relief] 4 % Adhesive Patch,Medicated 1 patch transdermal DAILY Qty: 30 0RF Protocol: Apply to: Apply to: affected area ascorbic acid (vitamin C) 250 mg Tablet 250 mg PO MoWeFr@0900 Qty: 30 0RF quetiapine 25 mg tablet 25 mg PO DAILY PRN (Reason: anxiety) Qty: 30 0RF lamotrigine 150 mg tablet 300 mg PO DAILY Qty: 60 0RF metformin 500 mg tablet 1,000 mg PO BID Qty: 120 0RF cetirizine 10 mg Tablet 10 mg PO DAILY Qty: 30 0RF metoprolol succinate 50 mg tablet extended release 24 hr 50 mg PO DAILY Qty: 30 0RF clonazepam 0.5 mg tablet 0.5 mg PO BID Qty: 14 4RF quetiapine 100 mg tablet 100 mg PO BEDTIME Qty: 30 0RF amlodipine 10 mg tablet 10 mg PO DAILY Qty: 30 0RF ferrous sulfate [FeroSul] 325 mg (65 mg iron) tablet 325 mg PO MOWEFR@0900 Qty: 30 0RF omeprazole 20 mg capsule,delayed release(DR/EC) 20 mg PO DAILY@0630 Qty: 30 0RF hydrochlorothiazide 25 mg tablet 25 mg PO DAILY Qty: 30 0RF valsartan 160 mg tablet 160 mg PO DAILY Qty: 30 0RF escitalopram oxalate 20 mg tablet 20 mg PO DAILY Qty: 30 0RF rosuvastatin 20 mg tablet 20 mg PO DAILY Qty: 30 0RF Stand Alone Forms: Patient Portal Discharge page
--- NOTE | 2023-04-05 15:32 | HO.PHP ---
PHP staff explored with Chasidy why she didn't return to [facility]. Chasidy stated she had a telehealth appointment with her med provider. [facility] staff was receptive and encouraged Chasidy to inform staff prior so we are aware where she is. Chasidy was receptive and apologized.
--- NOTE | 2023-04-08 17:31 | PC.NURSE ---
Patient discharged on 04/06/23, discharge routine. Patient states ready for discharge. Discharge plan reviewed with patient, patient states understanding. Patient denies SI with no plan or intent.
--- NOTE | 2023-04-12 08:40 | HO.PHP ---
I message was left with the clients therapist Emerita Madrigal [facility] re clients discharge from the program.
== END 2023-04-06 23:59 | disposition home or self-care (01) ==
LOC: HO.PHPA 09:30
PROVIDERS: Visit Provider Psychiatry & Neurology Psychiatry
DX: F33.2 Major depressive disorder, recurrent severe without psychotic features (principal); F41.1 Generalized anxiety disorder; E11.9 Type 2 diabetes mellitus without complications; Z79.4 Long term (current) use of insulin; Z79.899 Other long term (current) drug therapy
CPT/HCPCS: 90791; 90853

== ENCOUNTER 2023-04-11 09:16 | Emergency (ER) | payer MEDICAID, SELFPAY ==
[2023-04-11 09:17] VITALS: BP 158/108; PULSE 87; RESP 20; TEMP 35.8; O2SAT 98; BMI 36.6
--- NOTE | 2023-04-11 09:31 | ED.GENADULT ---
HPI - General Adult General Chief complaint: General Medical Stated complaint: back pain into r leg Time Seen by Provider: 04/11/23 09:29 Source: patient, RN notes reviewed and old records reviewed Mode of arrival: ambulatory History of Present Illness HPI narrative: 43-year-old female with past medical history anxiety, depression, diabetes, presenting to the ED complaining of right buttock pain radiating down RLE x4 days. Reports intermittent numbness/tingling. Denies recent injury/trauma or fall, weakness, urine incontinence/retention, fever. Denies taking anything for pain Onset (ago): day(s) Related Data Home Medications Medication Instructions Recorded Confirmed insulin glargine U-300 conc 300 68 unit subcut DAILY 01/06/23 03/18/23 unit/mL (3 mL) subcutaneous pen (Toujeo Max U-300 SoloStar) dulaglutide 0.75 mg/0.5 mL 0.75 mg subcut FR@0900 02/03/23 03/18/23 subcutaneous pen injector (Trulicity) insulin lispro 100 unit/mL 15 unit subcut TIDAC 02/03/23 03/18/23 subcutaneous pen (Humalog KwikPen (U-100) Insulin) Previous Rx's Medication Instructions Recorded amlodipine 10 mg tablet 10 mg PO DAILY #30 tabs 03/02/23 ascorbic acid (vitamin C) 250 mg 250 mg PO MoWeFr@0900 #30 tabs 03/02/23 tablet cetirizine 10 mg tablet 10 mg PO DAILY #30 tabs 03/02/23 clonazepam 0.5 mg tablet 0.5 mg PO BID anxiety #14 tabs 03/02/23 escitalopram oxalate 20 mg tablet 20 mg PO DAILY #30 tabs 03/02/23 ferrous sulfate 325 mg (65 mg 325 mg PO MOWEFR@0900 #30 tabs 03/02/23 iron) tablet (FeroSul) hydrochlorothiazide 25 mg tablet 25 mg PO DAILY #30 tabs 03/02/23 lamotrigine 150 mg tablet 300 mg PO DAILY #60 tabs 03/02/23 lidocaine 4 % topical patch 1 patch transdermal DAILY #30 ea 03/02/23 (Lidocaine Pain Relief) metformin 500 mg tablet 1,000 mg PO BID #120 tabs 03/02/23 metoprolol succinate 50 mg 50 mg PO DAILY #30 tabs 03/02/23 tablet,extended release 24 hr olanzapine 7.5 mg tablet 7.5 mg PO BEDTIME #30 tabs 03/02/23 omeprazole 20 mg capsule,delayed 20 mg PO DAILY@0630 #30 caps 03/02/23 release potassium chloride 20 mEq oral 40 meq PO DAILY #3 ea 03/02/23 packet quetiapine 100 mg tablet 100 mg PO BEDTIME #30 tabs 03/02/23 quetiapine 25 mg tablet 25 mg PO DAILY PRN anxiety #30 tabs 03/02/23 rosuvastatin 20 mg tablet 20 mg PO DAILY #30 tabs 03/02/23 trazodone 50 mg tablet 50 mg PO BEDTIME MRX1 PRN Insomnia 03/02/23 #60 tabs valsartan 160 mg tablet 160 mg PO DAILY #30 tabs 03/02/23 acetaminophen 500 mg tablet 500 mg PO Q6H PRN fever or pain 04/11/23 (Tylenol Extra Strength) #14 tabs cyclobenzaprine 5 mg tablet 5 mg PO Q8H PRN pain (scale score 04/11/23 7-10) 5 days #14 tabs lidocaine 5 % topical patch 1 patch topical DAILY PRN pain #30 04/11/23 (Lidoderm) ea naproxen 500 mg tablet 500 mg PO BID PRN pain 10 days #20 04/11/23 tabs Allergies Allergy/AdvReac Type Severity Reaction Status Date / Time lisinopril [LISINOPRIL] Allergy Severe SHORTNESS Verified 02/21/23 17:37 OF BREATH Review of Systems Review of Systems: Constitutional: No Fever, No Chills ENT/Mouth: No Ear Pain, No Nasal Congestion, No sore throat, No Rhinorrhea, No Swallowing Difficulty Cardiovascular: No Chest Pain, No SOB Respiratory: No Cough, No Sputum, No Wheezing Gastrointestinal: No Nausea, No Vomiting, No Abdominal pain Genitourinary: No Dysuria, No Urinary Frequency, No Hematuria, No Urinary Incontinence/retention, No Flank Pain Musculoskeletal:+ joint pain, No Myalgias, No Joint Swelling Skin: No Skin Lesions, No rash Neuro: No Weakness, + Numbness, + Paresthesias Yes all other systems are reviewed and are negative Constitutional: Constitutional: Reports as per [facility] Past Medical History Attestation statement: The following information was validated with the patient. Source: old records reviewed Medical History Asthma Diabetes High cholesterol Hypertension Major depressive disorder, recurrent severe without psychotic features Mood disorder Social History Social History Household Members: Significant Other Household Members Other:: stalin Garcia Housing: House Do you presently have visiting nurse or other home services: No Alcohol intake: current Alcohol intake frequency: a few times a week Patient Tobacco Use Status: Never used Tobacco e-Cigarette/Vaping Use: Never Used Substance Use Type: Marijuana Advance Directives: No Advance Directives Information Provided: No service: No Sexual orientation: Lesbian/Hernandez/Homosexual Physical Exam ED Vital Signs: Vital Signs - 24 hr 04/11/23 09:17 04/11/23 10:26 Temperature 96.4 F L 99.1 F Pulse Rate 87 90 Respiratory Rate 20 20 Blood Pressure 158/108 H 158/98 H Pulse Oximetry 98 97 Oxygen Delivery Method Room Air Room Air BMI result Body Mass Index 36.6 Const General: cooperative, healthy appearing and no acute distress Orientation/consciousness: patient oriented x3 Limitations: no limitations HENMT Head: Yes normal to inspection and Yes atraumatic Ears: hearing grossly normal bilaterally General nose exam: Normal external nose present Face and sinus: Yes normal facial exam Eyes General: appearance normal, both eyes and all related structures EOM: EOMs intact bilaterally Neck Neck: Yes normal visual inspection and Yes no meningeal signs Resp Effort & Inspection: normal respiratory effort and no respiratory distress Cardio Rate: regular rate Heart sounds: S1 normal heart sound present and S2 normal heart sound present Peripheral pulses: Peripheral pulses 2+ throughout GI Inspection: Yes normal to inspection Palpation (GI): Soft to palpation, nontender, no guarding and not rigid General: Yes no CVA tenderness Back/Spine/Pelvis Other: No midline cervical/thoracic/lumbar spinous tenderness/step-off or deformity. + right lower lumbar MSK/buttock tenderness to palpation. No rash/erythema Back: no CVA tenderness Skin Rashes: no rashes Wounds: no wounds Neuro Other: Strength intact throughout. No saddle anesthesia. Sensation intact to light touch. Neurovascular intact distally General: patient oriented x3, gait normal, tone normal, moves all extremities and no meningeal signs Gait exam (Neuro): Normal gait present Motor exam (neuro): 5/5 motor strength present throughout Extrem General: Yes normal to inspection Medications Administered Discontinued Medications Generic Name Dose Route Start Last Admin Trade Name Marylou PRN Reason Stop Dose Admin Cyclobenzaprine HCl 10 mg 04/11/23 09:47 04/11/23 10:03 Cyclobenzaprine Hcl 10 Mg Tablet PO 04/11/23 09:48 10 mg ONCE ONE Administration Ketorolac Tromethamine 30 mg 04/11/23 09:47 04/11/23 10:02 Ketorolac Tromethamine 30 Mg/Ml Vial IM 04/11/23 09:48 30 mg ONCE ONE Administration Lidocaine 1 patch 04/11/23 09:47 04/11/23 10:03 Lidocaine 4 % Patch Adh..Patch TRANSDERMA 04/11/23 09:48 1 patch ONCE ONE Administration Protocol Medical Decision Making Medical Decision Making MDM Narrative: 43-year-old female with past medical history anxiety, depression, diabetes, presenting to the ED complaining of right buttock pain radiating down RLE x4 days. On exam hypertensive likely from pain, NAD, nontoxic appearing, no midline spinous tenderness or red flag symptoms. No saddle anesthesia. Ambulating with steady gait. Concern for sciatica vs herniated disc vs MSK pain/strain and spasming. Low suspicion for cauda equina/cord compression, dissection, renal stone/pyelo or epidural abscess noted plan: Pain control, PCP follow-up Results discussed with patient including worrisome signs and symptoms and strict return precautions, and when to return to the emergency department. They verbalized understanding and feel safe for discharge at this time. Differential Diagnosis Differential Diagnoses: The differential diagnosis associated with the presentation includes As above External Record Review External record reviewed: Inpatient record, Office record, Outpatient record, Prior outpatient labs, Prior outpatient radiology, Primary care record and Outside ED record Tests considered The following testing was considered but not selected: As above Prescription Management I considered prescription management with: Pain Medication Chronic Conditions Patient?s care impacted by: Diabetes Discharge Plan Discharge Clinical Impression: Sciatica Patient Disposition: Home, Self-Care Instructions: Sciatica (ED) Additional Instructions: Your pain is likely musculoskeletal Flexeril is a muscle relaxer, take at night as it makes you drowsy, do not drive, drink alcohol, or operate machinery while taking it Naproxen as an anti-inflammatory / pain medication, take with food Lidoderm patches are numbing patches, apply to painful area In addition take Tylenol at home If symptoms persist or worsen, pain becomes unbearable, you developed urinary retention or incontinence, or weakness return to the ED Prescriptions: New acetaminophen [Tylenol Extra Strength] 500 mg tablet 500 mg PO Q6H PRN (Reason: fever or pain) Qty: 14 0RF lidocaine [Lidoderm] 5 % adhesive patch,medicated 1 patch topical DAILY MDD remove after 12 hours PRN (Reason: pain) Qty: 30 0RF Rx Instructions: leave on most painful area for up to 12 hrs naproxen 500 mg tablet 500 mg PO BID PRN (Reason: pain) 10 Days Qty: 20 0RF cyclobenzaprine 5 mg tablet 5 mg PO Q8H PRN (Reason: pain (scale score 7-10)) 5 Days Qty: 14 0RF No Action Toujeo Max U-300 SoloStar 300 unit/mL (3 mL) insulin pen 68 unit subcut DAILY insulin lispro [Humalog KwikPen Insulin] 100 unit/mL insulin pen 15 unit subcut TIDAC Trulicity 0.75 mg/0.5 mL pen injector 0.75 mg subcut FR@0900 trazodone 50 mg Tablet 50 mg PO BEDTIME MRX1 PRN (Reason: Insomnia) Qty: 60 0RF olanzapine 7.5 mg Tablet 7.5 mg PO BEDTIME Qty: 30 0RF potassium chloride 20 mEq Packet 40 meq PO DAILY Qty: 3 0RF lidocaine [Lidocaine Pain Relief] 4 % Adhesive Patch,Medicated 1 patch transdermal DAILY Qty: 30 0RF Protocol: Apply to: Apply to: affected area ascorbic acid (vitamin C) 250 mg Tablet 250 mg PO MoWeFr@0900 Qty: 30 0RF quetiapine 25 mg tablet 25 mg PO DAILY PRN (Reason: anxiety) Qty: 30 0RF lamotrigine 150 mg tablet 300 mg PO DAILY Qty: 60 0RF metformin 500 mg tablet 1,000 mg PO BID Qty: 120 0RF cetirizine 10 mg Tablet 10 mg PO DAILY Qty: 30 0RF metoprolol succinate 50 mg tablet extended release 24 hr 50 mg PO DAILY Qty: 30 0RF clonazepam 0.5 mg tablet 0.5 mg PO BID Qty: 14 4RF quetiapine 100 mg tablet 100 mg PO BEDTIME Qty: 30 0RF amlodipine 10 mg tablet 10 mg PO DAILY Qty: 30 0RF ferrous sulfate [FeroSul] 325 mg (65 mg iron) tablet 325 mg PO MOWEFR@0900 Qty: 30 0RF omeprazole 20 mg capsule,delayed release(DR/EC) 20 mg PO DAILY@0630 Qty: 30 0RF hydrochlorothiazide 25 mg tablet 25 mg PO DAILY Qty: 30 0RF valsartan 160 mg tablet 160 mg PO DAILY Qty: 30 0RF escitalopram oxalate 20 mg tablet 20 mg PO DAILY Qty: 30 0RF rosuvastatin 20 mg tablet 20 mg PO DAILY Qty: 30 0RF Referrals: Alona Hamilton MD [Primary Care Provider] - 5 days Interventions: ED Discharge Assessment Last Done: 04/11/23 10:28 Discharge Date/Time: 04/11/23 10:39
[2023-04-11] MEDS: Ketorolac Tromethamine 30 MG/ML VIAL IM (10:02)
[2023-04-11] MEDS: Cyclobenzaprine HCl 10 MG TABLET PO (10:03)
[2023-04-11] MEDS: Lidocaine 4 % Patch ADH..PATCH 1 PATCH TRANSDERMA (10:03)
[2023-04-11 10:26] VITALS: BP 158/98; PULSE 90; RESP 20; TEMP 37.3; O2SAT 97
== END 2023-04-11 10:39 | disposition home or self-care (01) ==
PROVIDERS: Emergency Provider Emergency Medicine; PCP Family Medicine
DX: M54.41 Lumbago with sciatica, right side (principal)
CPT/HCPCS: 96372; 99283; 99284; J1885

== ENCOUNTER 2023-07-26 10:12 | Outpatient (AMB) | payer MEDICAID, SELFPAY ==
--- NOTE | 2023-07-26 10:14 | A.OFFVIS_ITS ---
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 Pt reports loud snoring, gasping and witnessed apnea spells. Pt having non refreshing sleep, reports excessive daytime sleepiness, stating that she can sleep 24 hrs a day. She has family hx of sleep apnea, her mother has sleep apnea and uses CPAP. Sleep questionnaire: Have you ever been diagnosed with a sleep disorder? No. Have you ever had a sleep study in the past? No. Have you ever been treated for a sleep disorder? No. Do you take medications for a sleep disorder? olanzapine. Do you snore? Yes. Do you wake up gasping at night? Yes. Do you have episodes of apneas? Yes. If yes, are they witnessed? Yes. Do you have episodes of nocturnal chest pain or dyspnea? Yes. Do you have difficulty initiating sleep? Yes. Do you have difficulty maintaining sleep? No. Do you wake up tired? Yes. Do you have headaches upon awakening? No. Do you wake up with dry mouth or throat? Yes. Do you have GERD? Yes. Do you have nocturia? No. Do you have nocturnal leg cramps? No. Do you have symptoms of restless legs? Yes, but mild. Do you act out your dreams? No. Sleep hygiene questionnaire: What is your usual sleep routine? Usual bedtime is at 3-4 am; Usual wake up time is at 12-1 pm. Do you take naps? Yes, sometimes, 6-7 pm. Is your sleep environment cool, dark, and quiet? Yes. Do you exercise? No. Do you take caffeine or other stimulants? Not now. Do you use electronics in bed? Yes, play with phone. What is your work schedule? N/A. Hypersomnolence questionnaire: Do you have daytime tiredness or fatigue? Yes. Do you easily fall asleep when inactive? No. Have you ever had episodes of sudden weakness? No. Have you ever had episodes of sudden weakness associated with strong emotions? No. PFSH Medical History Major depressive disorder, recurrent severe without psychotic features Mood disorder Asthma High cholesterol Hypertension Diabetes Social History Household Members: Significant Other Household Members Other:: stalin Garcia Housing: House Do you presently have visiting nurse or other home services: No Alcohol intake: current Alcohol intake frequency: a few times a week Patient Tobacco Use Status: Never used Tobacco e-Cigarette/Vaping Use: Never Used Substance Use Type: Marijuana service: No Sexual orientation: Lesbian/Hernandez/Homosexual Review of Systems Const All systems reviewed & are unremarkable except as noted in HPI and below ENT Reports Normal hearing present Neuro Reports Normal hearing present Physical Exam Vital Signs: Last Vital Signs Pulse 87 07/26/23 10:22 BP 138/102 H 07/26/23 10:22 Pulse Ox 95 07/26/23 10:22 Oxygen Delivery Method Room Air 07/26/23 10:22 BMI result Body Mass Index 38.5 Const General: cooperative and tired appearing Nutritional Appearance: obese Orientation/consciousness: patient oriented x3 Neck Neck: Yes full ROM and Yes supple Neuro General: patient oriented x3 and gait normal Cranial nerves: Yes Bilaterally intact EOM present, Yes Normal facial strength present, Yes Midline tongue present, Yes Symmetric palate elevation present, Yes Normal hearing present, Yes Ability to bilaterally rotate head present and Yes Ability to bilaterally elevate shoulders present Cognition (Neuro): normal cognition Gait exam (Neuro): Normal gait present Motor exam (neuro): 5/5 motor strength present throughout, Pronator motor function not present and no tremor noted Psych Appearance: grossly normal Mental Status: mental status grossly normal Speech and movement: Normal speech and movement present Affect: normal affect Attitude: cooperative Assessment & Plan Assessment & Plan (1) Loud snoring: Code(s): R06.83 - Snoring (2) Witnessed episode of apnea: Code(s): R06.81 - Apnea, not elsewhere classified (3) Excessive daytime sleepiness: Code(s): G47.19 - Other hypersomnia (4) Obese: Code(s): E66.9 - Obesity, unspecified Plan Pt is advised to undergo home sleep study to assess for sleep apnea. Will f/u with pt after study to discuss results and appropriate treatment options. Sleep hygiene education provided and wt reduction advised. Pt to call with any worsening concerns or questions. Orders: Orders RT home sleep study 07/26/23 G47.19 - Other hypersomnia, R06.81 - Apnea, not elsewhere classified, R06.83 - Snoring Coding Level of Care Code New Pt Level 3 (67435) Diagnoses Loud snoring R06.83 Witnessed episode of apnea R06.81 Excessive daytime sleepiness G47.19 Obese E66.9
[2023-07-26 10:22] VITALS: BP 138/102; PULSE 87; O2SAT 95; BMI 38.5
== END 2023-07-26 10:44 | disposition home or self-care (01) ==
PROVIDERS: PCP Family Medicine; Visit Provider Nurse Practitioner Family
DX: R06.83 Snoring (principal); R06.81 Apnea, not elsewhere classified; G47.19 Other hypersomnia; E66.9 Obesity, unspecified
CPT/HCPCS: 99203

== ENCOUNTER → 2023-07-26 10:12 | Outpatient (BNVA) | payer MEDICAID, SELFPAY | PROVIDERS: PCP Family Medicine; Visit Provider Nurse Practitioner Family | DX: G47.19 Other hypersomnia (principal); R06.83 Snoring; R06.81 Apnea, not elsewhere classified; E66.9 Obesity, unspecified; Z68.38 Body mass index [BMI] 38.0-38.9, adult | CPT/HCPCS: 99212 ==

== ENCOUNTER 2023-08-25 06:27 | Emergency (ER) | payer MEDICAID, SELFPAY ==
--- NOTE | ~2023-08-25 | XR_ITS ---
EXAMINATION: XR CHEST CLINICAL INFORMATION: Cough. Flulike symptoms. COMPARISON: Chest x-rays of 09/16/2022 and 12/17/2019 TECHNIQUE: Frontal view of the chest was obtained. FINDINGS: Cardiomediastinal silhouette is stable and normal. Stable mild elevation of the right hemidiaphragm. The lungs are adequately expanded. No focal consolidation, changes of congestion, pleural effusions or pneumothorax are seen. Regional skeleton is intact. Visualized upper abdomen is unremarkable. XR/XR chest 1V IMPRESSION: No radiographic evidence of pneumonia. No acute pulmonary process.
[2023-08-25 06:28] VITALS: BP 153/104; PULSE 107; RESP 18; TEMP 36.8; O2SAT 97; BMI 39.0
[2023-08-25 07:22] LABS: Influenza A PCR NEGATIVE (Negative); Influenza B PCR NEGATIVE (Negative); Resp Syncy Virus RNA Qual PCR NEGATIVE (Negative); SARS COV2 PCR INHOUSE NEGATIVE (Negative)
[2023-08-25 07:49] VITALS: BP 145/95; PULSE 99; RESP 20; O2SAT 94
[2023-08-25] MEDS: predniSONE 10 MG TABLET 50 MG PO (08:10)
[2023-08-25] MEDS: Albuterol/Iprat 2.5/0.5MG 3 ML AMPUL.NEB INHALE (08:24)
[2023-08-25 08:25] VITALS: PULSE 104; RESP 19; O2SAT 96
--- NOTE | 2023-08-25 08:30 | ED_ITS ---
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 Related Data Home Medications Medication Instructions Recorded Confirmed insulin glargine U-300 conc 300 68 unit subcut DAILY 01/06/23 03/18/23 unit/mL (3 mL) subcutaneous pen (Toujeo Max U-300 SoloStar) dulaglutide 0.75 mg/0.5 mL 0.75 mg subcut FR@0900 02/03/23 03/18/23 subcutaneous pen injector (Trulicity) insulin lispro 100 unit/mL 15 unit subcut TIDAC 02/03/23 03/18/23 subcutaneous pen (Humalog KwikPen (U-100) Insulin) flash glucose sensor (FreeStyle #1 ea 07/26/23 Marcello 2 Sensor kit) metformin 500 mg tablet 1,000 mg PO BID 07/26/23 Previous Rx's Medication Instructions Recorded amlodipine 10 mg tablet 10 mg PO DAILY #30 tabs 03/02/23 ascorbic acid (vitamin C) 250 mg 250 mg PO MoWeFr@0900 #30 tabs 03/02/23 tablet cetirizine 10 mg tablet 10 mg PO DAILY #30 tabs 03/02/23 clonazepam 0.5 mg tablet 0.5 mg PO BID anxiety #14 tabs 03/02/23 escitalopram oxalate 20 mg tablet 20 mg PO DAILY #30 tabs 03/02/23 ferrous sulfate 325 mg (65 mg 325 mg PO MOWEFR@0900 #30 tabs 03/02/23 iron) tablet (FeroSul) hydrochlorothiazide 25 mg tablet 25 mg PO DAILY #30 tabs 03/02/23 lamotrigine 150 mg tablet 300 mg (2 x 150 mg) PO DAILY #60 03/02/23 tabs metoprolol succinate 50 mg 50 mg PO DAILY #30 tabs 03/02/23 tablet,extended release 24 hr olanzapine 7.5 mg tablet 7.5 mg PO BEDTIME #30 tabs 03/02/23 omeprazole 20 mg capsule,delayed 20 mg PO DAILY@0630 #30 caps 03/02/23 release rosuvastatin 20 mg tablet 20 mg PO DAILY #30 tabs 03/02/23 valsartan 160 mg tablet 160 mg PO DAILY #30 tabs 03/02/23 acetaminophen 500 mg tablet 500 mg PO Q6H PRN fever or pain 04/11/23 (Tylenol Extra Strength) #14 tabs cyclobenzaprine 5 mg tablet 5 mg PO Q8H PRN pain (scale score 04/11/23 7-10) 5 days #14 tabs lidocaine 5 % topical patch 1 patch topical DAILY PRN pain #30 04/11/23 (Lidoderm) ea naproxen 500 mg tablet 500 mg PO BID PRN pain 10 days #20 04/11/23 tabs benzonatate 200 mg capsule 200 mg PO TID PRN cough #10 caps 08/25/23 prednisone 50 mg tablet 50 mg PO DAILY 4 days #4 tabs 08/25/23 Allergies Allergy/AdvReac Type Severity Reaction Status Date / Time lisinopril [LISINOPRIL] Allergy Severe SHORTNESS Verified 08/25/23 06:33 OF BREATH Review of Systems Review of Systems: Pertinent positives and negatives as stated in HPI [facility] Past Medical History Source: nursing notes reviewed Medical History Major depressive disorder, recurrent severe without psychotic features Mood disorder Asthma High cholesterol Hypertension Diabetes Social History Social History Household Members: Significant Other Household Members Other:: stalin Garcia Housing: House Do you presently have visiting nurse or other home services: No Alcohol intake: current Alcohol intake frequency: a few times a week Patient Tobacco Use Status: Never used Tobacco e-Cigarette/Vaping Use: Never Used Substance Use Type: Marijuana Advance Directives: No Advance Directives Information Provided: Yes service: No Sexual orientation: Lesbian/Hernandez/Homosexual Physical Exam Vital Signs: Vital Signs: Last Vital Signs Temp 98.2 F 08/25/23 06:28 Pulse 99 08/25/23 07:49 Resp 20 08/25/23 07:49 BP 145/95 H 08/25/23 07:49 Pulse Ox 94 08/25/23 07:49 O2 Del Method Room Air 08/25/23 07:49 BMI result Body Mass Index 39.0 VITAL SIGNS: Reviewed. GENERAL: Well developed, well nourished, in no acute distress. HEAD: Normocephalic/atraumatic EYES: PERRLA, EOMI EARS: Ext canals without abnormality, TMs non-bulging and non-erythematous NOSE: Nares patent bilateral OROPHARYNX: no oral lesions noted, posterior pharynx clear and non-erythematous without noted tonsillar enlargement/erythema/exudates NECK: Supple, no adenopathy LUNGS: Coarse breath sounds, no tachypnea, trace expiratory wheeze. SpO2<94> CARDIOVASCULAR: Regular rate and rhythm without noted murmurs ABDOMEN: Soft, non-tender, non-distended with bowel sounds. MUSCULOSKELETAL: No tenderness, deformities, or effusions noted on gross inspection. EXTREMITIES: No cyanosis, clubbing or edema. SKIN: Inspection of the skin reveals no rashes NEUROLOGIC: Alert and oriented x 4. Strength and sensation to light touch were grossly intact x 4. Medications Administered Discontinued Medications Generic Name Dose Route Start Last Admin Trade Name Freq PRN Reason Stop Dose Admin Albuterol/Ipratropium 3 ml 08/25/23 08:04 08/25/23 08:24 Albuterol/Iprat 2.5/0.5mg 3 Ml Ampul.Neb INHALE 08/25/23 08:05 3 ml ONCE ONE Administration Prednisone 50 mg 08/25/23 08:04 08/25/23 08:10 Prednisone 10 Mg Tablet PO 08/25/23 08:05 50 mg ONCE ONE Administration Medical Decision Making Medical Decision Making [facility] Narrative: 43-year-old female with history and clinical presentation, DDX: Viral syndrome secondary to COVID/influenza/RSV. Reviewed all investigations and viral testing is negative, however I strongly suspect this is a false negative and given patient's symptoms I suspect either COVID or RSV as etiologies. In addition, I suspect she may be having a mild activation of her airways and will treat with DuoNeb and placed on a short course of steroids. Chest x-ray does not demonstrate infiltrate or venous congestion. Differential Diagnosis Differential Diagnoses: The differential diagnosis associated with the presentation includes Please see the discussion above Admission/Observation Consideration of admission/observation: Escalation of care including admission/observation considered Please see the discussion above Lab Data [facility] Lab Attestation statement: I reviewed the patient's lab results. Please see the discussion above Labs: Lab Results 08/25/23 Range/Units 06:38 Influenza Type A (PCR) NEGATIVE (Negative) Influenza Type B (PCR) NEGATIVE (Negative) RSV RNA Qual (PCR) NEGATIVE (Negative) SARS-CoV-2 RNA (RT-PCR) NEGATIVE (Negative) Radiology Impression Discussion of test interpretation with radiology: I have reviewed the radiologist's reading. Radiologist Impression: Please see the discussion above External Record Review External record reviewed: Outpatient record, Prior outpatient labs and Prior outpatient radiology Chronic Conditions Patient?s care impacted by: Diabetes and Hypertension Discharge Plan Discharge Clinical Impression: Viral syndrome, Asthma Patient Disposition: Home, Self-Care Instructions: Asthma (ED), Viral Syndrome (ED), Nutrition Tips for Relief of Diarrhea (ED) Additional Instructions: 1. Resume all home medications as prescribed. 2. Please complete the short course of steroids as prescribed. 3. Otherwise, you will need to take [id number] Tylenol/ibuprofen for any body [id number] greater than 100.4. 4. I recommend that you retest herself for COVID-19 tomorrow. Return to the ER for any acute worsening of symptoms. Prescriptions: New prednisone 50 mg tablet 50 mg PO DAILY 4 Days Qty: 4 0RF benzonatate 200 mg capsule 200 mg PO TID PRN (Reason: cough) Qty: 10 0RF No Action Toujeo Max U-300 SoloStar 300 unit/mL (3 mL) insulin pen 68 unit subcut DAILY insulin lispro [Humalog KwikPen Insulin] 100 unit/mL insulin pen 15 unit subcut TIDAC Trulicity 0.75 mg/0.5 mL pen injector 0.75 mg subcut FR@0900 acetaminophen [Tylenol Extra Strength] 500 mg tablet 500 mg PO Q6H PRN (Reason: fever or pain) Qty: 14 0RF lidocaine [Lidoderm] 5 % adhesive patch,medicated 1 patch topical DAILY MDD remove after 12 hours PRN (Reason: pain) Qty: 30 0RF Rx Instructions: leave on most painful area for up to 12 hrs naproxen 500 mg tablet 500 mg PO BID PRN (Reason: pain) 10 Days Qty: 20 0RF cyclobenzaprine 5 mg tablet 5 mg PO Q8H PRN (Reason: pain (scale score 7-10)) 5 Days Qty: 14 0RF olanzapine 7.5 mg Tablet 7.5 mg PO BEDTIME Qty: 30 0RF ascorbic acid (vitamin C) 250 mg Tablet 250 mg PO MoWeFr@0900 Qty: 30 0RF lamotrigine 150 mg tablet 300 mg PO DAILY Qty: 60 0RF cetirizine 10 mg Tablet 10 mg PO DAILY Qty: 30 0RF metoprolol succinate 50 mg tablet extended release 24 hr 50 mg PO DAILY Qty: 30 0RF clonazepam 0.5 mg tablet 0.5 mg PO BID Qty: 14 4RF amlodipine 10 mg tablet 10 mg PO DAILY Qty: 30 0RF ferrous sulfate [FeroSul] 325 mg (65 mg iron) tablet 325 mg PO MOWEFR@0900 Qty: 30 0RF omeprazole 20 mg capsule,delayed release(DR/EC) 20 mg PO DAILY@0630 Qty: 30 0RF hydrochlorothiazide 25 mg tablet 25 mg PO DAILY Qty: 30 0RF valsartan 160 mg tablet 160 mg PO DAILY Qty: 30 0RF escitalopram oxalate 20 mg tablet 20 mg PO DAILY Qty: 30 0RF rosuvastatin 20 mg tablet 20 mg PO DAILY Qty: 30 0RF metformin 500 mg tablet 1,000 mg PO BID (DME) FreeStyle Marcello 2 Sensor Kit See Rx Instructions .ROUTE Q2W Qty: 1 Rx Instructions: As directed Referrals: Alona Hamilton MD [Primary Care Provider] -
[2023-08-25] MEDS: Benzonatate 100 MG CAPSULE 200 MG PO (08:42)
[2023-08-25] MEDS: Acetaminophen 325 MG TABLET 975 MG PO (08:42)
[2023-08-25] MEDS: Ibuprofen 400 MG TABLET PO (08:43)
== END 2023-08-25 09:06 | disposition home or self-care (01) ==
PROVIDERS: Emergency Provider Student in an Organized Health Care Education/Training Program; PCP Family Medicine
DX: B34.9 Viral infection, unspecified (principal); J45.909 Unspecified asthma, uncomplicated; R06.02 Shortness of breath; I10 Essential (primary) hypertension; R11.2 Nausea with vomiting, unspecified; Z20.822 Contact with and (suspected) exposure to COVID-19; Z20.828 Contact with and (suspected) exposure to other viral communicable diseases; Z79.899 Other long term (current) drug therapy
CPT/HCPCS: 0241U; 71045; 94640; 99284

== ENCOUNTER → 2023-09-14 14:58 | Outpatient (REF) | payer MEDICAID, SELFPAY | LOC: HO.SL 14:58 | PROVIDERS: PCP Family Medicine; Visit Provider Nurse Practitioner Family | DX: G47.33 Obstructive sleep apnea (adult) (pediatric) (principal); G47.19 Other hypersomnia; R06.83 Snoring | CPT/HCPCS: 95806 ==

== ENCOUNTER → 2023-09-14 15:09 | Outpatient (BNV) | payer MEDICAID, SELFPAY | PROVIDERS: PCP Family Medicine; Visit Provider Psychiatry & Neurology Neurology | DX: G47.33 Obstructive sleep apnea (adult) (pediatric) (principal) | CPT/HCPCS: 95806 ==

== ENCOUNTER 2023-09-28 12:29 | Outpatient (REF) | payer MEDICAID, SELFPAY ==
[2023-09-28 14:18] LABS: Alanine Aminotransferase 28 U/L (0-31); Albumin Level 4.2 g/dL (3.5-5.0); Alkaline Phosphatase 87 U/L (39-117); Anion Gap 15 (12-20); Aspartate Amino Transferase 27 U/L (5-31); Bilirubin Direct 0.2 mg/dL (0.0-0.5); Bilirubin Total 0.6 mg/dL (0.0-1.0); Blood Urea Nitrogen 20 mg/dL (9-16); Calcium 9.8 mg/dL (8.4-10.2); Carbon Dioxide 28 mmol/L (22-29); Chloride 95 mmol/L (96-108); Cholesterol 127 mg/dL (<200); Estimated Glomerular Filt Rate 36; Glucose Random 169 mg/dL (60-115); HDL Cholesterol 41 mg/dL (>40); LDL Cholesterol Calculated 60 mg/dL (<100); Potassium 3.6 mmol/L (3.3-5.1); Sodium 134 mmol/L (135-145); Total Protein 7.9 g/dL (6.5-8.0); Triglycerides 134 mg/dL (<150)
[2023-09-28 16:51] LABS: Creatinine Urine 604.94 mg/dL; Microalbum/Creatinine Ratio Ur 49.5 ug/mg cr (<30)
== END 2023-09-28 12:30 | disposition home or self-care (01) ==
LOC: HO.HHCL 12:29
PROVIDERS: Visit Provider Family Medicine
DX: I10 Essential (primary) hypertension (principal); E78.5 Hyperlipidemia, unspecified; E11.69 Type 2 diabetes mellitus with other specified complication
CPT/HCPCS: 36415; 80048; 80061; 80076; 82043; 82570

== ENCOUNTER → 2023-10-24 20:30 | Outpatient (REF) | payer MEDICAID, SELFPAY | LOC: HO.SL 20:30 | PROVIDERS: PCP Family Medicine; Visit Provider Nurse Practitioner Family | DX: Z13.89 Encounter for screening for other disorder (principal) ==

== ENCOUNTER 2024-05-25 08:15 | Emergency (ER) | payer MEDICAID, SELFPAY ==
--- NOTE | ~2024-05-25 | CT_ITS ---
EXAMINATION: CT ABDOMEN AND PELVIS WITH CONTRAST CLINICAL INFORMATION: Left lower quadrant pain. Vomiting. Elevated lipase. COMPARISON: November 24, 2020 TECHNIQUE: Multidetector volumetric images were obtained from the superior aspect of the liver through the pubic symphysis following administration 85 mL of Omnipaque 350 intravenous contrast. Sagittal and coronal reformatted images were obtained on the technologist's workstation. Oral contrast: No This CT examination was performed using dose optimization techniques as appropriate, variously including the following: *Automated exposure control *Adjustment of mA and/or kV according to patient size (this includes techniques or standardized protocols for targeted exams where dose is matched to indication/reason for exam; i.e. extremities or head) *Use of iterative reconstruction technique DLP: 666 mGy-cm FINDINGS: LUNG BASES: Nonspecific distal esophageal wall thickening. Small hiatal hernia. LIVER, GALLBLADDER, AND BILIARY TREE: The liver is normal in size and contour. No focal hepatic lesion or biliary ductal dilatation is present. The gallbladder is unremarkable with no evidence of radiopaque gallstones, gallbladder wall thickening, or obvious pericholecystic inflammatory changes. PANCREAS: Unremarkable. SPLEEN: Unremarkable. ADRENAL GLANDS: Unremarkable. KIDNEYS AND URETERS: The kidneys are normal in size, shape, and attenuation. No hydronephrosis, hydroureter, or calculi seen. No perinephric stranding. BLADDER: Mild bladder wall thickening despite underdistention. GASTROINTESTINAL TRACT: Small and large bowel loops are of normal caliber. No small bowel obstruction. ABDOMINAL WALL: No significant hernia is appreciated. LYMPH NODES: Numerous subcentimeter lymph nodes at the root of the mesentery. VASCULAR: Normal caliber abdominal aorta. PELVIC VISCERA: Hypodense lesion in the left adnexa measuring 5.3 x 2.8 x 3.4 cm with 1.5 cm enhancing mural module. Hypodense lesion in the right adnexa measuring 5.2 x 2.9 x 3.7 cm. Intrauterine device is in satisfactory position. No significant free fluid in the pelvis. OSSEOUS STRUCTURES: No destructive bone lesions. CT/CT abdomen pelvis w IV con IMPRESSION: Bilateral hypodense adnexal lesions. 1.5 cm enhancing mural nodule in the left adnexal lesion. MRI pelvis is recommended for further characterization. Electronically signed by: Romulo Frye MD 05/25/2024 12:02 PM EDT RP
[2024-05-25 08:21] VITALS: BP 144/84; PULSE 90; RESP 16; TEMP 36.7; O2SAT 98; BMI 36.2
[2024-05-25 08:34] LABS: Glucose, Whole Blood 278 mg/dL (60-115)
[2024-05-25 08:36] LABS: MANUAL DIFF FLAG NO
[2024-05-25 08:40] LABS: Basophils Percent Auto 0.4 % (0-2); Eosinophils Absolute Auto 0.1 X10*3/uL (0.0-0.4); Eosinophils Percent Auto 1.7 % (0-4); Hematocrit 37.3 % (37.0-47.0); Hemoglobin 12.6 g/dl (12.0-16.0); Imm Gran Abs Auto 0.02 X10*3/uL (0.00-0.03); Imm Gran Pct Auto 0.3 % (0.0-0.4); Lymphocytes Absolute Auto 2.4 X10*3/uL (1.2-4.9); Lymphocytes Percent Auto 34.8 % (20-40); Mean Corpuscular HGB Conc 33.8 g/dl (31.0-35.0); Mean Corpuscular Hemoglobin 29.5 pg (27.0-33.0); Mean Corpuscular Volume 87.4 fL (80.0-98.0); Mean Platelet Volume 10.3 fL (9.4-12.3); Monocytes Absolute Auto 0.6 X10*3/uL (0.1-1.2); Monocytes Percent Auto 8.4 % (2-11); Neutrophils Absolute Auto 3.8 x10*3/uL (2.0-8.3); Neutrophils Percent Auto 54.4 % (45-73); Platelet Count 313 X10*3/uL (160-400); Red Blood Count 4.27 X10*6/uL (4.20-5.50); Red Cell Distribution Width 12.4 % (11.0-16.0); White Blood Count 6.9 X10*3/uL (4.8-10.8)
--- NOTE | 2024-05-25 08:49 | ED.NAVMDI ---
HPI - Nausea/Vomiting/Diarrhea General Chief complaint: Abdominal Pain Stated complaint: Vomting-diabetic Time Seen by Provider: 05/25/24 08:47 Source: patient Mode of arrival: ambulatory Limitations: no limitations History of Present Illness ED Provider: Vadim Livingston PA-C HPI Narrative: 44-year-old female with a history of diabetes 2 on insulin, TREMAYNE, anxiety, depression, who presents to the ER for evaluation of nausea and vomiting that started this morning along with acute on chronic abdominal pain. Patient reports ongoing abdominal pain issues, mostly in the left upper quadrant epigastric area that has been occurring on and off for the last several months. Patient has not seen a a provider for this. Patient states she had hot dogs and chocolate ice cream last night. She woke up this morning very nauseous, and had multiple episodes of vomiting, it was blood-streaked emesis. She had left upper quadrant and epigastric abdominal pain and diaphoresis at the time. She had no chest pain or shortness of breath. Her partner encouraged her to come to the ER as she has been suffering from intermittent bouts of severe abdominal pain for the last several months. Glucose has been running in the 200s but she has been unable to target lately because her meter is broken MD elicited complaint: nausea, vomiting and abdominal pain Onset (ago): month(s) Description of vomiting: food contents and blood-streaked Associated nausea: Yes Associated abdominal pain: Yes Location of pain: LUQ Pain consistency: intermittent Severity: moderate Quality: stabbing Exacerbating factors: eating Relieving factors: none Associated symptoms: diaphoresis and nausea/vomiting Related Data Home Medications ?Medication ?Instructions ?Recorded ?Confirmed insulin glargine U-300 conc 300 68 unit subcut DAILY 01/06/23 03/18/23 unit/mL (3 mL) subcutaneous pen (Toujeo Max U-300 SoloStar) dulaglutide 0.75 mg/0.5 mL 0.75 mg subcut FR@0900 02/03/23 03/18/23 subcutaneous pen injector (Trulicity) insulin lispro 100 unit/mL 15 unit subcut TIDAC 02/03/23 03/18/23 subcutaneous pen (Humalog KwikPen (U-100) Insulin) flash glucose sensor (FreeStyle #1 ea 07/26/23 Marcello 2 Sensor kit) metformin 500 mg tablet 1,000 mg PO BID 07/26/23 Previous Rx's ?Medication ?Instructions ?Recorded amlodipine 10 mg tablet 10 mg PO DAILY #30 tabs 03/02/23 ascorbic acid (vitamin C) 250 mg 250 mg PO MoWeFr@0900 #30 tabs 03/02/23 tablet cetirizine 10 mg tablet 10 mg PO DAILY #30 tabs 03/02/23 clonazepam 0.5 mg tablet 0.5 mg PO BID anxiety #14 tabs 03/02/23 escitalopram oxalate 20 mg tablet 20 mg PO DAILY #30 tabs 03/02/23 ferrous sulfate 325 mg (65 mg 325 mg PO MOWEFR@0900 #30 tabs 03/02/23 iron) tablet (FeroSul) hydrochlorothiazide 25 mg tablet 25 mg PO DAILY #30 tabs 03/02/23 lamotrigine 150 mg tablet 300 mg (2 x 150 mg) PO DAILY #60 03/02/23 tabs metoprolol succinate 50 mg 50 mg PO DAILY #30 tabs 03/02/23 tablet,extended release 24 hr olanzapine 7.5 mg tablet 7.5 mg PO BEDTIME #30 tabs 03/02/23 omeprazole 20 mg capsule,delayed 20 mg PO DAILY@0630 #30 caps 03/02/23 release rosuvastatin 20 mg tablet 20 mg PO DAILY #30 tabs 03/02/23 valsartan 160 mg tablet 160 mg PO DAILY #30 tabs 03/02/23 acetaminophen 500 mg tablet 500 mg PO Q6H PRN fever or pain 04/11/23 (Tylenol Extra Strength) #14 tabs cyclobenzaprine 5 mg tablet 5 mg PO Q8H PRN pain (scale score 04/11/23 7-10) 5 days #14 tabs lidocaine 5 % topical patch 1 patch topical DAILY PRN pain #30 04/11/23 (Lidoderm) ea naproxen 500 mg tablet 500 mg PO BID PRN pain 10 days #20 04/11/23 tabs benzonatate 200 mg capsule 200 mg PO TID PRN cough #10 caps 08/25/23 prednisone 50 mg tablet 50 mg PO DAILY 4 days #4 tabs 08/25/23 metoclopramide HCl 5 mg tablet 5 mg PO AC PRN nausea and vomiting 05/25/24 (Reglan) #30 tabs omeprazole 20 mg capsule,delayed 20 mg PO DAILY #30 caps 05/25/24 release Allergies Allergy/AdvReac Type Severity Reaction Status Date / Time lisinopril [LISINOPRIL] Allergy Severe SHORTNESS Verified 05/25/24 08:24 OF BREATH Review of Systems Review of Systems: Yes all other systems are reviewed and are negative Gastrointestinal: Gastrointestinal: Reports nausea PMFSH Past Medical History Medical History Major depressive disorder, recurrent severe without psychotic features Mood disorder Asthma High cholesterol Hypertension Diabetes Social History Social History Household Members: Significant Other Household Members Other:: stalin Garcia Housing: House Do you presently have visiting nurse or other home services: No Alcohol intake: current Alcohol intake frequency: a few times a week Patient Tobacco Use Status: Never used Tobacco e-Cigarette/Vaping Use: Never Used Substance Use Type: Marijuana Advance Directives: No Advance Directives Information Provided: No service: No Sexual orientation: Lesbian/Hernandez/Homosexual Physical Exam Vital Signs: Vital Signs: Last Vital Signs Temp 98.5 F 05/25/24 13:29 Pulse 84 05/25/24 13:29 Resp 18 05/25/24 13:29 BP 131/77 05/25/24 13:29 Pulse Ox 98 05/25/24 13:29 O2 Del Method Room Air 05/25/24 13:29 BMI result Body Mass Index 36.2 Appearance: Alert. Oriented X3. No acute distress. Head: normocephalic, atraumatic. Eyes: Pupils equal, round and reactive to light. ENT: Pharynx normal. No tonsillar swelling or exudate. Neck: Normal inspection. Neck supple. CVS: Normal heart rate and rhythm. Pulses normal. Respiratory: No respiratory distress. Breath sounds normal. Abdomen: Obese, Softly distended with epigastric and left upper quadrant tenderness, no rebound or guarding. Normal active +BS x4. Pelvic deferred Skin: Skin warm and dry. Normal skin color. Normal skin turgor. No rashes. Extremities: No lower extremity edema. No joint swelling. Neuro/psych: Oriented X 3. No motor deficit. No sensory deficit. CN II-XII intact. Normal speech and cognition. Medications Administered Discontinued Medications Generic Name Dose Route Start Last Admin Trade Name Marylou PRN Reason Stop Dose Admin Sodium Chloride 1,000 mls @ 999 mls/hr 05/25/24 09:15 05/25/24 11:07 Ns IVCONT 05/25/24 10:15 Infused .Q1H1M JIM Infusion Iohexol 85 ml 05/25/24 09:57 05/25/24 09:58 Iohexol 350 Mg/Ml 100 Ml Infus..Btl IV 05/25/24 09:58 85 ml ONCE ONE Administration Ondansetron HCl 4 mg 05/25/24 09:02 05/25/24 09:26 Ondansetron Hcl 4 Mg/2 Ml Vial IVPUSH 05/25/24 09:03 4 mg ONCE ONE Administration Medical Decision Making Medical Decision Making [facility] Narrative: 44-year-old female with history of diabetes, obesity who presents to the ER for evaluation of her acute on chronic abdominal pain. Pain was primarily in the upper abdomen and resulted into episodes of vomiting this morning. She reports dealing with abdominal pains almost daily for several months now. No recurrent vomiting. No diarrhea. She endorses a poor diet. She reports compliance with her diabetes medication but is unable to check her glucose due to noncompliance with her current meter. Arrival to the ER patient is hemodynamically stable. Afebrile. Her abdomen is soft with some epigastric and left upper quadrant tenderness. A CT scan was performed which showed adnexal masses. This is consistent with her known PCOS. She has no pelvic pain, vaginal bleeding or discharge. She is declining a pelvic ultrasound today. She will follow up OBGYN. This is unlikely the cause of her abdominal pain. Concern for possible gastroparesis given her diabetes, poorly controlled. Will start her on p.r.n. Reglan, antacid and have her see GI for further evaluation treatment. Encouraged her keeping a food diary and sticking to a more healthy diet. Return precautions were discussed. Stable for discharge home with outpatient follow-up. Differential Diagnosis Differential Diagnoses: The differential diagnosis associated with the presentation includes Gastritis, pancreatitis, GERD, ACS, hyperglycemia, gastroparesis, UTI, colitis, irritable bowel syndrome, inflammatory bowel disease Admission/Observation Consideration of admission/observation: Escalation of care including admission/observation considered Lab Data [facility] Lab Attestation statement: I reviewed the patient's lab results. No leukocytosis, hyperglycemia to the to 60s without anion gap 05/25/24 08:31 05/25/24 08:31 Labs: Lab Results 05/25/24 05/25/24 05/25/24 Range/Units 08:22 08:31 09:26 WBC 6.9 (4.8-10.8) X10*3/uL RBC 4.27 (4.20-5.50) X10*6/uL Hgb 12.6 (12.0-16.0) g/dl Hct 37.3 (37.0-47.0) % MCV 87.4 (80.0-98.0) fL MCH 29.5 (27.0-33.0) pg MCHC 33.8 (31.0-35.0) g/dl RDW 12.4 (11.0-16.0) % Plt Count 313 (160-400) X10*3/uL MPV 10.3 (9.4-12.3) fL Immature Gran % (Auto) 0.3 (0.0-0.4) % Neut % (Auto) 54.4 (45-73) % Lymph % (Auto) 34.8 (20-40) % Evans % (Auto) 8.4 (2-11) % Eos % (Auto) 1.7 (0-4) % Baso % (Auto) 0.4 (0-2) % Lymph # (Auto) 2.4 (1.2-4.9) X10*3/uL Evans # (Auto) 0.6 (0.1-1.2) X10*3/uL Eos # (Auto) 0.1 (0.0-0.4) X10*3/uL Baso # (Auto) 0.0 (0.0-0.2) X10*3/uL Abs Immat Gran (auto) 0.02 (0.00-0.03) X10*3/uL Absolute Neuts (auto) 3.8 (2.0-8.3) x10*3/uL Absolute Nucleated RBC 0.000 (0.0-0.012) X10*3/uL Nucleated RBC % (auto) 0.0 (0.0-0.2) /100WBC Sodium 138 (135-145) mmol/L Potassium 4.2 (3.3-5.1) mmol/L Chloride 103 (96-108) mmol/L Carbon Dioxide 28 (22-29) mmol/L Anion Gap 11 L (12-20) BUN 17 H (9-16) mg/dL Creatinine 1.16 (0.5-1.4) mg/dL Estim Creat Clear Calc 65.1 Estimated GFR 51 POC Glucose 278 H (60-115) mg/dL Random Glucose 267 H (60-115) mg/dL Calcium 9.3 (8.4-10.2) mg/dL Total Bilirubin 0.4 (0.0-1.0) mg/dL Direct Bilirubin 0.1 (0.0-0.5) mg/dL AST 59 H (5-31) U/L ALT 57 H (0-31) U/L Alkaline Phosphatase 172 H (39-117) U/L Total Protein 7.4 (6.5-8.0) g/dL Albumin 3.9 (3.5-5.0) g/dL Lipase 94 H (8-78) U/L Urine Color Yellow Urine Appearance Clear Urine pH 6.0 (5.0-9.0) Ur Specific [place] 1.025 (1.005-1.025) Urine Protein Negative (Neg-Trace) mg/dL Urine Glucose (UA) Negative (Negative) mg/dL Urine Ketones Negative (Negative) mg/dL Urine Blood Negative (Negative) Urine Nitrite Negative (Negative) Ur Leukocyte Esterase Negative (Negative) COVID-19 (ALLAN) Negative (Negative) COVID-19 Clin Com See Note Independent Interpretation I performed an independent interpretation of an: CT Scan Interpretation: CT scan without any evidence of bowel obstruction, no visualized colonic wall thickening, adnexal masses present, no associated stranding. Radiology Impression Discussion of test interpretation with radiology: I have reviewed the radiologist's reading. Independent Historian Clinical information obtained from an independent historian. History obtained from or confirmed by: Spouse External Record Review External record reviewed: Outpatient record, Prior outpatient labs and Prior outpatient radiology Prescription Management I considered prescription management with: Pain Medication and Other (Ppi, antiemetic) Chronic Conditions Patient?s care impacted by: Diabetes Critical Care Time Critical Care Time Critical Care Time: No Discharge Plan Discharge Clinical Impression: Abdominal pain, Nausea & vomiting Patient Disposition: Home, Self-Care Instructions: Diabetic Gastroparesis (DC), Acute Nausea and Vomiting (ED), Abdominal Pain (ED) Additional Instructions: Your lab workup today was unremarkable. Your CT scan of your abdomen showed adnexal masses which is likely due to her polycystic ovarian syndrome. No other causes of your abdominal pain were identified. Recommend keeping a food diary, sticking to a bland diet, avoiding fatty and greasy foods. You may have diabetic gastroparesis which is delayed emptying of your stomach that can lead to pain and nausea along with vomiting. It is important to keep your sugars well controlled. Recommend following up with Gastroenterology for further evaluation treatment. Take the prescribed medications as directed. If you develop new or worsening symptoms call 911 or come back to the ER for further evaluation. Attending Dr: Ordering Physician: Yun Livingston Date of Service: 05/25/24 Procedure(s): CT abdomen pelvis w IV con Accession Number(s): [id number] cc: Alona Hamilton MD; Yun Livingston~ EXAMINATION: CT ABDOMEN AND PELVIS WITH CONTRAST CLINICAL INFORMATION: Left lower quadrant pain. Vomiting. Elevated lipase. COMPARISON: November 24, 2020 TECHNIQUE: Multidetector volumetric images were obtained from the superior aspect of the liver through the pubic symphysis following administration 85 mL of Omnipaque 350 intravenous contrast. Sagittal and coronal reformatted images were obtained on the technologist's workstation. Oral contrast: No This CT examination was performed using dose optimization techniques as appropriate, variously including the following: *Automated exposure control *Adjustment of mA and/or kV according to patient size (this includes techniques or standardized protocols for targeted exams where dose is matched to indication/reason for exam; i.e. extremities or head) *Use of iterative reconstruction technique DLP: 666 mGy-cm FINDINGS: LUNG BASES: Nonspecific distal esophageal wall thickening. Small hiatal hernia. LIVER, GALLBLADDER, AND BILIARY TREE: The liver is normal in size and contour. No focal hepatic lesion or biliary ductal dilatation is present. The gallbladder is unremarkable with no evidence of radiopaque gallstones, gallbladder wall thickening, or obvious pericholecystic inflammatory changes. PANCREAS: Unremarkable. SPLEEN: Unremarkable. ADRENAL GLANDS: Unremarkable. KIDNEYS AND URETERS: The kidneys are normal in size, shape, and attenuation. No hydronephrosis, hydroureter, or calculi seen. No perinephric stranding. BLADDER: Mild bladder wall thickening despite underdistention. GASTROINTESTINAL TRACT: Small and large bowel loops are of normal caliber. No small bowel obstruction. ABDOMINAL WALL: No significant hernia is appreciated. LYMPH NODES: Numerous subcentimeter lymph nodes at the root of the mesentery. VASCULAR: Normal caliber abdominal aorta. PELVIC VISCERA: Hypodense lesion in the left adnexa measuring 5.3 x 2.8 x 3.4 cm with 1.5 cm enhancing mural module. Hypodense lesion in the right adnexa measuring 5.2 x 2.9 x 3.7 cm. Intrauterine device is in satisfactory position. No significant free fluid in the pelvis. OSSEOUS STRUCTURES: No destructive bone lesions. CT/CT abdomen pelvis w IV con IMPRESSION: Bilateral hypodense adnexal lesions. 1.5 cm enhancing mural nodule in the left adnexal lesion. MRI pelvis is recommended for further characterization. Prescriptions: New omeprazole 20 mg capsule,delayed release(DR/EC) 20 mg PO DAILY Qty: 30 0RF metoclopramide HCl [Reglan] 5 mg tablet 5 mg PO AC PRN (Reason: nausea and vomiting) Qty: 30 0RF No Action Toujeo Max U-300 SoloStar 300 unit/mL (3 mL) insulin pen 68 unit subcut DAILY insulin lispro [Humalog KwikPen Insulin] 100 unit/mL insulin pen 15 unit subcut TIDAC Trulicity 0.75 mg/0.5 mL pen injector 0.75 mg subcut FR@0900 acetaminophen [Tylenol Extra Strength] 500 mg tablet 500 mg PO Q6H PRN (Reason: fever or pain) Qty: 14 0RF lidocaine [Lidoderm] 5 % adhesive patch,medicated 1 patch topical DAILY MDD remove after 12 hours PRN (Reason: pain) Qty: 30 0RF Rx Instructions: leave on most painful area for up to 12 hrs naproxen 500 mg tablet 500 mg PO BID PRN (Reason: pain) 10 Days Qty: 20 0RF cyclobenzaprine 5 mg tablet 5 mg PO Q8H PRN (Reason: pain (scale score 7-10)) 5 Days Qty: 14 0RF olanzapine 7.5 mg Tablet 7.5 mg PO BEDTIME Qty: 30 0RF ascorbic acid (vitamin C) 250 mg Tablet 250 mg PO MoWeFr@0900 Qty: 30 0RF lamotrigine 150 mg tablet 300 mg PO DAILY Qty: 60 0RF cetirizine 10 mg Tablet 10 mg PO DAILY Qty: 30 0RF metoprolol succinate 50 mg tablet extended release 24 hr 50 mg PO DAILY Qty: 30 0RF clonazepam 0.5 mg tablet 0.5 mg PO BID Qty: 14 4RF amlodipine 10 mg tablet 10 mg PO DAILY Qty: 30 0RF ferrous sulfate [FeroSul] 325 mg (65 mg iron) tablet 325 mg PO MOWEFR@0900 Qty: 30 0RF omeprazole 20 mg capsule,delayed release(DR/EC) 20 mg PO DAILY@0630 Qty: 30 0RF hydrochlorothiazide 25 mg tablet 25 mg PO DAILY Qty: 30 0RF valsartan 160 mg tablet 160 mg PO DAILY Qty: 30 0RF escitalopram oxalate 20 mg tablet 20 mg PO DAILY Qty: 30 0RF rosuvastatin 20 mg tablet 20 mg PO DAILY Qty: 30 0RF prednisone 50 mg tablet 50 mg PO DAILY 4 Days Qty: 4 0RF benzonatate 200 mg capsule 200 mg PO TID PRN (Reason: cough) Qty: 10 0RF metformin 500 mg tablet 1,000 mg PO BID (DME) FreeStyle Marcello 2 Sensor Kit See Rx Instructions .ROUTE Q2W Qty: 1 Rx Instructions: As directed Referrals: [facility] [Provider Group] (Chronic abdominal pain, vomiting, question gastroparesis) Alona Hamilton MD [Primary Care Provider] - Stand Alone Forms: Work/School Release Interventions: ED Discharge Assessment Last Done: 05/25/24 13:29 Discharge Date/Time: 05/25/24 13:30 Print Language: Frisian
[2024-05-25 08:54] LABS: Alanine Aminotransferase 57 U/L (0-31); Albumin Level 3.9 g/dL (3.5-5.0); Alkaline Phosphatase 172 U/L (39-117); Anion Gap 11 (12-20); Aspartate Amino Transferase 59 U/L (5-31); Bilirubin Direct 0.1 mg/dL (0.0-0.5); Bilirubin Total 0.4 mg/dL (0.0-1.0); Blood Urea Nitrogen 17 mg/dL (9-16); COVID-19 Test Negative (Negative); Calcium 9.3 mg/dL (8.4-10.2); Carbon Dioxide 28 mmol/L (22-29); Chloride 103 mmol/L (96-108); Creatinine Clr Calc Pharmacy 65.1; Estimated Glomerular Filt Rate 51; Glucose Random 267 mg/dL (60-115); IDNOW Serial# 08D9AD1C; Lipase 94 U/L (8-78); Potassium 4.2 mmol/L (3.3-5.1); Sodium 138 mmol/L (135-145); Total Protein 7.4 g/dL (6.5-8.0)
--- NOTE | 2024-05-25 09:01 | ECG_ITS ---
Test Reason : NAUSEA Blood Pressure : / mmHG Vent. Rate : 083 BPM Atrial Rate : 083 BPM P-R Int : 188 ms QRS Dur : 078 ms QT Int : 372 ms P-R-T Axes : 040 -20 020 degrees QTc Int : 437 ms Normal sinus rhythm Normal ECG When compared with ECG of 23-FEB-2023 12:39, No significant change was found Referred By: Yun Livingston Electronically Signed By:SAÚL MEDELLIN
[2024-05-25] MEDS: ondansetron HCL 4 MG/2 ML VIAL IVPUSH (09:26)
[2024-05-25] MEDS: 0.9 % Sodium Chloride 1,000 ML 999 ML IVCONT (09:26)
[2024-05-25 09:34] LABS: Appearance Urine Clear; Color Urine Yellow; Glucose Urine UA Negative (Negative); Leukocyte Esterase Urine Negative (Negative); Nitrite Urine Negative (Negative); Specific Gravity - Urine 1.025 (1.005-1.025); Urine Blood Negative (Negative); Urine Ketones Negative (Negative); Urine Protein Negative (Neg-Trace)
[2024-05-25 09:41] VITALS: BP 150/85; PULSE 82; RESP 16; TEMP 36.8; O2SAT 100
[2024-05-25] MEDS: iohexoL 350 MG/ML 100 ML INFUS..BTL 85 ML IV (09:58)
[2024-05-25 10:15] VITALS: BP 138/84; PULSE 83; RESP 18; TEMP 36.8; O2SAT 99
[2024-05-25 12:00] VITALS: BP 138/84; PULSE 81; RESP 18; TEMP 36.8; O2SAT 100
[2024-05-25 13:29] VITALS: BP 131/77; PULSE 84; RESP 18; TEMP 36.9; O2SAT 98
== END 2024-05-25 13:30 | disposition home or self-care (01) ==
PROVIDERS: Emergency Provider Emergency Medicine; PCP Family Medicine
DX: R10.12 Left upper quadrant pain (principal); R10.13 Epigastric pain; R11.2 Nausea with vomiting, unspecified; E11.9 Type 2 diabetes mellitus without complications; I10 Essential (primary) hypertension; E78.5 Hyperlipidemia, unspecified; Z79.4 Long term (current) use of insulin; Z79.84 Long term (current) use of oral hypoglycemic drugs; Z11.52 Encounter for screening for COVID-19
CPT/HCPCS: 74177; 80048; 80076; 81003; 82947; 83690; 85025; 87635; 93005; 96361; 96374; 99284; J2405; Q9967

== ENCOUNTER 2024-07-03 14:20 | Outpatient (REF) | payer MEDICAID, SELFPAY ==
[2024-07-03 17:05] LABS: Alanine Aminotransferase 34 U/L (0-31); Albumin Level 3.9 g/dL (3.5-5.0); Alkaline Phosphatase 135 U/L (39-117); Anion Gap 13 (12-20); Aspartate Amino Transferase 35 U/L (5-31); Bilirubin Direct 0.2 mg/dL (0.0-0.5); Bilirubin Total 0.5 mg/dL (0.0-1.0); Blood Urea Nitrogen 17 mg/dL (9-16); Calcium 9.2 mg/dL (8.4-10.2); Carbon Dioxide 27 mmol/L (22-29); Chloride 102 mmol/L (96-108); Cholesterol 143 mg/dL (<200); Estimated Glomerular Filt Rate 58; Glucose Random 182 mg/dL (60-115); HDL Cholesterol 50 mg/dL (>40); LDL Cholesterol Calculated 70 mg/dL (<100); Potassium 3.5 mmol/L (3.3-5.1); Sodium 138 mmol/L (135-145); Total Protein 7.4 g/dL (6.5-8.0); Triglycerides 117 mg/dL (<150)
[2024-07-03 17:09] LABS: Estimated Average Glucose 212 mg/dL; Hemoglobin A1C 268.6636 umol/L; Total Hemoglobin (HGBA1C) 3574.0409 umol/L
[2024-07-03 17:22] LABS: Creatinine Urine 230.43 mg/dL; Microalbum/Creatinine Ratio Ur 36.4 ug/mg cr (<30)
== END 2024-07-03 14:21 | disposition home or self-care (01) ==
LOC: HO.HHCL 14:20
PROVIDERS: Visit Provider Family Medicine
DX: E11.65 Type 2 diabetes mellitus with hyperglycemia (principal); I10 Essential (primary) hypertension; Z79.4 Long term (current) use of insulin; E78.5 Hyperlipidemia, unspecified
CPT/HCPCS: 36415; 80048; 80061; 80076; 82043; 82570; 83036

== ENCOUNTER 2024-08-02 10:10 | Outpatient (REF) | payer MEDICAID, SELFPAY ==
--- NOTE | ~2024-08-02 | XR_ITS ---
EXAMINATION: XR HAND, BILATERAL CLINICAL INFORMATION: bilateral hand pain COMPARISON: None available. TECHNIQUE: AP, lateral, and oblique views of each hand. FINDINGS: Slight ulnar deviation at the right 3rd PIP joint with no acute fracture. Small dorsal osteophyte of the head of the proximal phalanx. No periarticular osteopenia, erosions, or suspicious soft tissue calcifications. Left hand appears normal. XR/XR hand LT min 3V IMPRESSION: Mild degenerative changes and slight ulnar deviation at the right 3rd PIP joint. Otherwise normal hand radiographs. Electronically signed by: Vinayak Aiken MD 08/02/2024 01:46 PM [facility]
--- NOTE | ~2024-08-02 | XR_ITS ---
EXAMINATION: XR HAND, BILATERAL CLINICAL INFORMATION: bilateral hand pain COMPARISON: None available. TECHNIQUE: AP, lateral, and oblique views of each hand. FINDINGS: Slight ulnar deviation at the right 3rd PIP joint with no acute fracture. Small dorsal osteophyte of the head of the proximal phalanx. No periarticular osteopenia, erosions, or suspicious soft tissue calcifications. Left hand appears normal. XR/XR hand RT min 3V IMPRESSION: Mild degenerative changes and slight ulnar deviation at the right 3rd PIP joint. Otherwise normal hand radiographs. Electronically signed by: Vinayak Aiken MD 08/02/2024 01:46 PM [facility]
== END 2024-08-02 10:11 | disposition home or self-care (01) ==
LOC: HO.HHCX 10:10
PROVIDERS: Visit Provider Family Medicine
DX: M79.641 Pain in right hand (principal); M79.642 Pain in left hand
CPT/HCPCS: 73130

== ENCOUNTER 2024-08-26 17:04 | Outpatient (REF) | payer MEDICAID, SELFPAY | END 2024-08-26 17:05 | disposition home or self-care (01) | LOC: HO.MRI 17:04 | PROVIDERS: PCP Family Medicine; Visit Provider Family Medicine | DX: N94.89 Other specified conditions associated with female genital organs and menstrual cycle (principal) | CPT/HCPCS: 72195 ==

== ENCOUNTER → 2024-08-26 17:38 | Outpatient (BNV) | payer MEDICAID, SELFPAY | PROVIDERS: PCP Family Medicine; Visit Provider Radiology Diagnostic Radiology | DX: N94.89 Other specified conditions associated with female genital organs and menstrual cycle (principal) | CPT/HCPCS: 72195 ==

== ENCOUNTER 2024-10-01 14:54 | Outpatient (AMB) | payer MEDICAID, SELFPAY ==
--- NOTE | 2024-10-01 15:07 | A.OFFVIS_ITS ---
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 Patient reports pain at her 4th and 3rd digit of right hand. She has a small lump located on her left hand, 5th digit. States both of her SF do not fully straighten however this has been present for a while. Denies injury. No numbness or tingling. No previous tx. 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 Patient reports pain at her 4th and 3rd digit of right hand. She has a small lump located on her left hand, 5th digit. States both of her SF do not fully straighten however this has been present for a while. Denies injury. No numbness or tingling. No previous tx. [facility] Medical History Major depressive disorder, recurrent severe without psychotic features Mood disorder Asthma High cholesterol Hypertension Diabetes Social History (Updated 10/01/24 @ 15:17 by Toya Olsen [facility]) Household Members: Significant Other Household Members Other:: stalin Garcia Housing: House Do you presently have visiting nurse or other home services: No Alcohol intake: current Alcohol intake frequency: a few times a week Patient Tobacco Use Status: Never used Tobacco e-Cigarette/Vaping Use: Never Used Substance Use Type: Marijuana service: No Current occupational status: employed 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 General: No ecchymosis, erythema, or evidence of infection. Psych: Appears grossly normal Affect normal Attitude cooperative Results Reviewed Results Reviewed: X-rays obtained in the office today and independently reviewed by me, Demian Schwartz PA-C, demonstrate mild osteoarthritis of the PIP joint of the right middle finger. Assessment & Plan Assessment & Plan (1) Arthritis of both hands: Code(s): M19.041 - Primary osteoarthritis, right hand; M19.042 - Primary osteoarthritis, left hand Category: Medical Plan 1. Osteoarthritis of both hands, worst in the right middle finger PIP joint Patient is educated about this condition Patient is educated about the treatment options available At this time, patient was referred to occupational therapy for range of motion and strengthening of bilateral hands in the setting of mild osteoarthritis Patient is educated on conservative pain management measures and symptomatic management of osteoarthritis of the hands Patient was amenable to this plan Patient will follow-up as needed with any acute concerns Orders: Orders XR hand LT min 3V Today M79.642 - Pain in left hand OT Evaluation and Treatment Today M19.041 - Primary osteoarthritis, right hand, M19.042 - Primary osteoarthritis, left hand XR hand RT min 3V Today M79.641 - Pain in right hand Coding Level of Care Code New Pt Level 3 (43169) Diagnoses Arthritis of both hands M19.041; M19.042
== END 2024-10-01 15:29 | disposition home or self-care (01) ==
PROVIDERS: PCP Family Medicine
DX: M19.041 Primary osteoarthritis, right hand (principal); M19.042 Primary osteoarthritis, left hand
CPT/HCPCS: 99203

== ENCOUNTER 2024-11-15 15:24 | Outpatient (REF) | payer MEDICAID, SELFPAY ==
--- OUTSIDE RECORDS SUMMARY | 2024-11-15 18:53 | XMS_ITS | Encounter Summary ---
Author Organization [employer] Address [address] [facility] [address] [place] [address] Care Team Providers Care Sports Physical Therapist Name Role Phone Alona Hamilton MD Primary Care Provider +- [phone] Amada Lamb PharmD Unavailable [phone] Encounter Details Date Type Department Care Team (Late st Contact Info) Description 10/26/2024 Refill [facility] MED[facility]INE [address] [place], [place] [phone] Alona Hamilton MD [address] [place], [place] [phone] Type 2 diabetes mellitus with hyperglycemia, with long-term current use of insulin ([facility]); Hyperlipidemia, unspecified hyperlipidemia type Social History Tobacco Use Types Packs/Day Years Used Date Smoking Tobacco: Never Passive Smoke Exposure: Never Smokeless Tobacco: Never Alcohol Use Standard Drinks/Week Comments Never 0 (1 standard drink = 0.6 oz pur e alcohol) Depression Answer Date Recorded Patient Health Questionnaire-9 Score 3 07/03/2024 Patient Health Questionnaire-9 Score 3 07/03/2024 Last PHQ-9: Questionnaire Data Not on file 1 Housing Stability Answer Date Recorded What is your housing situation today? I am not s ure 01/25/[address] you li ve. Do you have problems with any of the following? None of the above 01/25/2024 Food Insecurity Answer Date Recorded Within the past 12 months, y ou worried that your food would run out before you got money to buy more: Never True 01/25/2024 Within the past 12 months,th e food you bought just didn't last and you didn't have enough money to get more: Never True Transportation Answer Date Recorded In the past 12 months, has l ack of transportation kept you from medical appts, meetings, work or from getting things needed for daily living? No 01/25/2024 Utilities Answer Date Recorded In the past 12 months, has t he electric, gas, oil or water company threatened to shut off services in your home? No 01/25/2024 Depression Answer Date Recorded Patient Health Questionnaire-2 Score 1 07/03/2024 Internet Access Answer Date Recorded Internet Access Q1 Yes 07/25/2024 Internet Access Q2 Not on file 07/25/2024 Comments Unknown Sex and Gender Information Value Date Recorded Sex Assigned at Female 07/12/2022 10:34 AM EDT Legal Sex Female 10:34 AM EDT Gender Identity Female 07/12/2022 10:34 AM EDT Sexual Orientation Lesbian or Hernandez 07/12/2022 10 :34 AM EDT documented as of this encounter Plan of Treatment Not on file documented as of this encounter Goals Goal Patient Goal Type Associated Problems Recent Progress Patient-Stated? Author Blood Pressure < 140/90 Blood Pressure 137/90(2024 3:37 PM EST) No Amada Griffith PharmD Hemoglobin A1c < 7 Result Component 8.8( 4:10 PM EST) No Amada Griffith PharmD documented as of this encounter Visit Diagnoses Diagnosis Type 2 diabetes mellitus with hyperglycemia, with long-term current use of insulin ([facility]) Hyperlipidemia, unspecified hyperlipidemia type documented in this encounter Additional Health Concerns Assessment Noted Time PHQ-9 Depression Total Score: 3 07/03/20 24 2:06 PM EDT documented as of this encounter Care Teams Sports Physical Therapist Relationship Specialty Start Date End Date Aloan Hamilton MD [address] [place] [address] PCP - General Family Medicine 04/09/19 Amada Lamb PharmD [address] [place] [address] Pharmacist Internal Medicine 08/31/22 Dr. Edgar Jalloh [facility] Neurosurgery Neurosurgery 09/19/24 [facility] Orthopaedic Surgery 09/25/24 documented as of this encounter
--- OUTSIDE RECORDS SUMMARY | 2024-11-15 18:53 | XMS_ITS | Encounter Summary ---
Author Organization [employer] Address [address] [facility] [address]t [place] [address] Care Team Providers Care Carton Wrapper Name Role Phone Alona Hamilton MD Primary Care Provider +- [phone] Amada Lamb PharmD Unavailable [phone] Reason for Visit * Reason Comments Med Change Request Encounter Details Date Type Department Care Team ([facility] st Contact Info) Description 11/14/2024 Refill [facility] MEDICINE [address] [place], [place] [phone] Alona Hamilton MD [address] [place], [place] [phone] Type 2 diabetes mellitus with hyperlipidemia ([facility]/HCC) ([facility]) Social History Tobacco Use Types Packs/Day Years [...] What is your housing situation today? I have zane martin 11/14/[address] you li ve. Do you have problems with any of the following? None of the above 11/14/2024 Food Insecurity Answer Date Recorded Within the [...] Access Answer Date Recorded Internet Access Q1 No 11/14/2024 Internet Access Q2 I do not want or need it 01/2025 Comments Unknown Sex and Gender Information Value [...] Component 8.8( 4:10 PM EST) No Amada Griffith, PharmD documented as of this encounter Visit Diagnoses Diagnosis Type 2 diabetes mellitus with hyperlipidemia (CMS/HCC) ([facility]) documented in this encounter Additional Health Concerns Assessment Noted Time PHQ-9 Depression Total Score: 3 07/03/20 24 2:06 PM EDT documented as of this encounter Care Teams Carton Wrapper Relationship Specialty Start Date End Date Alona Hamilton MD [address] [place] [address] PCP - General Family Medicine 04/09/19 Amada Lamb, MichaelD [address] [place] [address] Pharmacist Internal Medicine 08/31/22 Dr. Edgar Jalloh [facility] Neurosurgery Neurosurgery 09/19/24 [facility] Orthopaedic Surgery 09/25/24 [facility] Sport and Spine 11/14/24 [facility] Endocrinology Endocrinology 11/14/24 documented as of this encounter
--- OUTSIDE RECORDS SUMMARY | 2024-11-15 18:53 | XMS_ITS | Encounter Summary ---
Author Organization [employer] Address [address] [facility] [address] [place] [address] Care Team Providers Care Locomotive Driver Name Role Phone Alona Hamilton MD Primary Care Provider +- [phone] Amada Lamb PharmD Unavailable [phone]- [phone] Encounter Details Date Type Department Care Team (Late st Contact Info) Description 05/05/2023 Abstract [facility] [address] [place] [phone] Alona Hamilton MD [address] [place], [place] [phone] Social History Tobacco Use Types Packs/Day Years Used Date Smoking Tobacco: Never Passive Smoke Exposure: Never Smokeless Tobacco: Never Alcohol Use Standard Drinks/Week Comments Never 0 (1 standard drink = 0.6 oz pur e alcohol) Depression Answer Date Recorded Patient Health Questionnaire-9 Score 5 01/13/2023 Depression Answer Date Recorded Patient Health Questionnaire-2 Score 2 01/13/2023 Comments Unknown Sex and Gender Information Value [...] Type Associated Problems Recent Progress Patient-Stated? Author Hemoglobin A1c < 7 Result Component 8.8(11/14/2024 4:10 PM EST) No Amada Lamb, PharmD documented as of this encounter Visit Diagnoses Not on filedocumented in this encounter Additional Health Concerns Assessment Noted Time PHQ-9 Depression Total Score: 5 01/14/20 23 9:43 AM EDT documented as of this encounter Care Teams Locomotive Driver Relationship Specialty Start Date End Date Alona Hamilton MD [address] [place] [address] PCP - General Family Medicine 04/09/19 Amada Lamb, PharmD [address] [place] [address] Pharmacist Internal Medicine 08/31/22 Dr. Edgar Jalloh [facility] Neurosurgery Neurosurgery 09/19/24 Demian BABB [facility] Orthopaedic Surgery 09/25/24 [facility] Sport and Spine 11/14/24 [facility] Endocrinology Endocrinology 11/14/24 documented as of this encounter
--- OUTSIDE RECORDS SUMMARY | 2024-11-15 18:53 | XMS_ITS | Encounter Summary ---
Author Organization [employer] Address [address] [facility] [address] [place] [address] Care Team Providers Care Research Chief Engineer Name Role Phone Alona Hamilton MD Primary Care Provider +- [phone] Amada Lamb PharmD Unavailable [phone] Reason for Visit * Reason Onset Date Comments Reschedule appointment 10/24/2024 Encounter Details Date Type Department Care Team ([facility] st Contact Info) Description 10/24/2024 Telephone [facility] MEDICINE [address] [place], [place] [phone] Alona Hamilton MD [address] [place], [place] [phone] Reschedule appointment Social History Tobacco Use Types Packs/Day Years [...] AM EDT documented as of this encounter Miscellaneous Notes * Telephone Encounter - Apoorva Mcfarlane [place] - 10/24/2024 10:14 AM EST I spoke with the pt that the appt is cancel today is going to be cancel because provider is out today. I reschedule the appointment on 11/14/2024 for Dm and BP. documented in this encounter Plan of Treatment Not on file documented as of this encounter Goals Goal Patient Goal Type Associated Problems Recent Progress Patient-Stated? Author Blood Pressure < 140/90 Blood Pressure 137/90(2024 3:37 PM EST) No Piers-Gambl e, Amada, PharmD Hemoglobin A1c < 7 Result Component 8.8( 4:10 PM EST) No Piers-Gambl e, Amada, PharmD documented as of this encounter Visit Diagnoses Not on filedocumented in this encounter Additional Health Concerns Assessment Noted Time PHQ-9 Depression Total Score: 3 07/03/20 24 2:06 PM EDT documented as of this encounter Care Teams Research Chief Engineer Relationship Specialty Start Date End Date Alona Hamilton MD [address] [place] [address] PCP - General Family Medicine 04/09/19 Amada Lamb PharmD [address] [place] [address] Pharmacist Internal Medicine 08/31/22 Dr. Edgar Jalloh [facility] Neurosurgery Neurosurgery 09/19/24 Demian BABB [facility] Orthopaedic Surgery 09/25/24 documented as of this encounter
--- OUTSIDE RECORDS SUMMARY | 2024-11-15 18:53 | XMS_ITS | Encounter Summary ---
Author Organization [employer] Address [address] [facility] 7[address] [place] [address] Care Team Providers Care Concept Artist Name Role Phone Alona Hamilton MD Primary Care Provider +- [phone] Amada Lamb PharmD Unavailable [phone] Reason for Visit * Reason Onset Date Comments Appointment Request 11/15/2024 Encounter Details Date Type Department Care Team (Late st Contact Info) Description 11/15/2024 Telephone [facility] MEDICINE [address] [place], [place] [phone] Alona Hamilton MD [address] [place], [place] [phone] Appointment Request Social History Tobacco Use Types Packs/Day Years [...] encounter Miscellaneous Notes * Telephone Encounter - Sakshi Briscoe - 11/15/2024 11:24 AM EST Called Patient no answer, mailbox full unable to leave vm. Called Patient to schedule f/u with PCP in February 24 min f/u for DM. Ok to schedule if Patient calls back. documented in this encounter Plan of Treatment [...] documented as of this encounter Care Teams Concept Artist Relationship Specialty Start Date End Date Alona Hamilton MD [address] [place] [address] PCP - General Family Medicine 04/09/19 Amada Lamb, PharmD [address] [place] [address] Pharmacist Internal Medicine 08/31/22 Dr. Edgar Jalloh [facility] Neurosurgery Neurosurgery 09/19/24 [facility] Orthopaedic Surgery 09/25/24 [facility] Sport and Spine 11/14/24 [facility] Endocrinology Endocrinology 11/14/24 documented as of this encounter
--- OUTSIDE RECORDS SUMMARY | 2024-11-15 18:53 | XMS_ITS | Encounter Summary ---
Author Organization [employer] Address [address] [facility] 7t [place] [address] Care Team Providers Care Derrick Boat Leverman Name Role Phone Alona [place] MD Primary Care Provider +- [phone] Amada Lamb PharmD Unavailable +1- [phone] Reason for Visit * Reason Comments Follow-up A1c and Bp Encounter Details Date Type Department Care Team (Latest Contact Info) Description 11/14/2024 4:00 PM EST Office Visit [facility] MEDICINE [address] [place] [address] Alona [place] MD [address] [place], [place] [phone] Essential hypertension (Primary Dx); Type 2 diabetes mellitus with hyperlipidemia (CMS/HCC) (CMS/HCC); Mild persistent asthma without complication; Sleep apnea in adult; Adnexal mass; Breast cancer screening by mammogram; Recurrent major depressive episodes, moderate (CMS/HCC) Social History Tobacco Use Types Packs/Day Years [...] AM EDT documented as of this encounter Last Filed Vital Signs Vital Sign Reading Time Taken Comments Blood Pressure 137/90 11/14/2024 3:37 PM EST Pulse 96 11/14/2024 3:37 PM EST Temperature 37.2 ??C (98.9 ??F) 11/14/2024 3:37 PM ES T Respiratory Rate 20 11/14/2024 3:37 PM EST Oxygen Saturation 98% 11/14/2024 3:37 PM EST Inhaled Oxygen Concentration - - Weight 92.5 kg (204 lb) 11/14/2024 3:37 PM EST Height - - Body Mass Index 35.02 07/13/2024 1:59 PM EDT documented in this encounter Progress Notes * Alona [place] MD - 11/14/2024 4:00 PM EST Subjective Patient ID: Chasidy Bashir is a 44 y.o. female with past medical history of asthma, hypertension, type 2 diabetes, hyperlipidemia, adnexal mass, transaminitis and depression who presents for Follow-up(A1c and Bp). Pt report her blood sugars have been up and down at home. She follows with Endocrinology. Evaluatedher BG log and her BGLs have actually improved. She notes her lower levels are probably from a lackof nutrition. She reports she got her home sleep study results and had sleep apnea. Pt reports she was given a machine but she does not like to use it and so it was taken away. Review of Systems Constitutional: Negative for fever and unexpected weight change. Respiratory: Negative for shortness of breath. Cardiovascular: Negative for chest pain. Gastrointestinal: Negative for abdominal pain. Genitourinary: Negative for difficulty urinating. Objective Visit Vitals BP (!) 137/90 (BP Location: Left arm, Patient Position: Sitting, BP Cuff Size: Adult) Pulse 96 Temp 98.9 ??F (37.2 ??C) (Temporal) Resp 20 Body mass index is 35.02 kg/m??. Physical Exam Constitutional: Appearance: Normal appearance. Cardiovascular: Rate and Rhythm: Normal rate and regular rhythm. Heart sounds: Normal heart sounds. Pulmonary: Effort: Pulmonary effort is normal. Breath sounds: Normal breath sounds. Neurological: General: No focal deficit present. Mental Status: She is alert. Psychiatric: Behavior: Behavior normal. Problem List Items Addressed This Visit Essential hypertension - Primary -Blood pressure is slightly above goal, but improved -Continue lifestyle modifications -Continue current medications -Metoprolol XL increased from 50mg to 75mg , she will not take propanolol from psychiatry -follows with [facility] Program with our PharmD, EULOGIOES will consult withLeandra. - Will maintain Metoprolol at 150 mg once a day 08/01/24 - Changing hydrochlorothiazide to 25 mg Chlorthalidone 08/01/24 Type 2 diabetes mellitus with hyperlipidemia (CMS/HCC) ([facility]) Diabetes is not controlled. Followed by [facility]ology as of 08/2023, currently has CGM monitor Lab Results Component Value Date HGBA1C 8.8 (A) 11/14/2024 HGBA1C 9.8 (A) 08/01/2024 HGBA1C 9.0 (H) 07/03/2024 -No results found for: POCA1C - Lab Results Component Value Date MICROALBUR 84.0 07/03/2024 CREATININE 1.03 07/03/2024 -Salvador/Arb: ALLERGIC TO SALVADOR, continue valsartan -Statin therapy: rosuvastatin 20mg -Diabetic eye exam: 07/04/24 -Diabetic foot exam:09/28/23 -Continue lifestyle modifications -Continue current medications -Humalog quick pen sliding scale -Insulin glargine 70 units daily -metformin 1000 mg 1 tabs daily -trulicity 1.5 mg - Pt will increase pre-meal insulin adherence 08/01/24. - Follow Up In 3 Months -Evaluated BP log today 11/14/24 and BGLs have improved, recommended getting in to see Endocrinology,since last visit was February 2024. -increased Trulicity to 3 mg 11/14/24 Relevant Medications glucose-vitamin C 4-6 GM-MG oral gel glucagon (Baqsimi Two Pack) 3 MG/DOSE nasal powder Dulaglutide (Trulicity) 3 MG/0.5ML solution auto-injector Other Relevant Orders POCT glucose manually resulted (Completed) POCT glycosylated hemoglobin (Hgb A1c) (Completed) Mild persistent asthma without complication -Well controlled on prn albuterol MDI Sleep apnea in adult Seen by sleep medicine 07/26/23, home sleep study done. Pt reports results showed sleep apnea. Was prescribed machine but then did not use it so they took it away. -encouraged to call to get re-established 11/14/[address] 05/25/2024 done in ER revealed Bilateral hypodense adnexal lesions. 1.5 cm enhancing mural nodulein the left adnexal lesion. MRI pelvis is recommended for further characterization. -MRI ordered 05/28/2024 read 09/26/24 MR/MR pelvis wo con IMPRESSION: Enlarged bilateral ovaries demonstrating small peripherally located follicles. Findings are suggestive of polycystic ovarian disease. Clinical correlation is recommended. Breast cancer screening by mammogram Has appt. for mammogram 11/15/24 Recurrent major depressive episodes, moderate (CMS/HCC) Hospitalized for 9 days 01/2022. Followed by therapist and psychiatrist. Has number for crisis. Denies KRISTINE. Pt had another hospitalization 03/03/23, her medications were adjusted. -No SI/HI. -Follow-up with psychiatry and therapy. Still looking for prescriber. Relevant Medications lamoTRIgine (LaMICtal) 150 MG tablet Follow up in about 3 months (around 02/14/2025) for follow-up diabetes. I, Martinez Martins, am serving as a scribe to document services personally performed by Dr. Coreas, based on the patient's response to questions by provider and providers statements to me. documented in this encounter Miscellaneous Notes * Assessment & Plan Note - Martinez Martins - 11/14/2024 4:37 PM ESTAssociated Problem(s): Type 2 diabetes mellitus with hyperlipidemia (CMS/HCC) (CMS/HCC) Diabetes is not controlled. Followed by [facility] End[facility] as of 08/2023, currently has CGM monitor Lab Results Component Value Date HGBA1C 8.8 (A) 11/14/2024 HGBA1C 9.8 (A) 08/01/2024 HGBA1C 9.0 (H) 07/03/2024 -No results found for: POCA1C - Lab Results Component Value Date MICROALBUR 84.0 07/03/2024 CREATININE 1.03 07/03/2024 -Salvador/Arb: ALLERGIC TO SALVADOR, continue valsartan -Statin therapy: rosuvastatin 20mg -Diabetic eye exam: 07/04/24 -Diabetic foot exam:09/28/23 -Continue lifestyle modifications -Continue current medications -Humalog quick pen sliding scale -Insulin glargine 70 units daily -metformin 1000 mg 1 tabs daily -trulicity 1.5 mg - Pt will increase pre-meal insulin adherence 08/01/24. - Follow Up In 3 Months -Evaluated BP log today 11/14/24 and BGLs have improved, recommended getting in to see Endocrinology,since last visit was February 2024. -increased Trulicity to 3 mg 11/14/24 * Assessment & Plan Note - Martinez Martins - 11/14/2024 3:53 PM ESTAssociated Problem(s): Recurrent major depressive episodes, moderate (CMS/HCC) Hospitalized for 9 days 01/2022. Followed by therapist and psychiatrist. Has number for crisis. Denies KRISTINE. Pt had another hospitalization 03/03/23, her medications were adjusted. -No SI/HI. -Follow-up with psychiatry and therapy. Still looking for prescriber. * Assessment & Plan Note - Martinez Martins - 11/14/2024 3:52 PM ESTAssociated Problem(s): Adnexal mass CT 05/25/2024 done in ER revealed Bilateral hypodense adnexal lesions. 1.5 cm enhancing mural nodulein the left adnexal lesion. MRI pelvis is recommended for further characterization. -MRI ordered 05/28/2024 read 09/26/24 MR/MR pelvis wo con IMPRESSION: Enlarged bilateral ovaries demonstrating small peripherally located follicles. Findings are suggestive of polycystic ovarian disease. Clinical correlation is recommended. * Assessment & Plan Note - Martinez Martins - 11/14/2024 3:52 PM ESTAssociated Problem(s): Essential hypertension -Blood pressure is slightly above goal, but improved -Continue lifestyle modifications -Continue current medications -Metoprolol XL increased from 50mg to 75mg , she will not take propanolol from psychiatry -follows with [facility] Program with our PharmD, CDCES will consult withMarissa. - Will maintain Metoprolol at 150 mg once a day 08/01/24 - Changing hydrochlorothiazide to 25 mg Chlorthalidone 08/01/24 * Assessment & Plan Note - Martinez Martins - 11/14/2024 3:50 PM ESTAssociated Problem(s): Breast cancer screening by mammogram Has appt. for mammogram 11/15/24 * Assessment & Plan Note - Martinez Martins - 11/14/2024 3:49 PM ESTAssociated Problem(s): Mild persistent asthma without complication -Well controlled on prn albuterol MDI * Assessment & Plan Note - Martinez Martins - 11/14/2024 3:49 PM ESTAssociated Problem(s): Sleep apnea in adult Seen by sleep medicine 07/26/23, home sleep study done. Pt reports results showed sleep apnea. Was prescribed machine but then did not use it so they took it away. -encouraged to call to get re-established 11/14/24 documented in this encounter Plan of Treatment Not on file documented as of this encounter Goals Goal Patient Goal Type Associated Problems Recent Progress Patient-Stated? Author Blood Pressure < 140/90 Blood Pressure 137/90(2024 3:37 PM EST) No Amada Griffith PharmD Hemoglobin A1c < 7 Result Component 8.8( 4:10 PM EST) No Amada Griffith PharmD documented as of this encounter Procedures Procedure Name Priority Date/Time Associated Diagnosis Comments POCT GLUCOSE Routine 11/14/2024 4:11 PM EST Type 2 diabetes mellitus with hyperlipidemia (CMS/HCC) ([facility]) POCT GLYCOSYLATED HEMOGLOBIN (HGB A1C) Routine 11/14/2024 4:10 PM EST Type 2 diabetes mellitus with hyperlipidemia (CMS/HCC) ([facility]) documented in this encounter Results * POCT glucose manually resulted (11/14/2024 4:11 PM EST) Glucose Blood, POC 137 60 - 200 mg/dL QC Media Lot # [id number] Lot# Expiration Date Blood Capillary blood specimen / Unknown 11/14/2024 4:11 PM EST Alona Hamilton MD POINT OF CARE TEST ENTER/E DIT ORDERABLES Final Result * (ABNORMAL) POCT glycosylated hemoglobin (Hgb A1c) (11/14/2024 4:10 PM EST) Hemoglobin A1C 8.8(A) 4.0 - 6.0 % QC Media Lot # [id number] Lot# Expiration Date Blood Capillary blood specimen / Unknown 11/14/2024 4:10 PM EST Alona Hamilton MD POINT OF CARE TEST ENTER/E DIT ORDERABLES Final Result documented in this encounter Visit Diagnoses Diagnosis Essential hypertension- Primary Unspecified essential hypertension Type 2 diabetes mellitus with hyperlipidemia (CMS/HCC) (CMS/HCC) Mild persistent asthma without complication Sleep apnea in adult Adnexal mass Other specified symptom associated with female genital organs Breast cancer screening by mammogram Recurrent major depressive episodes, moderate (CMS/HCC) Major depressive disorder, recurrent episode, moderate documented in this encounter Additional Health Concerns Assessment Noted Time PHQ-9 Depression Total Score: 3 07/03/20 24 2:06 PM EDT documented as of this encounter Care Teams Derrick Boat Leverman Relationship Specialty Start Date End Date Alona Hamilton MD [address] [place] [address] PCP - General Family Medicine 04/09/19 Amada Lamb PharmD [address] [place] [address] Pharmacist Internal Medicine 08/31/22 Dr. Edgar Jalloh [facility] Neurosurgery Neurosurgery 09/19/24 [facility] Orthopaedic Surgery 09/25/24 [facility] Sport and Spine 11/14/24 [facility] Endocr[facility] Endocrinology 11/14/24 documented as of this encounter
--- OUTSIDE RECORDS SUMMARY | 2024-11-15 18:53 | XMS_ITS | Encounter Summary ---
Author Organization [employer] Address [address] 7[address] [place] [address] Care Team Providers Care Repairer Pump Name Role Phone Alona Hamilton MD Primary Care Provider +- [phone] Amada Lamb PharmD Unavailable [phone]- [phone] Reason for Visit * Reason Comments Med Refill Encounter Details Date Type Department Care Team (Late st Contact Info) Description 10/26/2024 Refill [facility] MED & PEDS [address] [place], [place] [phone] Alona Hamilton MD [address] [place] [address] Type 2 diabetes mellitus with hyperglycemia, with long-term current use of insulin ([facility]); Hyperlipidemia, unspecified hyperlipidemia type Social History Tobacco [...] hyperglycemia, with long-term current use of insulin ([facility]) Hyperlipidemia, unspecified hyperlipidemia type documented in this encounter Additional Health Concerns Assessment Noted Time PHQ-9 Depression Total Score: 3 07/03/20 24 2:06 PM EDT documented as of this encounter Care Teams Repairer Pump Relationship Specialty Start Date End Date Alona Hamilton MD [address] [place] [address] PCP - General Family Medicine 04/09/19 Amada Lamb PharmD [address] [place] [address] Pharmacist Internal Medicine 08/31/22 Dr. Edgar Jalloh [facility] Neurosurgery Neurosurgery 09/19/24 Demian B[facility] Orthopaedic Surgery 09/25/24 documented as of this encounter
--- OUTSIDE RECORDS SUMMARY | 2024-11-15 18:54 | XMS_ITS | Encounter Summary ---
Author Organization [employer] Address [address] [facility] 7t [place] [address] Care Team Providers Care Resident Medical Officer Name Role Phone Alona Hamilton MD Primary Care Provider +- [phone] Amada Lamb PharmD Unavailable [phone]- [phone] Reason for Visit * Reason Comments Med Refill Encounter Details Date Type Department Care Team (Late st Contact Info) Description 12/05/2022 Refill [facility] MEDICINE [address] [place], [place] [phone] Alona Hamilton MD [address] [place], [place] [phone] Social History Tobacco Use Types Packs/Day Years Used Date Smoking Tobacco: Never Smokeless Tobacco: Never Comments Unknown Sex and Gender Information Value Date Recorded Sex Assigned at Female 07/12/2022 10:34 AM EDT Legal Sex Female 10:34 AM EDT Gender Identity Female 07/12/2022 10:34 AM EDT Sexual Orientation Lesbian or Hernandez 07/12/2022 10 :34 AM EDT COVID-19 Exposure Response Date Recorded In the last 10 days, have yo u been in contact with someone who was confirmed or suspected to have Coronavirus/COVID-19? Unable to assess 11/11/2022 3:45 PM EST documented as of this encounter Plan of Treatment Not on file documented as of this encounter Goals Goal Patient Goal Type Associated Problems Recent Progress Patient-Stated? Author Hemoglobin A1c < 7 Result Component 8.8(11/14/2024 4:10 PM EST) No Amada Lamb, PharmD documented as of this encounter Visit Diagnoses Not on filedocumented in this encounter Care Teams Resident Medical Officer Relationship Specialty Start Date End Date Alona Hamilton MD [address] [place] [address] PCP - General Family Medicine 04/09/19 Amada Lamb, PharmD [address] [place] [address] Pharmacist Internal Medicine 08/31/22 Dr. Edgar Jalloh [facility] Neurosurgery Neurosurgery 09/19/24 Demian BABB [facility] Orthopaedic Surgery 09/25/24 [facility] Sport and Spine 11/14/24 [facility] Endocrinology Endocrinology 11/14/24 documented as of this encounter
--- OUTSIDE RECORDS SUMMARY | 2024-11-15 18:54 | XMS_ITS | Encounter Summary ---
Author Organization [employer] Address [address] [facility] 7t [place] [address] Care Team Providers Care Video Player Mechanic Name Role Phone Alona [place] MD Primary Care Provider +- [phone] Amada Lamb PharmD Unavailable [phone] [phone] Encounter Details Date Type Department Care Team (Late st Contact Info) Description 10/18/2024 Telephone [facility] MEDICINE [address] [place], [place] [phone] Alona Hamilton MD [address] [place] [address] Social History Tobacco Use Types Packs/Day Years [...] encounter Miscellaneous Notes * Telephone Encounter - Suma Gonzalez - 10/18/2024 1:21 PM EST Pharmacy CHW attempted outreach call on 10/18/24 for CDTM - Hypertension appointment; however, unable to reach patient. LVM for patient to contact Suma Gonzalez at [phone]. documented in this encounter Plan of Treatment [...] documented as of this encounter Care Teams Video Player Mechanic Relationship Specialty Start Date End Date Alona Hamilton MD [address] [place] [address] PCP - General Family Medicine 04/09/19 Amada Lamb, MichaelD [address] [place] [address] Pharmacist Internal Medicine 08/31/22 Dr. Edgar Jalloh [facility] Neurosurgery Neurosurgery 09/19/24 Demian BABB [facility] Orthopaedic Surgery 09/25/24 documented as of this encounter
--- OUTSIDE RECORDS SUMMARY | 2024-11-15 18:54 | XMS_ITS | Encounter Summary ---
Author Organization [employer] Address [address] [place] [address] 7t [place] [address] Care Team Providers Care Bridge Engineer Name Role Phone Alona Hamilton MD Primary Care Provider +- [phone] Amada Lamb PharmD Unavailable [phone] [phone] Reason for Visit * Reason Onset Date Comments Med Refill 11/28/2023 Encounter Details Date Type Department Care Team (Late st Contact Info) Description 11/28/2023 Refill [facility] MEDICINE [address] [place], [place] [phone] Colleen Atwood MD [address] [place], [place] [phone] Essential hypertension Social History Tobacco Use Types Packs/Day Years Used Date Smoking Tobacco: Never Passive Smoke Exposure: Never Smokeless Tobacco: Never Alcohol Use Standard Drinks/Week Comments Never 0 (1 standard drink = 0.6 oz pur e alcohol) Depression Answer Date Recorded Patient Health Questionnaire-9 Score 5 01/13/2023 Housing Stability Answer Date Recorded What is your housing situation today? I am not s ure 07/08/[address] you li ve. Do you have problems with any of the following? None of the above 07/08/2023 Food Insecurity Answer Date Recorded Within the past 12 months, y ou worried that your food would run out before you got money to buy more: Never True 07/08/2023 Within the past 12 months,th e food you bought just didn't last and you didn't have enough money to get more: Never True 10/ Transportation Answer Date Recorded In the past 12 months, has l ack of transportation kept you from medical appts, meetings, work or from getting things needed for daily living? No 07/08/2023 Utilities Answer Date Recorded In the past 12 months, has t he electric, gas, oil or water company threatened to shut off services in your home? No 07/08/2023 Depression Answer Date Recorded Patient Health Questionnaire-2 [...] as of this encounter Visit Diagnoses Diagnosis Essential hypertension Unspecified essential hypertension documented in this encounter Additional Health Concerns Assessment Noted Time PHQ-9 Depression Total Score: 5 01/14/20 23 9:43 AM EDT documented as of this encounter Care Teams Bridge Engineer Relationship Specialty Start Date End Date Alona Hamilton MD [address] [place] [address] PCP - General Family Medicine 04/09/19 Amada Lamb, PharmD [address] [place] [address] Pharmacist Internal Medicine 08/31/22 Dr. Edgar Jalloh [facility] Neurosurgery Neurosurgery 09/19/24 [facility] Orthopaedic Surgery 09/25/24 [facility] Sport and Spine 11/14/24 [facility] Endocrinology Endocrinology 11/14/24 documented as of this encounter
--- OUTSIDE RECORDS SUMMARY | 2024-11-15 18:54 | XMS_ITS | Encounter Summary ---
Author Organization [employer] Address [address] [place] [address] 7t [place] [address] Care Team Providers Care Patient Partner Name Role Phone Alona Hamilton MD Primary Care Provider +1- [phone] Amada Lamb PharmD Unavailable Encounter Details Date Type Department Care Team (Late st Contact Info) Description 08/17/2022 Abstract [facility] MED & PEDS [address] [place] [address] Alona Hamilton MD [address] [place] [phone] Social History Tobacco Use Types Packs/Day Years Used Date Smoking Tobacco: Never Assessed Comments Unknown Sex and Gender Information Value Date Recorded Sex Assigned at Female 07/12/2022 10:34 AM EDT Legal Sex Female 10:34 AM EDT Gender Identity Female 07/12/2022 10:34 AM EDT Sexual Orientation Lesbian or Hernandez 07/12/2022 10 :34 AM EDT documented as of this encounter Plan of Treatment Not on file documented as of this encounter Visit Diagnoses Not on filedocumented in this encounter Care Teams Patient Partner Relationship Specialty Start Date End Date Alona Hamilton MD [address] [place] [phone] PCP - General Family Medicine 04/09/19 Amada Lamb, PharmD [address] [place] [address] Pharmacist Internal Medicine 08/31/22 Dr. Edgar Jalloh [facility] Neurosurgery Neurosurgery 09/19/24 [facility] Orthopaedic Surgery 09/25/24 [facility] Sport and Spine 11/14/24 [facility] Endocrinology Endocrinology 11/14/24 documented as of this encounter
--- OUTSIDE RECORDS SUMMARY | 2024-11-15 18:54 | XMS_ITS | Encounter Summary ---
Author Organization [employer] Address [address] [facility] 7t [place] [address] Care Team Providers Care Teaching Aide Name Role Phone Alona Hamilton MD Primary Care Provider +- [phone] Amada Lamb PharmD Unavailable [phone]- [phone] Reason for Visit * Reason Onset Date Comments Referral 06/08/2023 Encounter Details Date Type Department Care Team (Late st Contact Info) Description 06/08/2023 Telephone [facility] MEDICINE [address] [place] [id number] Alona Hamilton MD [address] [place], [place] [phone] Referral Social History Tobacco Use Types Packs/Day Years [...] encounter Miscellaneous Notes * Telephone Encounter - Alona Hamilton MD - 06/09/2023 12:24 PM EDT aPatient would like to see Location: [address] [place] [address] Date: n/a Time: n/a Specialty: [facility] hat steamer 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 Referral placed * Telephone Encounter - Angelika Fonseca - 06/08/2023 2:08 PM EDT Tc from pt requesting a referral. Pt was told will need A1C labs done. Location: [address] [place] [address] Date: n/a Time: n/a Specialty: [facility] hat steamer documented in this encounter Plan of Treatment [...] documented as of this encounter Care Teams Teaching Aide Relationship Specialty Start Date End Date Alona Hamilton MD [address] [place] [address] PCP - General Family Medicine 04/09/19 Amada Lamb, PharmD [address] [place] [address] Pharmacist Internal Medicine 08/31/22 Dr. Edgar Jalloh [facility] Neurosurgery Neurosurgery 09/19/24 Demian BABB [facility] Orthopaedic Surgery 09/25/24 [facility] Sport and Spine 11/14/24 [facility] Endocrinology Endocrinology 11/14/24 documented as of this encounter
--- OUTSIDE RECORDS SUMMARY | 2024-11-15 18:54 | XMS_ITS | Encounter Summary ---
Author Organization [employer] Address [address] [place] [address] 7t [place] [address] Care Team Providers Care Landscaping And Groundskeeping Laborer Name Role Phone Alona [place] MD Primary Care Provider +- [phone] Amada Lamb PharmD Unavailable [phone] [phone] Reason for Referral * Imaging (Routine) - Canceled Specialty Diagnoses / Procedures Referred By Contac t Referred To Contact Radiology Diagnoses Adnexal mass Procedures MRA Pelvis w/ and w/o Contrast Alona [place] MD [address] [place] [address] Phone: tel: fax: [address] Phone: tel: fax: Referral ID Status Reason Start Date Expiration Date V isits Requested Visits Authorized [id number] Canceled 08/17/2024 08/17/2025 1 1 Encounter Details Date Type Department Care Team (Late st Contact Info) Description 08/17/2024 Orders Only [facility] [address] [place] [address] [phone] Alona [place] MD [address] [place] [address] [phone] Adnexal mass (Primary Dx) Social History Tobacco Use Types Packs/Day Years [...] as of this encounter Plan of Treatment Scheduled Orders Name Type Priority Associated Diagnoses Orde r Schedule MRA Pelvis w/ and w/o Contrast Imaging Routine Adnexal mass Expected: 08/17/2024, Expires: 08/17/2025 documented as of this encounter Goals Goal Patient Goal Type Associated Problems Recent Progress Patient-Stated? Author Blood Pressure < 140/90 Blood Pressure 137/90(2024 3:37 PM EST) No Amada Griffith PharmD Hemoglobin A1c < 7 Result Component 8.8( 5 4:10 PM EST) No Amada Griffith PharmD documented as of this encounter Visit Diagnoses Diagnosis Adnexal mass- Primary Other specified symptom associated with female genital organs documented in this encounter Additional Health Concerns Assessment Noted Time PHQ-9 Depression Total Score: 3 07/03/20 24 2:06 PM EDT documented as of this encounter Care Teams Landscaping And Groundskeeping Laborer Relationship Specialty Start Date End Date Alona [place] MD [address] [place] [address] PCP - General Family Medicine 04/09/19 Amada Lamb PharmD [address] [place] [address] Pharmacist Internal Medicine 08/31/22 Dr. Edgar Jalloh [facility] Neurosurgery Neurosurgery 09/19/24 Demian BABB [facility] Orthopaedic Surgery 09/25/24 [facility] Sport and Spine 11/14/24 [facility] Endocrinology Endocrinology 11/14/24 documented as of this encounter
--- OUTSIDE RECORDS SUMMARY | 2024-11-15 18:54 | XMS_ITS | Encounter Summary ---
Author Organization [employer] Address [address] [facility] 7t [place] [address] Care Team Providers Care Target Aircraft Technician Name Role Phone Alona [place] MD Primary Care Provider +1- [phone] Amada Lamb PharmD Unavailable +1- [phone] Encounter Details Date Type Department Care Team (Late st Contact Info) Description 09/29/2022 Orders Only [facility] [address] [place], [place] [phone] Alona [place] MD [address] [place], [place] [phone] Type 2 diabetes mellitus without complication, with long-term current use of insulin (CMS/HCC) (Primary Dx) Social History Tobacco Use Types Packs/Day Years Used Date Smoking Tobacco: Never Comments Unknown Sex and Gender [...] was confirmed or suspected to have Coronavirus/COVID-19? No / Unsure 09/23/2022 3:30 PM EST documented as of this encounter Plan of Treatment Not on file documented as of this encounter Visit Diagnoses Diagnosis Type 2 diabetes mellitus without complication, with long-term current use of insulin (CMS/HCC)- Primary documented in this encounter Care Teams Target Aircraft Technician Relationship Specialty Start Date End Date Alona [place] MD [address] [place] [address] PCP - General Family Medicine 04/09/19 Amada Lamb PharmD [address] [place], [place] [phone] Pharmacist Internal Medicine 08/31/22 Dr. Edgar Jalloh [facility] Neurosurgery Neurosurgery 09/19/24 Demian BABB [facility] Orthopaedic Surgery 09/25/24 [place] [facility] Sport and Spine 11/14/24 [facility] Endocrinology Endocrinology 11/14/24 documented as of this encounter
--- OUTSIDE RECORDS SUMMARY | 2024-11-15 18:54 | XMS_ITS | Encounter Summary ---
Author Organization [employer] Address [address] [facility] 7t [place] [address] Care Team Providers Care Cancer Center Director Name Role Phone Alona [place] MD Primary Care Provider +- [phone] Amada Lamb PharmD Unavailable [phone] [phone] Reason for Visit * Reason Comments Med Refill Encounter Details Date Type Department Care Team ([facility] st Contact Info) Description 12/23/2023 Refill [facility] [address] [place], [place] [phone] Colleen Atwood MD [address] [place] [address] Essential hypertension Social History Tobacco Use Types [...] documented as of this encounter Care Teams Cancer Center Director Relationship Specialty Start Date End Date Alona [place] MD [address] [place] [address] PCP - General Family Medicine 04/09/19 Amada Lamb, PharmD [address] [place] [address] Pharmacist Internal Medicine 08/31/22 Dr. Edgar Jalloh [facility] Neurosurgery Neurosurgery 09/19/24 Demian BABB [facility] Orthopaedic Surgery 09/25/24 [place] [facility] Sport and Spine 11/14/24 [facility] Endocrinology Endocrinology 11/14/24 documented as of this encounter
--- OUTSIDE RECORDS SUMMARY | 2024-11-15 18:54 | XMS_ITS | Encounter Summary ---
Author Organization [employer] Address [address] [facility] [address] 7t [place] [address] Care Team Providers Care Spiral Winder Name Role Phone Alona [place] MD Primary Care Provider +- [phone] Amada Lamb PharmD Unavailable [phone] Encounter Details Date Type Department Care Team (Latest Contact Info) Description 10/24/2024 Travel Social History Tobacco Use Types Packs/Day Years [...] Blood Pressure 137/90(2024 3:37 PM EST) No Subhashs-Aditya kim, Amada, PharmD Hemoglobin A1c < 7 Result Component 8.8( 4:10 PM EST) No Subhashs-Gambl judy, Amada, PharmD documented as of this encounter Visit Diagnoses Not on filedocumented in this encounter Additional Health Concerns Assessment Noted Time PHQ-9 Depression Total Score: 3 07/03/20 24 2:06 PM EDT documented as of this encounter Care Teams Spiral Winder Relationship Specialty Start Date End Date Alona [place] MD [address] [place] [address] PCP - General Family Medicine 04/09/19 Amada Lamb, PharmD [address] [place] [address] Pharmacist Internal Medicine 08/31/22 Dr. Edgar Jalloh [facility] Neurosurgery Neurosurgery 09/19/24 Demian BABB [facility] Orthopaedic Surgery 09/25/24 documented as of this encounter
--- OUTSIDE RECORDS SUMMARY | 2024-11-15 18:54 | XMS_ITS | Encounter Summary ---
Author Organization [employer] Address [address] [place] [address] 7t [place] [address] Care Team Providers Care Industrial Mechanic Name Role Phone Alona [place] MD Primary Care Provider +- [phone] Amada Lamb PharmD Unavailable [phone]- [phone] Reason for Visit * Reason Comments Med Refill Encounter Details Date Type Department Care Team ([facility] st Contact Info) Description 12/03/2022 Refill [facility] [address] [place] [address] Eleanor Lundberg, ANP [address] [place] [address] Social History Tobacco Use Types Packs/Day Years [...] Result Component 8.8(11/14/2024 4:10 PM EST) No SubhashsAmada Anand, PharmD documented as of this encounter Visit Diagnoses Not on filedocumented in this encounter Care Teams Industrial Mechanic Relationship Specialty Start Date End Date Alona [place] MD [address] [place] [address] PCP - General Family Medicine 04/09/19 Amada Lamb PharmD [address] [place] [address] Pharmacist Internal Medicine 08/31/22 Dr. Edgar Jalloh [facility] Neurosurgery Neurosurgery 09/19/24 Demian BABB [facility] Orthopaedic Surgery 09/25/24 [facility] Sport and Spine 11/14/24 [facility] Endocrinology Endocrinology 11/14/24 documented as of this encounter
--- OUTSIDE RECORDS SUMMARY | 2024-11-15 18:54 | XMS_ITS | Encounter Summary ---
Author Organization [employer] Address [address] [place] [address] 7t [place] [address] Care Team Providers Care Travel Money Advisor Name Role Phone Alona [place] MD Primary Care Provider +- [phone] Amada Lamb PharmD Unavailable [phone]- [phone] Encounter Details Date Type Department Care Team (Late st Contact Info) Description 05/25/2023 Orders Only [facility] [address] [place], [place] [phone] Alona [place] MD [address] [place], [place] [phone] Daytime somnolence (Primary Dx) Social History Tobacco Use Types [...] as of this encounter Visit Diagnoses Diagnosis Daytime somnolence- Primary documented in this encounter Additional Health Concerns Assessment Noted Time PHQ-9 Depression Total Score: 5 01/14/20 23 9:43 AM EDT documented as of this encounter Care Teams Travel Money Advisor Relationship Specialty Start Date End Date Alona [place] MD [address] [place] [address] PCP - General Family Medicine 04/09/19 Amada Lamb, PharmD [address] [place] [address] Pharmacist Internal Medicine 08/31/22 Dr. Edgar Jalloh [facility] Neurosurgery Neurosurgery 09/19/24 Demian BABB [facility] Orthopaedic Surgery 09/25/24 [facility] Sport and Spine 11/14/24 [facility] Endocrinology Endocrinology 11/14/24 documented as of this encounter
--- OUTSIDE RECORDS SUMMARY | 2024-11-15 18:54 | XMS_ITS | Clinical Summary ---
Author Organization [facility] Address [address] [place] [address] Care Team Providers Care Mechanic Name Role Phone Vicki Cohen MD Primary Care Provider [phone] Allergies No known active allergies Social History Tobacco Use Types Packs/Day Years Used Date Smoking Tobacco: Never Assessed Sex and Gender Information Value Date Recorded Sex Assigned at Not on file Gender Identity Not on file Sexual Orientation Not on file Last Filed Vital Signs Vital Sign Reading Time Taken Comments Blood Pressure 114/64 07/07/2017 3:07 PM EDT Pulse 80 07/07/2017 3:07 PM EDT Temperature 36.4 ??C (97.6 ??F) 07/07/2017 11:29 AM E DT Respiratory Rate 18 07/07/2017 3:07 PM EDT Oxygen Saturation 98% 07/07/2017 3:07 PM EDT Inhaled Oxygen Concentration - - Weight - - Height - - Body Mass Index - - Plan of Treatment Health Maintenance Due Date Last Done Comments Hepatitis C Virus Screening 1981 HIV Screening 1994 Physical 1999 DTaP/Tdap/Td Vaccines (1 - Tdap) 01/18/2000 Hepatitis B Vaccines (1 of 3 - 19+ 3-dose series) 01/18/2000 Pap Smear (Ages 21-65) 2002 Mammogram 2021 Influenza Vaccine 04/12/2024 COVID-19 Vaccine ( - 2023-2 5 season) 2024 HPV Vaccines Aged Out No longer eligi ble based on patient's age to complete this topic Pneumococcal Vaccine: Pediat eula (0-5 Years) and At-Risk Patients (6 to 49 Years) Aged Out No longer eligible b ased on patient's age to complete this topic Care Teams Mechanic Relationship Specialty Start Date End Date Vicki Cohen MD PCP - General Internal Medicine 07/07/17
--- OUTSIDE RECORDS SUMMARY | 2024-11-15 18:54 | XMS_ITS | Encounter Summary ---
Author Organization [employer] Address [address] [facility] 7t [place] [address] Care Team Providers Care Automation Driver Name Role Phone Alona [place] MD Primary Care Provider +- [phone] Amada Lamb PharmD Unavailable [phone] Encounter Details Date Type Department Care Team (Latest Contact Info) Description 11/14/2024 Travel Social History Tobacco Use Types Packs/Day [...] Blood Pressure 137/90(2024 3:37 PM EST) No Subhashs-Margie Pembertonsa, PharmD Hemoglobin A1c < 7 Result Component 8.8( 4:10 PM EST) No SubhashsMargie Stantonsa, PharmD documented as of this encounter Visit Diagnoses Not on filedocumented in this encounter Additional Health Concerns Assessment Noted Time PHQ-9 Depression Total Score: 3 07/03/20 24 2:06 PM EDT documented as of this encounter Care Teams Automation Driver Relationship Specialty Start Date End Date Alona [place] MD [address] [place] [address] PCP - General Family Medicine 04/09/19 Amada Lamb, PharmD [address] [place] [address] Pharmacist Internal Medicine 08/31/22 Dr. Edgar Jalloh [facility] Neurosurgery Neurosurgery 09/19/24 Demian [facility] Orthopaedic Surgery 09/25/24 [facility] Sport and Spine 11/14/24 [facility] Endocrinology Endocrinology 11/14/24 documented as of this encounter
--- OUTSIDE RECORDS SUMMARY | 2024-11-15 18:54 | XMS_ITS | Encounter Summary ---
Author Organization [employer] Address [address] [facility] 7t [place] [address] Care Team Providers Care Patch Press Operator Name Role Phone Alona [place] MD Primary Care Provider +1- [phone] Amada Lamb PharmD Unavailable +1- [phone] Encounter Details Date Type Department Care Team (Late st Contact Info) Description 09/26/2022 Abstract [facility] MEDICINE [address] [place] [address] Alona [place] MD [address] [place] [address] Social History Tobacco Use Types Packs/Day Years [...] on file documented as of this encounter Procedures Procedure Name Priority Date/Time Associated Diagnosis Comments HPV HIGH RISK PCR Routine 06/10/2021 12:00 AM EDT PAP SMEAR Routine 05/03/2019 12:00 AM EDT documented in this encounter Results * HPV High Risk PCR (06/10/2021 12:00 AM EDT) Swab Cervical swab / Unknown Historical Provider LAB MICROBIOLOGY - GENERA L ORDERABLES Final Result IMAGING * Pap Smear (05/03/2019 12:00 AM EDT) Swab Historical Provider LAB CYTOLOGY ORDERABLES F inal Result IMAGING documented in this encounter Visit Diagnoses Not on filedocumented in this encounter Care Teams Patch Press Operator Relationship Specialty Start Date End Date Alona [place] MD [address] [place] [address] PCP - General Family Medicine 04/09/19 Amada Lamb, MichaelD [address] [place] [address] Pharmacist Internal Medicine 08/31/22 Dr. Edgar Jalloh [facility] Neurosurgery Neurosurgery 09/19/24 [facility] Orthopaedic Surgery 09/25/24 [facility] Sport and Spine 11/14/24 [facility] Endocrinology Endocrinology 11/14/24 documented as of this encounter
--- OUTSIDE RECORDS SUMMARY | 2024-11-15 18:54 | XMS_ITS | Encounter Summary ---
Author Organization [employer] Address [address] [facility] [address] 7t [place] [address] Care Team Providers Care Leveling Machine Operator Name Role Phone Alona [place] MD Primary Care Provider +- [phone] Amada Lamb PharmD Unavailable [phone] Reason for Visit * Reason Comments Med Refill Encounter Details Date Type Department Care Team ([facility] st Contact Info) Description 07/17/2024 Refill [facility] [address] [place] [address] Colleen Villalpando MD [address] [place] [address] Rash Social History Tobacco Use Types Packs/Day Years [...] Recorded Patient Health Questionnaire-2 Score 1 07/03/2024 Comments Unknown Sex and Gender Information Value [...] Pressure 137/90(2024 3:37 PM EST) No Amada Griffith, PharmD Hemoglobin A1c < 7 Result Component 8.8( 4:10 PM EST) No Amada Griffith PharmD documented as of this encounter Visit Diagnoses Diagnosis Rash Rash and other nonspecific skin eruption documented in this encounter Additional Health Concerns Assessment Noted Time PHQ-9 Depression Total Score: 3 07/03/20 24 2:06 PM EDT documented as of this encounter Care Teams Leveling Machine Operator Relationship Specialty Start Date End Date Alona [place] MD [address] [place] [address] PCP - General Family Medicine 04/09/19 Amada Lamb, PharmD [address] [place] [address] Pharmacist Internal Medicine 08/31/22 Dr. Edgar Jalloh [facility] Neurosurgery Neurosurgery 09/19/24 [facility] Orthopaedic Surgery 09/25/24 [facility] Sport and Spine 11/14/24 [facility] Endocrinology Endocrinology 11/14/24 documented as of this encounter
--- OUTSIDE RECORDS SUMMARY | 2024-11-15 18:54 | XMS_ITS | Encounter Summary ---
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) Social History Tobacco Use Types [...] 137/90(2024 3:37 PM EST) No Amada Griffith, PharmKurtis Hemoglobin A1c < 7 Result Component 8.8( 4:10 PM EST) No Amada Griffith PharmD documented as of this encounter Visit Diagnoses Diagnosis 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 documented in this encounter Additional Health Concerns Assessment Noted Time PHQ-9 Depression Total Score: 3 07/03/20 24 2:06 PM EDT documented as of this encounter Care Teams Research Assistant Professor Relationship Specialty Start Date End Date Alona [place] MD [address] [place] [address] PCP - General Family Medicine 04/09/19 Amada Lamb, PharmD [address] [place] [address] Pharmacist Internal Medicine 08/31/[address] [facility] Neurosurgery Neurosurgery 09/19/24 [facility] Orthopaedic Surgery 09/25/24 [facility] Sport and Spine 11/14/24 [facility] Endocrinology Endocrinology 11/14/24 documented as of this encounter
--- OUTSIDE RECORDS SUMMARY | 2024-11-15 18:54 | XMS_ITS | Encounter Summary ---
Author Organization [employer] Address [address] [facility] [address] [place] [address] Care Team Providers Care Oyster Sorter Name Role Phone Alona [place] MD Primary Care Provider +- [phone] Amada Lamb PharmD Unavailable [phone]- [phone] Reason for Visit * Reason Onset Date Comments Med Refill 11/28/2023 Encounter Details Date Type Department Care Team (Late st Contact Info) Description 11/28/2023 Refill [facility] MED[facility]INE 230 [place], [place] [phone] Alona [place] MD [address] [place], [place] [phone] Type 2 diabetes mellitus with hyperglycemia, with long-term current use of insulin ([facility]) Social History Tobacco Use Types Packs/Day Years [...] hyperglycemia, with long-term current use of insulin ([facility]) documented in this encounter Additional Health Concerns Assessment Noted Time PHQ-9 Depression Total Score: 5 01/14/20 23 9:43 AM EDT documented as of this encounter Care Teams Oyster Sorter Relationship Specialty Start Date End Date Alona [place] MD [address] [place] [address] PCP - General Family Medicine 04/09/19 Amada Lamb, PharmD [address] [place] [address] Pharmacist Internal Medicine 08/31/22 Dr. Edgar Jalloh [facility] Neurosurgery Neurosurgery 09/19/24 Demian BABB [facility] Orthopaedic Surgery 09/25/24 [facility] Sport and Spine 11/14/24 [facility] Endocrinology Endocrinology 11/14/24 documented as of this encounter
--- OUTSIDE RECORDS SUMMARY | 2024-11-15 18:55 | XMS_ITS | Clinical Summary ---
Author Organization [employer] Address [address] [place] [address] [address] [place] [address] Care Team Providers Care [employer] Officer Name Role Phone Alona Hamilton MD Primary Care Provider [phone] Amada Lamb PharmD Unavailable [phone] Allergies Active Allergy Reactions Criticality Noted Date Comments Lisinopril Cough Low 09/19/2019 Medications insulin glargine (Toujeo Max SoloStar) 300 UNIT/ML injectionIndicat ions:Type 2 diabetes mellitus with hyperlipidemia (CMS/HCC) (CMS/HCC) INJECT 60 UNITS SUBCUTANEOUSLY ONCE DAILY 6 mL 3 023 Active escitalopram (Lexapro) 20 MG tabletIndication s:Recurrent major depressive episodes, moderate (CMS/HCC) Take 1 tablet (20 mg) by mouth in the morning. 30 tablet 4 023 Active insulin lispro (HumaLOG) 100 UNIT/ML injectionIndicat ions:Type 2 diabetes mellitus with hyperglycemia, with long-term current use of insulin (CMS/HCC) INJECT SUBCUTANEOUSLY BEFORE MEALS DIRECTED BY SLIDING SCALE. (BG<150mg/dL= 0 UNITS, 151-199= 6 UNITS, 200-249= 8 UNITS, 250-299= 10 UNITS, 300-349= 12 UNITS, 350-399= 14 UNITS, BG>400= 16 UNITS AND CALL THE OFFICE) 15 mL 3 023 Active Ascorbic Acid (vitamin C) 250 MG tabletIndication s:Anemia, unspecified type TAKE 1 TABLET BY MOUTH IN THE MORNING ON TUESDAY, TUESDAY, AND CASSY 45 tablet 3 Active glucose blood (FreeStyle Precision Dwayne Test) test stripIndications :Type 2 diabetes mellitus with hyperglycemia, with long-term current use of insulin (CMS/[facility]) TEST BLOOD SUGAR 2 OR 3 TIMES DAILY 100 each 11 Active Alcohol Swabs (Alcohol Prep) 70 % padsIndications: Type 2 diabetes mellitus with hyperglycemia, with long-term current use of insulin (CMS/HCC) USE FOUR TIMES DAILY DIRECTED 100 each Active QUEtiapine (SEROquel) 25 MG tabletIndication s:Recurrent major depressive episodes, moderate (CMS/HCC) Take 25 mg by mouth at bedtime. Prescribed by [facility] [employer] Nalini Thierno Active albuterol (Ventolin HFA) 108 (90 Base) MCG/ACT inhalerIndicatio ns:Mild persistent asthma without complication Inhale 2 puffs Every 4-6 hours as needed for wheezing. 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 May repeat every 2-3 minutes if needed, alternating nostrils, until medical assistance becomes available. 2 each 024 2024 Active benzoyl peroxide (Benzac AC) 10 % external washIndications: Rash,Folliculiti s Apply topically 2 times daily. 227 g 1 024 2024 Active metoprolol succinate XL (Toprol XL) 100 MG 24 hr tabletIndication s:Essential hypertension Disregard previous change. Pt will continue 1 and 1/2 tab po daily. 135 tablet 3 Active chlorthalidone (Hygroton) 25 MG tabletIndication s:Essential hypertension Take 1 tablet (25 mg) by mouth Once per day. 90 tablet 3 024 2024 Active valsartan (Diovan) 160 MG tabletIndication s:Essential hypertension TAKE 1 TABLET BY MOUTH EVERY MORNING 90 tablet 3 Active amLODIPine (Norvasc) 10 MG tabletIndication s:Essential hypertension TAKE 1 TABLET BY MOUTH EVERY MORNING 90 tablet 1 12/04/2 024 Active cetirizine (ZyrTEC) 10 MG tabletIndication s:Seasonal allergies TAKE 1 TABLET BY MOUTH EVERY MORNING 90 tablet 1 Active Pentips Generic Pen [place] 32G X 4 MM miscIndications: Type 2 diabetes mellitus with hyperglycemia, with long-term current use of insulin ([facility]) USE TWICE DAILY WITH INSULIN 100 each 1 024 Active Continuous Glucose Charrer (FreeStyle Marcello 3 [place]) deviceIndication s:Type 2 diabetes mellitus with hyperglycemia, with long-term current use of insulin (CMS/[facility]) Freestyle marcello 3 reader, See Instructions, # 1 each, Refills 0, Tot. Refills 0, Maintenance, use to monitor bld glocuse levels E11.9, 06/28/24 9:26:00 AM EDT, Supply, 157.5, cm, 03/20/24 14:52:00 EDT, Height Active Continuous Glucose Sensor (FreeStyle Marcello 3 Sensor) miscIndications: Type 2 diabetes mellitus with hyperglycemia, with long-term current use of insulin ([facility]) Freestyle Marcello 3 Sensor, See Instructions, # 6 each, Refills 4, Tot. Refills 4, Maintenance, Use to continuously monitor blood sugar. Change every 14 days. E11.9, 12/30/23 4:11:00 PM EDT, Replacing Freestyle Marcello 2. Will use phone for reader, Supply, 157.5, cm, 12/30/23 14:54:00 EDT, Height Active metFORMIN (Glucophage) 250 MG split tabletIndication s:Type 2 diabetes mellitus with hyperglycemia, with long-term current use of insulin ([facility]) Take 1,000 mg by mouth. 024 Active traZODone (Desyrel) 100 MG tabletIndication s:Recurrent major depressive episodes, moderate (CMS/HCC) See Instructions, PRN, Take 1 - 2 tablets By Mouth Daily at bedtime as needed for insomnia, # 60 tablet, Refills 1, Tot. Refills 1, Maintenance, Sleep, 11/10/18 10:26:24 AM EST, Instructions Replace Required Details, Route to Pharmacy Electronically, [facility] - , Please note dosage adjustment 019 Active clindamycin (Clindagel) 1 % gelIndications:F olliculitis APPLY TO TRUNK EVERY DAY AFTER BENZOYL PEROXIDE WASH] 024 Active metoclopramide (Reglan) 5 MG tabletIndication s:Abdominal pain, unspecified abdominal location TAKE 1 TABLET THREE TIMES DAILY BEFORE MEALS NEEDED FOR NAUSEA AND VOMITING 024 Active ascorbic acid (Vitamin C) 250 MG chewable tabletIndication s:Iron deficiency anemia, unspecified iron deficiency anemia type TAKE 1 TABLET BY MOUTH IN THE MORNING ON TUESDAY, TUESDAY, AND Tuesday 024 Active oxyCODONE (Oxy-IR) 5 MG immediate release capsuleIndicatio ns: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 20 capsule 025 Active rosuvastatin (Crestor) 20 MG tabletIndication s:Type 2 diabetes mellitus with hyperglycemia, with long-term current use of insulin ([facility]),Hyperl ipidemia, unspecified hyperlipidemia type TAKE 1 TABLET BY MOUTH EVERY MORNING 90 tablet 025 Active lamoTRIgine (LaMICtal) 150 MG tabletIndication s:Recurrent major depressive episodes, moderate (CMS/HCC) Take 300 mg by mouth Once per day. Active glucagon (Baqsimi Two Pack) 3 MG/DOSE nasal powderIndication s:Type 2 diabetes mellitus with hyperlipidemia (CMS/HCC) (CMS/[facility]) For low blood sugar emergency; administer 3mg via one device into one nostril; if no response after 15 minutes to repeat and additional 3mg from other device may be administered. 2 each Active Dulaglutide (Trulicity) 3 MG/0.5ML solution auto-injectorInd ications:Type 2 diabetes mellitus with hyperlipidemia (CMS/HCC) (CMS/HCC) Inject 3 mg under the skin 1 (one) time per week. Dose increased 2 mL 025 Active glucose 4 g chewable tabletIndication s:Type 2 diabetes mellitus with hyperlipidemia (CMS/HCC) (CMS/HCC) USE DIRECTED FOR LOW BLOOD SUGAR 20 tablet 11 025 Active Multiple Vitamin (Multi-Vitamin) tablet PT REPORTS PURCHASING OTC 2024 Discontinued(M ed list cleanup (will not trigger notification to Pharmacy)) glucose-vitamin C 4-6 GM-MG oral gel USE NEEDED FOR HYPOGLYCEMIA 20 tablet 11 023 2024 Discontinued(R eorder (will not trigger notification to Pharmacy)) glucagon (Baqsimi Two Pack) 3 MG/DOSE nasal powder For low blood sugar emergency; administer 3mg via one device into one nostril; if no response after 15 minutes to repeat and additional 3mg from other device may be administered. 2 each 023 2024 Discontinued(R eorder (will not trigger notification to Pharmacy)) Blood Pressure kitIndications:E ssential hypertension Check BP daily 1 kit 023 2024 Discontinued(M ed list cleanup (will not trigger notification to Pharmacy)) lamoTRIgine (LaMICtal) 150 MG tablet Take 2 tablets (300mg) by mouth at bedtime 60 tablet 3 023 2024 Discontinued(M ed list cleanup (will not trigger notification to Pharmacy)) omeprazole (PriLOSEC) [address] capsule Take 20 mg by mouth in the morning. 024 2024 Discontinued(M ed list cleanup (will not trigger notification to Pharmacy)) rosuvastatin (Crestor) 20 MG tabletIndication s:Type 2 diabetes mellitus with hyperglycemia, with long-term current use of insulin ([facility]),Hyperl ipidemia, unspecified hyperlipidemia type TAKE 1 TABLET BY MOUTH EVERY MORNING 90 tablet 024 2024 Discontinued(R eorder (will not trigger notification to Pharmacy)) ferrous sulfate (FeroSul) 325 (65 Fe) MG tablet TAKE 1 TABLET BY MOUTH IN THE MORNING ON TUESDAY, TUESDAY, AND TUESDAY 45 tablet 025 2024 Discontinued(M ed list cleanup (will not trigger notification to Pharmacy)) metoprolol succinate XL (Toprol-XL) 100 MG 24 hr tabletIndication s:Essential hypertension TAKE 1 AND 1/2 TABLETS BY MOUTH IN THE MORNING 024 2024 Discontinued(M ed list cleanup (will not trigger notification to Pharmacy)) Trulicity 1.5 MG/0.5ML solution auto-injectorInd ications:Type 2 diabetes mellitus with hyperglycemia, with long-term current use of insulin ([facility]) INJECT ONE PEN (=1.5MG) SUBCUTANEOUSLY ONCE A WEEK DIRECTED 024 2024 Discontinued hydroCHLOROthiaz nessa (HYDRODiuril) 25 MG tabletIndication s:Essential hypertension Take 25 mg by mouth in the morning. 024 2024 Discontinued(M ed list cleanup (will not trigger notification to Pharmacy)) rosuvastatin (Crestor) 20 MG tabletIndication s:Type 2 diabetes mellitus with hyperglycemia, with long-term current use of insulin ([facility]),Hyperl ipidemia, unspecified hyperlipidemia type TAKE 1 TABLET BY MOUTH EVERY MORNING 90 tablet 025 2024 Discontinued(M ed list cleanup (will not trigger notification to Pharmacy)) glucose-vitamin C 4-6 GM-MG oral gelIndications:T ype 2 diabetes mellitus with hyperlipidemia (CMS/HCC) ([facility]) USE NEEDED FOR HYPOGLYCEMIA 20 tablet 11 025 2024 Discontinued Active Problems Patient Care Coordination No te Formatting of this note migh t be different from the original. Followed in [facility] HTN clinic with Amada Lamb, PharmD, [facility]. As of 07/26/23, patient followed at [facility] endocrinology for T2DM. Problem Noted Date Diagnosed Date Bilateral hand pain 08/01/2024 Overview (10/02/2024): - Ordered X-Rays 08/01/24 - Referred to Hand Surgery 08/01/24, seen 09/2024 dx osteoarthritis. Referred to occupational therapy. 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 She was consulted by Neurosurgery, who recommended conservative management and steroids. -On dilaudid, oxycodone and tylenol for pain. I will be prescribing her pain medications. She has no red flags for divergence. -given numbness and weakness worse since admission despite steroids, will place STAT referral 07/03/24 to neurosurgery. Assessment & Plan (07/03/2024 3:21 PM EDT): Seen at [facility] on 06/25/24 for sever back pain, MRI showed L4-L5 sequestered disc fragment on the right side impinging the exit of the L4 nerve route. She was consulted by Neurosurgery, who recommended conservative management and steroids. -On dilaudid, oxycodone and tylenol for pain. I will be prescribing her pain medications. She has no red flags for divergence. -given numbness and weakness worse since admission despite steroids, will place STAT referral 07/03/24 to neurosurgery. Encounter for screening for malignant neoplasm o f breast 07/03/2024 Breast cancer screening by mammogram 07/03/2024 Overview (11/14/2024): Has appt. for mammogram 11/15/24 Assessment & Plan (11/14/2024 3:50 PM EST): Has appt. for mammogram 11/15/24 Hyperpigmented skin lesion 07/03/2024 Overview (08/01/2024): Hyperpigmented, almost black appearing spot underneath toe nail. See image in chart from 07/03/24. Need to evaluate for possible melanoma -referred to Dermatology 07/03/24 STAT referral -pt advised to send us message if she does not hear about an appointment by the end of the week - Saw education technician and requested records 08/01/24 Assessment & Plan (08/01/2024 4:50 PM EST): Hyperpigmented, almost black appearing spot underneath toe nail. See image in chart from 07/03/24. Need to evaluate for possible melanoma -referred to Dermatology 07/03/24 STAT referral -pt advised to send us message if she does not hear about an appointment by the end of the week - Saw education technician and requested records 08/01/24 Assessment & Plan (07/03/2024 3:19 PM EDT): Hyperpigmented, almost black appearing spot underneath toe nail. See image in chart from 07/03/24. Need to evaluate for possible melanoma -referred to Dermatology 07/03/24 STAT referral -pt advised to send us message if she does not hear about an appointment by the end of the week Transaminitis 07/03/2024 Overview (08/01/2024): Lab Results Component Value Date AST 35 (H) 07/03/2024 ALT 34 (H) 07/03/2024 ALT 16 11/21/2020 ALP 135 (H) 07/03/2024 DIRECTBILIRU 0.2 07/03/2024 Assessment & Plan (08/01/2024 4:51 PM EST): Lab Results Component Value Date AST 35 (H) 07/03/2024 ALT 34 (H) 07/03/2024 ALT 16 11/21/2020 ALP 135 (H) 07/03/2024 DIRECTBILIRU 0.2 07/03/2024 Assessment & Plan (07/03/2024 2:02 PM EDT): Lab Results Component Value Date AST 59 (H) 05/25/2024 ALT 57 (H) 05/25/2024 ALT 16 11/21/2020 ALP 172 (H) 05/25/2024 DIRECTBILIRU 0.1 05/25/2024 -rechecking HFP 07/03/24 Adnexal mass 05/28/2024 Overview (11/14/2024): CT 05/25/2024 done in ER revealed Bilateral hypodense adnexal lesions. 1.5 cm enhancing mural nodule in the left adnexal lesion. MRI pelvis is recommended for further characterization. -MRI ordered 05/28/2024 read 09/26/24 MR/MR pelvis wo con IMPRESSION: Enlarged bilateral ovaries demonstrating small peripherally located follicles. Findings are suggestive of polycystic ovarian disease. Clinical correlation is recommended. Assessment & Plan (11/14/2024 3:52 PM EST): CT 05/25/2024 done in ER revealed Bilateral hypodense adnexal lesions. 1.5 cm enhancing mural nodule in the left adnexal lesion. MRI pelvis is recommended for further characterization. -MRI ordered 05/28/2024 read 09/26/24 MR/MR pelvis wo con IMPRESSION: Enlarged bilateral ovaries demonstrating small peripherally located follicles. Findings are suggestive of polycystic ovarian disease. Clinical correlation is recommended. Assessment & Plan (08/01/2024 4:52 PM EST): CT 05/25/2024 done in ER revealed Bilateral hypodense adnexal lesions. 1.5 cm enhancing mural nodule in the left adnexal lesion. MRI pelvis is recommended for further characterization. -MRI ordered 05/28/2024 Cardiac risk counseling 01/04/2024 Overview (01/09/2024): Not able to calculate ASCVD risk for 10 year due to LDL < 70 however lifetime risk is 50%, high risk -Tobacco cessation: not applicable -Statin therapy: rosuvastatin 20mg -Importance of moderate physical activity and nutrition interventions discussed. Assessment & Plan (07/03/2024 1:49 PM EDT): Encouraged getting mammogram done as soon as back pain has been controlled. -given phone number to call 07/03/24 Class 2 obesity 09/28/2023 09/28/2023 Dental plaque 03/25/2023 Crowded teeth 03/25/2023 Dental caries 03/24/2023 Periodontal disease 03/24/2023 Other specified health status 03/16/2023 Overview (07/31/2024): -next physical exam due after 01/13/2025 -eye care appointment 07/04/2024 with [facility] -encouraged [facility] -health care proxy filed 01/25/24 Assessment & Plan (09/28/2023 12:30 PM EST): -next physical exam due after 01/14/2024 -eye care appointment 05/06/2023 -Encouraged [facility] dental. Assessment & Plan (03/16/2023 9:46 AM EDT): -next physical exam due after 01/14/2024 -eye care appointment 03/31/2023 -Encouraged [facility] dental. Radiculopathy 01/13/2023 Overview (11/14/2024): Evidence of nerve compression with hyperreflexia and mild weakness when trying to stand on toes. Neurosurgery requires MRI for pt to be seen. Given evidence of acute compression. Will order stat MRI. -MRI 06/26/24 revealed 1 cm sequestered disc fragment along the right posterior lower L4 vertebral body. This results in compression of the descending right L5 nerve root in the subarticular recess as well as likely compression of the exiting right L4 nerve root. Moderate to severe bilateral neural foraminal stenosis at L5-S1 with likely compression of both exiting L5 nerve roots. At C5-C6 there is amild to moderate canal stenosis on the localizer sequence. -seen by [facility] Neurosurgery with Alona Aranda PA-C under supervision ot Attending Dr. Jalloh09/19/24 plan to continue conservative measures as disc herniation shave a high percentage of resolution without surgical intervention. PT was ordered. She was referred to [facility] for consideration of lumbar epidural steroid injection. They will see her prn but advise to regurn if symptoms fail to improve over the next few months. -note from [facility] 11/13/24 Reports 60% improvement in low back pain and radicular pain. Weakness with dorsiflexion on the right has resolved following injection. Offered trialing repeat L4TFE to see if can achieve additional relief. She wants to hold off for now and will follow up prn moving forward. Assessment & Plan (09/28/2023 11:47 AM EST): Evidence of nerve compression with hyperreflexia and mild weakness when trying to stand on toes. Neurosurgery requires MRI for pt to be seen. Given evidence of acute compression. Will order stat MRI. -Will check MRI. -Referral to orthopedics 01/13/2023. Assessment & Plan (03/16/2023 9:00 AM EDT): Evidence of nerve compression with hyperreflexia and mild weakness when trying to stand on toes. Neurosurgery requires MRI for pt to be seen. Given evidence of acute compression. Will order stat MRI. -Will check MRI. -Referral to orthopedics 01/13/2023. Assessment & Plan (01/20/2023 8:47 AM EDT): Evidence of nerve compression with hyperreflexia and mild weakness when trying to stand on toes. Neurosurgery requires MRI for pt to be seen. Given evidence of acute compression. Will order stat MRI. -Will check MRI. -Referral to orthopedics 01/13/2023. Right elbow pain 01/13/2023 Overview (01/13/2023): -X-ray normal. -F/u with orthopedics 01/20/2023. Assessment & Plan (09/28/2023 11:47 AM EST): -X-ray normal. -F/u with orthopedics 01/20/2023. Assessment & Plan (03/16/2023 9:00 AM EDT): -X-ray normal. -F/u with orthopedics 01/20/2023. Assessment & Plan (01/13/2023 10:13 AM EDT): -X-ray normal. -F/u with orthopedics 01/20/2023. Recurrent major depressive episodes, moderate Overview (11/14/2024): Hospitalized for 9 days 01/2022. Followed by therapist and psychiatrist. Has number for crisis. Denmanuel KRISTINE. Pt had another hospitalization 03/03/23, her medications were adjusted. -No SI/HI. -Follow-up with psychiatry and therapy. Still looking for prescriber. Assessment & Plan (11/14/2024 3:53 PM EST): Hospitalized for 9 days 01/2022. Followed by therapist and psychiatrist. Has number for crisis. Denmanuel KRISTINE. Pt had another hospitalization 03/03/23, her medications were adjusted. -No SI/HI. -Follow-up with psychiatry and therapy. Still looking for prescriber. Assessment & Plan (01/25/2024 3:20 PM EDT): Hospitalized for 9 days 01/2022. Followed by therapist and psychiatrist. Has number for crisis. Paz KRISTINE. Pt had another hospitalization 03/03/23, her medications were adjusted. -No SI/HI. -Follow up with psychiatry and therapy. Assessment & Plan (09/28/2023 11:45 AM EST): Hospitalized for 9 days 01/2022. Followed by therapist and psychiatrist. Has number for crisis. Paz KRISTINE. Pt had another hospitalization 03/03/23, her medications were adjusted. -No SI/HI. -Follow up with psychiatry and therapy. Assessment & Plan (03/16/2023 9:36 AM EDT): Hospitalized for 9 days 01/2022. Followed by therapist and psychiatrist. Has number for crisis. Denmanuel KRISTINE. Pt had another hospitalization 03/03/23, her medications were adjusted. -No SI/HI. -Follow up with psychiatry and therapy. Assessment & Plan (01/13/2023 10:45 AM EDT): Hospitalized for 9 days 01/2022. Followed by therapist and psychiatrist. Has number for crisis. Paz KRISTINE. Large breasts 01/12/2022 Overview (09/28/2023): -Patient has chronic back pain from macromastia. She is interested in breast reduction. She has lost over 20 pounds. She will let me know when she wants the referral Assessment & Plan (09/28/2023 11:44 AM EST): -Patient has chronic back pain from macromastia. She is interested in breast reduction. She has lost over 20 pounds. She will let me know when she wants the referral Assessment & Plan (03/16/2023 9:00 AM EDT): -Patient has chronic back pain from macromastia. She is interested in breast reduction. She has lost over 20 pounds. She will let me know when she wants the referral Assessment & Plan (01/13/2023 9:05 AM EDT): -Patient has chronic back pain from macromastia. She is interested in breast reduction. She has lost over 20 pounds. She will let me know when she wants the referra Posterior rhinorrhea 02/09/2019 Iron deficiency anemia 12/05/2018 Overview (01/13/2023): Resolved. Likely due to menorrhagia. Stool FOB negative x 3. Taking iron supplements + vit C as I prescribed; no constipation -IUD placed 08/2021 Assessment & Plan (09/28/2023 11:43 AM EST): Resolved. Likely due to menorrhagia. Stool FOB negative x 3. Taking iron supplements + vit C as I prescribed; no constipation -IUD placed 08/2021 Assessment & Plan (03/16/2023 9:00 AM EDT): Resolved. Likely due to menorrhagia. Stool FOB negative x 3. Taking iron supplements + vit C as I prescribed; no constipation -IUD placed 08/2021 Assessment & Plan (01/13/2023 9:04 AM EDT): Resolved. Likely due to menorrhagia. Stool FOB negative x 3. Taking iron supplements + vit C as I prescribed; no constipation -IUD placed 08/2021 Sleep apnea in adult 09/19/2018 Overview (11/14/2024): Seen by sleep medicine 07/26/23, home sleep study done. Pt reports results showed sleep apnea. Was prescribed machine but then did not use it so they took it away. -encouraged to call to get re-established 11/14/24 Assessment & Plan (11/14/2024 3:49 PM EST): Seen by sleep medicine 07/26/23, home sleep study done. Pt reports results showed sleep apnea. Was prescribed machine but then did not use it so they took it away. -encouraged to call to get re-established 11/14/24 Assessment & Plan (09/28/2023 12:03 PM EST): Seen by sleep medicine 07/26/23, home sleep study done, waiting for results Essential hypertension 09/19/2018 Overview (11/14/2024): -Blood pressure is slightly above goal, but improved -Continue lifestyle modifications -Continue current medications -Metoprolol XL increased from 50mg to 75mg , she will not take propanolol from psychiatry -follows with [facility] will consult with Leandra. - Will maintain Metoprolol at 150 mg once a day 08/01/24 - Changing hydrochlorothiazide to 25 mg Chlorthalidone 08/01/24 Assessment & Plan (11/14/2024 3:52 PM EST): -Blood pressure is slightly above goal, but improved -Continue lifestyle modifications -Continue current medications -Metoprolol XL increased from 50mg to 75mg , she will not take propanolol from psychiatry -follows with Collabor[facility] Drug Therapy Managment Program with our PharmD, [facility] will consult with Leandra. - Will maintain Metoprolol at 150 mg once a day 08/01/24 - Changing hydrochlorothiazide to 25 mg Chlorthalidone 08/01/24 Assessment & Plan (08/01/2024 4:47 PM EST): -Blood pressure is not at goal -Continue lifestyle modifications -Continue current medications -Metoprolol XL increased from 50mg to 75mg , she will not take propanolol from psychiatry -follows with Collaborative Drug Therapy Managment Program with our PharmD, [facility] will consult with Leandra. - Will maintain Metoprolol at 150 mg once a day 08/01/24 - Changing hydrochlorothiazide to 25 mg Chlorthalidone 08/01/24 Assessment & Plan (07/13/2024 3:26 PM EDT): Today elevated possibly due to pain, it has not being a goal lately I advise low Na diet, do not miss any dose of medications and f/u CDTM and PCP Assessment & Plan (07/03/2024 2:04 PM EDT): -Blood pressure is not at goal -Continue lifestyle modifications -Continue current medications -Metoprolol XL increased from 50mg to 75mg , she will not take propanolol from psychiatry -follows with Collaborative Drug Therapy Managment Program with our PharmD, [facility] will consult with Leandra. Assessment & Plan (01/25/2024 3:19 PM EDT): -Blood pressure is not at goal -Continue lifestyle modifications -Continue current medications -Metoprolol XL increased from 50mg to 75mg , she will not take propanolol from psychiatry Assessment & Plan (09/28/2023 11:42 AM EST): -Blood pressure is not at goal -Continue lifestyle modifications -Continue current medications -Metoprolol XL increased from 50mg to 75mg , she will not take propanolol from psychiatry Assessment & Plan (03/16/2023 9:33 AM EDT): -Blood pressure is not at goal -Continue lifestyle modifications -Continue current medications -Metoprolol XL increased from 50mg to 75mg , she will not take propanolol from psychiatry Assessment & Plan (01/13/2023 10:44 AM EDT): -Blood pressure is at goal -Continue lifestyle modifications -Continue current medications Hyperlipidemia 09/19/2018 Overview (08/01/2024): Lab Results Component Value Date CHOL 143 07/03/2024 CHOL 127 09/28/2023 TRIG 117 07/03/2024 TRIG 134 09/28/2023 HDL 50 07/03/2024 HDL 41 09/28/2023 LDLCHOLCAL 70 07/03/2024 LDLCHOLCAL 60 09/28/2023 -continue lifestyle modification -continue rosuvastatin 20mg Assessment & Plan (08/01/2024 4:50 PM EST): Lab Results Component Value Date CHOL 143 07/03/2024 CHOL 127 09/28/2023 TRIG 117 07/03/2024 TRIG 134 09/28/2023 HDL 50 07/03/2024 HDL 41 09/28/2023 LDLCHOLCAL 70 07/03/2024 LDLCHOLCAL 60 09/28/2023 -continue lifestyle modification -continue rosuvastatin 20mg Assessment & Plan (01/25/2024 3:20 PM EDT): Lab Results Component Value Date CHOL 127 09/28/2023 TRIG 134 09/28/2023 HDL 41 09/28/2023 LDLCHOLCAL 60 09/28/2023 -continue lifestyle modification -continue rosuvastatin 20mg Mild persistent asthma without complication 04/2019 Overview (01/25/2024): -Well controlled on prn albuterol MDI Assessment & Plan (11/14/2024 3:49 PM EST): -Well controlled on prn albuterol MDI Assessment & Plan (09/28/2023 11:44 AM EST): Well controlled on prn albuterol MDI Assessment & Plan (03/16/2023 9:00 AM EDT): Well controlled on prn albuterol MDI Assessment & Plan (01/13/2023 9:04 AM EDT): Well controlled on prn albuterol MDI Mood disorder 09/19/2018 Primary insomnia 09/19/2018 Type 2 diabetes mellitus with hyperlipidemia (CM S/HCC) 09/19/2018 Overview (11/14/2024): Diabetes is not controlled. Followed by [facility] as of 08/2023, currently has CGM [...] have improved, recommended getting in to see Endocrinology, since last visit was February 2024. -increased Trulicity to 3 mg 11/14/24 Assessment & Plan (11/14/2024 4:37 PM EST): Diabetes is not controlled. Followed by [facility] as of 08/2023, currently has CGM [...] have improved, recommended getting in to see Endocrinology, since last visit was February 2024. -increased Trulicity to 3 mg 11/14/24 Assessment & Plan (11/14/2024 3:50 PM EST): >>ASSESSMENT AND PLAN FOR TYPE 2 DIABETES MELLITUS ([facility]) WRITTEN ON 01/13/2023 10:47 AM BY ALONA HAMILTON MD Diabetes is not controlled. - Lab Results Component Value Date HGBA1C 11.6 (A) 09/16/2022 HGBA1C 8.8 (A) 03/25/2022 HGBA1C 11.8 (H) 05/26/2021 - Lab Results Component Value Date MICROALBUR 3.7 05/26/2021 CREATININE 1.05 01/03/2023 -Changes: followed by CDTM -Salvador/Arb: valsartan 160, cough with salvador -Statin therapy: Crestor 20mg -Diabetic eye exam: -Diabetic foot exam: normal 01/13/2023 -Continue lifestyle modifications -Continue current medications Assessment & Plan (11/14/2024 3:50 PM EST): >>ASSESSMENT AND PLAN FOR TYPE 2 DIABETES MELLITUS ([facility]) WRITTEN ON 03/16/2023 9:35 AM BY ESTHER ACOSTA Diabetes is controlled. - Lab Results Component Value Date HGBA1C 10.7 (A) 01/13/2023 HGBA1C 11.6 (A) 09/16/2022 HGBA1C 8.8 (A) 03/25/2022 -No results found for: POCA1C - Lab Results Component Value Date MICROALBUR 3.7 05/26/2021 CREATININE 1.11 02/21/2023 -Changes: none -Salvador/Arb: ALLERGIC TO SALVADOR -Statin therapy: rosuvastatin -Diabetic eye exam: 03/31/23 -Diabetic foot exam: -Continue lifestyle modifications -Continue current medications -Humalog quick pen -toujeo -trulicity 0.75mg (GI upset with higher doses) Assessment & Plan (11/14/2024 3:50 PM EST): >>ASSESSMENT AND PLAN FOR TYPE 2 DIABETES MELLITUS ([facility]) WRITTEN ON 09/28/2023 12:31 PM BY ALONA HAMILTON MD Diabetes is controlled. 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 operator at [facility] as of 08/2023, currently has CGM monitor Lab Results Component Value Date HGBA1C 8.2 (A) 09/28/2023 HGBA1C 11.8 (A) 06/14/2023 HGBA1C 10.7 (A) 01/13/2023 -No results found for: POCA1C - Lab Results Component Value Date MICROALBUR 3.7 05/26/2021 CREATININE 1.11 02/21/2023 -Changes: none -Salvador/Arb: ALLERGIC TO SALVADOR -Statin therapy: rosuvastatin 20mg -Diabetic eye exam:01/2023 -Diabetic foot exam:09/28/23 -Continue lifestyle modifications -Continue current medications -Humalog quick pen -toujeo -trulicity 0.75mg (GI upset with higher doses) Assessment & Plan (11/14/2024 3:50 PM EST): >>ASSESSMENT AND PLAN FOR TYPE 2 DIABETES MELLITUS ([facility]) WRITTEN ON 01/25/2024 4:35 PM BY ALONA HAMILTON MD Diabetes is not controlled. Followed by [facility] as of 08/2023, currently has CGM monitor Lab Results Component Value Date HGBA1C 7.6 (A) 01/25/2024 HGBA1C 8.5 (A) 12/30/2023 HGBA1C 8.2 (A) 09/28/2023 -No results found for: POCA1C - Lab Results Component Value Date MICROALBUR 300.0 09/28/2023 CREATININE 1.59 (H) 09/28/2023 -Salvador/Arb: ALLERGIC TO SALVADOR, continue valsartan -Statin therapy: rosuvastatin 20mg -Diabetic eye exam:01/2023 -Diabetic foot exam:09/28/23 -Continue lifestyle modifications -Continue current medications -Humalog quick pen sliding scale -Insulin glargine 70 units daily -metformin 1000 mg 1 tabs daily -trulicity 1.5 mg Assessment & Plan (11/14/2024 3:50 PM EST): >>ASSESSMENT AND PLAN FOR TYPE 2 DIABETES MELLITUS ([facility]) WRITTEN ON 07/03/2024 2:05 PM BY DORCAS STOKES Diabetes is not controlled. Followed by [facility] as of 08/2023, currently has CGM monitor Lab Results Component Value Date HGBA1C 7.6 (A) 01/25/2024 HGBA1C 8.5 (A) 12/30/2023 HGBA1C 8.2 (A) 09/28/2023 -No results found for: POCA1C - Lab Results Component Value Date MICROALBUR 300.0 09/28/2023 CREATININE 1.16 05/25/2024 -Salvador/Arb: ALLERGIC TO SALVADOR, continue valsartan -Statin therapy: rosuvastatin 20mg -Diabetic eye exam:01/2023 -Diabetic foot exam:09/28/23 -Continue lifestyle modifications -Continue current medications -Humalog quick pen sliding scale -Insulin glargine 70 units daily -metformin 1000 mg 1 tabs daily -trulicity 1.5 mg -rechecking A1C, BMP, Albumin and HFP 07/03/24 Assessment & Plan (11/14/2024 3:50 PM EST): >>ASSESSMENT AND PLAN FOR TYPE 2 DIABETES MELLITUS ([facility]) WRITTEN ON 08/01/2024 4:45 PM BY KERRY BAINS MA Diabetes is not controlled. Followed by [facility] as of 08/2023, currently has CGM monitor Lab Results Component Value Date HGBA1C 9.8 (A) 08/01/2024 HGBA1C 9.0 (H) 07/03/2024 HGBA1C 7.6 (A) 01/25/2024 -No results found for: POCA1C - Lab [...] 08/01/24. - Follow Up In 3 Months Resolved Problems Problem Noted Date Diagnosed Date Resolved Date Hyperreflexia 01/13/2023 01/13/2023 Chronic cough 02/22/2019 01/13/2023 Menorrhagia 02/22/2019 01/13/2023 Encounters Date Type Department Care Team Description 11/15/2024 Telephone [facility] [address] [place] [phone] Alona Hamilton MD Appointment Request 11/14/2024 4:00 PM EST Office Visit [address] [phone] Alona Hamilton MD Essential hypertension (Primary Dx); Type 2 diabetes mellitus with hyperlipidemia (CMS/HCC) ([facility]); Mild persistent asthma without complication; Sleep apnea in adult; Adnexal mass; Breast cancer screening by mammogram; Recurrent major depressive episodes, moderate (CMS/HCC) 11/14/2024 Refill [facility] [address] [place] [address] Alona Hamilton MD Type 2 diabetes mellitus with hyperlipidemia (CMS/HCC) ([facility]) 11/14/2024 Travel 10/26/2024 Refill [facility] [address] [place], [place] [phone] Alona Hamilton MD Type 2 diabetes mellitus with hyperglycemia, with long-term current use of insulin ([facility]); Hyperlipidemia, unspecified hyperlipidemia type 10/26/2024 Refill [facility] [address] [place], [place] [phone] Alona Hamilton MD Type 2 diabetes mellitus with hyperglycemia, with long-term current use of insulin ([facility]/HCC); Hyperlipidemia, unspecified hyperlipidemia type 10/24/2024 Telephone [facility] [address] [place], [place] [phone] Alona Hamilton MD Reschedule appointment 10/24/2024 Travel 10/18/[address] [phone] Alona Hamilton MD 10/03/2024 Orders Only [address] [phone] Alona Hamilton MD 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 [address] [place] [address] Talisha Mendoza MA Breast Cancer Screening 09/27/[address] [phone] Valentine Sanchez, RN Results 09/26/[address] [phone] Valentine Sanchez, RN Results 09/24/[address] [phone] Alona Hamilton MD 09/24/[address] [facility] [address] [place] [address] Alona Hamilton MD Med Refill (Pt walked in requesting refill for oxycodone per pt PCP stated to them to walk in and request whenever needed. ) 09/17/[address] [phone] Alona Hamilton MD 09/08/[address] [phone] Alona Hamilton MD Type 2 diabetes mellitus with hyperglycemia, with long-term current use of insulin ([facility]) 09/07/[address] [phone] Alona Hamilton MD 09/04/[address] [phone] Alona Hamilton MD 08/24/[address] [facility] [address] [place] [address] Talisha Mendoza MA October Recall 08/22/2024 Telephone [facility] [address] [place] [address] Alona Hamilton MD 08/20/2024 Telephone [facility] [address] [place] [address] Alona Hamilton MD 08/17/2024 Orders Only [facility] [address] [place] [address] Alona Hamilton MD Adnexal mass (Primary Dx) from Last 3 Months Immunizations Name Administration Dates Next Due HepB-CpG 02/13/2024,06/14/2023 Influenza Injectable Quadriv alant Preservative Free IIV4 MDCK 06/14/2023 Influenza injectable quadriv alent IIV4 with preservative 07/02/2019 Influenza injectable quadriv alent preservative free 10/09/2021,07/07/2020 Influenza, IIV3, injectable 06/27/2024 Influenza, seasonal, injecta ble, preservative free 06/27/2024 MMR 08/23/2022,07/26/2022 Moderna Covid-19 Vaccine 12+ 09/25/2021,12/20/19 21,11/21/2020 Pfizer Covid-19 Vaccine 12+ 08/01/2024, Pfizer Covid-19 Vaccine 12+ Bivalent 03/16/2023 Pneumococcal Conjugate PCV 20 03/16/2023 Pneumococcal Polysaccharide PPSV23 07/07/2020 Tdap 09/19/2019 Family History Medical History Relation Name Comments Stroke Father Hypertension Mother Breast cancer Mother's Sister Lymphoma Mother's Sister Relation Name Status Comments Father Mother Mother's Sister Social History Tobacco Use Types Packs/Day Years Used Date Smoking Tobacco: Never Passive Smoke Exposure: Never Smokeless Tobacco: Never Tobacco Cessation:Counseling Given: Not Answered Alcohol Use Standard Drinks/Week Comments Never 0 [...] or Hernandez 07/12/2022 10 :34 AM EDT Last Filed Vital Signs Vital Sign Reading Time Taken Comments Blood Pressure 137/90 11/14/2024 3:37 PM EST Pulse 96 11/14/2024 3:37 PM EST Temperature 37.2 ??C (98.9 ??F) 11/14/2024 3:37 PM ES T Respiratory Rate 20 11/14/2024 3:37 PM EST Oxygen Saturation 98% 11/14/2024 3:37 PM EST Inhaled Oxygen Concentration - - Weight 92.5 kg (204 lb) 11/14/2024 3:37 PM EST Height 162.6 cm (5' 4 ) 07/13/2024 1:59 PM EDT Body Mass Index 35.02 07/13/2024 1:59 PM EDT Plan of Treatment Health Maintenance Due Date Last Done Comments Pap Smear 05/03/2022 05/03/2019 Mammogram 06/10/2023 06/10/2021, 05/14, 05/04/2019 Dental Oral Exam 09/26/2023 03/25/2023 Dental Prophylaxis 09/26/2023 03/25/2023 Dental X-Ray: Bitewings 03/26/2024 03/25/2023 Diabetes: Foot Exam 01/24/2025 01/25/2024, 01/25/2024, 01/25/2024, Additional history exists Family Planning (PISQ) 01/24/2025 01/25/2024 Diabetes: Hemoglobin A1C 02/14/2025 025, 08/01/2024, 07/03/2024, Additional history exists Alcohol/Substance Use Screening 07/03/2025 07/03/2024 Depression Screening 07/03/2025 07/03/2024, 07/03/20 24 Diabetes: Urine Protein Screening 07/03/2025 07/03/2024, 09/28/2023, 12/01/2021, Additional history exists Lipid Panel 07/03/2025 07/03/2024, 09/12, 12/01/2021, Additional history exists Eye Exam 07/04/2025 07/04/2024, 03/13, 03/31/2023, Additional history exists SDOH Screening 11/14/2025 11/14/2024 Tobacco Screening 11/14/2025 11/14/2024 Dental X-Ray: Full Mouth 03/25/2026 03/24/2023 Cervical Cancer Screening 06/10/2026 HPV/Cotest 06/10/2026 06/10/2021, 05/03/2019 DTaP/Tdap/Td Vaccines (2 - Td or Tdap) 09/19/2029 09/19/2019 Zoster Vaccines (1 of 2) 2031 RSV Patients and Patients Aged 60 years or older (1 - 1-dose 75+ series) 01/18/2056 HIV Screening Completed 12/01/2021 Hepatitis C Screening Completed 12/01/2021, 022 Pneumococcal Vaccine: Pediatrics (0 to 5 Years) and At-Risk Patients (6 to 49) Years) Completed 03/16/2023, 07/07/2020 Hepatitis B Vaccines Discontinued 02/13/2024, 06/14/20 Influenza Vaccine Completed 06/27/2024, , 06/14/2023, Additional history exists COVID-19 Vaccine Completed 08/01/2024, , 03/16/2023, Additional history exists HIB Vaccines Aged Out No longer eligi ble based on patient's age to complete this topic HPV Vaccines Aged Out No longer eligi ble based on patient's age to complete this topic Hepatitis A Vaccines Aged Out No long er eligible based on patient's age to complete this topic IPV Vaccines Aged Out No longer eligi ble based on patient's age to complete this topic Meningococcal Vaccine Aged Out No dave vickey eligible based on patient's age to complete this topic RSV under 20 months Aged Out No longe r eligible based on patient's age to complete this topic Rotavirus Vaccines Aged Out No longer eligible based on patient's age to complete this topic Goals Goal Patient Goal Type Associated Problems Recent Progress Patient-Stated? Author Blood Pressure < 140/90 Blood Pressure 137/90(2024 3:37 PM EST) No Amada Griffith PharmD Hemoglobin A1c < 7 Result Component 8.8( 4:10 PM EST) No Amada Griffith PharmD Procedures Procedure Name Priority Date/Time Associated Diagnosis Comments POCT GLUCOSE Routine 11/14/2024 4:11 PM EST Type 2 diabetes mellitus with hyperlipidemia (CMS/HCC) (CMS/HCC) POCT GLYCOSYLATED HEMOGLOBIN (HGB A1C) Routine 11/14/2024 4:10 PM EST Type 2 diabetes mellitus with hyperlipidemia (CMS/HCC) (CMS/HCC) MR PELVIS WO CONTRAST Routine 08/26/2024 5:38 PM EST Adnexal mass ALBUMIN, RANDOM URINE W/CREATININE Routine 07/03/2024 2:20 PM EDT Type 2 diabetes mellitus with hyperglycemia, with long-term current use of insulin (CMS/HCC) LIPID PANEL, STANDARD Routine 07/03/2024 2:20 PM EDT Hyperlipidemia, unspecified hyperlipidemia type PROPHYLAXIS - ADULT Routine 03/25/2023 1 :00 PM EDT Dental plaque BITEWINGS - 4 RADIOGRAPHIC IMAGES Routine 03/25/2023 1:00 PM EDT Dental plaque Crowded teeth PERIODIC ORAL EVALUATION - ESTABLISHED PATIENT Routine 03/25/2023 1:00 PM EDT PANORAMIC RADIOGRAPHIC IMAGE Routine 03/24/2023 1:00 PM EDT HEPATITIS C ANTIBODY (EXTERNAL RESULTS ONLY) Routine 12/01/2021 10:42 AM EDT ZZZ HISTORICAL HIV AB/AG Routine 12/01/2021 12:00 AM EDT HPV HIGH RISK PCR Routine 06/10/2021 12: 00 AM EDT HM MAMMOGRAPHY Routine 06/10/2021 PAP SMEAR Routine 05/03/2019 12:00 AM EDT from Last 3 Months or Most Recently Relevant to Health Maintenance Results * POCT glucose manually resulted (11/14/2024 [...] TEST ENTER/E DIT ORDERABLES Final Result * MR Pelvis w/o Contrast (08/26/2024 5:38 PM EST) Anatomical Region Laterality Modality Body, Pelvis Magnetic Resonan ce 08/26/2024 5:38 PM EST Narrative 09/26/2024 12:32 PM EST ? [facility] ?[address] ?[place] [address] ? Magnetic Resonance Report ? Signed ? Patient: Bashir,Chasidy S ?MR#: [id number] ?? 4 ? : 1980 ?Acct:[id number] ? Age/Sex: 44 / F ?ADM Date: 08/26/24 ? Loc: HO.MRI ? Attending Dr: Alona Hamilton MD ? Ordering Physician: Alona Hamilton MD ?? Date of Service: 08/26/24 ?? Procedure(s): MR pelvis wo con ?? Accession Number(s): [id number] ? cc: Alona Hamilton MD ? EXAMINATION: MR PELVIS WITHOUT IV CONTRAST ? HISTORY: Bilateral hypodense adnexal lesions. 1.5 cm enhancing mural ?? nodule in the l. ? TECHNIQUE: ??Coronal and sagittal T2, and axial T1, fat-suppressed T1, ?? and fat-suppressed T2-weighted MR images of the pelvis were obtained. ?? The patient refused intravenous contrast administration. ? COMPARISON: Correlation is made with a CT of the pelvis dated 05/25/2024. ? FINDINGS: ? There are multiple nabothian cysts in the cervix measuring up to 8 mm ?? in size. An IUD is noted in the endometrial cavity. The junctional zone ?? is not thickened. No fibroids are identified. ? The right ovary measures 5.2 x 3.0 x 3.4 cm and demonstrates multiple ?? small peripherally located follicles. The left ovary measures 4.3 x 4.2 ?? x 2.2 cm and demonstrates multiple small peripherally located follicles. ? No free fluid is seen in the pelvis. There is no pelvic ?? lymphadenopathy. The urinary bladder is unremarkable. The visualized ?? bones demonstrate normal signal intensity. ? MR/MR pelvis wo con ?? IMPRESSION: ? Enlarged bilateral ovaries demonstrating small peripherally located ?? follicles. Findings are suggestive of polycystic ovarian disease. ?? Clinical correlation is recommended. ? Electronically signed by: ??Edgar Quick MD ??09/26/2024 12:29 PM EST ?? RP ? Dictated By: ?Edgar Quick MD ? Signed By: ?<Electronically signed by Edgar Quick MD in OV> ?09/26/24 1229 ? DD/ 1738 ? TD/TT: 08/26/24 1753 ? Flight Inspector: ? Procedure Note Donjanetter, Image - 09/26/2024 [place] [address] Magnetic Resonance Report Signed Patient: Chasidy Bashir [facility]#: [id number] 4 : 1980Acct:[id number] Age/Sex: 44 / FADM Date: 08/26/24 Loc: HO.MRI Attending Dr: Alona Hamilton MD Ordering Physician: Alona Hamilton MD Date of Service: 08/26/24 Procedure(s): MR pelvis wo con Accession Number(s): [id number] cc: Alona Hamilton MD EXAMINATION: MR PELVIS WITHOUT IV CONTRAST HISTORY: Bilateral hypodense adnexal lesions. 1.5 cm enhancing mural nodule in the l. TECHNIQUE: Coronal and sagittal T2, and axial T1, fat-suppressed T1, and fat-suppressed T2-weighted MR images of the pelvis were obtained. The patient refused intravenous contrast administration. COMPARISON: Correlation is made with a CT of the pelvis dated 05/25/2024. FINDINGS: There are multiple nabothian cysts in the cervix measuring up to 8 mm in size. An IUD is noted in the endometrial cavity. The junctional zone is not thickened. No fibroids are identified. The right ovary measures 5.2 x 3.0 x 3.4 cm and demonstrates multiple small peripherally located follicles. The left ovary measures 4.3 x 4.2 x 2.2 cm and demonstrates multiple small peripherally located follicles. No free fluid is seen in the pelvis. There is no pelvic lymphadenopathy. The urinary bladder is unremarkable. The visualized bones demonstrate normal signal intensity. MR/MR pelvis wo con IMPRESSION: Enlarged bilateral ovaries demonstrating small peripherally located follicles. Findings are suggestive of polycystic ovarian disease. Clinical correlation is recommended. Electronically signed by: Edgar Quick MD 09/26/2024 12:29 PM EST Dictated By: Edgar Quick MD Signed By: <Electronically signed by Edgar Quick MD in OV> 09/26/24 1229 DD/ 1738 TD/TT: 08/26/24 1758 Flight Inspector: Alona Hamilton MD IMG MRI PROCEDURES Final R esult * (ABNORMAL) Albumin, Random Urine W/Creatinine (07/03/2024 2:20 PM EDT) Creatinine, Urine 230.43 mg/dL [facility] Microalbumin Urine 84.0 mg/L H [facility] Microalbum Creatinine Ratio Ur 36.4(H) <30 ug/mg cr [facility] Comment:Albumin/Creatinine R atio Reference Ranges: Normal: < 30 ug/mg creatinine Microalbuminuria: 30 - 300 ug/mg creatinineClinical Albuminuria: > 300 ug/mg creatinine Urine 07/03/2024 2:20 PM EDT 07/03/2024 4:38 PM EDT Alona Hamilton MD LAB URINE ORDERABLES Final Result [facility] [address] [place] [phone] * Lipid Panel, Standard (07/03/2024 2:20 PM EDT) Triglycerides 117 <150 mg/dL [facility] Comment:Desirable Triglyceri de: less than 150 mg/dLBorderline High Triglyceride 150-199 mg/dLHigh Triglyceride: 200-499 mg/dLVery High Triglyceride: greater than or equal to 5OO mg/dL Cholesterol 143 <200 mg/dL [facility] Comment:Desirable Cholestero l: less than 200 mg/dLBorderline High Cholesterol: 200-239 mg/dLHigh Cholesterol: greater than 239 mg/dL LDL Cholesterol Calculated 70 <100 mg/dL [facility] Comment:Desirable LDL: less than 100 mg/dLNear Optimal/Above Optimal LDL: 110- 129 mg/dLBorderline High LDL: 130-159 mg/dLHigh LDL: 160-189 mg/dLVery High LDL: greater than or equal to 190 mg/dL HDL Cholesterol 50 >40 mg/dL [facility] Comment:Desirable HDL: great er than 40 mg/dL Note: This HDL assay may give artificially low results in patients with liver disease. Blood Venous blood specimen / Unknown 07/03/2024 2:20 PM EDT 07/03/2024 4:42 PM EDT Alona Hamilton MD LAB BLOOD ORDERABLES Final Result [facility] [address] [place] [phone] * Hepatitis C Antibody (12/01/2021 10:42 AM EDT) Hepatitis C Antibody Nonreactive Blood 12/01/2021 10:4 2 AM EDT [facility] Provider POINT OF CARE TEST ENTER/ EDIT ORDERABLES Final Result * HIV AB/AG (12/01/2021 12:00 AM EDT) HIV AB/AG Nonreactive Nonreactive [facility] Comment: HIV-1 p24 Ag and/or HIV-1/HIV-2 Ab not detected. ?? A test result that is nonreactive does not exclude the possibility of exposure to or infection with HIV-1 and/or HIV-2. Nonreactive results in this assay for individuals with prior exposure to HIV-1 and/or HIV-2 may be due to antigen and antibody levels that are below the limit of detection of this assay. ?? [employer] HIV Ag/Ab Combo assay result and supplemental assay results should be interpreted in conjunction with the patient's clinical presentation, history and other laboratory results. ??If the results are inconsistent with clinical evidence, additional testing is suggested to confirm the result. 12/01/2021 Alona Hamilton MD HISTORICAL/NON ORDERABLE L ABS Final Result [facility] [address] * HPV High Risk PCR (06/10/2021 12:00 AM EDT) Swab Cervical swab / Unknown Historical Provider LAB MICROBIOLOGY - GENERA L ORDERABLES Final Result Performing Organization Address [facility] [address] [facility] Co de Phone Number IMAGING * Mammography (06/10/2021) HM Mammogram performed Anatomical Region Laterality Modality Other Historical Provider HEALTH MAINTENANCE Final Result * Pap Smear (05/03/2019 12:00 AM EDT) Swab Historical Provider LAB CYTOLOGY ORDERABLES F inal Result Performing Organization Address [facility] [address]/[facility] Co de Phone Number IMAGING from Last 3 Months or Most Recently Relevant to Health Maintenance Insurance [facility] C[facility] HSN [facility] STAND ADULT Advance Directives Documents on File Type Date Recorded Patient Network Support Technician Expl anation Advance Directives and Living Will 01/25/2024 Health Care Proxy 01/25/24 Care Teams [employer] Officer Relationship Specialty Start Date End Date Stewart, MD Alona [address] [place] [phone] PCP - General Family Medicine 04/09/19 Amada Lamb, MichaelD [address] [place] [phone] Pharmacist Internal Medicine 08/31/22 Dr. Edgar Jalloh [facility] Neurosurgery Neurosurgery 09/19/24 Demian BABB [facility] Orthopaedic Surgery 09/25/24 HOLLEY Vences [facility] Spine 11/14/24 [facility] Endocrinology Endocrinology 11/14/24
== END 2024-11-15 15:25 | disposition home or self-care (01) ==
LOC: HO.MAMMO 15:24
PROVIDERS: PCP Family Medicine; Visit Provider Family Medicine
DX: Z12.31 Encounter for screening mammogram for malignant neoplasm of breast (principal)
CPT/HCPCS: 77063; 77067

== ENCOUNTER → 2024-11-15 15:30 | Outpatient (BNV) | payer MEDICAID, SELFPAY | PROVIDERS: PCP Family Medicine; Visit Provider Internal Medicine | DX: Z12.31 Encounter for screening mammogram for malignant neoplasm of breast (principal) | CPT/HCPCS: 77063; 77067 ==

== ENCOUNTER → 2025-03-05 08:00 | Outpatient (REF) | payer MEDICAID, SELFPAY ==
--- OUTSIDE RECORDS SUMMARY | 2025-03-05 08:05 | XMS_ITS | Encounter Summary ---
Author Organization [employer] Address [address] [facility] [place] [address] Care Team Providers Care Account Specialist Name Role Phone Alona Hamilton MD Primary Care Provider +- [phone] Amada Lamb PharmD Unavailable [phone] Reason for Visit * Reason Comments Med Refill Encounter Details Date Type Department Care Team ([facility] st Contact Info) Description 01/29/2025 Refill [facility] [address] [place], [place] [phone] Alona Hamilton MD [address] [place], [place] [phone] Candidiasis Social History Tobacco Use Types Packs/Day Years [...] as of this encounter Plan of Treatment Upcoming Encounters Date Type Department Care Team (Late st Contact Info) Description 05/22/2025 3:15 PM EDT Office Visit [facility] [address] [place] [address] Alona Hamilton MD [address] [place] [address] documented as of this encounter Goals Goal Patient Goal Type Associated Problems Recent Progress Patient-Stated? Author Blood Pressure < 140/90 Blood Pressure 134/96(2024 3:11 PM EDT) No Piers-Gambl e, Amada, PharmD Hemoglobin A1c < 7 Result Component 8.8( 4:10 PM EST) No Piers-Gambl e, Amada, PharmD documented as of this encounter Visit Diagnoses Diagnosis Candidiasis documented in this encounter Additional Health Concerns Assessment Noted Time PHQ-9 Depression Total Score: 3 07/03/20 24 2:06 PM EDT documented as of this encounter Care Teams Account Specialist Relationship Specialty Start Date End Date Alona Hamilton MD [address] [place] [address] PCP - General Family Medicine 04/09/19 Amada Lamb, MichaelD [address] [place] [phone] Pharmacist Internal Medicine 08/31/22 Dr. Edgar Jalloh [facility] Neurosurgery Neurosurgery 09/19/24 Demian BABB [facility] Orthopaedic Surgery 09/25/24 HOLLEY Vences [facility] Sport and Spine 11/14/24 Alona Coyle, Pharm D [facility] Endocrinology [address] [place] [phone] Endocrinology 11/14/24 documented as of this encounter
== END ==
LOC: HO.NUCMED 08:00
PROVIDERS: PCP Family Medicine; Visit Provider Family Medicine
DX: Z13.89 Encounter for screening for other disorder (principal)

== ENCOUNTER → 2025-03-06 08:10 | Outpatient (REF) | payer MEDICAID, SELFPAY ==
--- NOTE | ~2025-03-06 | NM_ITS ---
EXAMINATION: IN RADIONUCLIDE SOLID FOOD GASTRIC EMPTYING 4-HOUR STUDY CLINICAL INFORMATION: Diabetes COMPARISON: None TECHNIQUE: A standard meal consisting of 4 oz of egg whites tagged with 1.0 microcuries Tc-99m Sulfur Colloid, 8 oz water and 2 slices of toast with jelly was administered orally to the patient. Images were obtained using a dual head gamma camera in the anterior and posterior projections over of the stomach immediately post ingestion and at hourly intervals up to 4 hours post ingestion. The anterior and posterior counts at each time interval were averaged using the geometric mean and expressed as percentage of the immediate post ingestion counts. FINDINGS: There is good visualization of activity in the stomach immediately post ingestion. As the study progresses, there is good clearance of activity from the stomach and visualization of progressively increasing small bowel activity. By the end of the study, there is almost no retention noted in the stomach. Retention in the stomach at each time interval was: 1 hour and 99% (normal 37%-90%) 2 hours 86% (normal 30%-60%) 3 hours 78% 4 hours 68% (normal 0%-10%) IN/IN gastric emptying study IMPRESSION: Gastroparesis: There is very severely delayed gastric emptying. For solid meal, rapid gastric emptying is less than 30% at 60 minutes. Delayed gastric emptying criteria is more than 60% remaining at 120 minutes or more than 10% at 240 minutes. The 4-hour value is the best discriminator of a normal or abnormal result). Gastric emptying study grading per JNMT Consensus Recommendations in 2008 (https://tech.snmjournals.org/content/36/1/44) Grade 1 (mild retention): 11-20% at 4h Grade 2 (moderate retention): 21-35% at 4h Grade 3 (severe retention): 36-50% at 4h Grade 4 (very severe retention): >50% retention at 4h Electronically signed by: Quincy Slaughter MD 03/06/2025 01:58 PM EDT
== END ==
LOC: HO.NUCMED 08:10
PROVIDERS: PCP Family Medicine; Visit Provider Family Medicine
DX: R11.0 Nausea (principal); R10.30 Lower abdominal pain, unspecified
CPT/HCPCS: 78264; A9541

== ENCOUNTER → 2025-03-06 08:11 | Outpatient (BNV) | payer MEDICAID, SELFPAY | PROVIDERS: PCP Family Medicine; Visit Provider Radiology Diagnostic Radiology | DX: K31.84 Gastroparesis (principal) | CPT/HCPCS: 78264 ==

== ENCOUNTER 2025-03-19 10:28 | Outpatient (REF) | payer MEDICAID, SELFPAY ==
--- NOTE | 2025-03-19 10:31 | EMG_ITS ---
Bilateral median and ulnar motor and sensory studies were performed. Bilateral radial sensory studies were performed and needle examination was performed. IMPRESSION: 1. Gtna-[id number]-yaceevsu bilateral median neuropathy across carpal tunnel. 2. Mild bilateral ulnar neuropathy across cubital tunnel. Please see the attached neurophysiology data report MD FARZAD Martin/MARSHA / [id number] MTDD
--- OUTSIDE RECORDS SUMMARY | 2025-03-19 11:22 | XMS_ITS | Encounter Summary ---
Author Organization [employer] Address [address] [place] [address] 7[address] [place] [address] Care Team Providers Care Tobacco Sample Puller Name Role Phone Alona Hamilton MD Primary Care Provider +- [phone] Amada Lamb PharmD Unavailable [phone] Luciana Drummond Unavailable Unavailable Reason for Visit * Reason Comments Med Refill Encounter Details Date Type Department Care Team (Late st Contact Info) Description 01/29/2025 Refill [facility] MEDICINE [address] [place], [place] [phone] Alona Hamilton MD [address] [place], [place] [phone] Candidiasis Social History Tobacco Use Types Packs/Day [...] Description 05/22/2025 3:15 PM EDT Office Visit [facility] [address] [place] [address] Alona Hamilton MD [address] [place] [phone] documented as of this encounter Goals Goal Patient Goal Type Associated Problems Recent Progress Patient-Stated? Author Blood Pressure < 140/90 Blood Pressure 134/96(2024 3:11 PM EDT) No Piers-Gambl e, Amada, PharmD Hemoglobin A1c < 7 Result Component 8(03/01/2025 12:00 AM EDT) No Piers-Gambl e, Amada, PharmD documented as of this encounter Visit Diagnoses Diagnosis Candidiasis documented in this encounter Additional Health Concerns Assessment Noted Time PHQ-9 Depression Total Score: 3 07/03/20 24 2:06 PM EDT documented as of this encounter Care Teams Tobacco Sample Puller Relationship Specialty Start Date End Date Alona Hamilton MD [address] [place] [address] PCP - General Family Medicine 04/09/19 Amada Lamb, MichaelD [address] [place] [phone] Pharmacist Internal Medicine 08/31/22 Luciana Drummond [address] [place] [phone] Ophthalmology 03/13/25 Dr. Edgar Jalloh [facility] Neurosurgery Neurosurgery 09/19/24 Demian BABB [facility] Orthopaedic Surgery 09/25/24 HOLLEY Vences [facility] Sport and Spine 11/14/24 Alona Coyle, Michael D [facility] Endocrinology [address] [place] [address] Endocrinology 11/14/24 documented as of this encounter
--- OUTSIDE RECORDS SUMMARY | 2025-03-19 11:22 | XMS_ITS | Clinical Summary ---
Author Organization [facility] Address [address] [place] [address] Care Team Providers Care Patient Services Rep Name Role Phone Unavailable Primary Care Provider Unavailabl e Allergies No known active allergies Social History Tobacco Use Types Packs/Day Years Used Date Smoking Tobacco: Never Assessed Comments Unknown Sex and Gender Information Value Date Recorded Sex Assigned at Not on file Legal Sex Female 11:22 AM EDT Gender Identity Not on file Sexual Orientation Not on file Last Filed Vital Signs Vital Sign Reading Time Taken Comments Blood Pressure 114/64 07/07/2017 3:07 PM EDT Pulse 80 07/07/2017 3:07 PM EDT Temperature 36.4 C (97.6 F) 07/07/2017 11:29 AM EDT Respiratory Rate 18 07/07/2017 3:07 PM EDT Oxygen Saturation 98% 07/07/2017 3:07 PM EDT Inhaled Oxygen Concentration - - Weight - - Height - - Body Mass Index - - Plan of Treatment Health Maintenance Due Date Last Done Comments Hepatitis C Virus Screening 1981 HIV Screening 1994 DTaP/Tdap/Td Vaccines (1 - Tdap) 01/18/2000 Hepatitis B Vaccines (1 of 3 - 19+ 3-dose series) 01/18/2000 Pap Smear (Ages 21-65) 2002 Mammogram 2021 COVID-19 Vaccine ( - 2023-2 5 season) 2024 Influenza Vaccine 04/12/2025 HPV Vaccines Aged Out No longer eligi ble based on patient's age to complete this topic Pneumococcal Vaccine: Pediat eula (0-5 Years) and At-Risk Patients (6 to 49 Years) Aged Out No longer eligible b ased on patient's age to complete this topic Insurance [employer] HMO/POS [facility]
== END 2025-03-19 10:29 | disposition home or self-care (01) ==
LOC: HO.NEURO 10:28
PROVIDERS: PCP Family Medicine; Visit Provider Family Medicine
DX: R20.0 Anesthesia of skin (principal); G56.13 Other lesions of median nerve, bilateral upper limbs; G56.23 Lesion of ulnar nerve, bilateral upper limbs
CPT/HCPCS: 95886; 95911

== ENCOUNTER → 2025-03-19 10:31 | Outpatient (BNV) | payer MEDICAID, SELFPAY | PROVIDERS: PCP Family Medicine; Visit Provider Psychiatry & Neurology Neurology | DX: G56.03 Carpal tunnel syndrome, bilateral upper limbs (principal) | CPT/HCPCS: 95886; 95911 ==

== ENCOUNTER 2025-08-14 11:38 | Outpatient (REF) | payer MEDICAID, SELFPAY ==
--- NOTE | ~2025-08-14 | XR_ITS ---
EXAMINATION: XR LUMBAR SPINE 4 OR MORE VIEWS CLINICAL INFORMATION: 45 year old female with lower back pain x3 days COMPARISON: CT of abdomen/pelvis on May 25, 2024 TECHNIQUE: AP, lateral, L5-S1, and both oblique views of the lumbosacral spine. FINDINGS: Lumbar lordosis is maintained. No subluxation. No compression fracture. Small marginal osteophytes at few levels. Disc space narrowing at L5-S1. Minimal facet arthropathy at L5-S1. Bilateral sacroiliac joints are intact. Intrauterine device projects over the pelvis. XR/XR lumbar spine 4V min IMPRESSION: Minimal degenerative changes. Electronically signed by: Belle Norton MD 08/14/2025 01:52 PM [facility]
--- OUTSIDE RECORDS SUMMARY | 2025-08-14 10:30 | XMS_ITS | Encounter Summary ---
Author Organization [employer] Address [address] [place] [address] 7 [place] [address] Care Team Providers Care Bed Operator Name Role Phone Alona Hamilton MD Primary Care Provider [phone]- [phone] Amada Lamb PharmD Unavailable [phone]- [phone] Luciana Drummond Unavailable Unavailable Sekou Patterson Unavailable [phone] Yelena Bautista Unavailable Reason for Referral * Consultation (Routine) - Closed Specialty Diagnoses / Procedures Referred By Contlizzy t Referred To Contact Physical Therapy Diagnoses Acute bilateral low back pain without sciatica Desmond Regalado NP [address] [place] [address] Phone: tel: fax: Physical Therapy, [facility] [address] [facility] [address] Ward [place] Phone: tel: fax: Referral ID Status Reason Start Date Expiration Date V isits Requested Visits Authorized [id number] Closed Specialty Services Required 08/14/2025 08/14/2026 20 20 Reason for Visit * Reason Comments back pain Encounter Details Date Type Department Care Team ([facility] st Contact Info) Description 08/14/2025 10:30 AM EST Office Visit [facility] MEDICINE [address] [place], [place] [phone] Desmond Regalado NP [address] [place] [address] Acute bilateral low back pain without sciatica (Primary Dx); Essential hypertension Social History Tobacco Use Types Packs/Day Years Used Date Smoking Tobacco: Never Passive Smoke Exposure: Never Smokeless Tobacco: Never Alcohol Use Standard Drinks/Week Comments Never 0 (1 standard drink = 0.6 oz pur e alcohol) Alcohol Answer Date Recorded How often do you have a drink containing alcohol ? 3 08/14/2025 How many drinks containing a lcohol do you have on a typical day when you are drinking? 1 08/14/2025 How often do you have six or more drinks on one occasion? 1 08/14/2025 Depression Answer Date Recorded Patient Health Questionnaire-9 Score 9 05/22/2025 Patient Health Questionnaire-9 Score 9 05/22/2025 Last PHQ-9: Questionnaire Data Not on file 0 05/22/2025 Housing Stability Answer Date Recorded What is [...] Date Recorded Patient Health Questionnaire-2 Score 1 05/22/2025 Internet Access Answer Date Recorded Internet Access Q1 Yes 05/22/2025 Internet Access Q2 I do not want or need it 05/13 Comments Unknown Sex and Gender Information Value Date Recorded Sex Assigned at Female 07/12/2022 10:34 AM EDT Legal Sex Female 10:34 AM EDT Gender Identity Female 07/12/2022 10:34 AM EDT Sexual Orientation Lesbian or Hernandez 07/12/2022 10 :34 AM EDT documented as of this encounter Last Filed Vital Signs Vital Sign Reading Time Taken Comments Blood Pressure 159/100 08/14/2025 10:57 AM EST Pulse 102 08/14/2025 10:32 AM EST Temperature 35.8 C (96.5 F) 08/14/2025 10:32 AM EST Respiratory Rate 20 08/14/2025 10:3 2 AM EST Oxygen Saturation 99% 08/14/2025 10: 32 AM EST Inhaled Oxygen Concentration - - Weight 91.1 kg (200 lb 12.8 oz) 025 10:32 AM EST Height 157.5 cm (5' 2 ) 08/14/2025 10:3 2 AM EST Body Mass Index 36.73 08/14/2025 10:32 AM EST documented in this encounter Progress Notes * Desmond Regalado NP - 08/14/2025 10:30 AM EST Chasidy Bashir is a 45 y.o. female who presents for a acute visit. HPI Lower back pain - Recent exacerbation after stepping off a curb about 3 days ago - Pain- 9.5/10, intermittent, sharp and throbbing pain, radiating to the left side of the lower back - Prescribed Oxycodone- previously, which was effective in alleviating her pain; however, she does not have any doses left - Alleviating factors-Tylenol and Oxycodone, heat therapy - Exacerbating factors- walking, standing and sitting for long duration of time - No loss of sensation, pain radiating to bilateral lower extremities, numbness or tingling, Weakness, limited motion or popping, erythema, trauma, bowel or bladder incontinence, fever, weight loss, malaise, or decreased energy - Prior history of back pain- chronic back pain Hypertension - Elevated blood pressure during the visit despite re-check - Denies any headaches, chest pain, shortness of breath, dizziness, or changes in vision - Reports taking the Amlodipine 10 mg and Metoprolol 100 mg daily - No blood pressure monitoring at home reported. Problem List[1] Allergies[2] Review of Systems Constitutional: Positive for activity change and diaphoresis. Negative for fatigue, fever and unexpected weight change. Cardiovascular: Negative for chest pain and palpitations. Musculoskeletal: Positive for back pain and myalgias. Negative for arthralgias, gait problem, neck pain and neck stiffness. Skin: Negative for color change and pallor. Vitals: 08/14/25 1032 08/14/25 1057 BP: (!) 170/110 (!) 159/100 BP Location: Right arm Right arm Patient Position: Sitting BP Cuff Size: Large adult long Pulse: 102 Resp: 20 Temp: 96.5 ??F (35.8 ??C) TempSrc: Oral SpO2: 99% Weight: 200 lb 12.8 oz (91.1 kg) Height: 5' 2 (1.575 m) Physical Exam Constitutional: General: She is awake. She is in acute distress. Appearance: Normal appearance. She is not ill-appearing or diaphoretic. Musculoskeletal: Cervical back: Normal. No swelling, edema, erythema, signs of trauma, rigidity, tenderness or crepitus. No pain with movement. Normal range of motion. Thoracic back: No swelling, edema, deformity, signs of trauma, spasms, tenderness or bony tenderness. Normal range of motion. Lumbar back: Tenderness present. No swelling, edema, deformity or signs of trauma. Decreased range of motion. Positive right straight leg raise test and positive left straight leg raise test. Neurological: Mental Status: She is alert and oriented to person, place, and time. Deep Tendon Reflexes: Reflex Scores: Patellar reflexes are 3+ on the right side and 3+ on the left side. Achilles reflexes are 3+ on the right side and 3+ on the left side. Psychiatric: Behavior: Behavior is cooperative. Assessment & Plan Acute bilateral low back pain without sciatica Exacerbation to her chronic back pain Will order prednisone taper 40 mg for 5 days; she can tale Meloxicam 15mg for 2 weeks after she finished the prednisone taper Will order X-ray and refer to PT for therapy. Will refer to Orthro depending on the X-ray results. Offered to return to work on 07/23/25; however, declined She is requesting - ergonomic chairs with adjustable lumbar support, a high back for neck and shoulder support, and a firm seat- she can have a letter. Orders: Referral to Physical Therapy; Future meloxicam (Mobic) 15 MG tablet; Take 1 tablet (15 mg) by mouth Once per day for 14 doses. XR Lumbar Spine Complete 4+ Views; Future predniSONE (Deltasone) 20 MG tablet; Take 1 tablet (20 mg) by mouth 2 times daily for 5 days. Essential hypertension Continue with the current regimen of Amlodipine and Metoprolol Check BP's at home at least 2-3 times per week Report BP to the nurses- they winifred contact the patient in 1-2 weeks Orders: Blood Pressure kit; 1 kit 2 times daily. Current Medications[3] Follow up if symptoms worsen or fail to improve. [facility] LEAD POURER Attestation LEAD POURER Resident Attestation: Patient was seen and evaluated by Desmond KELLER, in collaboration with Colleen Boss MD who has reviewed my assessment and plan. I, Colleen Boss MD , have reviewed the resident's note and agree with the assessment &plan of care as documented above. This note was drafted using Ambient (AI) technology. 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 Breast cancer screening by mammogram Hyperpigmented skin lesion Transaminitis Folliculitis Bilateral hand pain Type 2 diabetes mellitus with diabetic microalbuminuria, with long-term current use of insulin (HCC) Anterior cervical lymphadenopathy Alternating constipation and diarrhea Bilateral hand numbness Gastroparesis [2] Allergies Allergen Reactions Lisinopril Cough [3] Current Outpatient Medications: albuterol (Ventolin HFA) 108 (90 Base) MCG/ACT inhaler, Inhale 2 puffs every 4 (four) hours if needed for wheezing or shortness of breath., Disp: 18 g, Rfl: 1 Alcohol Swabs (Alcohol Prep) 70 % pads, USE DIRECTED FOUR TIMES DAILY, Disp: 100 each, Rfl: 11 amLODIPine (Norvasc) 10 MG tablet, TAKE 1 TABLET BY MOUTH EVERY MORNING, Disp: 90 tablet, Rfl: 1 Ascorbic Acid (vitamin C) 250 MG tablet, TAKE 1 TABLET BY MOUTH IN THE MORNING ON TUESDAY, TUESDAY, AND TUESDAY, Disp: 45 tablet, Rfl: 3 BD Pen Needle Marissa Ultrafine 32G X 4 MM misc, USE DIRECTED TWICE DAILY, Disp: 100 each, Rfl: 3 chlorthalidone (Hygroton) 25 MG tablet, Take 1 tablet (25 mg) by mouth Once per day., Disp: 90 tablet, Rfl: 3 clindamycin (Clindagel) 1 % gel, APPLY TO TRUNK EVERY DAY AFTER BENZOYL PEROXIDE WASH], Disp: , Rfl: Continuous Glucose Manager Asset (FreeStyle Marcello 3 Hinckley) device, Freestyle marcello 3 reader, See Instructions, # 1 each, Refills 0, Tot. Refills 0, Maintenance, use to monitor bld glocuse levels E11.9, 06/28/24 9:26:00 AM EDT, Supply, 157.5, cm, 03/20/24 14:52:00 EDT, Height, Disp: , Rfl: Continuous Glucose Sensor (FreeStyle Marcello 3 Sensor) misc, Freestyle Marcello 3 Sensor, See Instructions, # 6 each, Refills 4, Tot. Refills 4, Maintenance, Use to continuously monitor blood sugar. Change every 14 days. E11.9, 12/30/23 4:11:00 PM EDT, Replacing Freestyle Marcello 2. Will use phone for reader, Supply, 157.5, cm, 12/30/23 14:54:00 EDT, Height, Disp: , Rfl: Dulaglutide (Trulicity) 3 MG/0.5ML solution auto-injector, Inject 3 mg under the skin 1 (one) time per week. Dose increased , Disp: 2 mL, Rfl: 3 escitalopram (Lexapro) 20 MG tablet, Take 1 tablet (20 mg) by mouth in the morning., Disp: 90 tablet, Rfl: 3 Pema-edson 8.6 MG tablet, TAKE 2 TABLETS BY MOUTH EVERY DAY AT BEDTIME NEEDED FOR CONSTIPATION, Disp: 180 tablet, Rfl: 1 glucagon (Baqsimi Two Pack) 3 MG/DOSE nasal powder, For low blood sugar emergency; administer 3mg via one device into one nostril; if no response after 15 minutes to repeat and additional 3mg from other device may be administered., Disp: 2 each, Rfl: 11 glucose 4 g chewable tablet, USE DIRECTED FOR LOW BLOOD SUGAR, Disp: 20 tablet, Rfl: 11 glucose blood (FreeStyle Precision Dwayne Test) test strip, TEST BLOOD SUGAR 2 OR 3 TIMES DAILY, Disp:100 each, Rfl: 11 insulin glargine (Toujeo Max SoloStar) 300 UNIT/ML injection, INJECT 60 UNITS SUBCUTANEOUSLY ONCE DAILY, Disp: 6 mL, Rfl: 3 insulin lispro (HumaLOG) 100 UNIT/ML injection, INJECT SUBCUTANEOUSLY BEFORE MEALS DIRECTED BY SLIDING SCALE. (BG<150mg/dL= 0 UNITS, 151-199= 6 UNITS, 200-249= 8 UNITS, 250-299= 10 UNITS, 300-349= 12 UNITS, 350-399= 14 UNITS, BG>400= 16 UNITS AND CALL THE OFFICE), Disp: 15 mL, Rfl: 3 lamoTRIgine (LaMICtal) 150 MG tablet, Take 2 tablets (300 mg) by mouth Once per day., Disp: 180 tablet, Rfl: 3 loratadine (Claritin) 10 MG tablet, Take 1 tablet (10 mg) by mouth Once per day., Disp: 30 tablet, Rfl: 11 meloxicam (Mobic) 15 MG tablet, Take 1 tablet (15 mg) by mouth Once per day for 14 doses., Disp: 14tablet, Rfl: 0 metFORMIN (Glucophage) 250 MG split tablet, Take 1,000 mg by mouth., Disp: , Rfl: metoclopramide (Reglan) 5 MG tablet, Take 2 tablets (10 mg) by mouth 3 times daily., Disp: 90 tablet, Rfl: 2 metoprolol succinate XL (Toprol XL) 100 MG 24 hr tablet, Disregard previous change. Pt will continue 1 and 1/2 tab po daily., Disp: 135 tablet, Rfl: 3 nystatin (Mycostatin) 489066 UNIT/GM powder, Use on feet bid, Disp: 60 g, Rfl: 3 QUEtiapine (SEROquel) 25 MG tablet, Take 1 tablet (25 mg) by mouth if needed each day (anxiety). Prescribed by behavior health Nalini Pa, Disp: 90 tablet, Rfl: 3 rosuvastatin (Crestor) 20 MG tablet, TAKE 1 TABLET BY MOUTH EVERY MORNING, Disp: 90 tablet, Rfl: 3 triamcinolone (Nasacort) 55 MCG/ACT nasal inhaler, Administer 2 sprays into each nostril Once per day., Disp: 16.5 g, Rfl: 11 valsartan (Diovan) 160 MG tablet, TAKE 1 TABLET BY MOUTH EVERY MORNING, Disp: 90 tablet, Rfl: 3 documented in this encounter Miscellaneous Notes * Assessment & Plan Note - Desmond Regalado NP - 08/14/2025 10:30 AM EST Associated Problem(s): Essential hypertension Continue with the current regimen of Amlodipine and Metoprolol Check BP's at home at least 2-3 times per week Report BP to the nurses- they winifred contact the patient in 1-2 weeks Orders: Blood Pressure kit; 1 kit 2 times daily. documented in this encounter Plan of Treatment Scheduled Referrals Name Type Priority Associated Diagnoses Orde r Schedule Referral to Physical Therapy Outpatient Referral Routine Acute bilateral low back pain without sciatica Expected: 08/14/2025 (Approximate), Expires: 08/14/2026 documented as of this encounter Goals Goal Patient Goal Type Associated Problems Recent Progress Patient-Stated? Author Blood Pressure < 140/90 Blood Pressure 159/100(08/14 10:57 AM EST) No Amada Griffith, PharmKurtis Hemoglobin A1c < 7 Result Component 8.6( 3:39 PM EDT) No Amada Griffith PharmD Help patients manage their type 2 diabetes Care Plan Help patients manage their type 2 diabetes No Apoorva Landers MA Weekly blood pressure task Care Plan Weekly blood pressure task No Apoorva Landers MA Help patients manage their type 2 diabetes Care Plan Help patients manage their type 2 diabetes No Apoovra Landers [place] Patient has chronic kidney disease Care Plan Patient has chronic kidney disease No Apoorva Landers [place] Weekly blood pressure task Care Plan Weekly blood pressure task No Apoorva Landers [place] Patient has chronic kidney disease Care Plan Patient has chronic kidney disease No Apoorva Landers [place] Weekly blood pressure task Care Plan Weekly blood pressure task No Desmond Regalado NP Weekly blood pressure task Care Plan Weekly blood pressure task No Desmond Regalado NP Patient has chronic kidney disease Care Plan Patient has chronic kidney disease No Desmond Regalado NP Patient has chronic kidney disease Care Plan Patient has chronic kidney disease No Desmond Regalado NP Weekly blood pressure task Care Plan Weekly blood pressure task No Gudelia Aguiar Weekly blood pressure task Care Plan Weekly blood pressure task No Gudelia Aguiar Patient has chronic kidney disease Care Plan Patient has chronic kidney disease No Gudelia Aguiar Patient has chronic kidney disease Care Plan Patient has chronic kidney disease No Gudelia Aguiar documented as of this encounter Procedures Procedure Name Priority Date/Time Associated Diagnosis Comments XR LUMBAR SPINE COMPLETE 4+ VIEWS Routine 08/14/2025 12:11 PM EST Acute bilateral low back pain without sciatica documented in this encounter Results * XR Lumbar Spine Complete 4+ Views (08/14/2025 12:11 PM EST) Anatomical Region Laterality Modality Spine, L-spine Radiographic Brandee ging 08/14/2025 12:1 1 PM EST Narrative 08/14/2025 1:54 PM EST [address] [address] XRay Report Signed Patient: Chasidy Bashir MR#: [id number] 4 : 1980 Acct:[id number] Age/Sex: 45 / F ADM Date: 08/14/25 Loc: HO.HHCX Attending Dr: Desmond Regalado NP Ordering Physician: Desmond Regalado NP Date of Service: 08/14/25 Procedure(s): XR lumbar spine 4V min Accession Number(s): [id number] cc: Alona Hamilton MD; Desmond Regalado NP Reason for Exam: 45 year old female with lower back pain x3 days EXAMINATION: XR LUMBAR SPINE 4 OR MORE VIEWS CLINICAL INFORMATION: 45 year old female with lower back pain x3 days COMPARISON: CT of abdomen/pelvis on May 25, 2024 TECHNIQUE: AP, lateral, L5-S1, and both oblique views of the lumbosacral spine. FINDINGS: Lumbar lordosis is maintained. No subluxation. No compression fracture. Small marginal osteophytes at few levels. Disc space narrowing at L5-S1. Minimal facet arthropathy at L5-S1. Bilateral sacroiliac joints are intact. Intrauterine device projects over the pelvis. XR/XR lumbar spine 4V min IMPRESSION: Minimal degenerative changes. Electronically signed by: Belle Norton MD 08/14/2025 01:52 PM [facility] [place] Dictated By: Belle Norton MD Signed By: <Electronically signed by Belle Norton MD in OV> 08/14/25 1352 DD/ 1211 TD/TT: 08/14/25 1230 Supervisor [employer]: Procedure Note Donotuseinterpreter, Image - 08/14/[address] [address] XRay Report Signed Patient: Chasidy Bashir [facility]#: [id number] 4 : 1980Acct:[id number] Age/Sex: 45 / FADM Date: 08/14/25 Loc: HO.HHCX Attending Dr: Desmond Regalado NP Ordering Physician: Desmond Regalado NP Date of Service: 08/14/25 Procedure(s): XR lumbar spine 4V min Accession Number(s): [id number] cc: Alona Hamilton MD; Desmond Regalado NP Reason for Exam: 45 year old female with lower back pain x3 days EXAMINATION: XR LUMBAR SPINE 4 OR MORE VIEWS CLINICAL INFORMATION: 45 year old female with lower back pain x3 days COMPARISON: CT of abdomen/pelvis on May 25, 2024 TECHNIQUE: AP, lateral, L5-S1, and both oblique views of the lumbosacral spine. FINDINGS: Lumbar lordosis is maintained. No subluxation. No compression fracture. Small marginal osteophytes at few levels. Disc space narrowing at L5-S1. Minimal facet arthropathy at L5-S1. Bilateral sacroiliac joints are intact. Intrauterine device projects over the pelvis. XR/XR lumbar spine 4V min IMPRESSION: Minimal degenerative changes. Electronically signed by: Belle Norton MD 08/14/2025 01:52 PM EST RP Dictated By: Belle Norton MD Signed By: <Electronically signed by Belle Norton MD in OV> 08/14/25 1352 DD/ 1211 TD/TT: 08/14/25 1230 Supervisor [employer]: us Gerardoelisa Gannonrene LEAD POURER IMG XR PROCEDURES Final Resul t documented in this encounter Visit Diagnoses Diagnosis Acute bilateral low back pain without sciatica- Primary Essential hypertension Unspecified essential hypertension documented in this encounter Additional Health Concerns Active Problems Noted Date Diagnosed Date Help patients manage their type 2 diabetes 08/14 Weekly blood pressure task 08/14/2025 Help patients manage their type 2 diabetes 08/14 Patient has chronic kidney disease 08/14/2025 Weekly blood pressure task 08/14/2025 Patient has chronic kidney disease 08/14/2025 Weekly blood pressure task 08/14/2025 Weekly blood pressure task 08/14/2025 Patient has chronic kidney disease 08/14/2025 Patient has chronic kidney disease 08/14/2025 Weekly blood pressure task 08/14/2025 Weekly blood pressure task 08/14/2025 Patient has chronic kidney disease 08/14/2025 Patient has chronic kidney disease 08/14/2025 Assessment Noted Time PHQ-9 Depression Total Score: 9 05/22/20 25 3:35 PM EDT documented as of this encounter Care Teams Bed Operator Relationship Specialty Start Date End Date Alona Hamilton MD [address] [place] [address] PCP - General Family Medicine 04/09/19 Amada Lamb PharmD [address] [place] [address] Pharmacist Internal Medicine 08/31/22 Luciana Drummond [address] [place] [address] Ophthalmology 03/13/25 Sekou Patterson [address] [phone] Dermatology 04/11/25 Yelena Bautista [address] [place] [phone] Sleep Medicine 06/19/25 Dr. Edgar Jalloh [facility] Neurosurgery Neurosurgery 09/19/24 [facility] Orthopaedic Surgery 09/25/24 HOLLEY Vences [facility] Spine 11/14/24 Michael Mohamud D [facility] Endocrinology [address] [place] [address] Endocrinology 11/14/24 documented as of this encounter
--- OUTSIDE RECORDS SUMMARY | 2025-08-14 14:07 | XMS_ITS | Encounter Summary ---
Author Organization [employer] [facility] Address [address] [place] [address] 7t [place] [address] Care Team Providers Care B2B Sales Manager Name Role Phone Alona Hamilton MD Primary Care Provider [phone]- [phone] Amada Lamb PharmD Unavailable [phone] Luciana Drummond Unavailable Unavailable Sekou Patterson Unavailable [phone] Yelena Bautista Unavailable Encounter Details Date Type Department Care Team (Late st Contact Info) Description 09/26/2022 Abstract [facility] MEDICINE [address] [place], [place] [phone] Alona Hamilton MD [address] [place], [place] [phone] Social History Tobacco Use Types Packs/Day Years [...] Pap Smear (05/03/2019 12:00 AM EDT) Swab us Historical Provider MD LAB CYTOLOGY ORDERABLES F inal Result Performing Organization Address City/[facility]/ZIP Co de Phone Number IMAGING documented in this encounter Visit Diagnoses Not on filedocumented in this encounter Care Teams B2B Sales Manager Relationship Specialty Start Date End Date Alona Hamilton MD [address] [place] [address] PCP - General Family Medicine 04/09/19 Amada Lamb PharmD [address] [place] [address] Pharmacist Internal Medicine 08/31/22 Luciana Drummond [address] [place] [address] Ophthalmology 03/13/25 Sekou Patterson [address] [phone] Dermatology 04/11/25 Yelena Bautista 36[address] [facility] [address] [place] [phone] Sleep Medicine 06/19/25 Dr. Edgar Jalloh [facility] Neurosurgery Neurosurgery 09/19/24 Demian BABB [facility] Orthopaedic Surgery 09/25/24 H[facility]LEY [facility] 11/14/24 Alona Coyle, [facility] Endocrinology [address] [place] [address] Endocrinology 11/14/24 documented as of this encounter
--- OUTSIDE RECORDS SUMMARY | 2025-08-14 14:07 | XMS_ITS | Encounter Summary ---
Author Organization [employer] Address [address] [place] [address] 7t [place] [address] Care Team Providers Care Talent Specialist Name Role Phone Alona Hamilton MD Primary Care Provider +- [phone] Amada Lamb PharmD Unavailable [phone] Luciana Drummond Unavailable Unavailable Sekou Patterson Unavailable [phone] Yelena Bautista Unavailable Reason for Visit * Reason Onset Date Comments Med Refill 11/28/2023 Encounter Details Date Type Department Care Team (Late st Contact Info) Description 11/28/2023 Refill [facility] MEDICINE [address] [place], [place] [phone] Alona Hamilton MD [address] [place], [place] [phone] Type 2 diabetes mellitus with hyperglycemia, with long-term current use of insulin ([facility]) Social History Tobacco Use Types Packs/Day Years [...] the past 12 months, has t he [employer] oil or [employer] threatened to shut off services in your [...] Author Hemoglobin A1c < 7 Result Component 8.6(05/22/2025 3:39 PM EDT) No Amada Lamb, Constantine documented as of this encounter Visit Diagnoses Diagnosis Type 2 diabetes mellitus with hyperglycemia, with long-term current use of insulin (HCC) documented in this encounter Additional Health Concerns Assessment Noted Time PHQ-9 Depression Total Score: 5 01/14/20 23 9:43 AM EDT documented as of this encounter Care Teams Talent Specialist Relationship Specialty Start Date End Date Alona Hamitlon MD [address] [place] [address] PCP - General Family Medicine 04/09/19 Amada Lamb, MichaelD [address] [place] [address] Pharmacist Internal Medicine 08/31/22 Luciana Drummond [address] [place] [address] Ophthalmology 03/13/25 Sekou Patterson 125 [facility] [address] [place] [phone] Dermatology 04/11/25 Yelena Bautista 3640 [facility] [address] [place] [phone] Sleep Medicine 06/19/25 Dr. Edgar Jalloh [facility] Neurosurgery Neurosurgery 09/19/24 Demian BABB [facility] Orthopaedic Surgery 09/25/[address] [facility] 11/14/24 Alona Coyle, Pharm D [facility] Endocrinology [address] [place] [address] Endocrinology 11/14/24 documented as of this encounter
--- OUTSIDE RECORDS SUMMARY | 2025-08-14 14:07 | XMS_ITS | Encounter Summary ---
Author Organization [employer] Address [address] [place] [address] 7t [place] [address] Care Team Providers Care Assistant District Attorney Name Role Phone Alona Hamilton MD Primary Care Provider +1- [phone] Amada Lamb PharmD Unavailable +1- [phone] Luciana Drummond Unavailable Unavailable Sekou Patterson Unavailable +-[phone] Yelena Bautista Unavailable Encounter Details Date Type Department Care Team (Late st Contact Info) Description 09/29/2022 Orders Only [facility] MEDICINE 230 [place], [place] [phone] Alona Hamilton MD 230 [place], [place] [phone] Type 2 diabetes mellitus without complication, with long-term current use of insulin ([facility]) (Primary Dx) Social History Tobacco Use Types [...] complication, with long-term current use of insulin (HCC)- Primary documented in this encounter Care Teams Assistant District Attorney Relationship Specialty Start Date End Date Alona Hamilton MD 230 [place] [address] PCP - General Family Medicine 04/09/19 Amada Lamb PharmD 230 [place] [address] Pharmacist Internal Medicine 08/31/22 Luciana Drummond 180 [place] [address] Ophthalmology 03/13/25 Sekou Patterson [address] [place] [phone] Dermatology 04/11/25 Yelena Bautista [address] [phone] Sleep Medicine 06/19/25 Dr. Edgar Jalloh [facility] Neurosurgery Neurosurgery 09/19/24 Demian B[facility] Orthopaedic Surgery 09/25/24 [place] [facility] Sport and Spine 11/14/24 Alona Coyle, Michael D [facility] Endocrinology 3300 [place] [address] Endocrinology 11/14/24 documented as of this encounter
--- OUTSIDE RECORDS SUMMARY | 2025-08-14 14:07 | XMS_ITS | Encounter Summary ---
Author Organization [employer] Address [address] [place] [address] 7t [place] [address] Care Team Providers Care Resource Management Planner Name Role Phone Alona Hamilton MD Primary Care Provider +- [phone] Amada Lamb PharmD Unavailable +1- [phone] Luciana Drummond Unavailable Unavailable Sekou Patterson Unavailable +-[phone] Yelena Bautista Unavailable Encounter Details Date Type Department Care Team (Late st Contact Info) Description 05/05/2023 Abstract [facility] 230 [place], [place] [phone] Alona Hamilton MD 230 [place], [place] [phone] Social History Tobacco Use Types Packs/Day Years [...] documented as of this encounter Care Teams Resource Management Planner Relationship Specialty Start Date End Date Alona Hamilton MD 230 [place] [address] PCP - General Family Medicine 04/09/19 Amada Lamb, Constantine [address] [place] [address] Pharmacist Internal Medicine 08/31/22 Luciana Drummond 180 [place] [address] Ophthalmology 03/13/25 Sekou Patterson [address] [phone] Dermatology 04/11/25 Yelena Bautista [address] [phone] Sleep Medicine 06/19/25 Dr. Edgar [facility]alloh [facility] Neurosurgery Neurosurgery 09/19/24 [facility] Orthopaedic Surgery 09/25/[address] [facility] Sport and Spine 11/14/24 Michael Mohamud D [facility] Endocrinology 3300 [place] [address] Endocrinology 11/14/24 documented as of this encounter
--- OUTSIDE RECORDS SUMMARY | 2025-08-14 14:07 | XMS_ITS | Encounter Summary ---
Author Organization [employer] Address [address] [place] [address] 7 [place] [address] Care Team Providers Care Grocery Store Associate Name Role Phone Alona Hamilton MD Primary Care Provider +- [phone] Amada Lamb PharmD Unavailable +1- [phone] Luciana Drummond Unavailable Unavailable Sekou Patterson Unavailable +-[phone] Yelena Bautista Unavailable Reason for Visit * Reason Onset Date Comments Med Refill 11/28/2023 Encounter Details Date Type Department Care Team (Late st Contact Info) Description 11/28/2023 Refill [facility] MEDICINE 230 [place], [place] [phone] Colleen Atwood MD 230 [place] [address] Essential hypertension Social History Tobacco Use Types [...] 8.6(05/22/2025 3:39 PM EDT) No Amada Lamb, PharmD documented as of this encounter Visit Diagnoses Diagnosis Essential hypertension Unspecified essential hypertension documented in this encounter Additional Health Concerns Assessment Noted Time PHQ-9 Depression Total Score: 5 01/14/20 23 9:43 AM EDT documented as of this encounter Care Teams Grocery Store Associate Relationship Specialty Start Date End Date Alona Hamilton MD 230 [place] [address] PCP - General Family Medicine 04/09/19 Amada Lamb, PharmD 230 [place] [address] Pharmacist Internal Medicine 08/31/22 Luciana Drummond [address] [place] [address] Ophthalmology 03/13/25 Sekou Patterson [address] [place] [phone] Dermatology 04/11/25 Yelena Bautista [address] [phone] Sleep Medicine 06/19/[address] [facility] Neurosurgery Neurosurgery 09/19/24 [facility] Orthopaedic Surgery 09/25/24 [place] [facility] Sport and Spine 11/14/24 Alona Coyle, Pharm D [facility] Endocrinology 3300 [place] [address] Endocrinology 11/14/24 documented as of this encounter
--- OUTSIDE RECORDS SUMMARY | 2025-08-14 14:07 | XMS_ITS | Encounter Summary ---
Author Organization [employer] [facility] Address [address] [place] [address] 7t [place] [address] Care Team Providers Care Cafeteria Operator Name Role Phone Alona Hamilton MD Primary Care Provider +1- [phone] Amada Lamb PharmD Unavailable +1- [phone] Luciana Drummond Unavailable Unavailable Sekou Patterson Unavailable +-[phone] Yelena Bautista Unavailable Reason for Visit * Reason Comments Med Refill Encounter Details Date Type Department Care Team (Late st Contact Info) Description 12/03/2022 Refill [facility] MEDICINE 230 [place], [place] [phone] Eleanor Lundberg, ANP 230 [place] [address] Social History Tobacco Use Types Packs/Day Years [...] on filedocumented in this encounter Care Teams Cafeteria Operator Relationship Specialty Start Date End Date Alona Hamilton MD 230 [place] [address] PCP - General Family Medicine 04/09/19 Amada Lamb, MichaelD 230 [place] [address] Pharmacist Internal Medicine 08/31/22 Luciana Drummond 180 [place] [address] Ophthalmology 03/13/25 Sekou Patterson [address] [place] [phone] Dermatology 04/11/25 Yelena Bautista [address] [phone] Sleep Medicine 06/19/25 Dr. Edgar Jalloh [facility] Neurosurgery Neurosurgery 09/19/24 Demian [facility] Orthopaedic Surgery 09/25/24 [place] [facility] Sport and Spine 11/14/24 Alona Coyle, Michael D [facility] Endocrinology 3300 [place] [address] Endocrinology 11/14/24 documented as of this encounter
--- OUTSIDE RECORDS SUMMARY | 2025-08-14 14:07 | XMS_ITS | Encounter Summary ---
Author Organization [employer] [facility] Address [address] [place] [address] 7t [place] [address] Care Team Providers Care Channeler Outsole Name Role Phone Alona Hamilton MD Primary Care Provider +1- [phone] Amada Lamb PharmD Unavailable +1- [phone] Luciana Drummond Unavailable Unavailable Sekou Patterson Unavailable +-[phone] Yelena Bautista Unavailable Reason for Visit * Reason Comments Med Refill Encounter Details Date Type Department Care Team (Late st Contact Info) Description 12/05/2022 Refill [facility] MEDICINE 230 [place], [place] [phone] Alona Hamilton MD 230 [place], [place] [phone] Social History Tobacco Use Types Packs/Day Years [...] on filedocumented in this encounter Care Teams Channeler Outsole Relationship Specialty Start Date End Date Alona Hamilton MD 230 [place] [address] PCP - General Family Medicine 04/09/19 Amada Lamb, MichaelD 230 [place] [address] Pharmacist Internal Medicine 08/31/22 Luciana Drummond 180 [place] [address] Ophthalmology 03/13/25 Sekou Patterson [address] [place] [phone] Dermatology 04/11/25 Yelena Bautista [address] [phone] Sleep Medicine 06/19/25 Dr. Edgar Jalloh [facility] Neurosurgery Neurosurgery 09/19/24 Demian [facility] Orthopaedic Surgery 09/25/24 [place] [facility] Sport and Spine 11/14/24 Alona Coyle, Pharm D [facility] Endocrinology 3300 [place] [address] Endocrinology 11/14/24 documented as of this encounter
--- OUTSIDE RECORDS SUMMARY | 2025-08-14 14:07 | XMS_ITS | Encounter Summary ---
Author Organization [employer] Address [address] [place] [address] 7 [place] [address] Care Team Providers Care Rope Maker Name Role Phone Alona Hamilton MD Primary Care Provider +1- [phone] Amada Lamb PharmD Unavailable +1- [phone] Luciana Drummond Unavailable Unavailable Sekou Patterson Unavailable +-[phone] Yelena Bautista Unavailable Encounter Details Date Type Department Care Team (Late st Contact Info) Description 08/17/2022 Abstract [facility] MED & PEDS [address] [place], [place] [phone] Alona Hamilton MD [address] [place] [phone] Social History Tobacco Use Types Packs/Day Years [...] on filedocumented in this encounter Care Teams Rope Maker Relationship Specialty Start Date End Date Alona Hamilton MD 230 [place], [place] [phone] PCP - General Family Medicine 04/09/19 Amada Lamb PharmD 230 [place] [address] Pharmacist Internal Medicine 08/31/22 Luciana Drummond 180 [place] [address] Ophthalmology 03/13/25 Sekou Patterson [address] [phone] Dermatology 04/11/25 Yelena Bautista [address] [phone] Sleep Medicine 06/19/25 Dr. Edgar Jalloh [facility] Neurosurgery Neurosurgery 09/19/24 Demian BABB [facility] Orthopaedic Surgery 09/25/24 [place] [facility] Sport and Spine 11/14/24 Alona Coyle, Michael D [facility] Endocrinology 3300 [place] [address] Endocrinology 11/14/24 documented as of this encounter
--- OUTSIDE RECORDS SUMMARY | 2025-08-14 14:07 | XMS_ITS | Encounter Summary ---
Author Organization [employer] Address [address] [place] [address] 7t [place] [address] Care Team Providers Care Supervisor Public Message Service Name Role Phone Alona Hamilton MD Primary Care Provider +- [phone] Amada Lamb PharmD Unavailable +1- [phone] Luciana Drummond Unavailable Unavailable Sekou Patterson Unavailable +-[phone] Yelena Bautista Unavailable Reason for Visit * Reason Comments Med Refill Encounter Details Date Type Department Care Team (Late st Contact Info) Description 12/28/2024 Refill [facility] MEDICINE 230 [place], [place] [phone] Alona Hamilton MD 230 [place], [place] [phone] Social History Tobacco Use Types Packs/Day Years [...] the past 12 months, has t he [employer], gas, oil or water [employer] threatened to shut off services in your [...] Blood Pressure 159/100(08/14 10:57 AM EST) No Subhashs-Aditya kim, Amada, PharmD Hemoglobin A1c < 7 Result Component 8.6( 3:39 PM EDT) No SubhashsMargie Stantonsa, PharmD documented as of this encounter Visit Diagnoses Not on filedocumented in this encounter Additional Health Concerns Assessment Noted Time PHQ-9 Depression Total Score: 3 07/03/20 24 2:06 PM EDT documented as of this encounter Care Teams Supervisor Public Message Service Relationship Specialty Start Date End Date Alona Hamilton MD 230 [place] [address] PCP - General Family Medicine 04/09/19 Amada Lamb, PharmD 230 [place] [address] Pharmacist Internal Medicine 08/31/22 Luciana Drummond 180 [place] [address] Ophthalmology 03/13/25 Sekou Patterson [address] [phone] Dermatology 04/11/25 Yelena Bautista [address] [phone] Sleep Medicine 06/19/25 Dr. Edgar Jalloh [facility] Neurosurgery Neurosurgery 09/19/24 Demian BABB [facility] Orthopaedic Surgery 09/25/24 [place] Vences [facility] Sport and Spine 11/14/24 Michael Mohamud D [facility] Endocrinology 3300 [place] [address] Endocrinology 11/14/24 documented as of this encounter
--- OUTSIDE RECORDS SUMMARY | 2025-08-14 14:07 | XMS_ITS | Encounter Summary ---
Author Organization [employer] Address [address] [place] [address] 7t [place] [address] Care Team Providers Care Referral Clerk Name Role Phone Alona Hamilton MD Primary Care Provider +1- [phone] Amada Lamb PharmD Unavailable +1- [phone] Luciana Drummond Unavailable Unavailable Sekou Patterson Unavailable +-[phone] Yelena Bautista Unavailable Encounter Details Date Type Department Care Team (Late st Contact Info) Description 05/25/2023 Orders Only [facility] MEDICINE 230 [place], [place] [phone] Alona Hamilton MD 230 [place], [place] [phone] Daytime somnolence (Primary Dx) Social History Tobacco [...] Component 8.6(05/22/2025 3:39 PM EDT) No Amada Lamb PharmD documented as of this encounter Visit Diagnoses Diagnosis Daytime somnolence- Primary documented in this encounter Additional Health Concerns Assessment Noted Time PHQ-9 Depression Total Score: 5 01/14/20 23 9:43 AM EDT documented as of this encounter Care Teams Referral Clerk Relationship Specialty Start Date End Date Alona Hamilton MD 230 [place] [address] PCP - General Family Medicine 04/09/19 Amada Lamb, Constantine 230 [place] [address] Pharmacist Internal Medicine 08/31/22 Luciana Drummond 180 [place] [address] Ophthalmology 03/13/25 Sekou Patterson [address] [phone] Dermatology 04/11/25 Yelena Bautista [address] [phone] Sleep Medicine 06/19/25 Dr. Edgar Jalloh [facility] Neurosurgery Neurosurgery 09/19/24 Demian [facility] Orthopaedic Surgery 09/25/24 [place] [facility] Sport and Spine 11/14/24 Alona Coyle, Michael D [facility] Endocrinology 3300 [place] [address] Endocrinology 11/14/24 documented as of this encounter
--- OUTSIDE RECORDS SUMMARY | 2025-08-14 14:07 | XMS_ITS | Encounter Summary ---
Author Organization [employer] Address [address] [place] [address] 7t [place] [address] Care Team Providers Care Bag Checker Name Role Phone Alona Hamilton MD Primary Care Provider +- [phone] Amada Lamb PharmD Unavailable +1- [phone] Luciana Drummond Unavailable Unavailable Sekou Patterson Unavailable +-[phone] Yelena Bautista Unavailable Reason for Visit * Reason Comments Med Refill Encounter Details Date Type Department Care Team (Late st Contact Info) Description 01/29/2025 Refill [facility] MEDICINE 230 [place], [place] [phone] Alona Hamilton MD 230 [place], [place] [phone] Candidiasis Social History Tobacco Use Types Packs/Day [...] the past 12 months, has t he [employer], gas, oil or water company threatened to [...] documented as of this encounter Care Teams Bag Checker Relationship Specialty Start Date End Date Alona Hamilton MD 230 [place] [address] PCP - General Family Medicine 04/09/19 Amada Lamb, PharmD 230 [place] [address] Pharmacist Internal Medicine 08/31/22 Luciana Drummond 180 [place] [address] Ophthalmology 03/13/25 Sekou Patterson [address] [phone] Dermatology 04/11/25 Yelena Bautista [address] [phone] Sleep Medicine 06/19/25 Dr. Edgar Jalloh [facility] Neurosurgery Neurosurgery 09/19/24 Demian BABB [facility] Orthopaedic Surgery 09/25/24 [place] [facility]ences [facility] Sport and Spine 11/14/24 Michael Mohamud D [facility] Endocrinology 3300 [place] [address] Endocrinology 11/14/24 documented as of this encounter
--- OUTSIDE RECORDS SUMMARY | 2025-08-14 14:07 | XMS_ITS | Encounter Summary ---
Author Organization [employer] Address [address] [place] [address] 7t [place] [address] Care Team Providers Care Identifier Horse Name Role Phone Alona Hamilton MD Primary Care Provider +- [phone] Amada Lamb PharmD Unavailable +1- [phone] Luciana Drummond Unavailable Unavailable Sekou Patterson Unavailable +-[phone] Yelena Bautista Unavailable Reason for Visit * Reason Onset Date Comments Referral 06/08/2023 Encounter Details Date Type Department Care Team (Late st Contact Info) Description 06/08/2023 Telephone [facility] MEDICINE 230 [place], [place] [phone] Alona Hamilton MD 230 [place], [place] [phone] Referral Social History Tobacco Use Types Packs/Day [...] EDT aPatient would like to see Location: [address] [place] [address] Date: n/a Time: n/a Specialty: [facility] 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 Referral placed * Telephone Encounter - Angelika Fonseca - 06/08/2023 2:08 PM EDT Tc from pt requesting a referral. Pt was told will need A1C labs done. Location: [address] [place] [address] Date: n/a Time: n/a Specialty: [facility] documented in this encounter Plan of Treatment [...] documented as of this encounter Care Teams Identifier Horse Relationship Specialty Start Date End Date Alona Hamilton MD 230 [place] [address] PCP - General Family Medicine 04/09/19 Amada Lamb, Constantine [address] [place] [address] Pharmacist Internal Medicine 08/31/22 Luciana Drummond 180 [place] [address] Ophthalmology 03/13/25 Alexandrako Sekou Yakov 125 [facility] [address] [place] [address] Dermatology 04/11/25 Yelena Bautista 3640 [facility] 208 [place] [phone] Sleep Medicine 06/19/25 Dr. Edgar Jalloh [facility] Neurosurgery Neurosurgery 09/19/24 Demian BABB [facility] Orthopaedic Surgery 09/25/[address] [facility] Sport and Spine 11/14/24 Alona Coyle, Pharm D [facility] Endocrinology 3300 [place] [address] Endocrinology 11/14/24 documented as of this encounter
--- OUTSIDE RECORDS SUMMARY | 2025-08-14 14:07 | XMS_ITS | Encounter Summary ---
Author Organization [employer] Address [address] [facility] 7t [place] [address] Care Team Providers Care Cargo Agent Name Role Phone Alona Hamilton MD Primary Care Provider +- [phone] Amada Lamb PharmD Unavailable +1- [phone] Luciana Drummond Unavailable Unavailable Sekou Patterson Unavailable +-[phone] Yelena Bautista Unavailable Encounter Details Date Type Department Care Team (Late st Contact Info) Description 10/03/2024 Orders Only [facility] MEDICINE 230 [place], [place] [phone] Alona Hamilton MD 230 [place], [place] [phone] Herniation of intervertebral disc of lumbar spine [...] 159/100(08/14 10:57 AM EST) No Amada Griffith, PharmD Hemoglobin A1c < 7 Result Component 8.6( 3:39 PM EDT) No Amada Griffith, PharmD documented as of this encounter Visit Diagnoses Diagnosis 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 documented in this encounter Additional Health Concerns Assessment Noted Time PHQ-9 Depression Total Score: 3 07/03/20 24 2:06 PM EDT documented as of this encounter Care Teams Cargo Agent Relationship Specialty Start Date End Date Alona Hamilton MD 230 [place] [address] PCP - General Family Medicine 04/09/19 Amada Lamb PharmD 230 [place] [address] Pharmacist Internal Medicine 08/31/22 Luciana Drummond 180 [place] [address] Ophthalmology 03/13/25 Sekou Patterson [address] [address] Dermatology 04/11/25 Yelena Bautista [address] [phone] Sleep Medicine 06/19/25 Dr. Edgar Jalloh [facility] Neurosurgery Neurosurgery 09/19/24 Demian BABB [facility] Orthopaedic Surgery 09/25/24 [place] [facility] Sport and Spine 11/14/24 Alona Coyle, Pharm D [facility] Endocrinology 3300 [place] [address] Endocrinology 11/14/24 documented as of this encounter
--- OUTSIDE RECORDS SUMMARY | 2025-08-14 14:07 | XMS_ITS | Encounter Summary ---
Author Organization [employer] Address [address] [place] [address] 7t [place] [address] Care Team Providers Care District Adviser Name Role Phone Alona [place] MD Primary Care Provider +- [phone] Amada Lamb PharmD Unavailable +1- [phone] Luciana Drummond Unavailable Unavailable Sekou Patterson Unavailable +-[phone] Yelena Bautista Unavailable Reason for Visit * Reason Comments Med Refill Encounter Details Date Type Department Care Team (Late st Contact Info) Description 12/20/2024 Refill [facility] MEDICINE 230 [place], [place] [phone] Alona Hamilton MD 230 [place], [place] [phone] Social History Tobacco Use Types Packs/Day Years [...] the past 12 months, has t he [employer] gas, oil or water [employer] threatened to shut off services in your [...] documented as of this encounter Care Teams District Adviser Relationship Specialty Start Date End Date Alona Hamilton MD 230 [place] [address] PCP - General Family Medicine 04/09/19 Amada Lamb, PharmD 230 [place] [address] Pharmacist Internal Medicine 08/31/22 Luciana Drummond 180 [place] [address] Ophthalmology 03/13/25 Sekou Patterson [address] [address] Dermatology 04/11/25 Yelena Bautista [address] [phone] Sleep Medicine 06/19/25 Dr. Edgar Jalloh [facility] Neurosurgery Neurosurgery 09/19/24 Demian BABB [facility] Orthopaedic Surgery 09/25/24 [place] Vences [facility] Sport and Spine 11/14/24 Michael Mohamud D [facility] Endocrinology 3300 [place] [address] Endocrinology 11/14/24 documented as of this encounter
--- OUTSIDE RECORDS SUMMARY | 2025-08-14 14:07 | XMS_ITS | Encounter Summary ---
Author Organization [employer] Address [address] [facility] 7t [place] [address] Care Team Providers Care Block Feeder Name Role Phone Alona Hamilton MD Primary Care Provider +- [phone] Amada Lamb PharmD Unavailable +1- [phone] Luciana Drummond Unavailable Unavailable Sekou Patterson Unavailable +-[phone] Yelena Bautista Unavailable Reason for Visit * Reason Comments Med Refill Encounter Details Date Type Department Care Team (Late st Contact Info) Description 07/17/2024 Refill [facility] [address] [place] [address] [phone] Colleen Villalpando MD 230 [place], [place] [phone] Rash Social History Tobacco Use Types Packs/Day [...] the past 12 months, has t he [employer], gas, oil or water [email or web address] threatened to shut off services in your [...] Pressure 159/100(08/14 10:57 AM EST) No Amada Griffith PharmD Hemoglobin A1c < 7 Result Component 8.6( 3:39 PM EDT) No Amada Griffith PharmD documented as of this encounter Visit Diagnoses Diagnosis Rash Rash and other nonspecific skin eruption documented in this encounter Additional Health Concerns Assessment Noted Time PHQ-9 Depression Total Score: 3 07/03/20 24 2:06 PM EDT documented as of this encounter Care Teams Block Feeder Relationship Specialty Start Date End Date Alona Hamilton MD 230 [place], [place] [phone] PCP - General Family Medicine 04/09/19 Amada Lamb PharmD 230 [place] [address] Pharmacist Internal Medicine 08/31/22 Luciana Drummond 180 [place] [address] Ophthalmology 03/13/25 Sekou Patterson [address] [address] Dermatology 04/11/25 Yelena Bautista [address] [phone] Sleep Medicine 06/19/25 Dr. Edgar Jalloh [facility] Neurosurgery Neurosurgery 09/19/24 [facility] Orthopaedic Surgery 09/25/24 [place] [facility] Sport and Spine 11/14/24 Alona Coyle Pharm D [facility] Endocrinology 3300 [place] [address] Endocrinology 11/14/24 documented as of this encounter
--- OUTSIDE RECORDS SUMMARY | 2025-08-14 14:07 | XMS_ITS | Encounter Summary ---
Author Organization [employer] Address [address] [place] [address] 7 [place] [address] Care Team Providers Care Director Trade Name Role Phone Alona Hamilton MD Primary Care Provider [phone]- [phone] Amada Lamb PharmD Unavailable [phone] Luciana Drummond Unavailable Unavailable Sekou Patterson Unavailable [phone] Yelena Bautista Unavailable Reason for Visit * Reason Comments Med Refill Encounter Details Date Type Department Care Team (Late st Contact Info) Description 12/23/2023 Refill [facility] MEDICINE [address] [place], [place] [phone] Colleen Atwood MD [address] [place], [place] [id number] Essential hypertension Social History Tobacco Use Types [...] documented as of this encounter Care Teams Director Trade Relationship Specialty Start Date End Date Alona Hamilton MD [address] [place] [address] PCP - General Family Medicine 04/09/19 Amada Lamb, PharmD [address] [place] [address] Pharmacist Internal Medicine 08/31/22 Luciana Drummond [address] [place] [address] Ophthalmology 03/13/25 Sekou Patterson [address] [place] [phone] Dermatology 04/11/25 Lily Lorialexis [address] [phone] Sleep Medicine 06/19/25 Dr. Edgar Jalloh [facility] Neurosurgery Neurosurgery 09/19/24 Demian BABB [facility] Orthopaedic Surgery 09/25/24 HOLLEY Vences [facility] Sport and Spine 11/14/24 Alona Coyle, Pharm D [facility] Endocrinology [address] [place] [address] Endocrinology 11/14/24 documented as of this encounter
--- OUTSIDE RECORDS SUMMARY | 2025-08-14 14:08 | XMS_ITS | Encounter Summary ---
Author Organization [employer] Address [address] [place] [address] Care Team Providers Care Banquet Attendant Name Role Phone Alona Hamilton MD Primary Care Provider [phone] Amada Lamb PharmD Unavailable [phone] Luciana Drummond Unavailable Unavailable Sekou Patterson Unavailable [phone] Yelena Bautista Unavailable Encounter Details Date Type Department Care Team (Latest Contact Info) Description 08/14/2025 Travel Social History Tobacco Use Types Packs/Day [...] the past 12 months, has t he [employer], gas, oil or water [employer] threatened to shut off services in your [...] type 2 diabetes No Apoorva Landers [place] Patient has chronic kidney disease Care Plan Patient has chronic kidney disease No Apoorva Landers [place] Weekly blood pressure task Care Plan Weekly blood pressure task No Apoorva Landers [place] Patient has chronic kidney disease Care Plan Patient has chronic kidney disease No Apoorva Landers [place] Weekly blood pressure task Care Plan Weekly blood pressure task No Miguel Regalado NP Weekly blood pressure task Care Plan Weekly blood pressure task No Miguel Regalado NP Patient has chronic kidney disease Care Plan Patient has chronic kidney disease No Miguel Regalado NP Patient has chronic kidney disease Care Plan Patient has chronic kidney disease No Miguel Regalado NP Weekly blood pressure task Care Plan Weekly blood pressure task No Gudelia Aguiar Weekly blood pressure task Care Plan Weekly blood pressure task No Gudelia Aguiar Patient has chronic kidney disease Care Plan Patient has chronic kidney disease No Gudelia Aguiar Patient has chronic kidney disease Care Plan Patient has chronic kidney disease No Gudelia Aguiar documented as of this encounter Visit Diagnoses Not on filedocumented in this encounter Additional Health Concerns Active [...] documented as of this encounter Care Teams Banquet Attendant Relationship Specialty Start Date End Date Alona Hamilton MD [address] [place] [address] PCP - General Family Medicine 04/09/19 Amada Lamb PharmD [address] [place] [address] Pharmacist Internal Medicine 08/31/22 Luciana Drummond [address] [place] [phone] Ophthalmology 03/13/25 Sekou Patterson 125 [facility] [address] [place] [phone] Dermatology 04/11/25 Yelena Bautista 3640 [facility] [address] [place] [phone] Sleep Medicine 06/19/25 Dr. Edgar Jalloh [facility] Neurosurgery Neurosurgery 09/19/24 Demian BABB [facility] Orthopaedic Surgery 09/25/24 HOLLEY Vences [facility] Sport and Spine 11/14/24 Alona Coyle, Pharm D [facility] Endocrinology [address] [place] [address] Endocrinology 11/14/24 documented as of this encounter
--- OUTSIDE RECORDS SUMMARY | 2025-08-14 14:08 | XMS_ITS | Clinical Summary ---
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 Name Role Phone Alona Hamilton MD Primary Care Provider [phone] Amada Lamb PharmD Unavailable Luciana Drummond Unavailable Unavailable Sekou Patterson Unavailable [phone] Yelena Bautista Unavailable Allergies Active Allergy Reactions Criticality Noted Date Comments Lisinopril Cough Low 09/19/2019 Medications insulin glargine (Toujeo Max SoloStar) 300 UNIT/ML injectionIndicati ons:Type 2 diabetes mellitus with hyperlipidemia (HCC) INJECT 60 UNITS SUBCUTANEOUSLY ONCE DAILY 6 mL 3 023 Active insulin lispro (HumaLOG) 100 UNIT/ML injectionIndicati ons:Type 2 diabetes mellitus with hyperglycemia, with long-term current use of insulin ([facility]) INJECT SUBCUTANEOUSLY BEFORE MEALS DIRECTED BY SLIDING SCALE. (BG<150mg/dL= 0 UNITS, 151-199= 6 UNITS, 200-249= 8 UNITS, 250-299= 10 UNITS, 300-349= 12 UNITS, 350-399= 14 UNITS, BG>400= 16 UNITS AND CALL THE OFFICE) 15 mL 3 023 Active glucose blood (FreeStyle Precision Dwayne Test) test stripIndications: Type 2 diabetes mellitus with hyperglycemia, with long-term current use of insulin ([facility]) TEST BLOOD SUGAR 2 OR 3 TIMES DAILY 100 each 11 024 Active metoprolol succinate XL (Toprol XL) 100 MG 24 hr tabletIndications :Essential hypertension Disregard previous change. Pt will continue 1 and 1/2 tab po daily. 135 tablet 3 024 Active chlorthalidone (Hygroton) 25 MG tabletIndications :Essential hypertension Take 1 tablet (25 mg) by mouth Once per day. 90 tablet 3 024 Active valsartan (Diovan) 160 MG tabletIndications :Essential hypertension TAKE 1 TABLET BY MOUTH EVERY MORNING 90 tablet 3 024 Active Continuous Glucose Photography Manager (FreeStyle Marcello 3 [employer]) deviceIndications :Type 2 diabetes mellitus with hyperglycemia, with long-term current use of insulin (HCC) Freestyle marcello 3 reader, See Instructions, # 1 each, Refills 0, Tot. Refills 0, Maintenance, use to monitor bld glocuse levels E11.9, 06/28/24 9:26:00 AM EDT, Supply, 157.5, cm, 03/20/24 14:52:00 EDT, Height Active Continuous Glucose Sensor (FreeStyle Marcello 3 Sensor) miscIndications:T ype 2 diabetes mellitus with hyperglycemia, with long-term current use of insulin ([facility]) Freestyle Marcello 3 Sensor, See Instructions, # 6 each, Refills 4, Tot. Refills 4, Maintenance, Use to continuously monitor blood sugar. Change every 14 days. E11.9, 12/30/23 4:11:00 PM EDT, Replacing Freestyle Marcello 2. Will use phone for reader, Supply, 157.5, cm, 12/30/23 14:54:00 EDT, Height 024 Active metFORMIN (Glucophage) 250 MG split tabletIndications :Type 2 diabetes mellitus with hyperglycemia, with long-term current use of insulin (HCC) Take 1,000 mg by mouth. 024 Active clindamycin (Clindagel) 1 % gelIndications:Fo lliculitis APPLY TO TRUNK EVERY DAY AFTER BENZOYL PEROXIDE WASH] 024 Active glucagon (Baqsimi Two Pack) 3 MG/DOSE nasal powderIndications :Type 2 diabetes mellitus with hyperlipidemia (HCC) For low blood sugar emergency; administer 3mg via one device into one nostril; if no response after 15 minutes to repeat and additional 3mg from other device may be administered. 2 each Active Dulaglutide (Trulicity) 3 MG/0.5ML solution auto-injectorIndi cations:Type 2 diabetes mellitus with hyperlipidemia (HCC) Inject 3 mg under the skin 1 (one) time per week. Dose increased 2 mL Active glucose 4 g chewable tabletIndications :Type 2 diabetes mellitus with hyperlipidemia (HCC) USE DIRECTED FOR LOW BLOOD SUGAR 20 tablet Active triamcinolone (Nasacort) 55 MCG/ACT nasal inhaler Administer 2 sprays into each nostril Once per day. 16.5 g 2025 Active albuterol (Ventolin HFA) 108 (90 Base) MCG/ACT inhalerIndication s:Mild persistent asthma without complication Inhale 2 puffs every 4 (four) hours if needed for wheezing or shortness of breath. 18 g 2025 Active Alcohol Swabs (Alcohol Prep) 70 % padsIndications:T ype 2 diabetes mellitus with hyperglycemia, with long-term current use of insulin ([facility]) USE DIRECTED FOUR TIMES DAILY 100 each Active nystatin (Mycostatin) 505681 UNIT/GM powderIndications :Candidiasis Use on feet bid 60 g 025 Active amLODIPine (Norvasc) 10 MG tabletIndications :Essential hypertension TAKE 1 TABLET BY MOUTH EVERY MORNING 90 tablet 1 025 Active metoclopramide (Reglan) 5 MG tabletIndications :Gastroparesis Take 2 tablets (10 mg) by mouth 3 times daily. 90 tablet 2 025 Active Ascorbic Acid (vitamin C) 250 MG tabletIndications :Anemia, unspecified type TAKE 1 TABLET BY MOUTH IN THE MORNING ON TUESDAY, TUESDAY, AND TUESDAY 45 tablet 3 025 Active rosuvastatin (Crestor) 20 MG tabletIndications :Type 2 diabetes mellitus with hyperglycemia, with long-term current use of insulin ([facility]),Hyperlipide brooke, unspecified hyperlipidemia type TAKE 1 TABLET BY MOUTH EVERY MORNING 90 tablet 3 025 Active lamoTRIgine (LaMICtal) 150 MG tabletIndications :Recurrent major depressive episodes, moderate (CMS/HCC) (HCC) Take 2 tablets (300 mg) by mouth Once per day. 180 tablet 3 025 Active QUEtiapine (SEROquel) 25 MG tabletIndications :Recurrent major depressive episodes, moderate (CMS/HCC) (HCC) Take 1 tablet (25 mg) by mouth if needed each day (anxiety). Prescribed by [facility] Nalini Pa 90 tablet 3 Active escitalopram (Lexapro) 20 MG tabletIndications :Recurrent major depressive episodes, moderate (CMS/HCC) (HCC) Take 1 tablet (20 mg) by mouth in the morning. 90 tablet 3 025 Active loratadine (Claritin) 10 MG tabletIndications :Seasonal allergies Take 1 tablet (10 mg) by mouth Once per day. 30 tablet 11 025 2025 Active BD Pen Needle Marissa Ultrafine 32G X 4 MM miscIndications:T ype 2 diabetes mellitus with hyperglycemia, with long-term current use of insulin ([facility]) USE DIRECTED TWICE DAILY 100 each 3 Active Pema-edson 8.6 MG tablet TAKE 2 TABLETS BY MOUTH EVERY DAY AT BEDTIME NEEDED FOR CONSTIPATION 180 tablet 1 Active meloxicam (Mobic) 15 MG tabletIndications :Acute bilateral low back pain without sciatica Take 1 tablet (15 mg) by mouth Once per day for 14 doses. 14 tablet 08/14/20 25 1:02 PM EST 025 2024 Active predniSONE (Deltasone) 20 MG tabletIndications :Acute bilateral low back pain without sciatica Take 1 tablet (20 mg) by mouth 2 times daily for 5 days. 10 tablet 08/14/20 25 1:02 PM EST 025 2024 Active Blood Pressure kitIndications:Es sential hypertension 1 kit 2 times daily. 1 kit Active senna (Senokot) 8.6 MG tablet TAKE 2 TABLETS BY MOUTH EVERY DAY AT BEDTIME NEEDED FOR CONSTIPATION 60 tablet 2 025 2024 Discontinued Active Problems Patient Care Coordination No te Formatting of this note migh t be different from the original. Followed in [facility] HTN clinic with Amada Lamb, Constantine, RUDDY. As of 07/26/23, patient followed at [facility] endocrinology for T2DM. Problem Noted Date Diagnosed Date Gastroparesis 03/06/2025 Overview (05/23/2025): Gastric Emptying Study 01/29/25 Gastroparesis: There is very severely delayed gastric emptying. For solid meal, rapid gastric emptying is less than 30% at 60 minutes. Delayed gastric emptying criteria is more than 60% remaining at 120 minutes or more than 10% at 240 minutes. The 4-hour value is the best discriminator of a normal or abnormal result). -pt is on a GLP 1 -start reglan 10mg tid with meals Assessment & Plan (05/24/2025 12:08 PM EDT): Gastric Emptying Study 01/29/25 Gastroparesis: There is very severely delayed gastric emptying. For solid meal, rapid gastric emptying is less than 30% at 60 minutes. Delayed gastric emptying criteria is more than 60% remaining at 120 minutes or more than 10% at 240 minutes. The 4-hour value is the best discriminator of a normal or abnormal result). -pt is on a GLP 1 -start reglan 10mg tid with meals Assessment & Plan (03/06/2025 4:52 PM EDT): Gastric Emptying Study 02/2025 Gastroparesis: There is very severely delayed gastric emptying. For solid meal, rapid gastric emptying is less than 30% at 60 minutes. Delayed gastric emptying criteria is more than 60% remaining at 120 minutes or more than 10% at 240 minutes. The 4-hour value is the best discriminator of a normal or abnormal result). -pt is on a GLP 1 -start reglan 10mg tid with meals Alternating constipation and diarrhea 01/29/2025 Assessment & Plan (01/29/2025 3:28 PM EDT): -prescribed senna (Senokot) 8.6 MG Bilateral hand numbness 01/29/2025 Overview (03/20/2025): -ordered NCS 01/29/25 Nerve conduction study 7/7/25 IMPRESSION: 1. Ktsk-ku-vhzbwwob bilateral median neuropathy across carpal tunnel. 2. Mild bilateral ulnar neuropathy across cubital tunnel. -referral to hand surgery placed 03/20/25 Assessment & Plan (05/24/2025 12:08 PM EDT): - Referred to Hand Surgery 08/01/24, seen 09/2024 dx osteoarthritis. Referred to occupational therapy. -NCS 03/18/25 bIMPRESSION: 1. Wzaj-mk-xapidtiu bilateral median neuropathy across carpal tunnel. 2. Mild bilateral ulnar neuropathy across cubital tunnel. -referral to hand surgery placed 03/20/25 Assessment & Plan (01/29/2025 3:26 PM EDT): -ordered NCS 01/29/25 Anterior cervical lymphadenopathy 12/06/2024 Assessment & Plan (12/06/2024 2:17 PM EDT): Significant on exam, but no acute warning signs. Suspect due to tonsillar infection/ calculi. -will follow-up on 12/10/24 with phone call. Bilateral hand pain 08/01/2024 Overview (03/20/2025): - Ordered X-Rays 08/01/24 - Referred to Hand Surgery 08/01/24, seen 09/2024 dx osteoarthritis. Referred to occupational therapy. -NCS 03/18/25 bIMPRESSION: 1. Tvpd-tl-jyhsyqbd bilateral median neuropathy across carpal tunnel. 2. Mild bilateral ulnar neuropathy across cubital tunnel. Assessment & Plan (05/24/2025 12:08 PM EDT): - Ordered X-Rays 08/01/24 - Referred to Hand Surgery 08/01/24, seen 09/2024 dx osteoarthritis. Referred to occupational therapy. -NCS 03/18/25 bIMPRESSION: 1. Pvhi-wm-awslrztq bilateral median neuropathy across carpal tunnel. 2. Mild bilateral ulnar neuropathy across cubital tunnel. Assessment & Plan (08/01/2024 4:48 PM EST): - Ordered X-Rays 08/01/24 - Referred to Hand Surgery 08/01/24 Folliculitis 07/13/2024 Overview (04/11/2025): Followed by Dr. 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 Breast cancer screening by mammogram 07/03/2024 Overview (01/29/2025): 11/24/24 BI-RADS 1 - Negative Assessment & Plan (11/14/2024 3:50 PM EST): [...] the end of the week - Saw translator/interpreter and requested records 08/01/24 Assessment & Plan (08/01/2024 4:50 PM EST): Hyperpigmented, almost black appearing spot underneath toe nail. See image in chart from 07/03/24. Need to evaluate for possible melanoma -referred to Dermatology 07/03/24 STAT referral -pt advised to send us message if she does not hear about an appointment by the end of the week - Saw translator/interpreter and requested records 08/01/24 Assessment & Plan (07/03/2024 3:19 PM EDT): Hyperpigmented, almost black appearing spot underneath toe nail. See image in chart from 07/03/24. Need to evaluate for possible melanoma -referred to Dermatology 07/03/24 STAT referral -pt advised to send us message if she does not hear about an appointment by the end of the week Transaminitis 07/03/2024 Overview (05/23/2025): Lab Results Component Value Date AST 35 (H) 07/03/2024 ALT 34 (H) 07/03/2024 ALT 16 11/21/2020 ALP 135 (H) 07/03/2024 DIRECTBILIRU 0.2 07/03/2024 Assessment & Plan (05/24/2025 12:08 PM EDT): Lab Results Component Value Date AST 35 [...] and nutrition interventions discussed. Assessment & Plan (05/24/2025 12:08 PM EDT): Not able to calculate ASCVD risk for [...] call 07/03/24 Class 2 obesity 09/28/2023 09/28/2023 Other specified health status 03/16/2023 Overview (05/23/2025): -next comprehensive annual evaluation due after 05/22/26 -eye care with [facility] -encouraged [facility] dental -health care proxy filed 01/25/24 Assessment & Plan (05/24/2025 12:08 PM EDT): -next comprehensive annual evaluation due after 05/22/26 -eye care with [facility] -encouraged [facility] dental -health care proxy filed 01/25/24 Assessment & Plan (09/28/2023 12:30 PM EST): -next physical exam due after 01/14/2024 -eye care appointment 05/06/2023 -Encouraged [facility] dental. Assessment & Plan (03/16/2023 9:46 AM EDT): -next physical exam due after 01/14/2024 -eye care appointment 03/31/2023 -Encouraged [facility] dental. Radiculopathy 01/13/2023 Overview (11/14/2024): Evidence of [...] stenosis on the localizer sequence. -seen by [facility] with Alona Aranda PA-C under [...] orthopedics 01/20/2023. Recurrent major depressive episodes, moderate (C MS/HCC) 08/18/2022 Overview (11/14/2024): Hospitalized for 9 days 01/2022. Followed by therapist and psychiatrist. Has number for crisis. Denies KRISTINE. Pt had another hospitalization 03/03/23, her medications were adjusted. -No SI/HI. -Follow-up with psychiatry and therapy. Still looking for prescriber. Assessment & Plan (05/24/2025 12:08 PM EDT): Hospitalized for 9 days 01/2022. Followed by therapist and psychiatrist. Has number for crisis. Denies KRISTINE. Pt had another hospitalization 03/03/23, her medications were adjusted. -No SI/HI. -Follow-up with psychiatry and therapy. Still looking for prescriber. Orders: lamoTRIgine (LaMICtal) 150 MG tablet; Take 2 tablets (300 mg) by mouth Once per day. QUEtiapine (SEROquel) 25 MG tablet; Take 1 tablet (25 mg) by mouth if needed each day (anxiety). Prescribed by [facility] Nalini Pa escitalopram (Lexapro) 20 MG tablet; Take 1 tablet (20 mg) by mouth in the morning. Assessment & Plan (11/14/2024 3:53 PM EST): Hospitalized for 9 days 01/2022. Followed by therapist and psychiatrist. Has number for crisis. Paz CARMONA. Pt had another hospitalization 03/03/23, her medications were adjusted. -No SI/HI. -Follow-up with psychiatry and therapy. Still looking for prescriber. Assessment & Plan (01/25/2024 3:20 PM EDT): Hospitalized for 9 days 01/2022. Followed by therapist and psychiatrist. Has number for crisis. Paz CARMONA. Pt had another hospitalization 03/03/23, her medications were adjusted. -No SI/HI. -Follow up with psychiatry and therapy. Assessment & Plan (09/28/2023 11:45 AM EST): Hospitalized for 9 days 01/2022. Followed by therapist and psychiatrist. Has number for crisis. Paz CARMONA. Pt had another hospitalization 03/03/23, her medications were adjusted. -No SI/HI. -Follow up with psychiatry and therapy. Assessment & Plan (03/16/2023 9:36 AM EDT): Hospitalized for 9 days 01/2022. Followed by therapist and psychiatrist. Has number for crisis. Paz CARMONA. Pt had another hospitalization 03/03/23, her medications were adjusted. -No SI/HI. -Follow up with psychiatry and therapy. Assessment & Plan (01/13/2023 10:45 AM EDT): Hospitalized for 9 days 01/2022. Followed by therapist and psychiatrist. Has number for crisis. Paz CARMONA. Large breasts 01/12/2022 Overview (09/28/2023): -Patient has [...] I prescribed; no constipation -IUD placed 08/2021 TREMAYNE (obstructive sleep apnea) 09/19/2018 Overview (06/19/2025): Seen by sleep medicine 07/26/23, home sleep study done. Pt reports results showed sleep apnea. Was prescribed machine but then did not use it so they took it away. -[place] Score 17 06/2025 -seen by [facility] 06/14/25. Split night PSG ordered. Assessment & Plan (05/24/2025 12:08 PM EDT): Seen by sleep medicine 07/26/23, home sleep study done. Pt reports results showed sleep apnea. Was prescribed machine but then did not use it so they took it away. -encouraged to call to get re-established 11/14/24 -re-referred to sleep medicine 01/29/25 -has appt. in 06/2025. Assessment & Plan (01/29/2025 3:28 PM EDT): Seen by sleep medicine 07/26/23, home sleep study done. Pt reports results showed sleep apnea. Was prescribed machine but then did not use it so they took it away. -encouraged to call to get re-established 11/14/24 -re-referred to sleep medicine 01/29/25 Assessment & Plan (11/14/2024 3:49 PM EST): [...] waiting for results Essential hypertension 09/19/2018 Overview (05/23/2025): -Blood pressure is at goal 05/23/25 -Continue lifestyle modifications -Continue current medications -Metoprolol XL increased from 50mg to 75mg , she will not take propanolol from psychiatry -follows with [facility] with our PharmD, CDCES will consult with Leandra. - Will maintain Metoprolol at 150 mg once a day 08/01/24 - Changing hydrochlorothiazide to 25 mg Chlorthalidone 08/01/24 Assessment & Plan (08/14/2025 11:38 AM EST): Continue with the current regimen of Amlodipine and Metoprolol Check BP's at home at least 2-3 times per week Report BP to the nurses- they winifred contact the patient in 1-2 weeks Orders: Blood Pressure kit; 1 kit 2 times daily. Assessment & Plan (05/24/2025 12:08 PM EDT): -Blood pressure is at goal 05/23/25 -Continue lifestyle modifications -Continue current medications -Metoprolol XL increased from 50mg to 75mg , she will not take propanolol from psychiatry -follows with [facility] with our PharmD, [facility] [place] will consult with Leandra. - Will maintain [...] Drug Therapy Managment Program with our PharmD, [facility] [place] will consult with Leandra. - Will maintain [...] Drug Therapy Managment Program with our PharmD, [facility] [place] will consult with Leandra. - Will maintain [...] Program with our PharmD, E[facility]ES will consult with Leandra. Assessment & Plan [...] modifications -Continue current medications Hyperlipidemia 09/19/2018 Overview (05/23/2025): Lab Results Component Value Date CHOL 143 07/03/2024 CHOL 127 09/28/2023 TRIG 117 07/03/2024 TRIG 134 09/28/2023 HDL 50 07/03/2024 HDL 41 09/28/2023 LDLCHOLCAL 70 07/03/2024 LDLCHOLCAL 60 09/28/2023 -continue lifestyle modification -continue rosuvastatin 20mg Assessment & Plan (05/24/2025 12:08 PM EDT): Lab Results Component Value Date CHOL 143 [...] on prn albuterol MDI Assessment & Plan (05/24/2025 12:08 PM EDT): -Well controlled on prn albuterol MDI Assessment [...] Primary insomnia 09/19/2018 Type 2 diabetes mellitus wit h diabetic microalbuminuria, with long-term current use of insulin 09/19/2018 Overview (07/18/2025): Diabetes is not controlled. Followed by [facility] Endocr[facility] as of 08/2023, currently has CGM monitor. Diabetes is controlled. Lab Results Component Value Date HGBA1C 8.6 (A) 05/22/2025 HGBA1C 8.0 (A) 03/01/2025 HGBA1C 8.8 (A) 11/14/2024 Lab Results Component Value Date CREATININE 1.03 07/03/2024 EGFR 58 07/03/2024 MICROALBCREU 36.4 (H) 07/03/2024 MICROALBCREU 49.5 (H) 09/28/2023 LDLCHOLCAL 70 07/03/2024 -Salvador/Arb: ALLERGIC TO SALVADOR, continue valsartan -Statin therapy: rosuvastatin 20mg -Diabetic eye exam: 03/12/25 mild non proliferative diabetic retinopathy OU -Diabetic foot exam:09/28/23 -Continue lifestyle modifications -Continue current medications -Humalog quick pen sliding scale -Insulin glargine 70 units daily -metformin ER 500mg 2 tabs in the morning -trulicity 3 mg -Pt will increase pre-meal insulin 15 units Humalog -Endo note from 03/04/25 reviewed, no changes Assessment & Plan (05/24/2025 12:08 PM EDT): Diabetes is not controlled. Followed by [facility] as of 08/2023, currently has CGM monitor. Lab Results Component Value Date HGBA1C 8.6 (A) 05/22/2025 HGBA1C 8.0 (A) 03/01/2025 HGBA1C 8.8 (A) 11/14/2024 Lab Results Component Value Date MICROALBUR 84.0 07/03/2024 CREATININE 1.03 07/03/2024 -Salvador/Arb: ALLERGIC TO SALVADOR, continue valsartan -Statin therapy: rosuvastatin 20mg -Diabetic eye exam: 03/12/25 mild non proliferative diabetic retinopathy OU -Diabetic foot exam:09/28/23 -Continue lifestyle modifications -Continue current medications -Humalog quick pen sliding scale -Insulin glargine 70 units daily -metformin ER 500mg 2 tabs in the morning -trulicity 3 mg -Pt will increase pre-meal insulin 15 units Humalog -Endo note from 03/04/25 reviewed, no changes Orders: POCT Glucose POCT Hgb A1c Assessment & Plan (11/14/2024 4:37 PM EST): Diabetes is not controlled. Followed by [facility] as of 08/2023, currently has CGM [...] AND PLAN FOR TYPE 2 DIABETES MELLITUS ([facility]) WRITTEN ON 01/13/2023 10:47 AM BY ALONA [...] AND PLAN FOR TYPE 2 DIABETES MELLITUS ([facility]) WRITTEN ON 03/16/2023 9:35 AM BY ESTHER [...] AND PLAN FOR TYPE 2 DIABETES MELLITUS ([facility]) WRITTEN ON 09/28/2023 12:31 PM BY ALONA HAMILTON MD Diabetes is controlled. - followed by [facility] as of 08/2023, currently has [...] AND PLAN FOR TYPE 2 DIABETES MELLITUS ([facility]) WRITTEN ON 01/25/2024 4:35 PM BY ALONA HAMILTON MD Diabetes is not controlled. Followed by [facility] as of 08/2023, currently has CGM [...] AND PLAN FOR TYPE 2 DIABETES MELLITUS ([facility]) WRITTEN ON 07/03/2024 2:05 PM BY DORCAS STOKES Diabetes is not controlled. Followed by [facility] as of 08/2023, currently has CGM [...] AND PLAN FOR TYPE 2 DIABETES MELLITUS ([facility]) WRITTEN ON 08/01/2024 4:45 PM BY ANIYAH BAINS MA Diabetes is not controlled. Followed by [facility] as of 08/2023, currently has CGM [...] Problem Noted Date Diagnosed Date Resolved Date Lower abdominal pain 01/29/2025 025 Assessment & Plan (01/29/2025 3:31 PM EDT): Reports LLQ pain, and heart burn. Worse with laying down and has occasional nausea. -encouraged to take Omeprazole at home -ordered gastric emptying study 01/29/25 -prescribed senna (Senokot) 8.6 MG Nausea 01/29/2025 04/11/2025 Assessment & Plan (01/29/2025 3:31 PM EDT): Reports LLQ pain, and heart burn. Worse with laying down and has occasional nausea. -encouraged to take Omeprazole at home -ordered gastric emptying study 01/29/25 -prescribed senna (Senokot) 8.6 MG Candidiasis 01/29/2025 05/23/2025 Assessment & Plan (01/29/2025 3:30 PM EDT): -refilled nystatin (Mycostatin) 680024 UNIT/GM powder Tonsillar calculus 12/06/2024 Assessment & Plan (12/06/2024 2:16 PM EDT): Discussed likely pain and lymphadenopathy to tonsil calculi and having just passed one. Discussed risks and expectations if another passes. -encouraged warm water with salt gargles and honey. -will call 12/10/24 to follow-up. Rash 07/13/2024 03/20/2025 Encounter for screening for malignant neoplasm of breast 07/03/2024 05/23/2025 Dental plaque 03/25/2023 03/20/2025 Crowded teeth 03/25/2023 03/20/2025 Dental caries 03/24/2023 03/20/2025 Periodontal disease 03/24/2023 03/20/20 Hyperreflexia 01/13/2023 01/13/2023 Chronic cough 02/22/2019 01/13/2023 Menorrhagia 02/22/2019 01/13/2023 Encounters Date Type Department Care Team Description 08/14/2025 10:30 AM EST Office Visit [facility] [address] [place] [address] Desmond Regalado NP Acute bilateral low back pain without sciatica (Primary Dx); Essential hypertension 08/14/2025 Travel 07/16/2025 Refill [facility] [address] [place] [address] Alona Hamilton MD 07/11/2025 Refill [facility] [address] [place] [address] Aniyah Adame DO Mild persistent asthma without complication 06/18/2025 Refill [facility] [address] [place] [address] Fabio Palacio MD Type 2 diabetes mellitus with hyperglycemia, with long-term current use of insulin (HCC) 05/22/2025 3:15 PM EDT Office Visit [facility] [address] [place] [address] Alona Hamilton MD Type 2 diabetes mellitus with hyperlipidemia (CMS/HCC) (CMS/HCC) (Primary Dx); Essential hypertension; Hyperlipidemia, unspecified hyperlipidemia type; Cardiac risk counseling; Transaminitis; Gastroparesis; Recurrent major depressive episodes, moderate (CMS/HCC); Mild persistent asthma without complication; TREMAYNE (obstructive sleep apnea); Seasonal allergies; Bilateral hand numbness; Bilateral hand pain; Class 1 obesity due to excess calories with serious comorbidity and body mass index (BMI) of 33.0 to 33.9 in adult; Dietary counseling; Exercise counseling; Other specified health status 05/22/2025 Travel 05/21/2025 Telephone [facility] [address] [place] [phone] Alona Hamilton MD chart prep from Last 3 Months Immunizations Immunization Administration Dates Next Due HepB-CpG 02/13/2024,06/14/2023 Influenza [...] I do not want or need it 09/1 Comments Unknown Intention Date Recorded No desire to become (finding) 0 05/22/2025 Sex and Gender Information Value Date Recorded [...] Mass Index 36.73 08/14/2025 10:32 AM EST Plan of Treatment Health Maintenance Due Date Last Done Comments HPV Vaccines (1 - 3-dose series) 01/18/1996 Dental Oral Exam 09/26/2023 03/25/2023 Dental Prophylaxis 09/26/2023 03/25/2023 Dental X-Ray: Bitewings 03/26/2024 03/25/2023 Diabetes: Foot Exam 01/24/2025 01/25/2024, 01/25/2024, 01/25/2024, Additional history exists COVID-19 Vaccine (2024- season) 2025 08/01/2024, 09/28/2023, 03/16/2023, Additional history exists Influenza Vaccine (#1) 2025 , 06/27/2024, 06/14/2023, Additional history exists Diabetes: Urine Protein Screening 07/03/2025 07/03/2024, 09/28/2023, 12/01/2021, Additional history exists Lipid Panel 07/03/2025 07/03/2024, 09/12, 12/01/2021, Additional history exists Eye Exam 07/04/2025 07/04/2024, 03/13, 03/31/2023, Additional history exists Diabetes: Hemoglobin A1C 08/21/2025 025, 03/01/2025, 11/14/2024, Additional history exists SDOH Screening 11/14/2025 11/14/2024 Depression Monitoring 11/19/2025 05/22/2025, 025 Alcohol/Substance Use Screening 05/22/2026 05/22/2025 Disability Screening 05/22/2026 05/22/2025 Family Planning (PISQ) 05/22/2026 05/22/2025 Cervical Cancer Screening 06/10/2026 HPV/Cotest 06/10/2026 06/10/2021, 05/03/2019 Pap Smear 06/10/2026 05/03/2019 Dental X-Ray: Full Mouth 07/26/2026 07/25/2023, 03/12 Tobacco Screening 08/14/2026 08/14/2025 Mammogram 11/15/2026 11/15/2024, 05/14, 06/10/2021, Additional history exists DTaP/Tdap/Td Vaccines (2 - Td or Tdap) 09/19/2029 09/19/2019 Zoster Vaccines (1 of 2) 2031 RSV Patients and Patients Aged 60 years or older (1 - 1-dose 75+ series) 01/18/2056 HIV Screening Completed 12/01/2021 Hepatitis C Screening Completed 12/01/2021, 022 Pneumococcal Vaccine: Pediatrics (0 to 5 Years) and At-Risk Patients (6 to 49) Years Completed 03/16/2023, 07/07/2020 Hepatitis B Vaccines Discontinued 02/13/2024, 06/14/20 23 HIB Vaccines Aged Out No longer eligi ble based on patient's age to complete this topic Hepatitis A Vaccines Aged Out No long er eligible based on patient's age to complete this topic IPV Vaccines Aged Out No longer eligi ble based on patient's age to complete this topic Meningococcal B Vaccine Aged Out No l onger eligible based on patient's age to complete [...] Plan Weekly blood pressure task No Desmond eRgalado NP Patient has chronic kidney disease Care Plan Patient has chronic kidney disease No Desmond Regalado NP Patient has chronic kidney disease Care Plan Patient has chronic kidney disease No Desmond Regalado NP Weekly blood pressure task Care Plan Weekly blood pressure task No Gudelia Aguiar Weekly blood pressure task Care Plan Weekly blood pressure task No Gudelai Aguiar Patient has chronic kidney disease Care Plan Patient has chronic kidney disease No Gudelia Aguiar Patient has chronic kidney disease Care Plan Patient has chronic kidney disease No Gudelia Aguiar Procedures Procedure Name Priority Date/Time Associated Diagnosis Comments XR LUMBAR SPINE COMPLETE 4+ VIEWS Routine 08/14/2025 12:11 PM EST Acute bilateral low back pain without sciatica POCT GLYCATED HEMOGLOBIN, TOTAL Routine 05/22/2025 3:39 PM EDT Type 2 diabetes mellitus with hyperlipidemia ([facility]) ([facility]) POCT GLUCOSE Routine 05/22/2025 3:37 PM EDT Type 2 diabetes mellitus with hyperlipidemia ([facility]/HCC) ([facility]) BI MAMMOGRAM SCREENING TOMOSYNTHESIS BILATERAL Routine 11/15/2024 3:30 PM EST Screening mammogram for high-risk patient ALBUMIN, RANDOM URINE W/CREATININE Routine 07/03/2024 2:20 PM EDT Type 2 diabetes mellitus with hyperglycemia, with long-term current use of insulin ([facility]) LIPID PANEL, STANDARD Routine 07/03/2024 2:20 PM [...] PCR Routine 06/10/2021 12: 00 AM EDT PAP SMEAR Routine 05/03/2019 12:00 AM EDT from Last 3 Months or Most Recently Relevant to Health Maintenance Results * XR Lumbar Spine Complete 4+ Views (08/14/2025 12:11 PM EST) Anatomical Region Laterality Modality Spine, L-spine Radiographic Brandee ging 08/14/2025 12:1 1 PM EST Narrative 08/14/2025 1:54 PM EST [address] [address] XRay Report Signed Patient: Chasidy Bashir MR#: [id number] 4 : 1980 Acct:[id number] Age/Sex: 45 / F ADM Date: 08/14/25 Loc: [facility] Attending Dr: Desmond Regalado NP Ordering Physician: Desmond Regalado NP Date of Service: 08/14/25 Procedure(s): XR lumbar spine 4V min Accession Number(s): [id number] cc: Alona Hamilton MD; Desmond Regalado NP [...] by: Belle Norton MD 08/14/2025 01:52 PM [facility] Dictated By: Belle Norton MD Signed By: <Electronically signed by Belle Norton MD in OV> 08/14/25 1352 DD/ 1211 TD/TT: 08/14/25 1230 Fuel Manager: Procedure Note Donotuseinterpreter, Image - 08/14/[address] [address] XRay Report Signed Patient: Chasidy Bashir SMR#: [id number] 4 : 1980Acct:[id number] Age/Sex: 45 / FADM Date: 08/14/25 Loc: [facility] Attending Dr: Desmond Regalado NP Ordering Physician: Desmond Regalado NP Date of Service: 08/14/25 Procedure(s): XR lumbar spine 4V min Accession Number(s): [id number] cc: Alona Hamilton MD; Desmond Regalado NP [...] Belle Norton MD 08/14/2025 01:52 PM EST Dictated By: Belle Norton MD Signed By: <Electronically signed by Belle Norton MD in OV> 08/14/25 1352 DD/ 1211 TD/TT: 08/14/25 1230 Fuel Manager: Desmond Regalado SENIOR TRIAL ATTORNEY IMG XR PROCEDURES Final Resul t * (ABNORMAL) POCT Hgb A1c (05/22/2025 3:39 PM EDT) Hemoglobin A1C 8.6(A) 4.0 - 5.7 % QC Media Lot # [id number] Lot# Expiration Date [id number] Blood 05/22/2025 3:39 PM EDT Alona Hamilton MD POINT OF CARE TEST ENTER/E DIT ORDERABLES Final Result * POCT Glucose (05/22/2025 3:37 PM EDT) Glucose Blood, POC 123 60 - 200 mg/dL QC Media Lot # [id number] Lot# Expiration Date [id number] Blood Capillary blood specimen / Unknown 05/22/2025 3:37 PM EDT Alona Hamilton MD POINT OF CARE TEST ENTER/E DIT ORDERABLES Final Result * BI Mammogram Screening Tomosynthesis Bilateral (11/15/2024 3:30 PM EST) Anatomical Region Laterality Modality Breast Bilateral Mammography 11/15/2024 3:30 PM EST Narrative 11/24/2024 5:46 PM EDT [facility] [address] [place] [address] Mammography Report Signed Patient: Chasidy Bashir MR#: [id number] 4 : 1980 Acct:[id number] Age/Sex: 44 / F ADM Date: 11/15/24 Loc: HO.MAMMO Attending Dr: Alona Hamilton MD Ordering Physician: Alona Hamilton MD Results: 1N egative Date of Service: 11/15/24 Follow Up: 1 Year From [facility] ina Mammogram Procedure(s): MM tomosynthesis screening BI Accession Number(s): [id number] cc: Alona Hamilton MD EXAMINATION: MM SCREENING DIGITAL BREAST TOMOSYNTHESIS, BILATERAL CLINICAL INFORMATION: Screening. Asymptomatic. COMPARISON: Mammography: Comparison is made with available priors TECHNIQUE: Digital breast mammography with tomosynthesis is performed in both the craniocaudal and mediolateral oblique views along with computer-aided detection (CAD). FINDINGS: There are scattered areas of fibroglandular density (ACR BI-RADS breast composition Category b). There are no significant masses, abnormal calcifications, or other abnormalities. MM/MM tomosynthesis screening BI IMPRESSION: No mammographic evidence of malignancy. ASSESSMENT: BI-RADS BI-RADS 1 - Negative RECOMMENDATION: Routine annual mammography screening. 1 year F/U This examination should not preclude the clinical evaluation of a suspicious palpable abnormality. This patient's information was entered into a reminder system with a target due date for their next mammogram. Electronically signed by: Leora Salas DO 11/24/2024 05:44 PM EDT Dictated By: Leora Salas DO Signed By: <Electronically signed by Leora Salas DO in OV> 11/24/24 1744 DD/ 1530 TD/TT: 11/15/24 1552 Fuel Manager: Procedure Note Donotuseinterpreter, Image - [facility]24/[facility] [address] [place] [address] Mammography Report Signed Patient: Chasidy Bashir [facility]#: [id number] 4 : 1980Acct:[id number] Age/Sex: 44 / FADM Date: 11/15/24 Loc: HO.MAMMO Attending Dr: Alona Hamilton MD Ordering Physician: Alona Hamilton MDResults: 1N egative Date of Service: 11/15/24Follow Up: 1 Year From Orig inal Mammogram Procedure(s): MM tomosynthesis screening BI Accession Number(s): [id number] cc: Alona Hamilton MD EXAMINATION: MM SCREENING DIGITAL BREAST TOMOSYNTHESIS, BILATERAL CLINICAL INFORMATION: Screening. Asymptomatic. COMPARISON: Mammography: Comparison is made with available priors TECHNIQUE: Digital breast mammography with tomosynthesis is performed in both the craniocaudal and mediolateral oblique views along with computer-aided detection (CAD). FINDINGS: There are scattered areas of fibroglandular density (ACR BI-RADS breast composition Category b). There are no significant masses, abnormal calcifications, or other abnormalities. MM/MM tomosynthesis screening BI IMPRESSION: No mammographic evidence of malignancy. ASSESSMENT: BI-RADS BI-RADS 1 - Negative RECOMMENDATION: Routine annual mammography screening. 1 year F/U This examination should not preclude the clinical evaluation of a suspicious palpable abnormality. This patient's information was entered into a reminder system with a target due date for their next mammogram. Electronically signed by: Leora Salas DO 11/24/2024 05:44 PM EDT Dictated By: Leora Salas DO Signed By: <Electronically signed by Leora Salas DO in OV> 11/24/24 1744 DD/ 1530 TD/TT: 11/15/24 1552 Fuel Manager: Alona Hamilton MD IMG BI PROCEDURES Final Re sult * (ABNORMAL) Albumin, Random Urine W/Creatinine (07/03/2024 2:20 PM EDT) Creatinine, Urine 230.43 mg/dL [facility] Microalbumin Urine 84.0 mg/L [facility] Microalbum Creatinine Ratio Ur 36.4(H) <30 ug/mg cr [facility] Comment:Albumin/Creatinine R atio Reference Ranges: Normal: < 30 ug/mg creatinine Microalbuminuria: 30 - 300 ug/mg creatinineClinical Albuminuria: > 300 ug/mg creatinine Urine 07/03/2024 2:20 PM EDT 07/03/2024 4:38 PM EDT Alona Hamilton MD LAB URINE ORDERABLES Final Result [facility] [address] [place] [phone] * Lipid Panel, Standard (07/03/2024 2:20 PM EDT) Triglycerides 117 <150 mg/dL [facility] Comment:Desirable Triglyceri de: less than 150 mg/dLBorderline High Triglyceride 150-199 mg/dLHigh Triglyceride: 200-499 mg/dLVery High Triglyceride: greater than or equal to 5OO mg/dL Cholesterol 143 <200 mg/dL [facility] Comment:Desirable Cholestero l: less than 200 mg/dLBorderline High Cholesterol: 200-239 mg/dLHigh Cholesterol: greater than 239 mg/dL LDL Cholesterol Calculated 70 <100 mg/dL [facility] Comment:Desirable LDL: less than 100 mg/dLNear Optimal/Above Optimal LDL: 110- 129 mg/dLBorderline High LDL: 130-159 mg/dLHigh LDL: 160-189 mg/dLVery High LDL: greater than or equal to 190 mg/dL HDL Cholesterol 50 >40 mg/dL [facility] Comment:Desirable HDL: great er than 40 mg/dL Note: This HDL assay may give artificially low results in patients with liver disease. Blood Venous blood specimen / Unknown 07/03/2024 2:20 PM EDT 07/03/2024 4:42 PM EDT Alona Hamilton MD LAB BLOOD ORDERABLES Final Result [facility] [address] [place] [phone] * Hepatitis C Antibody (12/01/2021 10:42 AM EDT) Hepatitis C Antibody Nonreactive Blood 12/01/2021 10:4 2 AM EDT Historical Provider POINT OF CARE TEST ENTER/ EDIT ORDERABLES Final Result * HIV AB/AG (12/01/2021 12:00 AM EDT) HIV AB/AG Nonreactive Nonreactive [facility] Comment: HIV-1 p24 Ag and/or HIV-1/HIV-2 Ab not detected. A test result that is nonreactive does not exclude the possibility of exposure to or infection with HIV-1 and/or HIV-2. Nonreactive results in this assay for individuals with prior exposure to HIV-1 and/or HIV-2 may be due to antigen and antibody levels that are below the limit of detection of this assay. The [employer] HIV Ag/Ab Combo assay result and supplemental assay results should be interpreted in conjunction with the patient's clinical presentation, history and other laboratory results. If the results are inconsistent with clinical evidence, additional testing is suggested to confirm the result. 12/01/2021 Alona Hamilton MD HISTORICAL/NON ORDERABLE L ABS Final Result [facility] [address] * HPV High Risk PCR (06/10/2021 12:00 AM EDT) Swab Cervical swab / Unknown us Historical Provider LAB MICROBIOLOGY - GENERA L ORDERABLES Final Result IMAGING * Pap Smear (05/03/2019 12:00 AM EDT) Swab Historical Provider LAB CYTOLOGY ORDERABLES F inal Result IMAGING from Last 3 Months or Most Recently Relevant to Health Maintenance Additional Health Concerns Active Problems Noted Date [...] 08/14/2025 Patient has chronic kidney disease 08/14/2025 Insurance [facility] C3 DENTAL-[facility] MEDICAID STAND ADULT Advance Directives Documents on File Type Date Recorded Patient Foreign Policy Officer Expl anation Advance Directives and Living Will 01/25/2024 Health Care Proxy 01/25/24 Care Teams Railroad Passenger Agent Relationship Specialty Start Date End Date Alona Hamilton MD [address] [place] [address] PCP - General Family Medicine 04/09/19 Amada Lamb PharmD [address] [place] [address] Pharmacist Internal Medicine 08/31/22 Luciana Drummond [address] [place] [phone] Ophthalmology 03/13/25 Sekou Patterson [address] [place] [phone] Dermatology 04/11/25 Yelena Bautista [address] [phone] Sleep Medicine 06/19/25 Dr. Edgar Jalloh [facility] Neurosurgery Neurosurgery 09/19/24 Demian BABB [facility] Orthopaedic Surgery 09/25/24 [facility] Sport and Spine 11/14/24 Alona Coyle, Pharm D [facility] Endocrinology [address] [place] [address] Endocrinology 11/14/24
--- OUTSIDE RECORDS SUMMARY | 2025-08-14 14:08 | XMS_ITS | Clinical Summary ---
Author Organization [facility] Address [address] [place] [address] Care Team Providers Care Gas Line Repairer Name Role Phone Unavailable Primary Care Provider [...] (Ages 21-65) 2002 Mammogram 2021 Influenza Vaccine 04/12/2025 COVID-19 Vaccine (1 - 2023-2 5 season) 2025 HPV Vaccines (No Doses Required) Completed Pneumococcal Vaccine: Pediat eula (0-5 Years) and At-Risk Patients (6 to 49 Years) Aged Out No longer eligible b ased on patient's age to complete this topic Insurance #[address] [place] [id number] AET[employer] HMO/POS [facility]
--- OUTSIDE RECORDS SUMMARY | 2025-08-14 14:08 | XMS_ITS | Encounter Summary ---
Author Organization [facility] Address [address] [place] [address] [address] [place] [address] Care Team Providers Care Steam Hoist Operator Name Role Phone Alona Hamilton MD Primary Care Provider +- [phone] Amada Lamb PharmD Unavailable [phone] Luciana Drummond Unavailable Unavailable Sekou Patterson Unavailable [phone] Yelena Bautista Unavailable Reason for Referral * Imaging (Routine) - Canceled Specialty Diagnoses / Procedures Referred By Contac t Referred To Contact Radiology Diagnoses Adnexal mass Procedures MRA Pelvis w/ and w/o Contrast Alona Hamilton MD [address] [place] [address] Phone: tel: fax: [facility] [address] [place] [phone] Phone: tel: fax: Referral ID Status Reason Start Date Expiration Date V isits Requested Visits Authorized [id number] Canceled 08/17/2024 08/17/2025 1 1 Encounter Details Date Type Department Care Team (Late st Contact Info) Description 08/17/2024 Orders Only [facility] [address] [place], [place] [phone] Alona Hamilton MD [address] [place] [address] Adnexal mass (Primary Dx) Social History Tobacco [...] documented as of this encounter Care Teams Steam Hoist Operator Relationship Specialty Start Date End Date Alona Hamilton MD [address] [place] [address] PCP - General Family Medicine 04/09/19 Amada Lamb PharmD [address] [place] [address] Pharmacist Internal Medicine 08/31/22 Luciana Drummond [address] [place] [address] Ophthalmology 03/13/25 Sekou Patterson [address] [phone] Dermatology 04/11/25 Yelena Bautista [address] [phone] Sleep Medicine 06/19/25 Dr. Edgar Jalloh [facility] Neurosurgery Neurosurgery 09/19/24 [facility] Orthopaedic Surgery 09/25/[address] [facility] Sport and Spine 11/14/24 [facility] Endocrinology [address] [place] [address] Endocrinology 11/14/24 documented as of this encounter
--- OUTSIDE RECORDS SUMMARY | 2025-08-14 14:08 | XMS_ITS | Encounter Summary ---
Author Organization [facility] Address [address] [facility] [address] [place] [address] Care Team Providers Care Creative Assistant Name Role Phone Alona Hamilton MD Primary Care Provider +- [phone] Amada Lamb PharmD Unavailable [phone] Luciana Drummond Unavailable Unavailable Sekou Patterson Unavailable [phone] Yelena Bautista Unavailable Reason for Visit * Reason Comments Med Refill Encounter Details Date Type Department Care Team (Late st Contact Info) Description 07/11/2025 Refill [facility] [address] [place], [place] [phone] Aniyah Adame DO [address] [place], [place] [phone] Mild persistent asthma without complication Social History Tobacco Use Types Packs/Day Years Used Date Smoking Tobacco: Never Passive Smoke Exposure: Never Smokeless Tobacco: Never Alcohol Use Standard Drinks/Week Comments Never 0 (1 standard drink = 0.6 oz pur e alcohol) Depression Answer Date Recorded Patient Health Questionnaire-9 Score 05/22/2025 Patient Health Questionnaire-9 Score 05/22/2025 Last PHQ-9: Questionnaire Data Not on [...] Blood Pressure 159/100(08/14 10:57 AM EST) No Subhashs-Margie Pembertonsa, PharmD Hemoglobin A1c < 7 Result Component 8.6( 3:39 PM EDT) No SubhashsAmada Stanton, PharmD documented as of this encounter Visit Diagnoses Diagnosis Mild persistent asthma without complication documented in this encounter Additional Health Concerns Assessment Noted Time PHQ-9 Depression Total Score: 9 05/22/20 25 3:35 PM EDT documented as of this encounter Care Teams Creative Assistant Relationship Specialty Start Date End Date Alona Hamilton MD [address] [place] [phone] PCP - General Family Medicine 04/09/19 Amada Lamb PharmD [address] [place] [address] Pharmacist Internal Medicine 08/31/22 Luciana Drummond [address] [place] [address] Ophthalmology 03/13/25 Sekou Patterson [address] [phone] Dermatology 04/11/25 Yelena Bautista [address] [phone] Sleep Medicine 06/19/25 Dr. Edgar Jalloh [facility] Neurosurgery Neurosurgery 09/19/24 Demian BABB [facility] Orthopaedic Surgery 09/25/24 [facility] Sport and Spine 11/14/24 Alona Coyle, Pharm D [facility] Endocrinology [address] [place] [address] Endocrinology 11/14/24 documented as of this encounter
== END 2025-08-14 11:39 | disposition home or self-care (01) ==
LOC: HO.HHCX 11:38
PROVIDERS: PCP Family Medicine
DX: M54.50 Low back pain, unspecified (principal)
CPT/HCPCS: 72110

== ENCOUNTER → 2025-08-14 11:42 | Outpatient (BNV) | payer MEDICAID, SELFPAY | PROVIDERS: PCP Family Medicine; Visit Provider Radiology Body Imaging | DX: M47.816 Spondylosis without myelopathy or radiculopathy, lumbar region (principal) | CPT/HCPCS: 72110 ==